=== PATIENT | male | born 1970 | race Caucasian/White ===

== ENCOUNTER 2023-04-27 13:57 | Observation (INO) ==
--- NOTE | 2023-04-27 14:00 | Emergency Department Note ---
Impression & Plan Depression, JAMI (acute kidney injury), Seizure disorder ED Provider Note NAME: KEN LOJA AGE: 52 SEX: M : 1970 ARRIVES VIA: Ambulance INFORMANT: Patient, ED PROVIDER(S): Aaron Rodriguez MD CHIEF COMPLAINT: Mental wellness concern MEDICAL DECISION MAKING: Patient was referred due to concern for mental wellness concern. Blood work was obtained. The patient was noted to have potentially CKD versus JAMI and given this concern with associated electrolyte abnormalities the decision was made to admit the patient inpatient with psychiatric consultation. An IV was ordered and cardiac monitoring was applied. Patient did receive some Diflucan for an intertriginous candidal rash. Blood work shows a normal white count H&H and platelet count. The patient's kidney function does show a creatinine of 2.6. Priors were less than 1. Patient's LFTs are grossly unremarkable with exception of mild elevation in alk phosphatase. TSH elevated but free T4 was normal. Salicylate Tylenol and alcohol negative. The patient was also noted to have hyponatremia. This was in relation to the patient describing that he had been a heavy drinker but stopped drinking approxi-3 weeks ago. Urine and serum osmolality was ordered in addition to urine electrolytes. I did speak with the on-call hospitalist service PAUL Mckinney and the patient was admitted by Dr. Frederick. Discussion w/ other healthcare providers: PAUL Mckinney and Dr. Frederick with the hospitalist service Prior /Outside records reviewed: I reviewed a prior discharge instruction patient transfer form from September 2018 and the patient did have associated mood disorder and suicidality the patient was transferred for inpatient treatment at that time Differential diagnosis: Mood disorder, infection, hypoglycemia, electrolyte abnormalities, dehydration, medication side effect among others were considered. Diagnostics, as interpreted by me: ECG: Normal sinus rhythm, rate of 90, normal intervals, normal axis no ST elevations, T wave inversion in V3. Cardiac monitoring: An order was placed for continuous cardiac monitoring. The monitor shows a rate of 88 with sinus rhythm. Patient was placed on pulse oximetry Medical decision rules: Suicide risk severity score Imaging studies: None HPI: Patient presents due to concern for making suicidal statements to his daughter. Patient states that he did have a plan to cut his wrists or to overdose on his medications. Patient does admit to thinking about harming himself. The patient denies any visual or auditory hallucinations. No reported falls or trauma. Patient does have a reported prior history of ulcerative colitis status post colectomy at he states was curative for this illness. PAST MEDICAL HISTORY: See Below PAST SURGICAL HISTORY: See Below SOCIAL HISTORY: See Below HOME MEDICATIONS: See Below ALLERGIES: See Below VITALS: See Below PHYSICAL EXAMINATION: GENERAL: NAD, non-toxic. EYE EXAM: Normal conjunctiva. PERRL, no anisocoria and EOM's grossly intact w/o pain. OROPHARYNX: Moist mucus membranes, grossly normal dentition. NECK: Supple, no nuchal rigidity, no adenopathy, non-tender. No signs of meningismus. FROM of the neck with good chin to chest and neck extension. No stridor. LUNGS: Clear to auscultation. Normal chest wall mechanics. HEART: NSR, no MRG. ABDOMEN: Abdomen soft, non-tender, no masses, no rebound or guarding. BACK: No CVA TTP. SKIN: No rashes and no bruising. UPPER EXTREMITIES: Upper extremities are grossly normal. LOWER EXTREMITIES: Grossly normal, no edema. NEURO EXAM: A&O x3, cranial nerves II-XII grossly intact, normal speech, moves all 4 extremities. Past Med/Surg History Medical History JAMI (acute kidney injury) Depression Seizure disorder Ulcerative colitis Surgical History No pertinent past surgical history Family History Other COPD (chronic obstructive pulmonary disease) Heart disease Social History Smoking Status: Current every day smoker Tobacco Type: Cigarettes Hx Alcohol Use: No Hx Substance Use: No Preferred Language: British Communication Ability: Effective .Net Architect Required: No Beliefs That Will Affect Care: None Current Living Situation: Alone Other Information That Helps Us Care for You: No Feels Safe at Home: Hesitant to Answer Safety Concerns: Feels Safe At This Time Assistive Devices: None Allergies Allergies Allergy/AdvReac Type Severity Reaction Status Date / Time tramadol AdvReac Intermediate seizure Verified 10/18/18 06:38 Home Meds Home Medications Medication Instructions Recorded Confirmed buspirone 5 mg tablet 5 mg PO TID 10/18/18 04/27/23 fluoxetine 40 mg capsule 40 mg PO QAM 10/18/18 04/27/23 lamotrigine 100 mg tablet 200 mg PO AMPM 10/18/18 04/27/23 lorazepam 1 mg tablet 1 mg PO TID 10/18/18 04/27/23 pantoprazole 40 mg tablet,delayed 40 mg PO QAM 10/18/18 04/27/23 release bupropion HCl 150 mg 24 hr tablet, 150 mg PO QAM 04/27/23 04/27/23 extended release fluoxetine 20 mg capsule 20 mg PO QAM 04/27/23 04/27/23 levetiracetam 1,000 mg tablet 1,000 mg PO AMPM 04/27/23 04/27/23 levetiracetam 250 mg tablet 250 mg PO AMPM 04/27/23 04/27/23 lisinopril 10 mg tablet 10 mg PO QAM 04/27/23 04/27/23 naltrexone 50 mg tablet 50 mg PO QAM 04/27/23 04/27/23 thiamine HCl (vitamin B1) 100 mg 100 mg PO QAM 04/27/23 04/27/23 tablet (Vitamin B-1) trazodone 50 mg tablet 50 mg PO HS 04/27/23 04/27/23 Results & Data (ED) Vital Signs Vital Signs - 24 hr 04/27/23 13:45 Temperature 36.9 C Temperature Source Oral Pulse Rate 118 H Respiratory Rate 20 Respiratory Effort / Characteristics Non-Labored Spontaneous Respiratory Depth Normal Blood Pressure 90/74 L Blood Pressure Mean 79 Pulse Oximetry 94 Oxygen Delivery Method Room Air Sepsis Recent Fever Within 48 Hours No Sepsis New/Unexplained Change in Mental Status No Sepsis Action Taken by Nursing No Action Required Home Medications Current Medication List: was personally reviewed by me Laboratory Data Attestation: I reviewed the patient's lab results. 04/28/23 04:22 04/28/23 04:22 Lab Results 04/27/23 04/27/23 04/27/23 Range/Units 15:28 15:28 15:28 WBC 7.18 (4.8-10.8) K/ul RBC 5.01 (4.70-6.10) M/uL Hgb 14.5 (14.0-18.0) g/dl Hct 42.3 (42.0-52.0) % MCV 84.4 (80.0-100.0) fL MCH 28.9 (25.0-34.0) pg MCHC 34.3 (32.0-36.0) g/dL RDW Std Deviation 46.6 H (36.4-46.3) fL RDW Coeff of Nadir 15.2 H (11.5-14.5) % Plt Count 178 (130-400) K/uL MPV 11.5 (9.4-12.4) fL Immature Gran % (Auto) 0.7 % Neut % (Auto) 70.2 % Lymph % (Auto) 17.3 % Harlan % (Auto) 9.6 % Eos % (Auto) 1.4 % Baso % (Auto) 0.8 % Neut # (Auto) 5.04 (1.40-6.50) K/uL Lymph # (Auto) 1.24 (1.20-3.40) K/uL Harlan # (Auto) 0.69 H (0.11-0.59) K/uL Eos # (Auto) 0.10 (0.00-0.50) K/uL Baso # (Auto) 0.06 (0.00-0.20) K/uL Immature Gran # (Auto) 0.05 (0.01-0.20) K/uL Sodium 132 L (136-145) mmol/L Potassium 4.3 (3.5-5.1) mmol/L Chloride 93 L (98-107) mmol/L Carbon Dioxide 23 (21-32) mmol/L Anion Gap 16 H (3-11) BUN 113 H (6-23) mg/dl Creatinine 2.64 H (0.6-1.4) mg/dl Est Cr Clr Drug Dosing 41.4 ml/min Est GFR ( Amer) 30.9 ml/min Est GFR (Non-Af Amer) 26.6 ml/min BUN/Creatinine Ratio 42.8 H (10-20) Glucose 121 H (70-99(Fasting)) mg/dl Osmolality (280-300) mOsm/kg Calcium 10.4 H (8.6-10.3) mg/dl Total Bilirubin 0.4 (0.2-1.0) mg/dl AST 17 (13-39) U/L ALT 8 (7-52) U/L Alkaline Phosphatase 162 H (34-104) U/L Total Protein 8.0 (6.0-8.3) gm/dl Albumin 4.2 (3.4-5.0) gm/dl Globulin 3.8 (2.5-4.0) gm/dl Albumin/Globulin Ratio 1.1 (0.9-2) TSH 5.240 H (0.300-4.500) uIu/ml Free T4 0.92 (0.61-1.60) ng/dl Urine Color Urine Appearance (Clear) Urine pH (4.5-7.5) Ur Specific [place] (1.000-1.030) Urine Protein (Negative) Urine Glucose (UA) (Negative) Urine Ketones (Negative) Urine Blood (Negative) Urine Nitrite (Negative) Urine Bilirubin (Negative) Urine Urobilinogen (Negative) Ur Leukocyte Esterase (Negative) Urine WBC (Auto) (0-5) /hpf Urine RBC (Auto) (0-4) /hpf U Hyaline Cast (Auto) (0-5) /lpf U Epithel Cells (Auto) (0-5) /lpf Urine Bacteria (Auto) (Negative) Urine Yeast Urine Osmolality (500-800) mOsm/kg Urine Sodium mmol/L Urine Potassium mmol/L Urine Chloride mmol/L Salicylates < 3.0 L (3.0-30) mg/dl Urine Opiates Screen (Neg) Ur Methadone, Qual (Neg) Acetaminophen < 3 L (10-30) ug/ml Urine Barbiturates (Neg) Ur Phencyclidine (PCP) (Neg) U Amphetamin/Meth Scrn (Neg) MDMA (Ecstasy) Screen (Neg) U Benzodiazepines Scrn (Neg) Ur Cocaine Metabolite (Neg) U Marijuana (THC) Screen (Neg) Ethyl Alcohol mg/dL (<10.0) mg/dl SARS-CoV-2, RNA, NAAT (NEGATIVE) 04/27/23 04/27/23 04/27/23 Range/Units 15:28 15:28 15:28 WBC (4.8-10.8) K/ul RBC (4.70-6.10) M/uL Hgb (14.0-18.0) g/dl Hct (42.0-52.0) % MCV (80.0-100.0) fL MCH (25.0-34.0) pg MCHC (32.0-36.0) g/dL RDW Std Deviation (36.4-46.3) fL RDW Coeff of Nadir (11.5-14.5) % Plt Count (130-400) K/uL MPV (9.4-12.4) fL Immature Gran % (Auto) % Neut % (Auto) % Lymph % (Auto) % Harlan % (Auto) % Eos % (Auto) % Baso % (Auto) % Neut # (Auto) (1.40-6.50) K/uL Lymph # (Auto) (1.20-3.40) K/uL Harlan # (Auto) (0.11-0.59) K/uL Eos # (Auto) (0.00-0.50) K/uL Baso # (Auto) (0.00-0.20) K/uL Immature Gran # (Auto) (0.01-0.20) K/uL Sodium (136-145) mmol/L Potassium (3.5-5.1) mmol/L Chloride (98-107) mmol/L Carbon Dioxide (21-32) mmol/L Anion Gap (3-11) BUN (6-23) mg/dl Creatinine (0.6-1.4) mg/dl Est Cr Clr Drug Dosing ml/min Est GFR ( Amer) ml/min Est GFR (Non-Af Amer) ml/min BUN/Creatinine Ratio (10-20) Glucose (70-99(Fasting)) mg/dl Osmolality 326 H (280-300) mOsm/kg Calcium (8.6-10.3) mg/dl Total Bilirubin (0.2-1.0) mg/dl AST (13-39) U/L ALT (7-52) U/L Alkaline Phosphatase (34-104) U/L Total Protein (6.0-8.3) gm/dl Albumin (3.4-5.0) gm/dl Globulin (2.5-4.0) gm/dl Albumin/Globulin Ratio (0.9-2) TSH (0.300-4.500) uIu/ml Free T4 (0.61-1.60) ng/dl Urine Color Urine Appearance (Clear) Urine pH (4.5-7.5) Ur Specific [place] (1.000-1.030) Urine Protein (Negative) Urine Glucose (UA) (Negative) Urine Ketones (Negative) Urine Blood (Negative) Urine Nitrite (Negative) Urine Bilirubin (Negative) Urine Urobilinogen (Negative) Ur Leukocyte Esterase (Negative) Urine WBC (Auto) (0-5) /hpf Urine RBC (Auto) (0-4) /hpf U Hyaline Cast (Auto) (0-5) /lpf U Epithel Cells (Auto) (0-5) /lpf Urine Bacteria (Auto) (Negative) Urine Yeast Urine Osmolality (500-800) mOsm/kg Urine Sodium mmol/L Urine Potassium mmol/L Urine Chloride mmol/L Salicylates (3.0-30) mg/dl Urine Opiates Screen (Neg) Ur Methadone, Qual (Neg) Acetaminophen (10-30) ug/ml Urine Barbiturates (Neg) Ur Phencyclidine (PCP) (Neg) U Amphetamin/Meth Scrn (Neg) MDMA (Ecstasy) Screen (Neg) U Benzodiazepines Scrn (Neg) Ur Cocaine Metabolite (Neg) U Marijuana (THC) Screen (Neg) Ethyl Alcohol mg/dL < 10.0 (<10.0) mg/dl SARS-CoV-2, RNA, NAAT NEGATIVE (NEGATIVE) 04/27/23 04/27/23 04/27/23 Range/Units 16:28 16:28 16:28 WBC (4.8-10.8) K/ul RBC (4.70-6.10) M/uL Hgb (14.0-18.0) g/dl Hct (42.0-52.0) % MCV (80.0-100.0) fL MCH (25.0-34.0) pg MCHC (32.0-36.0) g/dL RDW Std Deviation (36.4-46.3) fL RDW Coeff of Nadir (11.5-14.5) % Plt Count (130-400) K/uL MPV (9.4-12.4) fL Immature Gran % (Auto) % Neut % (Auto) % Lymph % (Auto) % [place] % (Auto) % Eos % (Auto) % Baso % (Auto) % Neut # (Auto) (1.40-6.50) K/uL Lymph # (Auto) (1.20-3.40) K/uL [place] # (Auto) (0.11-0.59) K/uL Eos # (Auto) (0.00-0.50) K/uL Baso # (Auto) (0.00-0.20) K/uL Immature Gran # (Auto) (0.01-0.20) K/uL Sodium (136-145) mmol/L Potassium (3.5-5.1) mmol/L Chloride (98-107) mmol/L Carbon Dioxide (21-32) mmol/L Anion Gap (3-11) BUN (6-23) mg/dl Creatinine (0.6-1.4) mg/dl Est Cr Clr Drug Dosing ml/min Est GFR ( Amer) ml/min Est GFR (Non-Af Amer) ml/min BUN/Creatinine Ratio (10-20) Glucose (70-99(Fasting)) mg/dl Osmolality (280-300) mOsm/kg Calcium (8.6-10.3) mg/dl Total Bilirubin (0.2-1.0) mg/dl AST (13-39) U/L ALT (7-52) U/L Alkaline Phosphatase (34-104) U/L Total Protein (6.0-8.3) gm/dl Albumin (3.4-5.0) gm/dl Globulin (2.5-4.0) gm/dl Albumin/Globulin Ratio (0.9-2) TSH (0.300-4.500) uIu/ml Free T4 (0.61-1.60) ng/dl Urine Color Yellow Urine Appearance Clear (Clear) Urine pH 5.5 (4.5-7.5) Ur Specific [place] 1.017 (1.000-1.030) Urine Protein Trace H (Negative) Urine Glucose (UA) Negative (Negative) Urine Ketones 1+ H (Negative) Urine Blood 1+ H (Negative) Urine Nitrite Negative (Negative) Urine Bilirubin Negative (Negative) Urine Urobilinogen Negative (Negative) Ur Leukocyte Esterase 2+ H (Negative) Urine WBC (Auto) 1-5 (0-5) /hpf Urine RBC (Auto) 0-4 (0-4) /hpf U Hyaline Cast (Auto) 0 (0-5) /lpf U Epithel Cells (Auto) 10-20 H (0-5) /lpf Urine Bacteria (Auto) 1+ H (Negative) Urine Yeast Not Reportable Urine Osmolality 487 L (500-800) mOsm/kg Urine Sodium mmol/L Urine Potassium mmol/L Urine Chloride mmol/L Salicylates (3.0-30) mg/dl Urine Opiates Screen Neg (Neg) Ur Methadone, Qual Neg (Neg) Acetaminophen (10-30) ug/ml Urine Barbiturates Neg (Neg) Ur Phencyclidine (PCP) Neg (Neg) U Amphetamin/Meth Scrn Neg (Neg) MDMA (Ecstasy) Screen Pos H (Neg) U Benzodiazepines Scrn Neg (Neg) Ur Cocaine Metabolite Neg (Neg) U Marijuana (THC) Screen Neg (Neg) Ethyl Alcohol mg/dL (<10.0) mg/dl SARS-CoV-2, RNA, NAAT (NEGATIVE) 04/27/23 Range/Units 16:28 WBC (4.8-10.8) K/ul RBC (4.70-6.10) M/uL Hgb (14.0-18.0) g/dl Hct (42.0-52.0) % MCV (80.0-100.0) fL MCH (25.0-34.0) pg MCHC (32.0-36.0) g/dL RDW Std Deviation (36.4-46.3) fL RDW Coeff of Nadir (11.5-14.5) % Plt Count (130-400) K/uL MPV (9.4-12.4) fL Immature Gran % (Auto) % Neut % (Auto) % Lymph % (Auto) % [place] % (Auto) % Eos % (Auto) % Baso % (Auto) % Neut # (Auto) (1.40-6.50) K/uL Lymph # (Auto) (1.20-3.40) K/uL [place] # (Auto) (0.11-0.59) K/uL Eos # (Auto) (0.00-0.50) K/uL Baso # (Auto) (0.00-0.20) K/uL Immature Gran # (Auto) (0.01-0.20) K/uL Sodium (136-145) mmol/L Potassium (3.5-5.1) mmol/L Chloride (98-107) mmol/L Carbon Dioxide (21-32) mmol/L Anion Gap (3-11) BUN (6-23) mg/dl Creatinine (0.6-1.4) mg/dl Est Cr Clr Drug Dosing ml/min Est GFR ( Amer) ml/min Est GFR (Non-Af Amer) ml/min BUN/Creatinine Ratio (10-20) Glucose (70-99(Fasting)) mg/dl Osmolality (280-300) mOsm/kg Calcium (8.6-10.3) mg/dl Total Bilirubin (0.2-1.0) mg/dl AST (13-39) U/L ALT (7-52) U/L Alkaline Phosphatase (34-104) U/L Total Protein (6.0-8.3) gm/dl Albumin (3.4-5.0) gm/dl Globulin (2.5-4.0) gm/dl Albumin/Globulin Ratio (0.9-2) TSH (0.300-4.500) uIu/ml Free T4 (0.61-1.60) ng/dl Urine Color Urine Appearance (Clear) Urine pH (4.5-7.5) Ur Specific [place] (1.000-1.030) Urine Protein (Negative) Urine Glucose (UA) (Negative) Urine Ketones (Negative) Urine Blood (Negative) Urine Nitrite (Negative) Urine Bilirubin (Negative) Urine Urobilinogen (Negative) Ur Leukocyte Esterase (Negative) Urine WBC (Auto) (0-5) /hpf Urine RBC (Auto) (0-4) /hpf U Hyaline Cast (Auto) (0-5) /lpf U Epithel Cells (Auto) (0-5) /lpf Urine Bacteria (Auto) (Negative) Urine Yeast Urine Osmolality (500-800) mOsm/kg Urine Sodium 10 mmol/L Urine Potassium 9.9 mmol/L Urine Chloride < 15 mmol/L Salicylates (3.0-30) mg/dl Urine Opiates Screen (Neg) Ur Methadone, Qual (Neg) Acetaminophen (10-30) ug/ml Urine Barbiturates (Neg) Ur Phencyclidine (PCP) (Neg) U Amphetamin/Meth Scrn (Neg) MDMA (Ecstasy) Screen (Neg) U Benzodiazepines Scrn (Neg) Ur Cocaine Metabolite (Neg) U Marijuana (THC) Screen (Neg) Ethyl Alcohol mg/dL (<10.0) mg/dl SARS-CoV-2, RNA, NAAT (NEGATIVE) Administered Medications Enoxaparin Sodium (Enoxaparin Inj 40 Mg/0.4 Ml Syr) 40 mg SQ QAM ADI Stop: 05/28/23 08:59 Last Admin: 04/28/23 08:47 Dose: 40 mg Documented By: OL Fluoxetine HCl (Fluoxetine Hcl 20 Mg Cap) 40 mg PO QAM ADI Stop: 05/28/23 08:59 Last Admin: 04/28/23 08:47 Dose: 40 mg Documented By: OL Fluoxetine HCl (Fluoxetine Hcl 20 Mg Cap) 20 mg PO QAM ADI Stop: 05/28/23 08:59 Last Admin: 04/28/23 08:47 Dose: 20 mg Documented By: OL Sodium Chloride (Nss) 1,000 mls @ 100 mls/hr IV .Q10H ADI Stop: 04/29/23 00:59 Last Admin: 04/28/23 15:09 Dose: 100 mls/hr Documented By: Infusion: 04/28/23 14:39 Dose: 100 mls/hr Documented By: Admin: 04/28/23 04:39 Dose: 100 mls/hr Documented By: Infusion: 04/28/23 04:37 Dose: 100 mls/hr Documented By: dye weigher: 04/27/23 18:37 Dose: 100 mls/hr Documented By: ANG Thiamine HCl 100 mg/ Syringe 10 mls @ 2 mls/min IV QAM ADI Stop: 05/28/23 08:59 Last Admin: 04/28/23 09:41 Dose: 2 mls/min Documented By: OL Folic Acid 1 mg/ Syringe 10 mls @ 5 mls/min IV QAM ADI Stop: 05/28/23 08:59 Last Admin: 04/28/23 09:41 Dose: 5 mls/min Documented By: OL Lactobacillus Acidophilus (Advanced Probiotic 1250 Mg Capsule) 2 cap PO DAILY ADI Stop: 05/28/23 15:14 Last Admin: 04/28/23 16:44 Dose: 2 cap Documented By: MT Levetiracetam (Levetiracetam 250 Mg Tab) 250 mg PO BID ADI Stop: 05/27/23 20:59 Last Admin: 04/28/23 09:40 Dose: 250 mg Documented By: Admin: 04/27/23 21:35 Dose: 250 mg Documented By: GILDA Levetiracetam (Levetiracetam 500 Mg Tab) 1,000 mg PO BID ADI Stop: 05/27/23 20:59 Last Admin: 04/28/23 08:46 Dose: 1,000 mg Documented By: Admin: 04/27/23 21:35 Dose: 1,000 mg Documented By: GILDA Lorazepam (Lorazepam 1 Mg Tab) 2 mg PO UD PRN; Protocol PRN Reason: EtOH Withdrawal AWSS Score 8,9 Stop: 05/28/23 17:19 Last Admin: 04/28/23 17:40 Dose: 2 mg Documented By: RIAN Naltrexone HCl (Naltrexone Hcl 50 Mg Tab) 50 mg PO QAM [facility] Stop: 05/28/23 15:14 Last Admin: 04/28/23 16:44 Dose: 50 mg Documented By: RIAN Pantoprazole Sodium (Pantoprazole 40 Mg Tab) 40 mg PO QAM [facility] Stop: 05/28/23 08:59 Last Admin: 04/28/23 09:03 Dose: 40 mg Documented By: KAYE Discontinued Medications Fluconazole (Fluconazole 50 Mg Tab) 150 mg PO NOW ONE Stop: 04/27/23 14:44 Last Admin: 04/27/23 16:11 Dose: 150 mg Documented By: RACHEL Sodium Chloride (Nss) 1,000 mls @ 999 mls/hr IV .Q1H1M ONE Stop: 04/27/23 17:50 Last Infusion: 04/27/23 18:38 Dose: 0 mls/hr Documented By: Admin: 04/27/23 17:23 Dose: 999 mls/hr Documented By: EDITH Thiamine HCl 100 mg/ Syringe 10 mls @ 2 mls/min IV 1745 ONE Stop: 04/27/23 17:49 Last Admin: 04/27/23 17:46 Dose: 2 mls/min Documented By: RACHEL Folic Acid 1 mg/ Syringe 10 mls @ 5 mls/min IV 1745 ONE Stop: 04/27/23 17:46 Last Admin: 04/27/23 17:46 Dose: 5 mls/min Documented By: RACHEL Magnesium Sulfate/Dextrose (Magnesium Sulfate / D5w) 1 gm in 100 mls @ 50 mls /hr IV Q2H ADI Stop: 04/28/23 12:14 Last Infusion: 04/28/23 14:02 Dose: 0 mls/hr Documented By: Admin: 04/28/23 11:57 Dose: 50 mls/hr Documented By: Infusion: 04/28/23 11:41 Dose: 50 mls/hr Documented By: Admin: 04/28/23 09:41 Dose: 50 mls/hr Documented By: KAYE Ceftriaxone Sodium 2,000 mg/ (Dextrose) 70 mls @ 100 mls/hr IV DAILY ADI; Protocol Stop: 05/03/23 08:59 Last Infusion: 04/28/23 09:47 Dose: 0 mls/hr Documented By: Admin: 04/28/23 08:46 Dose: 100 mls/hr Documented By: KAYE Discharge Plan Visit Data Chief Complaint: Mental Health Evaluation ED Provider: Aaron Rodriguez Discharge Problem: Depression, JAMI (acute kidney injury), Seizure disorder Discharge Instructions Interventions: ED Discharge Assessment Last Done: 04/27/23 19:34
[2023-04-27] MEDS ORDERED: FLUCONAZOLE 50 MG TAB PO ONE (14:43)
[2023-04-27 15:50] LABS: Basophils # (auto) 0.06 K/uL (0.00-0.20); Basophils % (auto) 0.8 %; Eosinophils % (auto) 1.4 %; Hematocrit (blood only) 42.3 % (42.0-52.0); Hemoglobin 14.5 g/dl (14.0-18.0); Immature Granulocytes # (auto) 0.05 K/uL (0.01-0.20); Immature Granulocytes % (auto) 0.7 %; Lymphocytes # (auto) 1.24 K/uL (1.20-3.40); Lymphocytes % (auto) 17.3 %; Mean Corpuscular Hemoglobin 28.9 pg (25.0-34.0); Mean Corpuscular Hgb Conc 34.3 g/dL (32.0-36.0); Mean Corpuscular Volume 84.4 fL (80.0-100.0); Mean Platelet Volume 11.5 fL (9.4-12.4); Monocytes # (auto) 0.69 K/uL (0.11-0.59); Monocytes % (auto) 9.6 %; Neutrophils # (auto) 5.04 K/uL (1.40-6.50); Neutrophils % (auto) 70.2 %; Platelet Count 178 K/uL (130-400); RDW Coefficient of Variation 15.2 % (11.5-14.5); RDW Standard Deviation 46.6 fL (36.4-46.3); Red Blood Count 5.01 M/uL (4.70-6.10); White Blood Count 7.18 K/ul (4.8-10.8)
[2023-04-27 16:05] LABS: Acetaminophen < 3 ug/ml (10-30); Albumin Globulin Ratio 1.1 (0.9-2); Albumin Level 4.2 gm/dl (3.4-5.0); BUN Creatinine Ratio 42.8 (10-20); Bilirubin,Total 0.4 mg/dl (0.2-1.0); Calcium 10.4 mg/dl (8.6-10.3); Creatinine Clr Calc Pharmacy 41.4 ml/min; Est GFR (African American) 30.9 ml/min; Est GFR (Non-African American) 26.6 ml/min; Globulin 3.8 gm/dl (2.5-4.0); Potassium 4.3 mmol/L (3.5-5.1); Salicylate < 3.0 mg/dl (3.0-30)
[2023-04-27 16:19] LABS: Thyroid Stimulating Hormone 5.24 uIu/ml (0.300-4.500)
[2023-04-27 16:41] LABS: Appearance Urine Clear (Clear); Bilirubin Urine Negative (Negative); Blood Urine 1+ (Negative); Cast Urine Automated 0 /lpf (0-5); Color Urine Yellow; Glucose Urine UA Negative (Negative); Ketones Urine 1+ (Negative); Leukocyte Esterase Urine 2+ (Negative); Nitrite Urine Negative (Negative); Protein Urine Trace (Negative); RBC Urine Automated 0-4 /hpf (0-4); Specific Gravity Urine 1.017 (1.000-1.030); Urobilinogen Urine Negative (Negative); pH Urine 5.5 (4.5-7.5)
[2023-04-27] MEDS ORDERED: SODIUM CHLORIDE 0.9% 1,000 ML IV ONE (16:50)
[2023-04-27] MEDS ORDERED: MAGNESIUM HYDROXIDE SUSP 30 ML UDC PO PRN (16:51)
[2023-04-27] MEDS ORDERED: POLYETHYLENE (MIRALAX) 17 GM PACK PO PRN (16:51)
[2023-04-27] MEDS ORDERED: ALUMINUM/MAGNESIUM SUSP 30 ML UDC PO PRN (16:51)
[2023-04-27 16:54] LABS: Bacteria Urine Automated 1+ (Negative)
--- NOTE | 2023-04-27 16:59 | History & Physical Report ---
Date of Service April 27, 2023 Assessment & Plan (1) Seizure disorder: (2) Alcohol abuse: (3) Mood disorder: (4) Suicidal ideation: (5) Depression: (6) JAMI (acute kidney injury): Plan Mr. Hernandez is an unfortunate 52 year old male that arrived to the ED via EMS after he was making suicidal statements to his daughter. He is unkempt and disheveled and admitted to having a suicidal plan by cutting his wrists. He states that he has felt this way for about a week. Has a PMH that includes HTN and seizure disorder. Does not follow with any Neurologist. Has an additional PMH includes Ulcerative colitis s/p total colectomy in the early . Does not follow with any specific PCP at this time. No leukocytosis, BUN 113 and creatinine 2.64; likely secondary to dehydration and poor PO intake, TSH elevated 5.240. UDS and UA pending. Hemodynamically stable and on RA. Denies bipolar or schizophrenia mental history; only depression and anxiety. Would benefit from OOA involvement as he does live alone. Ultimately, a mentally unwell individual with poor coping mechanisms and history and current SI. Admits to feelings of harming himself over the past week. No significant event occurred over the past week that he can specifically recall. Reports drinking 1 L of alcohol daily up until a few weeks ago. Reports his last drink was a few weeks ago. Denies visual and auditory hallucinations. Patient also with JAMI; Will provide fluid resuscitation and trend BMP. If no improvement consider Nephro consultation. Will place on 1:1 observation.Will restart Prozac and Keppra and await Psychiatric recommendations. Suicidal Ideation: Has been on compliant with psych meds x1 week He has a history of suicidal ideation [place] Suicide Risk Severity Score: -Have you actually had thoughts of killing yourself: yes -Have you been thinking about how you might do this: Yes -Have you had these thoughts and had some intention of acting on them: Yes -Have you started to work out details of how to kill yourself? Do you intend to carry out this plan? No -Have you done anything, started to do anything, or prepared to do anything to end your life: No He reports that he does not have guns in his home. Psychiatric consultation for suicidal ideation and anxiety JAMI: likely secondary to dehydration creatinine 2.64, BUN 113. Unknown baseline documented 1 LNSB administered in ED; will continue 0.9% NS @ 100mL/hour. trend BMP in AM; if no improvement consider Nephrology consultation H/O Alcohol abuse: Last drink a few weeks ago AWSS scale with Thiamine and Folic Acid ordered daily Intake approximately 1 L vodka per day. Takes naltrexone; hold for now Mood Disorder: Has been on compliant with psych meds x1 week Takes Buspar, lorazepam, and Trazaone; hold for now as patient non-complaint Takes Fluoxetine; continue Await Psych reccs for further medication treatment H/O Seizure disorder: Chronic stable Takes Lamictal; hold until Lamictal levels return results Takes Keppra; continue for now Unclear if he takes these for seizure or mood disorder HTN: chronic stable Takes Lisinopril; hold secondary to JAMI H/O Ulcerative Colitis: chronic stable S/P total colectomy in early GERD: chronic stable Takes Pantoprazole; continue Disposition: PCP: None Code Status: Full Code VTE Prophylaxis: Lovenox SQ I spent a total of 87 minutes coordinating, documenting, and providing care for this patient excluding time spent in the performance of separately billed services. All of the aforementioned completed while collaborating with the assigned attending physician for a full treatment plan. Please see their addendum for further details. History of Present Illness Chief Complaint: suicidal ideation Primary Care Provider: NO PCP Mr. Hernandez is an unfortunate 52 year old male that arrived to the ED via EMS after he was making suicidal statements to his daughter. He is unkempt and disheveled and admitted to having a suicidal plan by cutting his wrists. He states that he has felt this way for about a week. Has a PMH that includes HTN and seizure disorder. Does not follow with any Neurologist. Has an additional PMH includes Ulcerative colitis s/p total colectomy in the early . Does not follow with any specific PCP at this time. No leukocytosis, BUN 113 and creatinine 2.64; likely secondary to dehydration and poor PO intake, TSH elevated 5.240. UDS and UA pending. Hemodynamically stable and on RA. Would benefit from OOA involvement as he does live alone. [place] Suicide Severity Rating Scale (C-SSRS); -Have you actually had thoughts of killing yourself: yes -Have you been thinking about how you might do this: Yes -Have you had these thoughts and had some intention of acting on them: Yes -Have you started to work out details of how to kill yourself? Do you intend to carry out this plan? No -Have you done anything, started to do anything, or prepared to do anything to end your life: No He reports that he does not have guns in his home. He has a history of suicidal ideation and has Psychiatric consultation for suicidal ideation and anxiety Ultimately, a mentally unwell individual with poor coping mechanisms and history and current SI. Admits to feelings of harming himself over the past week. No significant event ocurred over the past week that he can specifically recall. Reports drinking 1 L of alcohol daily up until a few weeks ago. Reports his last drink was a few weeks ago. Denies visual and auditory hallucinations. Will provide fluid resuscitation and restart Prozac and Keppra. Will place on 1:1 observation and await Psychiatric recommendations. Patient will be admitted for further evaluation and management. Please see A/P for further details. Allergies Allergy/AdvReac Type Severity Reaction Status Date / Time tramadol AdvReac Intermediate seizure Verified 10/18/18 06:38 Home Medications Medication Instructions Recorded Confirmed Type buspirone 5 mg tablet 5 mg PO TID 10/18/18 04/27/23 History fluoxetine 40 mg capsule 40 mg PO QAM 10/18/18 04/27/23 History lamotrigine 100 mg tablet 200 mg PO AMPM 10/18/18 04/27/23 History lorazepam 1 mg tablet 1 mg PO TID 10/18/18 04/27/23 History pantoprazole 40 mg tablet,delayed 40 mg PO QAM 10/18/18 04/27/23 History release bupropion HCl 150 mg 24 hr tablet, 150 mg PO QAM 04/27/23 04/27/23 History extended release fluoxetine 20 mg capsule 20 mg PO QAM 04/27/23 04/27/23 History levetiracetam 1,000 mg tablet 1,000 mg PO AMPM 04/27/23 04/27/23 History levetiracetam 250 mg tablet 250 mg PO AMPM 04/27/23 04/27/23 History lisinopril 10 mg tablet 10 mg PO QAM 04/27/23 04/27/23 History naltrexone 50 mg tablet 50 mg PO QAM 04/27/23 04/27/23 History thiamine HCl (vitamin B1) 100 mg 100 mg PO QAM 04/27/23 04/27/23 History tablet (Vitamin B-1) trazodone 50 mg tablet 50 mg PO HS 04/27/23 04/27/23 History Past Med/Surg History Medical History (Updated 04/27/23 @ 19:08 by PAUL Jordan) JAMI (acute kidney injury) Depression Seizure disorder Ulcerative colitis Surgical History (Updated 04/27/23 @ 18:31 by PAUL Jordan) No pertinent past surgical history Family History (Updated 04/27/23 @ 18:32 by PAUL Jordan) Other COPD (chronic obstructive pulmonary disease) Heart disease Social History Smoking Status: Unknown if ever smoked Feels Safe at Home: Yes Review of Systems Review of Systems: Neuro: (-) Falls, trauma, slurred speech HEENT: (-) BEN[place], dizziness, dysphagia, visual or auditory changes CV: (-) CP, palpitations, swelling Resp: (-) SOB GI: (-) appetite changes, N/V/D, bowel changes : (-) urinary changes Skin: (-) rashes Psych: (+) anxiety, depression Physical Exam Physical Exam: See Dr. Esquivel's addendum for physical examination Results & Data Results & Data Vital Signs (Past 12 Hours) Vital Signs Temp Pulse Pulse Resp BP BP Pulse Ox 04/27/23 16:00 87 14 113/64 96 04/27/23 13:45 36.9 C 118 H 20 90/74 L 94 O2 Del Method 04/27/23 16:00 Room Air 04/27/23 13:45 Room Air Laboratory Results Short CBC 04/27/23 Range/Units 15:28 WBC 7.18 (4.8-10.8) K/ul Hgb 14.5 (14.0-18.0) g/dl Hct 42.3 (42.0-52.0) % Plt Count 178 (130-400) K/uL BMP 04/27/23 15:28 Sodium 132 L Potassium 4.3 Chloride 93 L Carbon Dioxide 23 BUN 113 H Creatinine 2.64 H Glucose 121 H Calcium 10.4 H Liver Function 04/27/23 Range/Units 15:28 Total Bilirubin 0.4 (0.2-1.0) mg/dl AST 17 (13-39) U/L ALT 8 (7-52) U/L Alkaline Phosphatase 162 H (34-104) U/L Albumin 4.2 (3.4-5.0) gm/dl Urine 04/27/23 Range/Units 16:28 Urine Color Yellow Urine Appearance Clear (Clear) Urine pH 5.5 (4.5-7.5) Ur Specific [place] 1.017 (1.000-1.030) Urine Protein Trace H (Negative) Urine Glucose (UA) Negative (Negative) Code Status & VTE Plan Code Status Full Code in the event of cardiac or respiratory arrest VTE Prophylaxis Plan VTE Prophylaxis will be ordered: Yes Supervising Physician Co-Signing Physician Notes Pt is a 52 y/o M with hx of UC s/p total colectomy, Post traumatic seizure, depr ession, prior hx of SI, Alcohol abuse admitted for SI and found to have JAMI. PE: Flat affect Lungs: CTA, no wheezing or crackles Cardiac: Normal S1/S2, no murmur Abd: ND, NT, soft MSk: no LE edema and no noticeable tremors Psych: AAOx3 A/P: JAMI with hypoNa+: -likely 2/2 decrease PO intake + excess ETOH use - per pt he last drank ETOH 2 weeks ago ---- however will put pt on withdrawal protocol -pt is sched to receive IVF 1L ----- will monitor BMP -urine lytes, OSM and serum OSm Sent - nephro consult if the JAMI and hypoNa+ persist Depression with SI: -pt has not been taking any of his meds -will restart Prozac for now -psych consult -one to one Hx of Seizure: -no recent seizure episode -will restart keppra 1000mg BID other chronic conditions: plan as above Agree with A/P by PAUL Houston
[2023-04-27 17:04] LABS: T4 Free Thyroxine 0.92 ng/dl (0.61-1.60)
[2023-04-27 17:09] LABS: Amphetamines+Metham, Urine Neg (Neg); Barbiturates, Urine Neg (Neg); Benzodiazepine, Urine Neg (Neg); Cocaine, Urine Neg (Neg); MDMA (Ecstacy), Urine Pos (Neg); Marijuana, Urine Neg (Neg); Methadone, Urine Neg (Neg); Opiate, Urine Neg (Neg); Phencyclidine, Urine Neg (Neg)
[2023-04-27 17:15] LABS: Urine Chloride < 15 mmol/L; Urine Potassium 9.9 mmol/L; Urine Sodium 10 mmol/L
[2023-04-27] MEDS ORDERED: FOLIC ACID 1 MG in SYRINGE 9.8 ML IV ONE (17:45)
[2023-04-27] MEDS ORDERED: THIAMINE HCL 100 MG in SYRINGE 9 ML IV ONE (17:45)
[2023-04-27] MEDS: SODIUM CHLORIDE 0.9% 1,000 ML IV SCH (18:37)
[2023-04-27] MEDS: levETIRAcetam 500 MG TAB PO SCH (21:35)
[2023-04-27] MEDS: levETIRAcetam 250 MG TAB PO SCH (21:35)
[2023-04-28] MEDS: SODIUM CHLORIDE 0.9% 1,000 ML IV SCH ×2 (04:39→15:09)
[2023-04-28 05:04] LABS: Albumin Globulin Ratio 1.1 (0.9-2); Albumin Level 3.8 gm/dl (3.4-5.0); BUN Creatinine Ratio 51.6 (10-20); Bilirubin,Total 0.3 mg/dl (0.2-1.0); Calcium 9.2 mg/dl (8.6-10.3); Est GFR (African American) 48.4 ml/min; Est GFR (Non-African American) 41.8 ml/min; Globulin 3.5 gm/dl (2.5-4.0); Magnesium 1.4 mg/dl (1.7-2.4); Phosphorus 2.7 mg/dl (2.5-4.9); Potassium 4.1 mmol/L (3.5-5.1); Total Protein 7.3 gm/dl (6.0-8.3)
[2023-04-28 05:06] LABS: Hematocrit (blood only) 39.5 % (42.0-52.0); Hemoglobin 13.5 g/dl (14.0-18.0); Mean Corpuscular Hemoglobin 29.2 pg (25.0-34.0); Mean Corpuscular Hgb Conc 34.2 g/dL (32.0-36.0); Mean Corpuscular Volume 85.3 fL (80.0-100.0); Mean Platelet Volume 11.4 fL (9.4-12.4); Platelet Count 160 K/uL (130-400); RDW Standard Deviation 46.5 fL (36.4-46.3); Red Blood Count 4.63 M/uL (4.70-6.10); White Blood Count 7.58 K/ul (4.8-10.8)
[2023-04-28] MEDS: levETIRAcetam 500 MG TAB PO SCH ×2 (08:46→20:47)
[2023-04-28] MEDS: FLUoxetine HCL 20 MG CAP PO SCH ×2 (08:47)
[2023-04-28] MEDS: ENOXAPARIN INJ 40 MG/0.4 ML SYR SQ SCH (08:47)
[2023-04-28] MEDS ORDERED: cefTRIAXone SODIUM 2,000 MG in DEXTROSE 5% 50 ML IV SCH (09:00)
[2023-04-28] MEDS: PANTOprazole 40 MG TAB PO SCH (09:03)
[2023-04-28] MEDS: levETIRAcetam 250 MG TAB PO SCH ×2 (09:40→20:48)
[2023-04-28] MEDS: MAGNESIUM SULFATE / D5W 1 GM/100 ML BAG IV SCH ×2 (09:41→11:57)
[2023-04-28] MEDS: THIAMINE HCL 100 MG in SYRINGE 9 ML IV SCH (09:41)
[2023-04-28] MEDS: FOLIC ACID 1 MG in SYRINGE 9.8 ML IV SCH (09:41)
--- NOTE | 2023-04-28 15:45 | Hospitalist Progress Note ---
Date of Service April 28, 2023 Assessment & Plan (1) Seizure disorder: (2) Alcohol abuse: (3) Mood disorder: (4) Suicidal ideation: (5) Depression: (6) JAMI (acute kidney injury): Plan Mr. Hernandez is a 52 yr old male that arrived to the ED via EMS after he was making suicidal statements to his daughter. He is unkempt and disheveled and admitted to having a suicidal plan by cutting his wrists. He states that he has felt this way for about a week. Has a PMH that includes HTN and seizure disorder. Does not follow with any Neurologist. Has an additional PMH includes Ulcerative colitis s/p total colectomy in the early . Does not follow with any specific PCP at this time. No leukocytosis, BUN 113 and creatinine 2.64; likely secondary to dehydration and poor PO intake, TSH elevated 5.240. UDS and UA pending. Hemodynamically stable and on RA. Denies bipolar or schizophrenia mental history; only depression and anxiety. Would benefit from OOA involvement as he does live alone. Ultimately, a mentally unwell individual with poor coping mechanisms and history and current SI. Admits to feelings of harming himself over the past week. No significant event occurred over the past week that he can specifically recall. Reports drinking 1 L of alcohol daily up until a few weeks ago. Reports his last drink was a few weeks ago. Denies visual and auditory hallucinations. 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 Continue naltrexone Monitor for withdrawal H/O Seizure disorder: Chronic stable Lamictal levels pending Continue Lamictal, Keppra HTN: Hold lisinopril secondary to JAMI Monitor BP H/O Ulcerative Colitis: chronic stable S/P total colectomy in early H/O incontinence as per patient Monitor electrolytes GERD: Continue PPI Code Status: Full Code DVT Px: Lovenox SQ CODE STATUS Full code Admission and Anticipated Discharge Date Admission Date: April 27, 2023 Subjective Patient is seen and examined at bedside States feeling depressed Reports chronic bowel, bladder incontinence Denies any nausea, vomiting, chest pain, dyspnea No other complaints Review of Systems Review of Systems: All systems reviewed & are unremarkable except as noted in Subjective Physical Exam Physical Exam: Physical Exam: Vitals signs as noted above General Appearance:Moderately built and nourished, no apparent distress Head: normocephalic, Atraumatic Eyes: normal inspection, EOMI Neck: supple, Trachea midline Respiratory/Chest: Normal breath sounds, CTA, No accessory muscle use Cardiovascular: S1, S2, No murmur Abdomen/GI:Soft, Non tender, Bowel sounds present, Protuberant Extremities/Musculoskeletal:normal inspection, no edema Neurologic/Psych:AAOX3, grossly no focal neurological deficits, +Flat Affect, depressed Skin: normal color, warm Results & Data Results & Data Vital Signs (Past 12 Hours) Vital Signs Pulse Pulse Resp BP BP Pulse Ox O2 Del Method 04/28/23 13:13 85 16 112/87 94 Room Air 04/28/23 13:00 82 16 112/87 95 Room Air 04/28/23 12:00 82 20 92/71 L 94 04/28/23 10:01 85 18 103/77 94 Room Air 04/28/23 09:50 88 18 97/71 L 97 Room Air 04/28/23 07:09 83 04/28/23 07:06 82 18 112/65 95 Room Air 04/28/23 06:14 85 20 112/65 94 Room Air Laboratory Results Short CBC 04/27/23 04/28/23 Range/Units 15:28 04:22 WBC 7.18 7.58 (4.8-10.8) K/ul Hgb 14.5 13.5 L (14.0-18.0) g/dl Hct 42.3 39.5 L (42.0-52.0) % Plt Count 178 160 (130-400) K/uL BMP 04/27/23 04/28/23 15:28 04:22 Sodium 132 L 131 L Potassium 4.3 4.1 Chloride 93 L 98 Carbon Dioxide 23 19 L BUN 113 H 94 H Creatinine 2.64 H 1.82 H D Glucose 121 H 111 H Calcium 10.4 H 9.2 Liver Function 04/27/23 04/28/23 Range/Units 15:28 04:22 Total Bilirubin 0.4 0.3 (0.2-1.0) mg/dl AST 17 17 (13-39) U/L ALT 8 8 (7-52) U/L Alkaline Phosphatase 162 H 158 H (34-104) U/L Albumin 4.2 3.8 (3.4-5.0) gm/dl Urine 04/27/23 Range/Units 16:28 Urine Color Yellow Urine Appearance Clear (Clear) Urine pH 5.5 (4.5-7.5) Ur Specific [place] 1.017 (1.000-1.030) Urine Protein Trace H (Negative) Urine Glucose (UA) Negative (Negative)
[2023-04-28] MEDS: ADVANCED PROBIOTIC 1250 MG CAPSULE PO SCH (16:44)
[2023-04-28] MEDS: NALTREXONE HCL 50 MG TAB PO SCH (16:44)
[2023-04-28] MEDS ORDERED: LORazepam 1 MG TAB PO PRN ×2 (17:20)
[2023-04-28] MEDS ORDERED: GABAPENTIN 1200MG ALCOHOL WITHDRAWAL LOAD PO STA (17:20)
[2023-04-28] MEDS ORDERED: Ativan PO Alcohol Withdrawal--Active Protocol PO PRN (17:20)
--- NOTE | 2023-04-28 17:23 | Communication Note ---
Date of Service: April 28, 2023 Informed by RN AWSS score was noted to be 10. Will hold naltrexone and start on gabapentin protocol.
[2023-04-28] MEDS ORDERED: GABAPENTIN 600 MG TAB PO ONE (17:30)
--- NOTE | 2023-04-28 18:03 | Psychiatric Consultation ---
Date of Consultation April 28, 2023 Impression / Recommendations Impression 52 y/o man with psychiatric history of depression and anxiety and severe alcohol use disorder who has a seizure disorder and is admitted for JAMI. He reportedly stopped drinking 1 liter/day of distilled spirits "a couple of weeks ago". He now presents with suicidal thoughts. His home medication list includes * once-daily immediate-release bupropion, which is nearly certain to be ineffective - this form should be given TID and the 12-hour slow-release "SR" formulation is usually ineffective if given only once a day. It is, though reasonably likely to precipitate or exacerbate anxiety. I'm uncertain what the rationale may be for use of this medication in a patient with a seizure disorder (though he's on anticonvulsants which should mitigate seizure risk) and anxiety. * He also takes buspirone at a low dose of 5 mg TID (and, realistically, few patients are able to take this consistently three times a day, so he may actually be taking even less). Typical effective adult doses are in the range of 30 - 90 mg/day with lower doses within that range being less likely to be effective unless taken TID. * He's prescribed a fairly high dose of lorazepam, 1 mg TID, about which I'm very concerned in someone who drinks as much as he does - this not only has significant interactions with alcohol but also significantly increases alcohol relapse risk and makes achieving abstinence more difficult. * His 60 mg/day fluoxetine dose falls within the 40 - 80 mg/day range that I think of as typically effective in adults, but I'm uncertain why he doesn't take 3 20 mg capsules - that would cost $10/month at [facility], while his regimen of 1 40 mg and 1 20 mg capsule would be $8/month and less convenient and more prone to medication errors. Although he reports having stopped alcohol recently, his intake prior to that was quite high with a consequent high risk of withdrawal. I note you've put him on a gabapentin taper, which seems very prudent. The positive MDMA screen is pretty likely to be a false-positive due to bupropion. Overall, it does appear likely that he will require psychiatric admission once he's medically stable. Overall I spent a total of 58 minutes for this consultation assessment including review of chart records, review of test results, direct evaluation of the patient [id number], risk assessment, discussion with the psychiatric liaison nurse, and documentation in the electronic health record. (1) Major depressive disorder, recurrent, severe without psychotic features: (2) Alcohol use disorder, severe, dependence: Plan Pt is currently voluntary for psychiatric admission. If, however, he insists on leaving before he's medically stable, please notify us so we can assess whether he at that time meets criteria for emergency involuntary admission. * I agree with your having stopped scheduled lorazepam, which I do not believe is a drug pt should use outside of clinical settings * I agree with your having stopped bupropion, which is unlikely to have been of any benefit and could contribute to symptoms * buspirone as prescribed at home was likely of no benefit, so there's no pressing need to resume it now * I strongly support the attention being paid to withdrawal risk despite pt's report of having stopped alcohol use weeks ago * there's no particular reason to hold naltrexone unless you plan to put pt on opioids - it doesn't interact with alcohol or precipitate withdrawal - nor, actually, is there any particular harm in his not taking it in the hospital Psych History Identifying Data KEN HERNANDEZ is a 52-year-old man with a history of depression, anxiety, severe alcohol use disorder, and seizure disorder, admitted on 04/27/2023 for JAMI. Consult is by the hospitalist service for "suicidal ideation". Chief Complaint Pt can barely be awakened. History of Present Illness As part of a thorough review of the available medical records, I have read and confirmed the following note by the ED physician: "The patient was noted to have potentially CKD versus JAMI and given this concern with associated electrolyte abnormalities the decision was made to admit the patient inpatient with psychiatric consultation. An IV was ordered and cardiac monitoring was applied. Patient did receive some Diflucan for an intertriginous candidal rash. Blood work shows a normal white count H&H and platelet count. The patient's kidney function does show a creatinine of 2.6. Priors were less than 1. Patient's LFTs are grossly unremarkable with exception of mild elevation in alk phosphatase. TSH elevated but free T4 was normal. Salicylate Tylenol and alcohol negative. The patient was also noted to have hyponatremia. This was in relation to the patient describing that he had been a heavy drinker but stopped drinking approxi-3 weeks ago. Urine and serum osmolality was ordered in addition to urine electrolytes. Patient presents due to concern for making suicidal statements to his daughter. Patient states that he did have a plan to cut his wrists or to overdose on his medications. Patient does admit to thinking about harming himself. The patient denies any visual or auditory hallucinations. No reported falls or trauma. Patient does have a reported prior history of ulcerative colitis status post colectomy at he states was curative for this illness." the following note by the hospitalist: "Mr. Hernandez is an unfortunate 52 year old male that arrived to the ED via EMS after he was making suicidal statements to his daughter. He is unkempt and disheveled and admitted to having a suicidal plan by cutting his wrists. He states that he has felt this way for about a week. Has a PMH that includes HTN and seizure disorder. Does not follow with any Neurologist. Has an additional PMH includes Ulcerative colitis s/p total colectomy in the early . Does not follow with any specific PCP at this time. No leukocytosis, BUN 113 and creatinine 2.64; likely secondary to dehydration and poor PO intake, TSH elevated 5.240. UDS and UA pending. Hemodynamically stable and on RA. Denies bipolar or schizophrenia mental history; only depression and anxiety. Would benefit from OOA involvement as he does live alone. Ultimately, a mentally unwell individual with poor coping mechanisms and history and current SI. Admits to feelings of harming himself over the past week. No significant event occurred over the past week that he can specifically recall. Reports drinking 1 L of alcohol daily up until a few weeks ago. Reports his last drink was a few weeks ago. Denies visual and auditory hallucinations. Patient also with JAMI; Will provide fluid resuscitation and trend BMP. If no improvement consider Nephro consultation. Will place on 1:1 observation.Will restart Prozac and Keppra and await Psychiatric recommendations." the following note by the ED psychiatric patient case coordinator: "Met with the patient to complete Brief and Suicide Risk Assessments. The patient reports he is having suicidal ideations with a plan to cut his wrist. He denies any recent stressors and denies current drug or alcohol use or access to weapons. He reports he last drank about 2 weeks ago and had been drinking fairly heavily prior to that. The patient reports he is seeking inpatient treatment and medical clearance was explained. Phone call received from Augustina with [facility] prior to the patients arrival. She reports the patient called [facility] with suicidal ideation with a plan to overdose. She reports the patient hasnt taken his m edications for the past 2 weeks and couldnt contract for safety until a roll on worker arrived at his residence, so he would be coming via EMS. Augustina reports the patients daughter Halie Hernandez ([phone]) would be willing to petition for a 302 if needed, but she is currently out of state." and the following note by the psychiatric liaison nurse: "Patient was cooperative but affect was flat and depressed. He was tremulous during the interaction and verbalized that he does not feel well. Patient has been experiencing suicidal ideations to cut his wrists for the past two weeks. The thoughts occur a few times a day and last for approximately an hour. He has had these thoughts today but does not have any means or intent. Patient verbalized that his suicidal thoughts started after he quit his psychiatric medications as well as drinking alcohol approximately 2 weeks ago. He quit drinking and taking his medications because he did not have anyone to take him to the store or pharmacy. Patient verbalized that he wants to stop drinking for good but he does not want to go to rehab. Patient reports that he has been a heavy drinker for years but the past few months it has been worse. He typically drinks a large bottle of vodka per day. Patient denies any current stressors but does report worsening depression after a TBI and divorce from his 10 years ago. The patient fell at work and experienced the head injury. Patient became suicidal after his divorce and cut his wrists. He was hospitalized in [place] for the attempt and felt that it was helpful for him. Patient feels that he will need inpatient psychiatric treatment once he his medically cleared. Patient's main support is his daughter Halie. ANDREI Michelle currently prescribes his psychiatric medications but he is unable to recall for sure what he takes. Patient denies access to any guns or weapons." Review of the medical record reveals a previous ED presentation in 2019 for s uicidal thoughts from which he was transferred to a psychiatric facility. Review of pertinent labs reveals they are hyponatremia, elevated anion gap, significantly elevated BUN and creatinine with high BUN/creatinine, hypomagnesemia, elevated alkaline phosphatase, elevated TSH and for [urine toxicology screen that was presumptively positive for metabolites of MDMA. BAL was <10 mg/dL. History obtained by colleagues supports that pt has been increasingly depressed and anxious recently. He'd reported having stopped 1 L/day liquor 2 weeks ago, but AWSS scores have been increasing and he's been started on a gabapentin taper for this. At the time of my assessment, he is sleeping comfortably and can't be awakened for more than moments. Allergies Allergy/AdvReac Type Severity Reaction Status Date / Time tramadol AdvReac Intermediate seizure Verified 10/18/18 06:38 Home Medications Medication Instructions Recorded Confirmed Type buspirone 5 mg tablet 5 mg PO TID 10/18/18 04/27/23 History fluoxetine 40 mg capsule 40 mg PO QAM 10/18/18 04/27/23 History lamotrigine 100 mg tablet 200 mg PO AMPM 10/18/18 04/27/23 History lorazepam 1 mg tablet 1 mg PO TID 10/18/18 04/27/23 History pantoprazole 40 mg tablet,delayed 40 mg PO QAM 10/18/18 04/27/23 History release bupropion HCl 150 mg 24 hr tablet, 150 mg PO QAM 04/27/23 04/27/23 History extended release fluoxetine 20 mg capsule 20 mg PO QAM 04/27/23 04/27/23 History levetiracetam 1,000 mg tablet 1,000 mg PO AMPM 04/27/23 04/27/23 History levetiracetam 250 mg tablet 250 mg PO AMPM 04/27/23 04/27/23 History lisinopril 10 mg tablet 10 mg PO QAM 04/27/23 04/27/23 History naltrexone 50 mg tablet 50 mg PO QAM 04/27/23 04/27/23 History thiamine HCl (vitamin B1) 100 mg 100 mg PO QAM 04/27/23 04/27/23 History tablet (Vitamin B-1) trazodone 50 mg tablet 50 mg PO HS 04/27/23 04/27/23 History Patient History Medical History (Updated 04/28/23 @ 20:01 by Torey Edouard MD) JAMI (acute kidney injury) Alcohol use disorder, severe, dependence Major depressive disorder, recurrent, severe without psychotic features Seizure disorder Ulcerative colitis Surgical History No pertinent past surgical history Family History Other COPD (chronic obstructive pulmonary disease) Heart disease Social History Smoking Status: Current every day smoker Tobacco Type: Cigarettes Hx Alcohol Use: No Hx Substance Use: No Preferred Language: Spanish Communication Ability: Effective Business Solutions Director Required: No Beliefs That Will Affect Care: None Current Living Situation: Alone Other Information That Helps Us Care for You: No Feels Safe at Home: Hesitant to Answer Safety Concerns: Feels Safe At This Time Assistive Devices: None Physical Exam Psychiatric: On exam pt is dressed in hospital-supplied scrubs, well-groomed, lying on a stretcher deeply asleep. He can't be aroused for more than a few moments. Vital Signs (Past 24 Hours): Last Vital Signs Temp 36.9 C 04/27/23 13:45 Pulse 85 04/28/23 13:13 Resp 24 04/28/23 16:01 BP 91/67 L 04/28/23 16:01 Pulse Ox 94 04/28/23 16:01 O2 Del Method Room Air 04/28/23 13:13 Exam Statement: I've reviewed the physical exams done by the ED physician and hospitalist Review of Systems Psychiatric: as per Subjective / HPI Results & Data (PSY) Medications Administered Enoxaparin Sodium (Enoxaparin Inj 40 Mg/0.4 Ml Syr) 40 mg SQ QAM ADI Stop: 05/28/23 08:59 Last Admin: 04/28/23 08:47 Dose: 40 mg Documented By: OL Fluoxetine HCl (Fluoxetine Hcl 20 Mg Cap) 40 mg PO QAM ADI Stop: 05/28/23 08:59 Last Admin: 04/28/23 08:47 Dose: 40 mg Documented By: OL Fluoxetine HCl (Fluoxetine Hcl 20 Mg Cap) 20 mg PO QAM ADI Stop: 05/28/23 08:59 Last Admin: 04/28/23 08:47 Dose: 20 mg Documented By: OL Sodium Chloride (Nss) 1,000 mls @ 100 mls/hr IV .Q10H ADI Stop: 04/29/23 00:59 Last Admin: 04/28/23 15:09 Dose: 100 mls/hr Documented By: Infusion: 04/28/23 14:39 Dose: 100 mls/hr Documented By: Admin: 04/28/23 04:39 Dose: 100 mls/hr Documented By: Infusion: 04/28/23 04:37 Dose: 100 mls/hr Documented By: salesperson pets and pet supplies: 04/27/23 18:37 Dose: 100 mls/hr Documented By: RACHEL Thiamine HCl 100 mg/ Syringe 10 mls @ 2 mls/min IV QAM ADI Stop: 05/28/23 08:59 Last Admin: 04/28/23 09:41 Dose: 2 mls/min Documented By: KAYE Folic Acid 1 mg/ Syringe 10 mls @ 5 mls/min IV QAM ADI Stop: 05/28/23 08:59 Last Admin: 04/28/23 09:41 Dose: 5 mls/min Documented By: KAYE Lactobacillus Acidophilus (Advanced Probiotic 1250 Mg Capsule) 2 cap PO DAILY ADI Stop: 05/28/23 15:14 Last Admin: 04/28/23 16:44 Dose: 2 cap Documented By: RIAN Levetiracetam (Levetiracetam 250 Mg Tab) 250 mg PO BID ADI Stop: 05/27/23 20:59 Last Admin: 04/28/23 09:40 Dose: 250 mg Documented By: Admin: 04/27/23 21:35 Dose: 250 mg Documented By: GILDA Levetiracetam (Levetiracetam 500 Mg Tab) 1,000 mg PO BID ADI Stop: 05/27/23 20:59 Last Admin: 04/28/23 08:46 Dose: 1,000 mg Documented By: Admin: 04/27/23 21:35 Dose: 1,000 mg Documented By: GILDA Lorazepam (Lorazepam 1 Mg Tab) 2 mg PO UD PRN; Protocol PRN Reason: EtOH Withdrawal AWSS Score 8,9 Stop: 05/28/23 17:19 Last Admin: 04/28/23 17:40 Dose: 2 mg Documented By: RIAN Naltrexone HCl (Naltrexone Hcl 50 Mg Tab) 50 mg PO QAM ADI Stop: 05/28/23 15:14 Last Admin: 04/28/23 16:44 Dose: 50 mg Documented By: MT Pantoprazole Sodium (Pantoprazole 40 Mg Tab) 40 mg PO QAM [facility] Stop: 05/28/23 08:59 Last Admin: 04/28/23 09:03 Dose: 40 mg Documented By: OL Coding Level of Care Code 80511 IN/OBS CONSULT LVL 3,45M Diagnoses Major depressive disorder, recurrent, severe without psychotic features F33.2 Alcohol use disorder, severe, dependence F10.20 Time Spent (min) 58
[2023-04-28] MEDS: lamoTRIgine 100 MG TAB PO SCH ×2 (18:58→20:47)
[2023-04-29] MEDS: GABAPENTIN 600 MG TAB PO SCH ×4 (00:28→20:22)
[2023-04-29 07:42] LABS: Hematocrit (blood only) 37.5 % (42.0-52.0); Hemoglobin 12.6 g/dl (14.0-18.0); Mean Corpuscular Hemoglobin 28.8 pg (25.0-34.0); Mean Corpuscular Hgb Conc 33.6 g/dL (32.0-36.0); Mean Corpuscular Volume 85.8 fL (80.0-100.0); Mean Platelet Volume 11.3 fL (9.4-12.4); Platelet Count 150 K/uL (130-400); RDW Coefficient of Variation 15.4 % (11.5-14.5); RDW Standard Deviation 48.8 fL (36.4-46.3); Red Blood Count 4.37 M/uL (4.70-6.10); White Blood Count 7.32 K/ul (4.8-10.8)
[2023-04-29 08:04] LABS: Creatinine Clr Calc Pharmacy 69.1 ml/min; Est GFR (African American) 57.4 ml/min; Est GFR (Non-African American) 49.6 ml/min; Magnesium 1.6 mg/dl (1.7-2.4); Potassium 4.1 mmol/L (3.5-5.1)
[2023-04-29] MEDS ORDERED: MAGNESIUM SULFATE / D5W 1 GM/100 ML BAG IV ONE (08:25)
[2023-04-29] MEDS: ADVANCED PROBIOTIC 1250 MG CAPSULE PO SCH (08:58)
[2023-04-29] MEDS: PANTOprazole 40 MG TAB PO SCH (08:58)
[2023-04-29] MEDS: ENOXAPARIN INJ 40 MG/0.4 ML SYR SQ SCH (08:59)
[2023-04-29] MEDS: THIAMINE HCL 100 MG in SYRINGE 9 ML IV SCH (08:59)
[2023-04-29] MEDS: FOLIC ACID 1 MG in SYRINGE 9.8 ML IV SCH (08:59)
[2023-04-29] MEDS: FLUoxetine HCL 20 MG CAP PO SCH ×2 (09:00)
[2023-04-29] MEDS: levETIRAcetam 500 MG TAB PO SCH ×2 (09:01→20:19)
[2023-04-29] MEDS: LACTATED RINGER'S 1,000 ML IV SCH ×2 (09:08→20:18)
[2023-04-29] MEDS: levETIRAcetam 250 MG TAB PO SCH ×2 (09:58→20:19)
[2023-04-29] MEDS: MAGNESIUM CHLORIDE W/CALCIUM 64MG DELAYED REL TAB PO SCH ×2 (09:58→20:21)
[2023-04-29] MEDS: lamoTRIgine 100 MG TAB PO SCH ×2 (09:59→20:20)
[2023-04-29] MEDS ORDERED: MICONAZOLE NITRATE POWDER 85 GM EXT PRN (13:13)
--- NOTE | 2023-04-29 14:18 | Hospitalist Progress Note ---
Date of Service April 29, 2023 Assessment & Plan (1) Seizure disorder: (2) Alcohol abuse: (3) Mood disorder: (4) Suicidal ideation: (5) Depression: (6) JAMI (acute kidney injury): Plan Mr. Hernandez is a 52 yr old male that arrived to the ED via EMS after he was making suicidal statements to his daughter. He is unkempt and disheveled and admitted to having a suicidal plan by cutting his wrists. He states that he has felt this way for about a week. Has a PMH that includes HTN and seizure disorder. Does not follow with any Neurologist. Has an additional PMH includes Ulcerative colitis s/p total colectomy in the early . Does not follow with any specific PCP at this time. No leukocytosis, BUN 113 and creatinine 2.64; likely secondary to dehydration and poor PO intake, TSH elevated 5.240. UDS and UA pending. Hemodynamically stable and on RA. Denies bipolar or schizophrenia mental history; only depression and anxiety. Would benefit from OOA involvement as he does live alone. Ultimately, a mentally unwell individual with poor coping mechanisms and history and current SI. Admits to feelings of harming himself over the past week. No significant event occurred over the past week that he can specifically recall. Reports drinking 1 L of alcohol daily up until a few weeks ago. Reports his last drink was a few weeks ago. Denies visual and auditory hallucinations. 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 Continue naltrexone Monitor for withdrawal H/O Seizure disorder: Chronic stable Lamictal levels pending Continue Lamictal, Keppra HTN: Hold lisinopril secondary to JAMI Monitor BP BP relatively low H/O Ulcerative Colitis: chronic stable S/P total colectomy in early H/O incontinence as per patient Monitor electrolytes GERD: Continue PPI Code Status: Full Code DVT Px: Lovenox SQ CODE STATUS Full code Admission and Anticipated Discharge Date Admission Date: April 27, 2023 Subjective Patient is seen and examined at bedside No new complaints Denies any diarrhea today Admits to feeling depressed/suicidal thoughts Denies any nausea, vomiting, chest pain, dyspnea, dizziness, abdominal pain Review of Systems Review of Systems: All systems reviewed & are unremarkable except as noted in Subjective Physical Exam Physical Exam: Physical Exam: Vitals signs as noted above General Appearance:Moderately built and nourished, no apparent distress Head: normocephalic, Atraumatic Eyes: normal inspection, EOMI Neck: supple, Trachea midline Respiratory/Chest: Normal breath sounds, CTA, No accessory muscle use Cardiovascular: S1, S2, No murmur Abdomen/GI:Soft, Non tender, Bowel sounds present, Protuberant Extremities/Musculoskeletal:normal inspection, no edema Neurologic/Psych:AAOX3, grossly no focal neurological deficits, +Flat Affect, depressed Skin: normal color, warm Results & Data Results & Data Vital Signs (Past 12 Hours) Vital Signs Temp Pulse Pulse Resp BP Pulse Ox O2 Del Method 04/29/23 05:58 79 04/29/23 11:45 36.7 C 80 18 100/76 93 Room Air 04/29/23 07:45 36.9 C 81 18 111/82 94 Room Air 04/29/23 06:05 36.7 C 90 18 111/80 93 Room Air Laboratory Results Short CBC 04/29/23 Range/Units 06:54 WBC 7.32 (4.8-10.8) K/ul Hgb 12.6 L (14.0-18.0) g/dl Hct 37.5 L (42.0-52.0) % Plt Count 150 (130-400) K/uL BMP 04/29/23 06:54 Sodium 136 Potassium 4.1 Chloride 103 Carbon Dioxide 23 BUN 68 H D Creatinine 1.58 H Glucose 98 Calcium 9.0
[2023-04-30] MEDS: GABAPENTIN 600 MG TAB PO SCH ×2 (05:49→17:19)
--- NOTE | 2023-04-30 05:54 | Electrocardiogram Report ---
Test Reason : Blood Pressure : / mmHG Vent. Rate : 090 BPM Atrial Rate : 090 BPM P-R Int : 160 ms QRS Dur : 096 ms QT Int : 368 ms P-R-T Axes : 056 038 042 degrees QTc Int : 450 ms Normal sinus rhythm Nonspecific T wave abnormality Abnormal ECG When compared with ECG of 22-DEC-2015 12:37, No significant change was found Confirmed by Fabio Alvarez ([id number]) on 04/30/2023 5:54:19 AM Referred By: REFERRED SELF Confirmed By:Fabio Alvarez
[2023-04-30 07:18] LABS: Hematocrit (blood only) 33.7 % (42.0-52.0); Hemoglobin 11.2 g/dl (14.0-18.0); Mean Corpuscular Hgb Conc 33.2 g/dL (32.0-36.0); Mean Corpuscular Volume 87.3 fL (80.0-100.0); Mean Platelet Volume 11.3 fL (9.4-12.4); Platelet Count 149 K/uL (130-400); RDW Coefficient of Variation 15.4 % (11.5-14.5); RDW Standard Deviation 49.6 fL (36.4-46.3); Red Blood Count 3.86 M/uL (4.70-6.10); White Blood Count 7.47 K/ul (4.8-10.8)
[2023-04-30 07:41] LABS: Calcium 8.7 mg/dl (8.6-10.3)
[2023-04-30] MEDS: ADVANCED PROBIOTIC 1250 MG CAPSULE PO SCH (07:43)
[2023-04-30] MEDS: PANTOprazole 40 MG TAB PO SCH (07:43)
[2023-04-30] MEDS: FLUoxetine HCL 20 MG CAP PO SCH ×2 (07:43→07:45)
[2023-04-30] MEDS: lamoTRIgine 100 MG TAB PO SCH ×2 (07:44→20:04)
[2023-04-30] MEDS: levETIRAcetam 500 MG TAB PO SCH ×2 (07:44→20:04)
[2023-04-30] MEDS: MAGNESIUM CHLORIDE W/CALCIUM 64MG DELAYED REL TAB PO SCH ×2 (07:44→20:03)
[2023-04-30] MEDS: levETIRAcetam 250 MG TAB PO SCH ×2 (07:45→20:03)
[2023-04-30] MEDS: ENOXAPARIN INJ 40 MG/0.4 ML SYR SQ SCH (07:45)
[2023-04-30] MEDS: FOLIC ACID 1 MG in SYRINGE 9.8 ML IV SCH (07:46)
[2023-04-30] MEDS: THIAMINE HCL 100 MG in SYRINGE 9 ML IV SCH (07:46)
[2023-04-30 07:49] LABS: BUN Creatinine Ratio 33.8 (10-20); Creatinine Clr Calc Pharmacy 84.7 ml/min; Est GFR (African American) 68.8 ml/min; Est GFR (Non-African American) 59.4 ml/min
[2023-04-30] MEDS: NALTREXONE HCL 50 MG TAB PO SCH (09:43)
--- NOTE | 2023-04-30 16:18 | Hospitalist Progress Note ---
Date of Service April 30, 2023 Assessment & Plan (1) Seizure disorder: (2) Alcohol abuse: (3) Mood disorder: (4) Suicidal ideation: (5) Depression: (6) JAMI (acute kidney injury): Plan Mr. Hernandez is a 52 yr old male that arrived to the ED via EMS after he was making suicidal statements to his daughter. He is unkempt and disheveled and admitted to having a suicidal plan by cutting his wrists. He states that he has felt this way for about a week. Has a PMH that includes HTN and seizure disorder. Does not follow with any Neurologist. Has an additional PMH includes Ulcerative colitis s/p total colectomy in the early . Does not follow with any specific PCP at this time. No leukocytosis, BUN 113 and creatinine 2.64; likely secondary to dehydration and poor PO intake, TSH elevated 5.240. UDS and UA pending. Hemodynamically stable and on RA. Denies bipolar or schizophrenia mental history; only depression and anxiety. Would benefit from OOA involvement as he does live alone. Ultimately, a mentally unwell individual with poor coping mechanisms and history and current SI. Admits to feelings of harming himself over the past week. No significant event occurred over the past week that he can specifically recall. Reports drinking 1 L of alcohol daily up until a few weeks ago. Reports his last drink was a few weeks ago. Denies visual and auditory hallucinations. 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 Status post IV fluids. Avoid nephrotoxic agents as able Monitor renal function H/O Alcohol abuse: Completing gabapentin protocol Continue thiamine, folic acid Intake approximately 1 L vodka per day. Continue naltrexone Patient is currently not in withdrawal H/O Seizure disorder: Chronic stable Lamictal levels pending Continue Lamictal, Keppra HTN: BP low normal, continue to hold lisinopril secondary to JAMI H/O Ulcerative Colitis S/P total colectomy in early : chronic, stable H/O incontinence as per patient GERD: Continue PPI DVT Px: Lovenox SQ Disposition- anticipate will be medically stable in 1 to 2 days. Will need inpatient psych admission at discharge for suicidal ideation. Psych following Admission and Anticipated Discharge Date Admission Date: April 27, 2023 Subjective Patient was seen and examined at bedside. He remains on one-to-one for suicidal ideation. He feels okay. Denies any ongoing issues. Denies fever, chills, chest pain or shortness of breath nausea or vomiting. States his suicidal ideation has decreased. Review of Systems Review of Systems: All systems reviewed & are unremarkable except as noted in Subjective Physical Exam Physical Exam: General: Lying comfortably in bed, not in distress, on room air HEENT: EOMI, ITA, MMM Chest: Clear breath sounds bilaterally, no wheezes or crackles CVS: Regular rate and rhythm, normal heart sounds, no murmur Abdomen: Soft, non tender, not distended, normal bowel sounds Neuro: Awake, alert, oriented, conversing okay/appropriately, non focal Extremities: No cyanosis, clubbing or edema Psychiatry: Depressed, low mood, flat affect Results & Data Results & Data Vital Signs (Past 12 Hours) Vital Signs Temp Pulse Pulse Resp BP Pulse Ox O2 Del Method 04/30/23 13:59 74 04/30/23 14:53 37.2 C 73 17 100/69 93 Room Air 04/30/23 11:03 36.7 C 77 17 118/87 93 Room Air 04/30/23 07:30 Room Air 04/30/23 07:17 36.7 C 71 15 112/74 94 Room Air 04/30/23 07:00 70 04/30/23 05:54 36.7 C 71 14 106/74 94 Room Air
[2023-05-01] MEDS: ONDANSETRON INJ 2 MG/ML 2 ML VIAL IV PRN ×2 (05:08→11:27)
[2023-05-01] MEDS: GABAPENTIN 600 MG TAB PO SCH (05:48)
[2023-05-01 07:18] LABS: BUN Creatinine Ratio 20.6 (10-20); Calcium 9.2 mg/dl (8.6-10.3); Creatinine Clr Calc Pharmacy 87.7 ml/min; Est GFR (Non-African American) 62.2 ml/min; Magnesium 1.3 mg/dl (1.7-2.4); Phosphorus 2.4 mg/dl (2.5-4.9); Potassium 4.3 mmol/L (3.5-5.1)
[2023-05-01 07:56] LABS: Hematocrit (blood only) 37.3 % (42.0-52.0); Hemoglobin 12.2 g/dl (14.0-18.0); Mean Corpuscular Hemoglobin 29.2 pg (25.0-34.0); Mean Corpuscular Hgb Conc 32.7 g/dL (32.0-36.0); Mean Corpuscular Volume 89.2 fL (80.0-100.0); Mean Platelet Volume 12.4 fL (9.4-12.4); Platelet Count 116 K/uL (130-400); RDW Coefficient of Variation 15.3 % (11.5-14.5); RDW Standard Deviation 50.4 fL (36.4-46.3); Red Blood Count 4.18 M/uL (4.70-6.10); White Blood Count 7.64 K/ul (4.8-10.8)
[2023-05-01] MEDS ORDERED: MAGNESIUM CHLORIDE W/CALCIUM 64MG DELAYED REL TAB PO SCH (09:00)
[2023-05-01] MEDS: levETIRAcetam 500 MG TAB PO SCH ×2 (09:05→20:27)
[2023-05-01] MEDS: ADVANCED PROBIOTIC 1250 MG CAPSULE PO SCH (09:05)
[2023-05-01] MEDS: lamoTRIgine 100 MG TAB PO SCH ×2 (09:05→20:27)
[2023-05-01] MEDS: ENOXAPARIN INJ 40 MG/0.4 ML SYR SQ SCH (09:05)
[2023-05-01] MEDS: FOLIC ACID 1 MG TAB PO SCH (09:05)
[2023-05-01] MEDS: levETIRAcetam 250 MG TAB PO SCH ×2 (09:06→20:27)
[2023-05-01] MEDS: NALTREXONE HCL 50 MG TAB PO SCH (09:06)
[2023-05-01] MEDS: MAGNESIUM CHLORIDE W/CALCIUM 64MG DELAYED REL TAB PO SCH (09:06)
[2023-05-01] MEDS: FLUoxetine HCL 20 MG CAP PO SCH ×2 (09:06)
[2023-05-01] MEDS: PANTOprazole 40 MG TAB PO SCH (09:06)
[2023-05-01] MEDS: POT PHOSPHATE MONOBASIC W/ SOD TAB PO SCH ×2 (10:43→20:27)
[2023-05-01] MEDS: MAGNESIUM SULFATE / D5W 1 GM/100 ML BAG IV SCH ×2 (10:43→13:34)
[2023-05-01] MEDS: THIAMINE HCL 100 MG TAB PO SCH (10:44)
--- NOTE | 2023-05-01 14:12 | Psychiatric Progress Note ---
Date of Service May 01, 2023 Impression / Recommendations Impression 52 y/o man with psychiatric history of depression and anxiety and severe alcohol use disorder as well as history of TBI and subsequent seizure disorder admitted for JAMI. Diagnostically consistent with unspecified depressive disorder likely combination of MDD and alcohol-induced/withdrawal mood symptoms. 05/01/2023: Ongoing significant depression with SI. Working on clarifying need for any assistive devices for walking and any wound care and then will proceed with referrals for dual diagnosis treatment. Overall, I spent a total of 45 minutes with this case including review of chart records, review of labwork, direct evaluation of the patient at bedside, counseling the patient, discussion of the patient with the hospitalist provider, discussion with the psychiatric liason during clinical rounds, and documentation in the electronic health record. (1) Major depressive disorder, recurrent, severe without psychotic features: (2) Alcohol use disorder, severe, dependence: Plan 05/01/2023: -Pt is currently voluntary for psychiatric dual diagnosis treatment once medically stable -Continue 1-on-1, may not leave AMA as would meet 302 criteria -Continue with AWSS, thiamine, folic acid Interval History Identifying Information KEN LOJA is a 52-year-old man with a history of depression, anxiety, severe alcohol use disorder, and seizure disorder, admitted on 04/27/2023 for JAMI. Consult is by the hospitalist service for "suicidal ideation". Chief Complaint "Depression is not good". Subjective Subjective Patient was seen & assessed and interval progress reviewed. Denies alcohol cravings but still with some withdrawal symptoms, got dose of lorazepam for AWSS of 6 this morning. Continues to feel depressed with SI with plan of slitting his wrists. Now states he stopped drinking 1 bottle of vodka daily one week prior to admission, stopped due to not having any way to get more of it. Physical Exam Psychiatric Orientation: alert, oriented to person and oriented to place Apperance: appropriately dressed and + disheveled Eye Contact: + fair eye contact Motor Behavior: no abnormal motor movements Speech: normal rate/rhythm/volume of speech Affect: + depressed affect and + constricted affect Mood: + depressed mood Thought Process: goal directed thought process and + concrete thought process Thought Content: reality based without delusions Suicidal Thoughts: denies suicidal intent; + reports suicidal thoughts and + reports suicidal plan (none for hospital, outside to slit his wrists) Homicidal Thoughts: denies homicidal thoughts Hallucinations: no auditory hallucinations and no visual hallucinations Cognition: attention grossly intact and language grossly intact Estimated Intelligence: consistent with education level Insight: + limited insight Judgment: + limited judgement Vital Signs (Past 24 Hours) Last Vital Signs Temp 36.9 C 05/01/23 06:40 Pulse 77 05/01/23 07:20 Resp 18 05/01/23 06:40 BP 106/74 05/01/23 06:40 Pulse Ox 98 05/01/23 06:40 O2 Del Method Room Air 05/01/23 06:40 Results & Data ([facility]) Laboratory Results Laboratory Results - last 24 hr 04/27/23 05/01/23 05/01/23 15:28 06:35 06:35 WBC Cancelled RBC Cancelled Hgb Cancelled Hct Cancelled MCV Cancelled MCH Cancelled MCHC Cancelled RDW Std Deviation Cancelled RDW Coeff of Nadir Cancelled Plt Count Cancelled MPV Cancelled Absolute Nucleated RBC Cancelled Nucleated RBC % (auto) Cancelled Platelet Estimate Cancelled Sodium 136 Potassium 4.3 Chloride 101 Carbon Dioxide 26 Anion Gap 9 BUN 27 H Creatinine 1.31 Est Cr Clr Drug Dosing 87.7 Est GFR ( Amer) 72.0 Est GFR (Non-Af Amer) 62.2 BUN/Creatinine Ratio 20.6 H Glucose 121 H Calcium 9.2 Phosphorus 2.4 L Magnesium 1.3 L Lamotrigine 4.2 05/01/23 07:32 WBC 7.64 RBC 4.18 L Hgb 12.2 L Hct 37.3 L MCV 89.2 MCH 29.2 MCHC 32.7 RDW Std Deviation 50.4 H RDW Coeff of Nadir 15.3 H Plt Count 116 L MPV 12.4 Absolute Nucleated RBC Nucleated RBC % (auto) Platelet Estimate Sodium Potassium Chloride Carbon Dioxide Anion Gap BUN Creatinine Est Cr Clr Drug Dosing Est GFR ( Amer) Est GFR (Non-Af Amer) BUN/Creatinine Ratio Glucose Calcium Phosphorus Magnesium Lamotrigine Current Inpatient Medications Current Inpatient Medications: Current Inpatient Medications Acetaminophen (Acetaminophen 325 Mg Tab) 650 mg PO Q4H PRN PRN Reason: Pain or Fever Stop: 05/27/23 16:50 Al Hydrox/Mg Hydrox/Simethicone (Aluminum/Magnesium Susp 30 Ml Udc) 15 ml PO Q4H PRN PRN Reason: Dyspepsia Stop: 05/27/23 16:50 Enoxaparin Sodium (Enoxaparin Inj 40 Mg/0.4 Ml Syr) 40 mg SQ QAM [facility] Stop: 05/28/23 08:59 Last Admin: 05/01/23 09:05 Dose: 40 mg Fluoxetine HCl (Fluoxetine Hcl 20 Mg Cap) 40 mg PO QAM [facility] Stop: 05/28/23 08:59 Last Admin: 05/01/23 09:06 Dose: 40 mg Fluoxetine HCl (Fluoxetine Hcl 20 Mg Cap) 20 mg PO QAM [facility] Stop: 05/28/23 08:59 Last Admin: 05/01/23 09:06 Dose: 20 mg Folic Acid (Folic Acid 1 Mg Tab) 1 mg PO QAM [facility] Stop: 05/31/23 08:59 Last Admin: 05/01/23 09:05 Dose: 1 mg Gabapentin (Gabapentin 600 Mg Tab) 600 mg PO Q24H [facility] Stop: 05/02/23 06:01 Lactobacillus Acidophilus (Advanced Probiotic 1250 Mg Capsule) 2 cap PO DAILY [facility] Stop: 05/28/23 15:14 Last Admin: 05/01/23 09:05 Dose: 2 cap Lamotrigine (Lamotrigine 100 Mg Tab) 200 mg PO BID [facility] Stop: 05/28/23 16:14 Last Admin: 05/01/23 09:05 Dose: 200 mg Levetiracetam (Levetiracetam 250 Mg Tab) 250 mg PO BID [facility] Stop: 05/27/23 20:59 Last Admin: 05/01/23 09:06 Dose: 250 mg Levetiracetam (Levetiracetam 500 Mg Tab) 1,000 mg PO BID [facility] Stop: 05/27/23 20:59 Last Admin: 05/01/23 09:05 Dose: 1,000 mg Lorazepam (Lorazepam 1 Mg Tab) 2 mg PO UD PRN; Protocol PRN Reason: EtOH Withdrawal AWSS Score 8,9 Stop: 05/28/23 17:19 Last Admin: 04/28/23 17:40 Dose: 2 mg Lorazepam (Lorazepam 1 Mg Tab) 3 mg PO ONCE PRN; Protocol PRN Reason: EtOH Withdrawal AWSS Score 10 & above Lorazepam (Lorazepam 1 Mg Tab) 1 mg PO UD PRN; Protocol PRN Reason: EtOH Withdrawal AWSS Score 6,7 Stop: 05/28/23 17:19 Last Admin: 05/01/23 05:46 Dose: 1 mg Magnesium Chloride (Magnesium Chloride W/Calcium 64mg Delayed Rel Tab) 64 mg PO BID [facility] Stop: 05/29/23 08:59 Last Admin: 05/01/23 09:06 Dose: 64 mg Magnesium Hydroxide (Magnesium Hydroxide Susp 30 Ml Udc) 30 ml PO Q12H PRN PRN Reason: Constipation Stop: 05/27/23 16:50 Miconazole Nitrate (Miconazole Nitrate Powder 85 Gm) 1 appln EXT PRN PRN PRN Reason: Affected Skin Folds Stop: 05/29/23 13:12 Last Admin: 04/30/23 09:44 Dose: 1 appln Naltrexone HCl (N[facility]rexone Hcl 50 Mg Tab) [facility] [place]: 05/28/23 15:14 Last Admin: 05/01/23 09:06 Dose: 50 mg Ondansetron HCl (Ondansetron Inj 2 Mg/Ml 2 Ml Vial) 4 mg IV Q6H PRN PRN Reason: Nausea Stop: 05/27/23 16:50 Last Admin: 05/01/23 11:27 Dose: 4 mg Pantoprazole Sodium (Pantoprazole 40 Mg Tab) [facility] [place]: 05/28/23 08:59 Last Admin: 05/01/23 09:06 Dose: 40 mg Polyethylene Glycol (Polyethylene (Miralax) 17 Gm Pack) 17 gm PO DAILY PRN PRN Reason: Constipation Stop: 05/27/23 16:50 Potassium Phosphate (Pot Phosphate Monobasic W/ Sod Tab) 1 tab PO BID [facility] Stop: 05/02/23 08:59 Last Admin: 05/01/23 10:43 Dose: 1 tab Thiamine HCl (Thiamine Hcl 100 Mg Tab) 100 mg PO QAM [facility] Stop: 05/28/23 08:59 Last Admin: 05/01/23 10:44 Dose: 100 mg
--- NOTE | 2023-05-01 15:31 | Hospitalist Progress Note ---
Date of Service May 01, 2023 Assessment & Plan (1) Suicidal ideation: (2) Major depressive disorder, recurrent, severe without psychotic features: (3) Alcohol use disorder, severe, dependence: (4) Seizure disorder: (5) JAMI (acute kidney injury): Plan Mr. Hernandez is a 52 yr old male that arrived to the ED via EMS after he was making suicidal statements to his daughter. He is unkempt and disheveled and admitted to having a suicidal plan by cutting his wrists. He states that he has felt this way for about a week. Has a PMH that includes HTN and seizure disorder. Does not follow with any Neurologist. Has an additional PMH includes Ulcerative colitis s/p total colectomy in the early . Does not follow with any specific PCP at this time. No leukocytosis, BUN 113 and creatinine 2.64; likely secondary to dehydration and poor PO intake, TSH elevated 5.240. UDS and UA pending. Hemodynamically stable and on RA. Denies bipolar or schizophrenia mental history; only depression and anxiety. Would benefit from OOA involvement as he does live alone. Ultimately, a mentally unwell individual with poor coping mechanisms and history and current SI. Admits to feelings of harming himself over the past week. No significant event occurred over the past week that he can specifically recall. Reports drinking 1 L of alcohol daily up until a few weeks ago. Reports his last drink was a few weeks ago. Denies visual and auditory hallucinations. Suicidal ideation with severe depression without psychotic features -Seen by psychiatry, recommendations noted. Continue Prozac. Discontinue Wellbutrin. No benefit from buspirone. Avoid bed states pain is -Continue suicidal precautions and One-to-one observation -Patient is currently voluntary for psychiatric admission. If however, he insists on leaving before he is medically stable, will need to notify psychiatry to assess whether he would meet criteria for emergency involuntary admission. 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 Status post IV fluids. Will start on gentle hydration Avoid nephrotoxic agents as able Monitor renal function Alcohol abuse- Completing gabapentin protocol Continue thiamine, folic acid Intake approximately 1 L vodka per day. Continue naltrexone Patient is currently not in withdrawal H/O Seizure disorder: Chronic stable Lamictal levels pending Continue Lamictal, Keppra. Discontinue Wellbutrin HTN: BP low normal, continue to hold lisinopril secondary to JAMI H/O Ulcerative Colitis S/P total colectomy in early s: chronic, stable H/O incontinence as per patient GERD: Continue PPI DVT Px: Lovenox SQ Disposition-patient will need inpatient psych admission once medically stable. Patient is currently voluntary for psychiatric admission. If however, he insists on leaving before he is medically stable, will need to notify psychiatry to assess whether he would meet criteria for emergency involuntary admission. Admission and Anticipated Discharge Date Admission Date: April 27, 2023 Subjective Patient was seen and examined at bedside. States he had abdominal pain along with an episode of vomiting and loose bowel movement overnight. No fever, chills, chest pain, shortness of breath. Review of Systems Review of Systems: All systems reviewed & are unremarkable except as noted in Subjective Physical Exam Physical Exam: General: Lying comfortably in bed, not in distress, on room air HEENT: EOMI, ITA, MMM Chest: Clear breath sounds bilaterally, no wheezes or crackles CVS: Regular rate and rhythm, normal heart sounds, no murmur Abdomen: Soft, minimal tenderness, not distended, normal bowel sounds Neuro: Awake, alert, oriented, conversing okay/appropriately, non focal Extremities: No cyanosis, clubbing or edema Psychiatry: Depressed, low mood, flat affect Results & Data Results & Data Vital Signs (Past 12 Hours) Vital Signs Temp Pulse Pulse Resp BP Pulse Ox O2 Del Method 05/01/23 07:20 77 05/01/23 06:40 36.9 C 82 18 106/74 98 Room Air Laboratory Results Short CBC 05/01/23 05/01/23 Range/Units 06:35 07:32 WBC Cancelled 7.64 Hgb Cancelled 12.2 L Hct Cancelled 37.3 L Plt Count Cancelled 116 L BMP 05/01/23 06:35 Sodium 136 Potassium 4.3 Chloride 101 Carbon Dioxide 26 BUN 27 H Creatinine 1.31 Glucose 121 H Calcium 9.2
[2023-05-01] MEDS: LACTATED RINGER'S 1,000 ML IV SCH (17:07)
[2023-05-01 18:52] LABS: MDA negative; MDEA negative; MDMA (Ecstasy) Urine, Confirm negative
[2023-05-01] MEDS: SUCRALFATE 1 GM/10 ML UDC PO SCH (20:25)
[2023-05-02] MEDS: LACTATED RINGER'S 1,000 ML IV SCH (04:15)
[2023-05-02] MEDS ORDERED: GABAPENTIN 600 MG TAB PO SCH (06:00)
[2023-05-02] MEDS: ENOXAPARIN INJ 40 MG/0.4 ML SYR SQ SCH (07:26)
[2023-05-02] MEDS: levETIRAcetam 250 MG TAB PO SCH ×2 (07:27→22:10)
[2023-05-02] MEDS: levETIRAcetam 500 MG TAB PO SCH ×2 (07:28→22:10)
[2023-05-02] MEDS: lamoTRIgine 100 MG TAB PO SCH ×2 (07:28→22:10)
[2023-05-02] MEDS: FOLIC ACID 1 MG TAB PO SCH (07:29)
[2023-05-02] MEDS: THIAMINE HCL 100 MG TAB PO SCH (07:29)
[2023-05-02] MEDS: FLUoxetine HCL 20 MG CAP PO SCH ×2 (07:30→07:34)
[2023-05-02] MEDS: PANTOprazole 40 MG TAB PO SCH (07:30)
[2023-05-02] MEDS: ADVANCED PROBIOTIC 1250 MG CAPSULE PO SCH (07:31)
[2023-05-02] MEDS: NALTREXONE HCL 50 MG TAB PO SCH (07:32)
[2023-05-02] MEDS: SUCRALFATE 1 GM/10 ML UDC PO SCH ×2 (07:33→22:12)
[2023-05-02 07:57] LABS: BUN Creatinine Ratio 14.9 (10-20); Calcium 8.6 mg/dl (8.6-10.3); Est GFR (African American) 79.3 ml/min; Est GFR (Non-African American) 68.4 ml/min; Magnesium 1.5 mg/dl (1.7-2.4); Phosphorus 2.4 mg/dl (2.5-4.9)
--- NOTE | 2023-05-02 11:15 | Hospitalist Progress Note ---
Date of Service May 02, 2023 Assessment & Plan (1) Suicidal ideation: (2) Major depressive disorder, recurrent, severe without psychotic features: (3) Alcohol use disorder, severe, dependence: (4) Seizure disorder: (5) JAMI (acute kidney injury): Plan Mr. Hernandez is a 52 yr old male that arrived to the ED via EMS after he was making suicidal statements to his daughter. He is unkempt and disheveled and admitted to having a suicidal plan by cutting his wrists. He states that he has felt this way for about a week. Has a PMH that includes HTN and seizure disorder. Does not follow with any Neurologist. Has an additional PMH includes Ulcerative colitis s/p total colectomy in the early . Does not follow with any specific PCP at this time. No leukocytosis, BUN 113 and creatinine 2.64; likely secondary to dehydration and poor PO intake, TSH elevated 5.240. UDS and UA pending. Hemodynamically stable and on RA. Denies bipolar or schizophrenia mental history; only depression and anxiety. Would benefit from OOA involvement as he does live alone. Ultimately, a mentally unwell individual with poor coping mechanisms and history and current SI. Admits to feelings of harming himself over the past week. No significant event occurred over the past week that he can specifically recall. Reports drinking 1 L of alcohol daily up until a few weeks ago. Reports his last drink was a few weeks ago. Denies visual and auditory hallucinations. Suicidal ideation with severe depression without psychotic features -Seen by psychiatry, recommendations noted. Continue Prozac. Discontinue Wellbutrin. No benefit from buspirone. Avoid bed states pain is -Continue suicidal precautions and One-to-one observation -Patient is currently voluntary for psychiatric admission. If however, he insists on leaving before he is medically stable, will need to notify psychiatry to assess whether he would meet criteria for emergency involuntary admission. Hypomagnesia-improved, replete IV, recheck in am. Discontinued oral magnesium supplements due to stool incontinence/diarrhea. Hypophosphatemia- continue oral supplementation. 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 On gentle hydration Avoid nephrotoxic agents as able Monitor renal function Alcohol abuse- Completing gabapentin protocol Continue thiamine, folic acid Intake approximately 1 L vodka per day. Continue naltrexone Patient is currently not in withdrawal H/O Seizure disorder: Chronic stable Lamictal levels pending Continue Lamictal, Keppra. Discontinue Wellbutrin HTN: BP low normal, continue to hold lisinopril secondary to JAMI GERD: Continue PPI. Carafate added with improvement in GI symptoms. H/O Ulcerative Colitis S/P total colectomy in early : chronic, stable H/O incontinence as per patient- Oral magnesium discontinued. Consider checking stool clx if continues to be an issue. DVT Px: Lovenox SQ Disposition-patient will need inpatient psych admission once medically stable. Patient is currently voluntary for psychiatric admission. If however, he insists on leaving before he is medically stable, will need to notify psychiatry to assess whether he would meet criteria for emergency involuntary admission. Admission and Anticipated Discharge Date Admission Date: April 27, 2023 Subjective Patient was seen and examined at bedside. No more abdominal pain, nausea or vomiting however states he had an episode of stool incontinence this morning. Appetite still poor. No fever, chills, chest pain, shortness of breath. He remains depressed with flat affect and unmotivated. Review of Systems Review of Systems: All systems reviewed & are unremarkable except as noted in Subjective Physical Exam Physical Exam: General: Lying comfortably in bed, not in distress, on room air HEENT: EOMI, ITA, MMM Chest: Clear breath sounds bilaterally, no wheezes or crackles CVS: Regular rate and rhythm, normal heart sounds, no murmur Abdomen: Soft, nontender, not distended, normal bowel sounds Neuro: Awake, alert, oriented, conversing appropriately, non focal Extremities: No cyanosis, clubbing or edema Psychiatry: Depressed, low mood, flat affect Results & Data Results & Data Vital Signs (Past 12 Hours) Vital Signs Temp Pulse Resp BP BP Pulse Ox O2 Del Method 05/02/23 07:52 Room Air 05/02/23 07:22 36.7 C 70 19 108/74 93 Room Air 05/01/23 23:42 36.6 C 70 20 113/79 93 Room Air Laboratory Results [facility] 05/02/23 07:07 Sodium 135 L Potassium 4.0 Chloride 99 Carbon Dioxide 29 BUN 18 Creatinine 1.21 Glucose 120 H Calcium 8.6 Medications Administered Current Inpatient Medications Acetaminophen (Acetaminophen 325 Mg Tab) 650 mg PO Q4H PRN PRN Reason: Pain or Fever Stop: 05/27/23 16:50 Al Hydrox/Mg Hydrox/Simethicone (Aluminum/Magnesium Susp 30 Ml Udc) 15 ml PO Q4H PRN PRN Reason: Dyspepsia Stop: 05/27/23 16:50 Enoxaparin Sodium (Enoxaparin Inj 40 Mg/0.4 Ml Syr) 40 mg SQ QAM [facility] Stop: 05/28/23 08:59 Last Admin: 05/02/23 07:26 Dose: 40 mg Fluoxetine HCl (Fluoxetine Hcl 20 Mg Cap) 40 mg PO QAM [facility] Stop: 05/28/23 08:59 Last Admin: 05/02/23 07:30 Dose: 40 mg Fluoxetine HCl (Fluoxetine Hcl 20 Mg Cap) 20 mg PO QAM [facility] Stop: 05/28/23 08:59 Last Admin: 05/02/23 07:34 Dose: 20 mg Folic Acid (Folic Acid 1 Mg Tab) 1 mg PO QAM [facility] Stop: 05/31/23 08:59 Last Admin: 05/02/23 07:29 Dose: 1 mg Lactated Ringer's (Lr) 1,000 mls @ 80 mls/hr IV .[id number] [facility] Stop: 05/02/23 15:44 Last Admin: 05/02/23 04:15 Dose: 80 mls/hr Magnesium Sulfate/Dextrose (Magnesium Sulfate / D5w) 1 gm in 100 mls @ 50 mls/hr IV Q2H [facility] Stop: 05/02/23 15:14 Lactobacillus Acidophilus (Advanced Probiotic 1250 Mg Capsule) 2 cap PO DAILY [facility] Stop: 05/28/23 15:14 Last Admin: 05/02/23 07:31 Dose: 2 cap Lamotrigine (Lamotrigine 100 Mg Tab) 200 mg PO BID [facility] Stop: 05/28/23 16:14 Last Admin: 05/02/23 07:28 Dose: 200 mg Levetiracetam (Levetiracetam 250 Mg Tab) 250 mg PO BID [facility] Stop: 05/27/23 20:59 Last Admin: 05/02/23 07:27 Dose: 250 mg Levetiracetam (Levetiracetam 500 Mg Tab) 1,000 mg PO BID [facility] Stop: 05/27/23 20:59 Last Admin: 05/02/23 07:28 Dose: 1,000 mg Lorazepam (Lorazepam 1 Mg Tab) 2 mg PO UD PRN; Protocol PRN Reason: EtOH Withdrawal AWSS Score 8,9 Stop: 05/28/23 17:19 Last Admin: 04/28/23 17:40 Dose: 2 mg Lorazepam (Lorazepam 1 Mg Tab) 3 mg PO ONCE PRN; Protocol PRN Reason: EtOH Withdrawal AWSS Score 10 & above Lorazepam (Lorazepam 1 Mg Tab) 1 mg PO UD PRN; Protocol PRN Reason: EtOH Withdrawal AWSS Score 6,7 Stop: 05/28/23 17:19 Last Admin: 05/01/23 05:46 Dose: 1 mg Magnesium Hydroxide (Magnesium Hydroxide Susp 30 Ml Udc) 30 ml PO Q12H PRN PRN Reason: Constipation Stop: 05/27/23 16:50 Miconazole Nitrate (Miconazole Nitrate Powder 85 Gm) 1 appln EXT PRN PRN PRN Reason: Affected Skin Folds Stop: 05/29/23 13:12 Last Admin: 04/30/23 09:44 Dose: 1 appln Naltrexone HCl (Naltrexone Hcl 50 Mg Tab) 50 mg PO QAM [facility] Stop: 05/28/23 15:14 Last Admin: 05/02/23 07:32 Dose: 50 mg Ondansetron HCl (Ondansetron Inj 2 Mg/Ml 2 Ml Vial) 4 mg IV Q6H PRN PRN Reason: Nausea Stop: 05/27/23 16:50 Last Admin: 05/01/23 11:27 Dose: 4 mg Pantoprazole Sodium (Pantoprazole 40 Mg Tab) 40 mg PO QAM [facility] Stop: 05/28/23 08:59 Last Admin: 05/02/23 07:30 Dose: 40 mg Polyethylene Glycol (Polyethylene (Miralax) 17 Gm Pack) 17 gm PO DAILY PRN PRN Reason: Constipation Stop: 05/27/23 16:50 Potassium Phosphate (Pot Phosphate Monobasic W/ Sod Tab) 1 tab PO TID [facility] Stop: 06/01/23 13:59 Sucralfate (Sucralfate 1 Gm/10 Ml Udc) 1 gm PO BID [facility] Stop: 05/31/23 20:59 Last Admin: 05/02/23 07:33 Dose: 1 gm Thiamine HCl (Thiamine Hcl 100 Mg Tab) [facility] [place]: 05/28/23 08:59 Last Admin: 05/02/23 07:29 Dose: 100 mg
[2023-05-02] MEDS: MAGNESIUM SULFATE / D5W 1 GM/100 ML BAG IV SCH ×2 (11:42→13:27)
[2023-05-02] MEDS: POT PHOSPHATE MONOBASIC W/ SOD TAB PO SCH ×2 (13:28→22:11)
--- NOTE | 2023-05-02 15:05 | Psychiatric Progress Note ---
Date of Service May 02, 2023 Impression / Recommendations Impression 52 y/o man with psychiatric history of depression and anxiety and severe alcohol use disorder as well as history of TBI and subsequent seizure disorder admitted for JAMI. Diagnostically consistent with unspecified depressive disorder likely combination of MDD and alcohol-induced/withdrawal mood symptoms. 05/02/2023: Ongoing significant depression with SI. Now medically stable, will begin dual diagnosis inpatient psychiatry bed search. Will need clarification regarding how he will get access to a walker after he completes inpatient psychiatric treatment. Overall, I spent a total of 40 minutes with this case including review of chart records, review of labwork, direct evaluation of the patient at bedside, counseling the patient, discussion of the patient with the hospitalist provider, discussion with the psychiatric liason during clinical rounds, and documentation in the electronic health record. (1) Major depressive disorder, recurrent, severe without psychotic features: (2) Alcohol use disorder, severe, dependence: Plan -Pt is currently voluntary for psychiatric dual diagnosis treatment, will start bed search -Continue 1-on-, may not leave AMA as would meet 302 criteria -Continue with AWSS, thiamine, folic acid Interval History Identifying Information KEN LOJA is a 52-year-old man with a history of depression, anxiety, severe alcohol use disorder, and seizure disorder, admitted on 04/27/2023 for JAMI. Consult is by the hospitalist service for "suicidal ideation". Chief Complaint "Not good I'm having bad thoughts". Subjective Subjective Patient was seen & assessed and interval progress reviewed. Continues to feel very depressed with SI. Doesn't think alcohol is an issue but wants treatment for depression. Reviewed my concerns for his alcohol use as important to treat as well. Denies any current withdrawal symptoms or cravings. Working with PT and stable when using walker. Physical Exam Psychiatric Orientation: alert, oriented to person and oriented to place Apperance: appropriately dressed and + disheveled Eye Contact: + fair eye contact Motor Behavior: no abnormal motor movements Speech: normal rate/rhythm/volume of speech Affect: + depressed affect and + constricted affect Mood: + depressed mood Thought Process: goal directed thought process and + concrete thought process Thought Content: reality based without delusions Suicidal Thoughts: denies suicidal intent; + reports suicidal thoughts and + reports suicidal plan (none for hospital, outside to slit his wrists) Homicidal Thoughts: denies homicidal thoughts Hallucinations: no auditory hallucinations and no visual hallucinations Cognition: attention grossly intact and language grossly intact Estimated Intelligence: consistent with education level Insight: + limited insight Judgment: + limited judgement Vital Signs (Past 24 Hours) Last Vital Signs Temp 36.7 C 05/02/23 07:22 Pulse 70 05/02/23 07:22 Resp 19 05/02/23 07:22 BP 108/74 05/02/23 07:22 Pulse Ox 93 05/02/23 07:22 O2 Del Method Room Air 05/02/23 07:52 Results & Data ([facility]) Laboratory Results Laboratory Results - last 24 hr 04/27/23 05/02/23 16:28 07:07 Sodium 135 L Potassium 4.0 Chloride 99 Carbon Dioxide 29 Anion Gap 7 BUN 18 Creatinine 1.21 Est Cr Clr Drug Dosing 95.0 Est GFR ( Amer) 79.3 Est GFR (Non-Af Amer) 68.4 BUN/Creatinine Ratio 14.9 Glucose 120 H Calcium 8.6 Phosphorus 2.4 L Magnesium 1.5 L Urine MDEA negative MDMA negative Urine MDMA negative Current Inpatient Medications Current Inpatient Medications: Current Inpatient Medications Acetaminophen (Acetaminophen 325 Mg Tab) 650 mg PO Q4H PRN PRN Reason: Pain or Fever Stop: 05/27/23 16:50 Al Hydrox/Mg Hydrox/Simethicone (Aluminum/Magnesium Susp 30 Ml Udc) 15 ml PO Q4H PRN PRN Reason: Dyspepsia Stop: 05/27/23 16:50 Enoxaparin Sodium (Enoxaparin Inj 40 Mg/0.4 Ml Syr) 40 mg SQ QAM [facility] Stop: 05/28/23 08:59 Last Admin: 05/02/23 07:26 Dose: 40 mg Fluoxetine HCl (Fluoxetine Hcl 20 Mg Cap) 40 mg PO QAM ADI Stop: 05/28/23 08:59 Last Admin: 05/02/23 07:30 Dose: 40 mg Fluoxetine HCl (Fluoxetine Hcl 20 Mg Cap) 20 mg PO QAM [facility] Stop: 05/28/23 08:59 Last Admin: 05/02/23 07:34 Dose: 20 mg Folic Acid (Folic Acid 1 Mg Tab) 1 mg PO QAM [facility] Stop: 05/31/23 08:59 Last Admin: 05/02/23 07:29 Dose: 1 mg Lactated Ringer's (Lr) 1,000 mls @ 80 mls/hr IV .[id number] [facility] Stop: 05/02/23 15:44 Last Admin: 05/02/23 04:15 Dose: 80 mls/hr Magnesium Sulfate/Dextrose (Magnesium Sulfate / D5w) 1 gm in 100 mls @ 50 mls/hr IV Q2H [facility] Stop: 05/02/23 15:29 Last Infusion: 05/02/23 15:03 Dose: Infused Lactobacillus Acidophilus (Advanced Probiotic 1250 Mg Capsule) 2 cap PO DAILY [facility] Stop: 05/28/23 15:14 Last Admin: 05/02/23 07:31 Dose: 2 cap Lamotrigine (Lamotrigine 100 Mg Tab) 200 mg PO BID [facility] Stop: 05/28/23 16:14 Last Admin: 05/02/23 07:28 Dose: 200 mg Levetiracetam (Levetiracetam 250 Mg Tab) 250 mg PO BID [facility] Stop: 05/27/23 20:59 Last Admin: 05/02/23 07:27 Dose: 250 mg Levetiracetam (Levetiracetam 500 Mg Tab) 1,000 mg PO BID [facility] Stop: 05/27/23 20:59 Last Admin: 05/02/23 07:28 Dose: 1,000 mg Lorazepam (Lorazepam 1 Mg Tab) 2 mg PO UD PRN; Protocol PRN Reason: EtOH Withdrawal AWSS Score 8,9 Stop: 05/28/23 17:19 Last Admin: 04/28/23 17:40 Dose: 2 mg Lorazepam (Lorazepam 1 Mg Tab) 3 mg PO ONCE PRN; Protocol PRN Reason: EtOH Withdrawal AWSS Score 10 & above Lorazepam (Lorazepam 1 Mg Tab) 1 mg PO UD PRN; Protocol PRN Reason: EtOH Withdrawal AWSS Score 6,7 Stop: 05/28/23 17:19 Last Admin: 05/01/23 05:46 Dose: 1 mg Magnesium Hydroxide (Magnesium Hydroxide Susp 30 Ml Udc) 30 ml PO Q12H PRN PRN Reason: Constipation Stop: 05/27/23 16:50 Miconazole Nitrate (Miconazole Nitrate Powder 85 Gm) 1 appln EXT PRN PRN PRN Reason: Affected Skin Folds Stop: 05/29/23 13:12 Last Admin: 04/30/23 09:44 Dose: 1 appln Naltrexone HCl (Naltrexone Hcl 50 Mg Tab) [facility] Stop: 05/28/23 15:14 Last Admin: 05/02/23 07:32 Dose: 50 mg Ondansetron HCl (Ondansetron Inj 2 Mg/Ml 2 Ml Vial) 4 mg IV Q6H PRN PRN Reason: Nausea Stop: 05/27/23 16:50 Last Admin: 05/01/23 11:27 Dose: 4 mg Pantoprazole Sodium (Pantoprazole 40 Mg Tab) [facility] Stop: 05/28/23 08:59 Last Admin: 05/02/23 07:30 Dose: 40 mg Polyethylene Glycol (Polyethylene (Miralax) 17 Gm Pack) 17 gm PO DAILY PRN PRN Reason: Constipation Stop: 05/27/23 16:50 Potassium Phosphate (Pot Phosphate Monobasic W/ Sod Tab) 1 tab PO TID [facility] Stop: 06/01/23 13:59 Last Admin: 05/02/23 13:28 Dose: 1 tab Sucralfate (Sucralfate 1 Gm/10 Ml Udc) 1 gm PO BID [facility] Stop: 05/31/23 20:59 Last Admin: 05/02/23 07:33 Dose: 1 gm Thiamine HCl (Thiamine Hcl 100 Mg Tab) 100 [facility] Stop: 05/28/23 08:59 Last Admin: 05/02/23 07:29 Dose: 100 mg
[2023-05-02] MEDS: ONDANSETRON INJ 2 MG/ML 2 ML VIAL IV PRN (20:34)
[2023-05-02] MEDS ORDERED: LORazepam 2 MG/1 ML VIAL IV PRN (21:01)
[2023-05-03] MEDS: LORazepam 1 MG TAB PO PRN ×2 (01:21→04:27)
[2023-05-03 08:11] LABS: Magnesium 1.7 mg/dl (1.7-2.4); Phosphorus 2.5 mg/dl (2.5-4.9)
--- NOTE | 2023-05-03 08:13 | Hospitalist Progress Note ---
Date of Service May 03, 2023 Assessment & Plan (1) Suicidal ideation: (2) Major depressive disorder, recurrent, severe without psychotic features: (3) Alcohol use disorder, severe, dependence: (4) Seizure disorder: (5) JAMI (acute kidney injury): Plan Pt is a 52yoM with PMHx of chronic alcohol use admitted after making suicidal statements to his daughter. Pt is medically stable for discharge to an inpatient psychiatric facility. Suicidal ideation with severe depression without psychotic features Seen by psychiatry, recommendations noted: -Continue Prozac. -Discontinue Wellbutrin. -No noted benefit from buspirone. 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 Hypophosphatemia Currently resolved continue oral supplementation Alcohol abuse Intake of approximately 1 L vodka per day. On AWSS protocol with gabapentin Continue naltrexone Continue thiamine, folic acid Patient is currently not in withdrawal H/O Seizure disorder Chronic stable Continue Lamictal, Keppra. Discontinue Wellbutrin HTN BP borderline continue to hold lisinopril GERD Continue PPI Carafate added with improvement in GI symptoms. H/O Ulcerative Colitis S/P total colectomy in early s: chronic, stable CODE STATUS: Full code Diet: Advanced to regular, safe tray DVT Px: Lovenox SQ Disposition-medically stable, psych bed search Admission and Anticipated Discharge Date Admission Date: April 27, 2023 Subjective Pt seen this AM. Was laying in bed watching TV with sitter at bedside. Denies acute concerns. Review of Systems Review of Systems: All systems reviewed & are unremarkable except as noted in Subjective Physical Exam Physical Exam: General: Alert, oriented. No acute distress Skin: No noted rashes or bruises Psych: Subdued mood and affect Neuro: No gross deficits HEENT: NC/AT CV: RRR Resp: Breath sounds clear bilaterally, no increased effort of breathing. Abdomen: Soft, nontender, nondistended. Extremities: No edema in lower extremities bilaterally. Results & Data Results & Data Vital Signs (Past 12 Hours) Vital Signs Temp Pulse Resp BP Pulse Ox O2 Del Method 05/03/23 07:32 36.9 C 68 17 141/84 H 91 Room Air 05/02/23 20:43 36.7 C 80 20 120/72 94 Room Air
[2023-05-03] MEDS: SUCRALFATE 1 GM/10 ML UDC PO SCH ×2 (09:17→20:09)
[2023-05-03] MEDS: THIAMINE HCL 100 MG TAB PO SCH (09:17)
[2023-05-03] MEDS: PANTOprazole 40 MG TAB PO SCH (09:17)
[2023-05-03] MEDS: FLUoxetine HCL 20 MG CAP PO SCH ×2 (09:18→09:19)
[2023-05-03] MEDS: ADVANCED PROBIOTIC 1250 MG CAPSULE PO SCH (09:18)
[2023-05-03] MEDS: POT PHOSPHATE MONOBASIC W/ SOD TAB PO SCH ×3 (09:18→20:11)
[2023-05-03] MEDS: levETIRAcetam 250 MG TAB PO SCH ×2 (09:18→20:11)
[2023-05-03] MEDS: NALTREXONE HCL 50 MG TAB PO SCH (09:18)
[2023-05-03] MEDS: FOLIC ACID 1 MG TAB PO SCH (09:18)
[2023-05-03] MEDS: ENOXAPARIN INJ 40 MG/0.4 ML SYR SQ SCH (09:19)
[2023-05-03] MEDS: levETIRAcetam 500 MG TAB PO SCH ×2 (09:19→20:10)
[2023-05-03] MEDS: lamoTRIgine 100 MG TAB PO SCH ×2 (09:19→20:09)
[2023-05-04 07:02] LABS: Basophils # (auto) 0.08 K/uL (0.00-0.20); Basophils % (auto) 1.2 %; Eosinophils # (auto) 0.15 K/uL (0.00-0.50); Eosinophils % (auto) 2.2 %; Hemoglobin 11.7 g/dl (14.0-18.0); Immature Granulocytes # (auto) 0.05 K/uL (0.01-0.20); Immature Granulocytes % (auto) 0.7 %; Lymphocytes # (auto) 2.22 K/uL (1.20-3.40); Lymphocytes % (auto) 33.3 %; Mean Corpuscular Hemoglobin 28.8 pg (25.0-34.0); Mean Corpuscular Hgb Conc 33.4 g/dL (32.0-36.0); Mean Corpuscular Volume 86.2 fL (80.0-100.0); Mean Platelet Volume 10.9 fL (9.4-12.4); Monocytes # (auto) 0.63 K/uL (0.11-0.59); Monocytes % (auto) 9.4 %; Neutrophils # (auto) 3.54 K/uL (1.40-6.50); Neutrophils % (auto) 53.2 %; Platelet Count 223 K/uL (130-400); RDW Coefficient of Variation 15.3 % (11.5-14.5); RDW Standard Deviation 48.1 fL (36.4-46.3); Red Blood Count 4.06 M/uL (4.70-6.10); White Blood Count 6.67 K/ul (4.8-10.8)
[2023-05-04 07:18] LABS: Albumin Globulin Ratio 1.2 (0.9-2); Albumin Level 3.6 gm/dl (3.4-5.0); BUN Creatinine Ratio 9.5 (10-20); Bilirubin,Total 0.3 mg/dl (0.2-1.0); Calcium 8.9 mg/dl (8.6-10.3); Creatinine Clr Calc Pharmacy 77.7 ml/min; Est GFR (African American) 62.7 ml/min; Est GFR (Non-African American) 54.1 ml/min; Magnesium 1.4 mg/dl (1.7-2.4); Phosphorus 2.6 mg/dl (2.5-4.9); Potassium 3.9 mmol/L (3.5-5.1); Total Protein 6.6 gm/dl (6.0-8.3)
--- NOTE | 2023-05-04 08:53 | Hospitalist Progress Note ---
Date of Service May 04, 2023 Assessment & Plan (1) Suicidal ideation: (2) Major depressive disorder, recurrent, severe without psychotic features: (3) Alcohol use disorder, severe, dependence: (4) Seizure disorder: (5) JAMI (acute kidney injury): Plan Pt is a 52yoM with PMHx of chronic alcohol use admitted after making suicidal statements to his daughter. Pt is medically stable for discharge to an inpatient psychiatric facility. Suicidal ideation with severe depression without psychotic features Seen by psychiatry, recommendations noted: -Continue Prozac. -Discontinue Wellbutrin. -No noted benefit from buspirone. 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 On NSS Avoid nephrotoxic agents as able Monitor renal function Hypomagnesia Previously resolved, decreased once more. Repleted with IV Mag, scheduled Mag Ox dosing. Continue to monitor and replete as needed Monitor for diarrhea or stool side-effects Hypophosphatemia Currently resolved continue oral supplementation Alcohol abuse Intake of approximately 1 L vodka per day. On AWSS protocol with gabapentin Continue naltrexone Continue thiamine, folic acid Patient is currently not in withdrawal H/O Seizure disorder Chronic stable Continue Lamictal, Keppra. Discontinue Wellbutrin HTN BP borderline continue to hold lisinopril GERD Continue PPI Carafate added with improvement in GI symptoms. H/O Ulcerative Colitis S/P total colectomy in early s: chronic, stable CODE STATUS: Full code Diet: Advanced to regular, safe tray DVT Px: Lovenox SQ Disposition-medically stable, psych bed search ongoing. Per psych, pt's use of walker remains a barrier to psych inpatient placement. Admission and Anticipated Discharge Date Admission Date: April 27, 2023 Subjective Pt seen. States he started having abdominal pain after breakfast. Had his diet advanced last night and states he tolerated his grilled cheese sandwich last night. Some mild nausea. Otherwise no acute concerns. Review of Systems Review of Systems: All systems reviewed & are unremarkable except as noted in Subjective Physical Exam Physical Exam: General: Alert, oriented. No acute distress Skin: No noted rashes or bruises Psych: Subdued mood and affect Neuro: No gross deficits HEENT: NC/AT CV: RRR Resp: Breath sounds clear bilaterally, no increased effort of breathing. Abdomen: Soft, nontender, nondistended. Extremities: No edema in lower extremities bilaterally. Results & Data Results & Data Vital Signs (Past 12 Hours) Vital Signs Temp Pulse Resp BP Pulse Ox O2 Del Method 05/04/23 06:52 36.8 C 76 18 101/70 93 Room Air 05/04/23 04:16 36.7 C 75 18 102/68 94 Room Air
[2023-05-04] MEDS: NALTREXONE HCL 50 MG TAB PO SCH (09:13)
[2023-05-04] MEDS: levETIRAcetam 500 MG TAB PO SCH ×2 (09:13→19:52)
[2023-05-04] MEDS: FLUoxetine HCL 20 MG CAP PO SCH ×2 (09:13→09:14)
[2023-05-04] MEDS: FOLIC ACID 1 MG TAB PO SCH (09:13)
[2023-05-04] MEDS: POT PHOSPHATE MONOBASIC W/ SOD TAB PO SCH ×3 (09:13→19:52)
[2023-05-04] MEDS: lamoTRIgine 100 MG TAB PO SCH ×2 (09:13→19:52)
[2023-05-04] MEDS: levETIRAcetam 250 MG TAB PO SCH ×2 (09:14→19:51)
[2023-05-04] MEDS: ADVANCED PROBIOTIC 1250 MG CAPSULE PO SCH (09:14)
[2023-05-04] MEDS: PANTOprazole 40 MG TAB PO SCH (09:14)
[2023-05-04] MEDS: THIAMINE HCL 100 MG TAB PO SCH (09:14)
[2023-05-04] MEDS: SUCRALFATE 1 GM/10 ML UDC PO SCH ×2 (09:15→19:51)
[2023-05-04] MEDS ORDERED: MAGNESIUM SULFATE / D5W 1 GM/100 ML BAG IV SCH (09:15)
[2023-05-04] MEDS: SODIUM CHLORIDE 0.9% 1,000 ML IV SCH ×2 (09:23→19:52)
[2023-05-04] MEDS: ENOXAPARIN INJ 40 MG/0.4 ML SYR SQ SCH (09:24)
[2023-05-04] MEDS: MAGNESIUM SULFATE / D5W 1 GM/100 ML BAG IV SCH ×2 (09:24→11:26)
[2023-05-04] MEDS: ONDANSETRON INJ 2 MG/ML 2 ML VIAL IV PRN (09:30)
[2023-05-04] MEDS: MAGNESIUM OXIDE 400 MG TAB PO SCH (19:52)
[2023-05-05] MEDS: ONDANSETRON INJ 2 MG/ML 2 ML VIAL IV PRN ×2 (04:38→16:58)
[2023-05-05] MEDS: SODIUM CHLORIDE 0.9% 1,000 ML IV SCH ×3 (06:08→21:48)
[2023-05-05] MEDS ORDERED: PROMETHAZINE HCL 12.5 MG in SODIUM CHLORIDE 0.9% 50 ML IV STA (06:51)
[2023-05-05 07:46] LABS: Basophils # (auto) 0.09 K/uL (0.00-0.20); Basophils % (auto) 1.6 %; Eosinophils # (auto) 0.15 K/uL (0.00-0.50); Eosinophils % (auto) 2.6 %; Hematocrit (blood only) 33.6 % (42.0-52.0); Immature Granulocytes # (auto) 0.02 K/uL (0.01-0.20); Immature Granulocytes % (auto) 0.3 %; Lymphocytes # (auto) 1.68 K/uL (1.20-3.40); Lymphocytes % (auto) 29.2 %; Mean Corpuscular Hgb Conc 32.7 g/dL (32.0-36.0); Mean Corpuscular Volume 88.7 fL (80.0-100.0); Mean Platelet Volume 11.1 fL (9.4-12.4); Monocytes # (auto) 0.48 K/uL (0.11-0.59); Monocytes % (auto) 8.3 %; Neutrophils # (auto) 3.33 K/uL (1.40-6.50); Platelet Count 226 K/uL (130-400); RDW Coefficient of Variation 15.3 % (11.5-14.5); RDW Standard Deviation 49.7 fL (36.4-46.3); Red Blood Count 3.79 M/uL (4.70-6.10); White Blood Count 5.75 K/ul (4.8-10.8)
[2023-05-05 08:11] LABS: Albumin Globulin Ratio 1.3 (0.9-2); Albumin Level 3.3 gm/dl (3.4-5.0); BUN Creatinine Ratio 8.3 (10-20); Bilirubin,Total 0.3 mg/dl (0.2-1.0); Calcium 8.2 mg/dl (8.6-10.3); Creatinine Clr Calc Pharmacy 86.5 ml/min; Est GFR (African American) 71.4 ml/min; Est GFR (Non-African American) 61.6 ml/min; Globulin 2.6 gm/dl (2.5-4.0); Magnesium 1.5 mg/dl (1.7-2.4); Phosphorus 2.4 mg/dl (2.5-4.9); Potassium 3.7 mmol/L (3.5-5.1); Total Protein 5.9 gm/dl (6.0-8.3)
[2023-05-05] MEDS ORDERED: STAT IV/IM STA (09:26)
[2023-05-05] MEDS ORDERED: POTASSIUM PHOS 3 MMOL/1 ML INFUSION IV STA (09:26)
[2023-05-05] MEDS ORDERED: CALCIUM GLUCONATE 10% 1,000 MG in SODIUM CHLOR 0.9% MINI-B 50 ML IV ONE (09:26)
[2023-05-05] MEDS ORDERED: POTASSIUM PHOSPHATE 15 MMOL in SODIUM CHLORIDE 0.9% 250 ML IV ONE (09:45)
[2023-05-05] MEDS: ENOXAPARIN INJ 40 MG/0.4 ML SYR SQ SCH (09:49)
[2023-05-05] MEDS: FLUoxetine HCL 20 MG CAP PO SCH ×2 (09:50→09:52)
[2023-05-05] MEDS: NALTREXONE HCL 50 MG TAB PO SCH (09:50)
[2023-05-05] MEDS: THIAMINE HCL 100 MG TAB PO SCH (09:50)
[2023-05-05] MEDS: lamoTRIgine 100 MG TAB PO SCH ×2 (09:51→22:02)
[2023-05-05] MEDS: MAGNESIUM OXIDE 400 MG TAB PO SCH (09:51)
[2023-05-05] MEDS: levETIRAcetam 250 MG TAB PO SCH ×2 (09:51→22:02)
[2023-05-05] MEDS: FOLIC ACID 1 MG TAB PO SCH (09:51)
[2023-05-05] MEDS: levETIRAcetam 500 MG TAB PO SCH ×2 (09:51→22:02)
[2023-05-05] MEDS: ADVANCED PROBIOTIC 1250 MG CAPSULE PO SCH (09:51)
[2023-05-05] MEDS: SUCRALFATE 1 GM/10 ML UDC PO SCH ×2 (09:52→22:02)
[2023-05-05] MEDS: POT PHOSPHATE MONOBASIC W/ SOD TAB PO SCH ×3 (09:52→22:02)
[2023-05-05] MEDS: PANTOprazole 40 MG TAB PO SCH (09:52)
--- NOTE | 2023-05-05 10:58 | Hospitalist Progress Note ---
Date of Service May 05, 2023 Assessment & Plan (1) Suicidal ideation: (2) Major depressive disorder, recurrent, severe without psychotic features: (3) Alcohol use disorder, severe, dependence: (4) Seizure disorder: (5) JAMI (acute kidney injury): Plan Pt is a 52yoM with PMHx of chronic alcohol use admitted after making suicidal statements to his daughter. Pt is medically stable for discharge to an inpatient psychiatric facility. Suicidal ideation with severe depression without psychotic features Seen by psychiatry, recommendations noted: -Continue Prozac. -Discontinue Wellbutrin. -No noted benefit from buspirone. -Pt is currently voluntary for psych admission -Continue 1-on-1, may not leave AMA as would meet 302 criteria -Continue with AWSS, thiamine, folic acid Abdominal pain Pt notes abdominal pain daily. 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 On NSS Avoid nephrotoxic agents as able Monitor renal function Hypomagnesemia Previously resolved, decreased once more. Repleted with IV Mag Continue to monitor and replete as needed Monitor for diarrhea or stool side-effects Hypophosphatemia Currently resolved Continue oral supplementation Hypocalcemia Replete as needed Alcohol abuse Intake of approximately 1 L vodka per day. On AWSS protocol with gabapentin Continue naltrexone Continue thiamine, folic acid Patient is not currently in withdrawal H/O Seizure disorder Chronic stable Continue Lamictal, Keppra. Discontinue Wellbutrin HTN BP borderline Continue to hold lisinopril GERD Continue PPI Carafate added with improvement in GI symptoms. H/O Ulcerative Colitis S/P total colectomy in early 1999's: chronic, stable CODE STATUS: Full code Diet: Advanced to regular, safe tray DVT Px: Lovenox SQ Disposition-medically stable, psych bed search ongoing. Per psych, pt's use of walker remains a barrier to psych inpatient placement. Admission and Anticipated Discharge Date Admission Date: April 27, 2023 Subjective Pt seen. States he is still having abdominal pain after breakfast. Had his diet advanced. Some mild nausea. Otherwise no acute concerns. Review of Systems Review of Systems: All systems reviewed & are unremarkable except as noted in Subjective Physical Exam Physical Exam: General: Alert, oriented. No acute distress Skin: No noted rashes or bruises Psych: Subdued mood and affect Neuro: No gross deficits HEENT: NC/AT CV: RRR Resp: Breath sounds clear bilaterally, no increased effort of breathing. Abdomen: Soft, nontender, nondistended. Extremities: No edema in lower extremities bilaterally. Results & Data Results & Data Vital Signs (Past 12 Hours) Vital Signs Temp Pulse Resp BP BP Pulse Ox O2 Del Method 05/05/23 07:00 36.7 C 70 18 103/70 92 Room Air 05/04/23 23:00 36.7 C 74 18 115/76 94 Room Air
[2023-05-05] MEDS: MAGNESIUM SULFATE / D5W 1 GM/100 ML BAG IV SCH ×2 (12:07→13:58)
--- NOTE | 2023-05-05 16:26 | XRay Report ---
KUB HISTORY: Acute onset abdominal pain with nausea and vomiting persistent abdominal pain COMPARISON: CT 12/08/2017 FINDINGS: Surgical suture material noted within the mid pelvis. Numerous dilated air-filled loops of small bowel measure up to 12.5 cm from the central abdomen. No renal calculi. No ureteral calculi. N o pneumoperitoneum or pneumatosis. Chronic appearing healed right-sided rib fractures. IMPRESSION: Numerous prominently dilated air-filled loops of small bowel noted in this patient with history of pr ior colectomy suggestive of obstruction. Correlation with CT of the abdomen and pelvis with IV and en teric contrast recommended. ACT 112: Negative or not required by law. The above report was generated using voice recognition software. It may contain grammatical, syntax o r spelling errors. Electronically signed by: Scot Arevalo M.D. 05/05/2023 4:24 PM
[2023-05-05] MEDS ORDERED: OPTIRAY 320 100ml IV ONE (17:25)
--- NOTE | 2023-05-05 19:19 | CT Scan Report ---
CT abd pelvis IV con only CLINICAL HISTORY: follow up KUB, obstruction TECHNIQUE: Helical axial images of the abdomen and pelvis were obtained and displayed. Automated dose lowering techniques and/or adjustment according to patient size were utilized for this exam. This e xam was performed with intravenous contrast. CT DOSE: 1479.25 mGy.cm COMPARISON: Comparison is made to CT abdomen pelvis 12/08/2017 and abdomen radiograph 12/08/2017 FINDINGS: Lower chest: No acute abnormality. Liver: Unremarkable. No focal lesions are seen. Gallbladder and biliary tree: No calcified gallstones. Normal caliber wall. No intra- or extrahepatic biliary ductal dilation. Pancreas: Unremarkable, no focal lesions. Spleen: Unremarkable. Adrenals: Unremarkable. Kidneys and ureters: There is a 12 mm cyst in the left kidney. Nonobstructive stone is seen in the ri ght. Bladder: Limited evaluation due to underdistention. Reproductive organs: Unremarkable. Bowel: Postsurgical changes are seen of near total colectomy with ileocolic anastomosis and enteroent patience anastomosis. Multiple gas-distended loops of small bowel are seen measuring up to [address], however there is a smooth transition into the ileocolic anastomosis. Lymph nodes Retroperitoneal: Unremarkable. Pelvic: Unremarkable. Mesenteric: Unremarkable. Peritoneum: Normal. Vessels: Unremarkable. Abdominal wall: Right fat-containing inguinal hernia. Bones: Compression deformity of L1 appears chronic. Old healed right rib fractures are partially seen . IMPRESSION: 1. Multiple gas-distended loops of small bowel are seen without a sharp transition point, extending to the ileocolic anastomosis. Findings may be physiologic or represent ileus. Of note, the previously noted 13 cm loop of bowel in the midabdomen is no longer seen. 2. Nonobstructive nephrolithiasis. 3. Postsurgical changes of subtotal colectomy and enteroenteric anastomosis. ACT 112: Negative or not required by law. Electronically signed by: Randy Adan M.D. 05/05/2023 7:17 PM
[2023-05-06] MEDS: ONDANSETRON INJ 2 MG/ML 2 ML VIAL IV PRN ×4 (03:14→22:21)
[2023-05-06 06:55] LABS: Basophils % (auto) 1.9 %; Eosinophils # (auto) 0.11 K/uL (0.00-0.50); Eosinophils % (auto) 2.1 %; Hematocrit (blood only) 32.7 % (42.0-52.0); Hemoglobin 10.9 g/dl (14.0-18.0); Immature Granulocytes # (auto) 0.03 K/uL (0.01-0.20); Immature Granulocytes % (auto) 0.6 %; Lymphocytes # (auto) 1.65 K/uL (1.20-3.40); Lymphocytes % (auto) 30.8 %; Mean Corpuscular Hemoglobin 28.9 pg (25.0-34.0); Mean Corpuscular Hgb Conc 33.3 g/dL (32.0-36.0); Mean Corpuscular Volume 86.7 fL (80.0-100.0); Mean Platelet Volume 10.6 fL (9.4-12.4); Monocytes # (auto) 0.51 K/uL (0.11-0.59); Monocytes % (auto) 9.5 %; Neutrophils # (auto) 2.95 K/uL (1.40-6.50); Neutrophils % (auto) 55.1 %; Platelet Count 259 K/uL (130-400); RDW Coefficient of Variation 15.8 % (11.5-14.5); RDW Standard Deviation 50.3 fL (36.4-46.3); Red Blood Count 3.77 M/uL (4.70-6.10); White Blood Count 5.35 K/ul (4.8-10.8)
[2023-05-06 07:36] LABS: Albumin Globulin Ratio 1.3 (0.9-2); Albumin Level 3.3 gm/dl (3.4-5.0); BUN Creatinine Ratio 5.8 (10-20); Bilirubin,Total 0.3 mg/dl (0.2-1.0); Calcium 8.2 mg/dl (8.6-10.3); Creatinine Clr Calc Pharmacy 95.9 ml/min; Est GFR (African American) 80.1 ml/min; Est GFR (Non-African American) 69.1 ml/min; Globulin 2.5 gm/dl (2.5-4.0); Magnesium 1.6 mg/dl (1.7-2.4); Phosphorus 2.8 mg/dl (2.5-4.9); Potassium 3.8 mmol/L (3.5-5.1); Total Protein 5.8 gm/dl (6.0-8.3)
[2023-05-06] MEDS: SODIUM CHLORIDE 0.9% 1,000 ML IV SCH ×2 (08:09→16:42)
[2023-05-06] MEDS: PANTOprazole 40 MG TAB PO SCH (08:10)
[2023-05-06] MEDS: lamoTRIgine 100 MG TAB PO SCH ×2 (08:10→19:53)
[2023-05-06] MEDS: levETIRAcetam 500 MG TAB PO SCH ×2 (08:10→19:54)
[2023-05-06] MEDS: SUCRALFATE 1 GM/10 ML UDC PO SCH ×2 (08:11→19:54)
[2023-05-06] MEDS: FOLIC ACID 1 MG TAB PO SCH (08:11)
[2023-05-06] MEDS: levETIRAcetam 250 MG TAB PO SCH ×2 (08:11→19:54)
[2023-05-06] MEDS: FLUoxetine HCL 20 MG CAP PO SCH ×2 (08:11→08:12)
[2023-05-06] MEDS: ADVANCED PROBIOTIC 1250 MG CAPSULE PO SCH (08:11)
[2023-05-06] MEDS: POT PHOSPHATE MONOBASIC W/ SOD TAB PO SCH ×3 (08:11→19:53)
[2023-05-06] MEDS: NALTREXONE HCL 50 MG TAB PO SCH (08:11)
[2023-05-06] MEDS: THIAMINE HCL 100 MG TAB PO SCH (08:11)
[2023-05-06] MEDS: ENOXAPARIN INJ 40 MG/0.4 ML SYR SQ SCH (08:13)
[2023-05-06] MEDS: NICOTINE 21 MG/24 HR TDSY TD SCH (10:32)
--- NOTE | 2023-05-06 11:21 | Surgery Consultation ---
Date of Consultation May 06, 2023 Assessment & Plan (1) SBO (small bowel obstruction): Assessment: Patient is a 53 years old gentleman was admitted to the hospital with suicidal ideation. However patient developed abdominal pain yesterday, patient had a KUB and a CT scan diagnosis of possible small bowel obstruction. Now patient denies any abdominal pain he said he passed some flatus and passed some stool. No nausea, no vomiting, no diarrhea, no fever. Plan: Continue conservative treatment. No surgical indication now. Possible start clear diet tomorrow. We will follow. History of Present Illness Reason for Consultation: SBO Requesting Physician: Sabra Roa MD Attending Physician: Sabra Roa MD History of Present Illness CC: consult SBO HPI: pt is a 52 year-old male with PMH suicidal ideation, major depressive disorder, alcohol use disorder, seizure disorder, JAMI, who was admitted to hospital for suicidal ideation on 04/27/2023. whoever pt developed mild abdominal pain after breakfast yesterday. pt had mild nausea, no vomiting, pt had KUB and CT scan diagnosis- possible SBO. now pt denies abdominal pain. no nausea, no vomiting, pt said he passed some BM. no fever. no diarrhea. Allergies Allergy/AdvReac Type Severity Reaction Status Date / Time tramadol AdvReac Intermediate seizure Verified 10/18/18 06:38 Home Medications Medication Instructions Recorded Confirmed Type buspirone 5 mg tablet 5 mg PO TID 10/18/18 04/27/23 History fluoxetine 40 mg capsule 40 mg PO QAM 10/18/18 04/27/23 History lamotrigine 100 mg tablet 200 mg PO AMPM 10/18/18 04/27/23 History lorazepam 1 mg tablet 1 mg PO TID 10/18/18 04/27/23 History pantoprazole 40 mg tablet,delayed 40 mg PO QAM 10/18/18 04/27/23 History release bupropion HCl 150 mg 24 hr tablet, 150 mg PO QAM 04/27/23 04/27/23 History extended release fluoxetine 20 mg capsule 20 mg PO QAM 04/27/23 04/27/23 History levetiracetam 1,000 mg tablet 1,000 mg PO AMPM 04/27/23 04/27/23 History levetiracetam 250 mg tablet 250 mg PO AMPM 04/27/23 04/27/23 History lisinopril 10 mg tablet 10 mg PO QAM 04/27/23 04/27/23 History naltrexone 50 mg tablet 50 mg PO QAM 04/27/23 04/27/23 History thiamine HCl (vitamin B1) 100 mg 100 mg PO QAM 04/27/23 04/27/23 History tablet (Vitamin B-1) trazodone 50 mg tablet 50 mg PO HS 04/27/23 04/27/23 History Patient History Medical History (Updated 05/06/23 @ 11:22 by Cris Salcedo MD) JAMI (acute kidney injury) Alcohol use disorder, severe, dependence Major depressive disorder, recurrent, severe without psychotic features Seizure disorder Ulcerative colitis Surgical History No pertinent past surgical history Family History Other COPD (chronic obstructive pulmonary disease) Heart disease Social History Smoking Status: Current every day smoker Tobacco Type: Cigarettes Hx Alcohol Use: No Hx Substance Use: No Preferred Language: Icelandic Communication Ability: Effective Infection Control Specialist Required: No Beliefs That Will Affect Care: None Current Living Situation: Alone Feels Safe at Home: Hesitant to Answer Assistive Devices: None Review of Systems Constitutional: as per Subjective / HPI Eyes: as per Subjective / HPI Respiratory: as per Subjective / HPI Cardiovascular: as per Subjective / HPI Gastrointestinal: as per Subjective / HPI Genitourinary: + as per Subjective / HPI (JAMI) Neurologic: as per Subjective / HPI Psychiatric: suicidal ideation. major depressive disorder, Endocrine: as per Subjective / HPI Hematologic / Lymphatic: as per Subjective / HPI Physical Exam Constitutional: WD/WN, vitals as above Eyes: PERRL, conjunctivae normal, anicteric sclerae Neck: trachea midline, no thyromegaly Respiratory: normal respiratory effort, lungs clear to auscultation Cardiovascular: RRR, no murmur, no edema Gastrointestinal (Abdomen): soft, NT, ND, BS + Neurologic: patellar DTR's 2+ bilat, sensation intact Psychiatric: A+Ox3, euthymic affect Results & Data Vital Signs (Past 12 Hours) Vital Signs Temp Pulse Resp BP Pulse Ox O2 Del Method 05/06/23 07:05 37.0 C 75 18 120/79 97 Room Air Laboratory Results Abnormal lab results 05/06/23 05/06/23 Range/Units 06:23 06:23 RBC 3.77 L (4.70-6.10) M/uL Hgb 10.9 L (14.0-18.0) g/dl Hct 32.7 L (42.0-52.0) % RDW Std Deviation 50.3 H (36.4-46.3) fL RDW Coeff of Nadir 15.8 H (11.5-14.5) % BUN/Creatinine Ratio 5.8 L (10-20) Glucose 100 H (70-99(Fasting)) mg/dl Calcium 8.2 L (8.6-10.3) mg/dl Magnesium 1.6 L (1.7-2.4) mg/dl Alkaline Phosphatase 141 H (34-104) U/L Total Protein 5.8 L (6.0-8.3) gm/dl Albumin 3.3 L (3.4-5.0) gm/dl Diagnostic Findings CT abd pelvis IV con only CLINICAL HISTORY: follow up KUB, obstruction TECHNIQUE: Helical axial images of the abdomen and pelvis were obtained and displayed. Automated dose lowering techniques and/or adjustment according to patient size were utilized for this exam. This exam was performed with intravenous contrast. CT DOSE: 1479.25 mGy.cm COMPARISON: Comparison is made to CT abdomen pelvis 12/08/2017 and abdomen radiograph 12/08/2017 FINDINGS: Lower chest: No acute abnormality. Liver: Unremarkable. No focal lesions are seen. Gallbladder and biliary tree: No calcified gallstones. Normal caliber wall. No intra- or extrahepatic biliary ductal dilation. Pancreas: Unremarkable, no focal lesions. Spleen: Unremarkable. Adrenals: Unremarkable. Kidneys and ureters: There is a 12 mm cyst in the left kidney. Nonobstructive stone is seen in the right. Bladder: Limited evaluation due to underdistention. Reproductive organs: Unremarkable. Bowel: Postsurgical changes are seen of near total colectomy with ileocolic anastomosis and enteroenteric anastomosis. Multiple gas-distended loops of small bowel are seen measuring up to 15 mm in diameter, however there is a smooth transition into the ileocolic anastomosis. Lymph nodes Retroperitoneal: Unremarkable. Pelvic: Unremarkable. Mesenteric: Unremarkable. Peritoneum: Normal. Vessels: Unremarkable. Abdominal wall: Right fat-containing inguinal hernia. Bones: Compression deformity of L1 appears chronic. Old healed right rib fractures are partially seen. IMPRESSION: 1. Multiple gas-distended loops of small bowel are seen without a sharp transition point, extending to the ileocolic anastomosis. Findings may be physiologic or represent ileus. Of note, the previously noted 13 cm loop of bowel in the midabdomen is no longer seen. 2. Nonobstructive nephrolithiasis. 3. Postsurgical changes of subtotal colectomy and enteroenteric anastomosis. ACT 112: Negative or not required by law. KUB HISTORY: Acute onset abdominal pain with nausea and vomiting persistent abdominal pain COMPARISON: CT 12/08/2017 FINDINGS: Surgical suture material noted within the mid pelvis. Numerous dilated air-filled loops of small bowel measure up to 12.5 cm from the central abdomen. No renal calculi. No ureteral calculi. No pneumoperitoneum or pneumatosis. Chronic appearing healed right-sided rib fractures. IMPRESSION: Numerous prominently dilated air-filled loops of small bowel noted in this patient with history of prior colectomy suggestive of obstruction. Correlation with CT of the abdomen and pelvis with IV and enteric contrast recommended.
--- NOTE | 2023-05-06 16:30 | Hospitalist Progress Note ---
Date of Service May 06, 2023 Assessment & Plan (1) Suicidal ideation: (2) Major depressive disorder, recurrent, severe without psychotic features: (3) Alcohol use disorder, severe, dependence: (4) Seizure disorder: (5) JAMI (acute kidney injury): Plan Pt is a 52yoM with PMHx of chronic alcohol use admitted after making suicidal statements to his daughter. Suicidal ideation with severe depression without psychotic features Seen by psychiatry, recommendations noted: -Continue Prozac. -Discontinue Wellbutrin. -No noted benefit from buspirone. -Pt is currently voluntary for psych admission -Continue 1-on-1, may not leave AMA as would meet 302 criteria -Continue with AWSS, thiamine, folic acid Possible SBO vs ileus Nauseated with CT abd/pelvis showing multiple gas-distended loops of small bowel are seen without a sharp transition point, extending to the ileocolic anastomosis. Findings may be physiologic or represent ileus Passing some flatus and small amount of stool Seen by Gen surg - continue conservative treatment. No surgical indication now. 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 Repleted with IV Mag Continue to monitor and replete as needed Monitor for diarrhea or stool side-effects Hypophosphatemia Currently resolved Continue oral supplementation Hypocalcemia Corrected Ca 8.8. albumin 3.3 Alcohol abuse Intake of approximately 1 L vodka per day On AWSS protocol with gabapentin Continue naltrexone Continue thiamine, folic acid Patient is not currently in withdrawal H/O Seizure disorder Chronic stable Continue Lamictal, Keppra Discontinue Wellbutrin HTN BP borderline Continue to hold lisinopril GERD Continue PPI Carafate added with improvement in GI symptoms. H/O Ulcerative Colitis S/P total colectomy in early s: Chronic, stable CODE STATUS: Full code Diet: Advanced to regular, safe tray DVT Px: Lovenox SQ Disposition-medically stable, psych bed search ongoing. Per psych, pt's use of walker remains a barrier to psych inpatient placement. Admission and Anticipated Discharge Date Admission Date: April 27, 2023 Supervising Physician Co-Signing Physician Notes Pt seen and examined by myself, Sabra Roa MD on the day of service. Care was coordinated with Augustina Ferguson PA-C. States that he is a little better today. Still nauseated. Otherwise denies acute concerns. Abdomen not tender today. Otherwise as above. Subjective Patient seen and examined in 321-1. Continues to feel nauseated but has not vomited. Passing gas. Denies any fever, chills, lightheadedness, chest pain, shortness of breath dysuria. Review of Systems Review of Systems: At least ten systems reviewed and negative except as noted in the HPI. Physical Exam Physical Exam: Gen: WD/WN, NAD,resting in bed, A&Ox3, flat affect HEENT: Normocephalic, atraumatic, conjunctivae moist, sclerae anicteric, mucous membranes moist Lung: Clear to Auscultation bilaterally, no wheezes/rales/rhonchi Heart: Regular rate, regular rhythm, no murmurs, rubs, or gallops Abdomen: Soft, NT, ND +hypoactive bowel sounds Extremities: no edema Skin: Warm, no rash Results & Data Results & Data Vital Signs (Past 12 Hours) Vital Signs Temp Pulse Resp BP Pulse Ox O2 Del Method 05/06/23 14:32 36.9 C 71 16 128/87 94 Room Air 05/06/23 07:05 37.0 C 75 18 120/79 97 Room Air Laboratory Results Short CBC 05/06/23 Range/Units 06:23 WBC 5.35 (4.8-10.8) K/ul Hgb 10.9 L (14.0-18.0) g/dl Hct 32.7 L (42.0-52.0) % Plt Count 259 (130-400) K/uL BMP 05/06/23 06:23 Sodium 138 Potassium 3.8 Chloride 105 Carbon Dioxide 27 BUN 7 Creatinine 1.20 Glucose 100 H Calcium 8.2 L Liver Function 05/06/23 Range/Units 06:23 Total Bilirubin 0.3 (0.2-1.0) mg/dl AST 20 (13-39) U/L ALT 11 (7-52) U/L Alkaline Phosphatase 141 H (34-104) U/L Albumin 3.3 L (3.4-5.0) gm/dl Diagnostic Findings KUB X-Ray 05/05/23 15:03 KUB HISTORY: Acute onset abdominal pain with nausea and vomiting persistent abdominal pain COMPARISON: CT 12/08/2017 FINDINGS: Surgical suture material noted within the mid pelvis. Numerous dilated air-filled loops of small bowel measure up to 12.5 cm from the central abdomen. No renal calculi. No ureteral calculi. No pneumoperitoneum or pneumatosis. Chronic appearing healed right-sided rib fractures. IMPRESSION: Numerous prominently dilated air-filled loops of small bowel noted in this patient with history of prior colectomy suggestive of obstruction. Correlation with CT of the abdomen and pelvis with IV and enteric contrast recommended. ACT 112: Negative or not required by law. The above report was generated using voice recognition software. It may contain grammatical, syntax or spelling errors. Electronically signed by: Scot Arevalo M.D. 05/05/2023 4:24 PM Abdomen/Pelvis CT 05/05/23 16:33 CT abd pelvis IV con only CLINICAL HISTORY: follow up KUB, obstruction TECHNIQUE: Helical axial images of the abdomen and pelvis were obtained and displayed. Automated dose lowering techniques and/or adjustment according to patient size were utilized for this exam. This exam was performed with intravenous contrast. CT DOSE: 1479.25 mGy.cm COMPARISON: Comparison is made to CT abdomen pelvis 12/08/2017 and abdomen rad iograph 12/08/2017 FINDINGS: Lower chest: No acute abnormality. Liver: Unremarkable. No focal lesions are seen. Gallbladder and biliary tree: No calcified gallstones. Normal caliber wall. No i ntra- or extrahepatic biliary ductal dilation. Pancreas: Unremarkable, no focal lesions. Spleen: Unremarkable. Adrenals: Unremarkable. Kidneys and ureters: There is a 12 mm cyst in the left kidney. Nonobstructive stone is seen in the right. Bladder: Limited evaluation due to underdistention. Reproductive organs: Unremarkable. Bowel: Postsurgical changes are seen of near total colectomy with ileocolic anastomosis and enteroenteric anastomosis. Multiple gas-distended loops of small bowel are seen measuring up to 15 mm in diameter, however there is a smooth transition into the ileocolic anastomosis. Lymph nodes Retroperitoneal: Unremarkable. Pelvic: Unremarkable. Mesenteric: Unremarkable. Peritoneum: Normal. Vessels: Unremarkable. Abdominal wall: Right fat-containing inguinal hernia. Bones: Compression deformity of L1 appears chronic. Old healed right rib fractures are partially seen. IMPRESSION: 1. Multiple gas-distended loops of small bowel are seen without a sharp transition point, extending to the ileocolic anastomosis. Findings may be physiologic or represent ileus. Of note, the previously noted 13 cm loop of bowel in the midabdomen is no longer seen. 2. Nonobstructive nephrolithiasis. 3. Postsurgical changes of subtotal colectomy and enteroenteric anastomosis. ACT 112: Negative or not required by law. Electronically signed by: Randy Adan M.D. 05/05/2023 7:17 PM
[2023-05-07] MEDS: SODIUM CHLORIDE 0.9% 1,000 ML IV SCH ×3 (02:51→23:54)
[2023-05-07] MEDS: PROMETHAZINE HCL 12.5 MG in SODIUM CHLORIDE 0.9% 50 ML IV PRN ×3 (03:55→18:19)
[2023-05-07] MEDS: ONDANSETRON INJ 2 MG/ML 2 ML VIAL IV PRN ×3 (06:29→16:49)
[2023-05-07 07:50] LABS: Basophils # (auto) 0.11 K/uL (0.00-0.20); Basophils % (auto) 1.8 %; Eosinophils # (auto) 0.12 K/uL (0.00-0.50); Hemoglobin 10.7 g/dl (14.0-18.0); Immature Granulocytes # (auto) 0.03 K/uL (0.01-0.20); Immature Granulocytes % (auto) 0.5 %; Lymphocytes # (auto) 2.02 K/uL (1.20-3.40); Lymphocytes % (auto) 33.8 %; Mean Corpuscular Hemoglobin 29.1 pg (25.0-34.0); Mean Corpuscular Hgb Conc 33.4 g/dL (32.0-36.0); Mean Platelet Volume 10.3 fL (9.4-12.4); Monocytes # (auto) 0.44 K/uL (0.11-0.59); Monocytes % (auto) 7.4 %; Neutrophils # (auto) 3.26 K/uL (1.40-6.50); Neutrophils % (auto) 54.5 %; Platelet Count 283 K/uL (130-400); RDW Coefficient of Variation 15.6 % (11.5-14.5); Red Blood Count 3.68 M/uL (4.70-6.10); White Blood Count 5.98 K/ul (4.8-10.8)
[2023-05-07] MEDS: SUCRALFATE 1 GM/10 ML UDC PO SCH ×2 (08:03→19:34)
[2023-05-07 08:14] LABS: Albumin Globulin Ratio 1.4 (0.9-2); Albumin Level 3.3 gm/dl (3.4-5.0); BUN Creatinine Ratio 5.7 (10-20); Bilirubin,Total 0.4 mg/dl (0.2-1.0); Calcium 7.8 mg/dl (8.6-10.3); Creatinine Clr Calc Pharmacy 108.6 ml/min; Est GFR (African American) 93.1 ml/min; Est GFR (Non-African American) 80.3 ml/min; Globulin 2.3 gm/dl (2.5-4.0); Magnesium 1.3 mg/dl (1.7-2.4); Phosphorus 2.7 mg/dl (2.5-4.9); Potassium 3.7 mmol/L (3.5-5.1); Total Protein 5.6 gm/dl (6.0-8.3)
[2023-05-07] MEDS: levETIRAcetam 500 MG TAB PO SCH ×2 (09:10→19:34)
[2023-05-07] MEDS: FOLIC ACID 1 MG TAB PO SCH (09:10)
[2023-05-07] MEDS: lamoTRIgine 100 MG TAB PO SCH ×2 (09:10→19:34)
[2023-05-07] MEDS: FLUoxetine HCL 20 MG CAP PO SCH ×2 (09:10)
[2023-05-07] MEDS: ADVANCED PROBIOTIC 1250 MG CAPSULE PO SCH (09:10)
[2023-05-07] MEDS: PANTOprazole 40 MG TAB PO SCH (09:11)
[2023-05-07] MEDS: POT PHOSPHATE MONOBASIC W/ SOD TAB PO SCH ×3 (09:11→19:34)
[2023-05-07] MEDS: NICOTINE 21 MG/24 HR TDSY TD SCH (09:11)
[2023-05-07] MEDS: THIAMINE HCL 100 MG TAB PO SCH (09:11)
[2023-05-07] MEDS: NALTREXONE HCL 50 MG TAB PO SCH (09:11)
[2023-05-07] MEDS: levETIRAcetam 250 MG TAB PO SCH ×2 (09:11→19:35)
[2023-05-07] MEDS: ENOXAPARIN INJ 40 MG/0.4 ML SYR SQ SCH (09:11)
[2023-05-07] MEDS: MAGNESIUM SULFATE / D5W 1 GM/100 ML BAG IV SCH ×2 (09:50→11:47)
--- NOTE | 2023-05-07 13:10 | Surgery Progress Note ---
Date of Service May 07, 2023 Assessment & Plan (1) SBO (small bowel obstruction): Plan: vs ileus ct scan with multiple loops of SB dilation up to ileocolonic anastomosis, no discrete transition no abodminal pain abodmen soft nontender + bowel function Plan: Okay for clear liquids needs to ambulate continue medical management [facility] surgery covering this weekend. Dr. Salcedo has seen and examined pt,agrees with above. Admission and Anticipated Discharge Date Admission Date: April 27, 2023 Subjective no abdominal pain no vomiting some nausea per nurse had Zofran and Phenergan + flatus and bowel movements Physical Exam Constitutional: WD/WN, vitals as above no acute distress and not ill appearing Gastrointestinal (Abdomen): Inspection/Auscultation: abdomen normal to inspection; abdomen not distended Percussion/Palpation: abdomen soft; abdomen nontender, no guarding, abdomen not rigid and abdomen not firm Skin: no rashes, warm and dry Psychiatric: Orientation: alert Results & Data Vital Signs (Past 12 Hours) Vital Signs Temp Pulse Resp BP Pulse Ox O2 Del Method 05/07/23 06:09 37.0 C 68 16 137/89 96 Room Air Laboratory Results 05/07/23 05/07/23 05/07/23 Range/Units 07:33 07:33 07:33 WBC 5.98 (4.8-10.8) K/ul RBC 3.68 L (4.70-6.10) M/uL Hgb 10.7 L (14.0-18.0) g/dl Hct 32.0 L (42.0-52.0) % MCV 87.0 (80.0-100.0) fL MCH 29.1 (25.0-34.0) pg MCHC 33.4 (32.0-36.0) g/dL RDW Std Deviation 50.0 H (36.4-46.3) fL RDW Coeff of Nadir 15.6 H (11.5-14.5) % Plt Count 283 (130-400) K/uL MPV 10.3 (9.4-12.4) fL Immature Gran % (Auto) 0.5 % Neut % (Auto) 54.5 % Lymph % (Auto) 33.8 % Gates % (Auto) 7.4 % Eos % (Auto) 2.0 % Baso % (Auto) 1.8 % Neut # (Auto) 3.26 (1.40-6.50) K/uL Lymph # (Auto) 2.02 (1.20-3.40) K/uL Gates # (Auto) 0.44 (0.11-0.59) K/uL Eos # (Auto) 0.12 (0.00-0.50) K/uL Baso # (Auto) 0.11 (0.00-0.20) K/uL Immature Gran # (Auto) 0.03 (0.01-0.20) K/uL Sodium 136 (136-145) mmol/L Potassium 3.7 (3.5-5.1) mmol/L Chloride 105 (98-107) mmol/L Carbon Dioxide 24 (21-32) mmol/L Anion Gap 7 (3-11) BUN 6 (6-23) mg/dl Creatinine 1.06 (0.6-1.4) mg/dl Est Cr Clr Drug Dosing 108.6 ml/min Est GFR ( Amer) 93.1 ml/min Est GFR (Non-Af Amer) 80.3 ml/min BUN/Creatinine Ratio 5.7 L (10-20) Glucose 92 (70-99(Fasting)) mg/dl Calcium 7.8 L (8.6-10.3) mg/dl Ionized Calcium 1.06 L (1.12-1.32) mmol/L Phosphorus 2.7 (2.5-4.9) mg/dl Magnesium 1.3 L (1.7-2.4) mg/dl Total Bilirubin 0.4 (0.2-1.0) mg/dl AST 17 (13-39) U/L ALT 10 (7-52) U/L Alkaline Phosphatase 135 H (34-104) U/L Total Protein 5.6 L (6.0-8.3) gm/dl Albumin 3.3 L (3.4-5.0) gm/dl Globulin 2.3 L (2.5-4.0) gm/dl Albumin/Globulin Ratio 1.4 (0.9-2)
--- NOTE | 2023-05-07 16:24 | Hospitalist Progress Note ---
Date of Service May 07, 2023 Assessment & Plan (1) Suicidal ideation: (2) Major depressive disorder, recurrent, severe without psychotic features: (3) Alcohol use disorder, severe, dependence: (4) Seizure disorder: (5) JAMI (acute kidney injury): Plan Pt is a 52yoM with PMHx of chronic alcohol use admitted after making suicidal statements to his daughter. Suicidal ideation with severe depression without psychotic features Seen by psychiatry, recommendations noted: -Continue Prozac. -Discontinue Wellbutrin. -No noted benefit from buspirone. -Pt is currently voluntary for psych admission -Continue 1-on-1, may not leave AMA as would meet 302 criteria -Continue with AWSS, thiamine, folic acid Possible SBO vs ileus Nauseated with CT abd/pelvis showing multiple gas-distended loops of small bowel are seen without a sharp transition point, extending to the ileocolic anastomosis. 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 Repleted with IV Mag Continue to monitor and replete as needed Monitor for diarrhea or stool side-effects Hypophosphatemia Currently resolved Continue oral supplementation Hypocalcemia Corrected Ca 8.8. albumin 3.3 Alcohol abuse Intake of approximately 1 L vodka per day On AWSS protocol with gabapentin Continue naltrexone Continue thiamine, folic acid Patient is not currently in withdrawal H/O Seizure disorder Chronic stable Continue Lamictal, Keppra Discontinue Wellbutrin HTN BP borderline Continue to hold lisinopril GERD Continue PPI Carafate added with improvement in GI symptoms. H/O Ulcerative Colitis S/P total colectomy in early : Chronic, stable CODE STATUS: Full code Diet: Advanced to regular, safe tray DVT Px: Lovenox SQ Disposition-medically stable, psych bed search ongoing. Per psych, pt's use of walker remains a barrier to psych inpatient placement. Admission and Anticipated Discharge Date Admission Date: April 27, 2023 Supervising Physician Co-Signing Physician Notes Pt seen and examined by myself, Sabra Roa MD on the day of service. Care was coordinated with Augustina Ferguson PA-C. Still nauseous and states has been trying to eat. Has been having BMs. No abdominal pain on exam. Advanced to clear liquid diet, appreciate Surgery recs. Otherwise as above. Subjective Seen and examined in 321. No abdominal pain or vomiting but + nausea. + flatus and small bowel movements. No F/C, CP, SOB, dysuria Review of Systems Review of Systems: At least ten systems reviewed and negative except as noted in the HPI. Physical Exam Physical Exam: Gen: WD/WN, NAD,resting in bed, A&Ox3, flat affect HEENT: Normocephalic, atraumatic, conjunctivae moist, sclerae anicteric, mucous membranes moist Lung: Clear to Auscultation bilaterally, no wheezes/rales/rhonchi Heart: Regular rate, regular rhythm, no murmurs, rubs, or gallops Abdomen: Soft, NT, ND Extremities: no edema Skin: Warm, no rash Results & Data Results & Data Vital Signs (Past 12 Hours) Vital Signs Temp Pulse Resp BP BP Pulse Ox O2 Del Method 05/07/23 14:58 37.1 C 70 18 125/78 95 Room Air 05/07/23 06:09 37.0 C 68 16 137/89 96 Room Air Laboratory Results Short CBC 05/07/23 Range/Units 07:33 WBC 5.98 (4.8-10.8) K/ul Hgb 10.7 L (14.0-18.0) g/dl Hct 32.0 L (42.0-52.0) % Plt Count 283 (130-400) K/uL BMP 05/07/23 07:33 Sodium 136 Potassium 3.7 Chloride 105 Carbon Dioxide 24 BUN 6 Creatinine 1.06 Glucose 92 Calcium 7.8 L Liver Function 05/07/23 Range/Units 07:33 Total Bilirubin 0.4 (0.2-1.0) mg/dl AST 17 (13-39) U/L ALT 10 (7-52) U/L Alkaline Phosphatase 135 H (34-104) U/L Albumin 3.3 L (3.4-5.0) gm/dl Diagnostic Findings KUB X-Ray 05/05/23 15:03 KUB HISTORY: Acute onset abdominal pain with nausea and vomiting persistent abdominal pain COMPARISON: CT 12/08/2017 FINDINGS: Surgical suture material noted within the mid pelvis. Numerous dilated air-filled loops of small bowel measure up to 12.5 cm from the central abdomen. No renal calculi. No ureteral calculi. No pneumoperitoneum or pneumatosis. Chronic appearing healed right-sided rib fractures. IMPRESSION: Numerous prominently dilated air-filled loops of small bowel noted in this patient with history of prior colectomy suggestive of obstruction. Correlation with CT of the abdomen and pelvis with IV and enteric contrast recommended. ACT 112: Negative or not required by law. The above report was generated using voice recognition software. It may contain grammatical, syntax or spelling errors. Electronically signed by: Scot Arevalo M.D. 05/05/2023 4:24 PM Abdomen/Pelvis CT 05/05/23 16:33 CT abd pelvis IV con only CLINICAL HISTORY: follow up KUB, obstruction TECHNIQUE: Helical axial images of the abdomen and pelvis were obtained and displayed. Automated dose lowering techniques and/or adjustment according to patient size were utilized for this exam. This exam was performed with intravenous contrast. CT DOSE: 1479.25 mGy.cm COMPARISON: Comparison is made to CT abdomen pelvis 12/08/2017 and abdomen radiograph 12/08/2017 FINDINGS: Lower chest: No acute abnormality. Liver: Unremarkable. No focal lesions are seen. Gallbladder and biliary tree: No calcified gallstones. Normal caliber wall. No intra- or extrahepatic biliary ductal dilation. Pancreas: Unremarkable, no focal lesions. Spleen: Unremarkable. Adrenals: Unremarkable. Kidneys and ureters: There is a 12 mm cyst in the left kidney. Nonobstructive stone is seen in the right. Bladder: Limited evaluation due to underdistention. Reproductive organs: Unremarkable. Bowel: Postsurgical changes are seen of near total colectomy with ileocolic anastomosis and enteroenteric anastomosis. Multiple gas-distended loops of small bowel are seen measuring up to 15 mm in diameter, however there is a smooth transition into the ileocolic anastomosis. Lymph nodes Retroperitoneal: Unremarkable. Pelvic: Unremarkable. Mesenteric: Unremarkable. Peritoneum: Normal. Vessels: Unremarkable. Abdominal wall: Right fat-containing inguinal hernia. Bones: Compression deformity of L1 appears chronic. Old healed right rib fractures are partially seen. IMPRESSION: 1. Multiple gas-distended loops of small bowel are seen without a sharp transition point, extending to the ileocolic anastomosis. Findings may be physiologic or represent ileus. Of note, the previously noted 13 cm loop of bowel in the midabdomen is no longer seen. 2. Nonobstructive nephrolithiasis. 3. Postsurgical changes of subtotal colectomy and enteroenteric anastomosis. ACT 112: Negative or not required by law. Electronically signed by: Randy Adan M.D. 05/05/2023 7:17 PM
[2023-05-08] MEDS: ONDANSETRON INJ 2 MG/ML 2 ML VIAL IV PRN ×4 (01:44→21:30)
[2023-05-08] MEDS: PROMETHAZINE HCL 12.5 MG in SODIUM CHLORIDE 0.9% 50 ML IV PRN ×2 (03:47→12:07)
--- NOTE | 2023-05-08 06:09 | Surgery Progress Note ---
Date of Service May 08, 2023 Assessment & Plan (1) SBO (small bowel obstruction): Plan: Patient has been admitted on the hospitalist service. We recommend continuing care as follows: Continue clear liquids for the present time. Would consider slow advancement of diet as patient has poor appetite and some mild abdominal pain this morning Continue analgesics as needed Continue antiemetics as needed Encourage ambulation Check a.m. labs when available Admission and Anticipated Discharge Date Admission Date: April 27, 2023 Supervising Physician Co-Signing Physician Notes Patient has no abdominal pain, is passing flatus and having significant bowel movements. Today the patient sounds as though he is resolving SBO vs ileus although he continues to c/o nausea and is not taking in his clear liquid tray. Will obtain a KUB for f/u today. Subjective Patient is currently resting comfortably in bed. He notes that approximately 5 minutes prior to my visit this morning he had a small bowel movement. He denies any nausea or vomiting but does note some generalized abdominal pain. He also reports a poor appetite--- he notes he had his diet advanced to clear liquids but due to his poor appetite he did not consume very much. Physical Exam Gastrointestinal (Abdomen): Abdomen is soft and nondistended. There is no rebound tenderness or guarding. There is no pain with palpation. Results & Data Vital Signs (Past 12 Hours) Vital Signs Temp Pulse Resp BP Pulse Ox O2 Del Method 05/07/23 22:26 36.9 C 70 16 114/78 96 Room Air PG Care Time/CCT Total # of Minutes Spent Total Time Spent with Patient: Total time spent is greater than 50% in coordination of care (as documented) at patient's floor/unit and/or counseling patient: Coding Level of Care Code 88663 SUB INP/OBS CARE 08/26MIN Diagnoses SBO (small bowel obstruction) K56.609
[2023-05-08 06:36] LABS: Basophils # (auto) 0.12 K/uL (0.00-0.20); Basophils % (auto) 2.2 %; Eosinophils # (auto) 0.13 K/uL (0.00-0.50); Eosinophils % (auto) 2.4 %; Hematocrit (blood only) 33.8 % (42.0-52.0); Immature Granulocytes # (auto) 0.01 K/uL (0.01-0.20); Immature Granulocytes % (auto) 0.2 %; Lymphocytes % (auto) 31.3 %; Mean Corpuscular Hemoglobin 28.7 pg (25.0-34.0); Mean Corpuscular Hgb Conc 32.5 g/dL (32.0-36.0); Mean Corpuscular Volume 88.3 fL (80.0-100.0); Mean Platelet Volume 10.4 fL (9.4-12.4); Monocytes # (auto) 0.41 K/uL (0.11-0.59); Monocytes % (auto) 7.5 %; Neutrophils # (auto) 3.07 K/uL (1.40-6.50); Neutrophils % (auto) 56.4 %; Platelet Count 272 K/uL (130-400); RDW Coefficient of Variation 15.6 % (11.5-14.5); RDW Standard Deviation 50.5 fL (36.4-46.3); Red Blood Count 3.83 M/uL (4.70-6.10); White Blood Count 5.44 K/ul (4.8-10.8)
[2023-05-08 07:03] LABS: Albumin Globulin Ratio 1.3 (0.9-2); Albumin Level 3.3 gm/dl (3.4-5.0); BUN Creatinine Ratio 4.7 (10-20); Bilirubin,Total 0.4 mg/dl (0.2-1.0); Calcium 7.9 mg/dl (8.6-10.3); Creatinine Clr Calc Pharmacy 107.6 ml/min; Est GFR (Non-African American) 79.4 ml/min; Globulin 2.6 gm/dl (2.5-4.0); Magnesium 1.4 mg/dl (1.7-2.4); Phosphorus 2.6 mg/dl (2.5-4.9); Potassium 3.3 mmol/L (3.5-5.1); Total Protein 5.9 gm/dl (6.0-8.3)
[2023-05-08] MEDS: ACETAMINOPHEN 325 MG TAB PO PRN ×2 (07:55→15:43)
[2023-05-08] MEDS: SUCRALFATE 1 GM/10 ML UDC PO SCH ×2 (07:56→21:23)
[2023-05-08] MEDS: levETIRAcetam 500 MG TAB PO SCH ×2 (08:15→21:23)
[2023-05-08] MEDS: FLUoxetine HCL 20 MG CAP PO SCH ×2 (08:15→08:18)
[2023-05-08] MEDS: PANTOprazole 40 MG TAB PO SCH (08:16)
[2023-05-08] MEDS: ADVANCED PROBIOTIC 1250 MG CAPSULE PO SCH (08:16)
[2023-05-08] MEDS: NALTREXONE HCL 50 MG TAB PO SCH (08:16)
[2023-05-08] MEDS: lamoTRIgine 100 MG TAB PO SCH ×2 (08:16→21:24)
[2023-05-08] MEDS: FOLIC ACID 1 MG TAB PO SCH (08:16)
[2023-05-08] MEDS: levETIRAcetam 250 MG TAB PO SCH ×2 (08:16→21:24)
[2023-05-08] MEDS: POT PHOSPHATE MONOBASIC W/ SOD TAB PO SCH ×3 (08:17→21:23)
[2023-05-08] MEDS: NICOTINE 21 MG/24 HR TDSY TD SCH (08:17)
[2023-05-08] MEDS: THIAMINE HCL 100 MG TAB PO SCH (08:17)
[2023-05-08] MEDS: ENOXAPARIN INJ 40 MG/0.4 ML SYR SQ SCH (08:19)
[2023-05-08] MEDS: SODIUM CHLORIDE 0.9% 1,000 ML IV SCH ×2 (08:33→19:46)
--- NOTE | 2023-05-08 10:11 | Hospitalist Progress Note ---
Date of Service May 08, 2023 Assessment & Plan (1) Suicidal ideation: (2) Major depressive disorder, recurrent, severe without psychotic features: (3) Alcohol use disorder, severe, dependence: (4) Seizure disorder: (5) JAMI (acute kidney injury): Plan Pt is a 52yoM with PMHx of chronic alcohol use admitted after making suicidal statements to his daughter. Suicidal ideation with severe depression without psychotic features Seen by psychiatry, recommendations noted: -Continue Prozac. -Discontinue Wellbutrin. -No noted benefit from buspirone. -Pt is currently voluntary for psych admission -Continue 1-on-1, may not leave AMA as would meet 302 criteria -Continue with AWSS, thiamine, folic acid Possible SBO vs ileus Nauseated with CT abd/pelvis showing multiple gas-distended loops of small bowel without a sharp transition point, extending to the ileocolic anastomosis. Findings may be physiologic or represent ileus Passing flatus and stool Per Gen surg - advanced to clear liquids, KUB repeat. Appreciate further recs. 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 Repleted with IV Mag Continue to monitor and replete as needed Monitor for diarrhea or stool side-effects Hypophosphatemia Currently resolved Continue oral supplementation Hypocalcemia Corrected Ca 8.8. albumin 3.3 Replete as needed Alcohol abuse Intake of approximately 1 L vodka per day On AWSS protocol with gabapentin Continue naltrexone Continue thiamine, folic acid Patient is not currently in withdrawal H/O Seizure disorder Chronic stable Continue Lamictal, Keppra Discontinue Wellbutrin HTN BP borderline Continue to hold lisinopril GERD Continue PPI Carafate added with improvement in GI symptoms. H/O Ulcerative Colitis S/P total colectomy in early s: Chronic, stable CODE STATUS: Full code Diet: Advanced to regular, no need for safe tray as long as pt is monitored closely DVT Px: Lovenox SQ Disposition-medically stable, psych bed search ongoing. Per psych, pt's use of walker remains a barrier to psych inpatient placement. Admission and Anticipated Discharge Date Admission Date: April 27, 2023 Subjective Pt seen with sitter at bedside. Still nauseous, states he has not eaten much today. [place] like he tolerated the clears from before. Feels better than the day before. Had a BM before the exam. Message from Nutrition about the safe tray limiting the pt's dietary options. Review of Systems Review of Systems: All systems reviewed & are unremarkable except as noted in Subjective Physical Exam Physical Exam: General: Alert, oriented. No acute distress Skin: No noted rashes or bruises Psych: Subdued mood and affect Neuro: No gross deficits HEENT: NC/AT CV: RRR Resp: Breath sounds clear bilaterally, no increased effort of breathing. Abdomen: Soft, nontender, nondistended. Extremities: No edema in lower extremities bilaterally. Results & Data Results & Data Vital Signs (Past 12 Hours) Vital Signs Temp Pulse Resp BP BP Pulse Ox O2 Del Method 05/08/23 07:49 37.1 C 69 18 123/79 95 Room Air 05/07/23 22:26 36.9 C 70 16 114/78 96 Room Air
--- NOTE | 2023-05-08 13:04 | XRay Report ---
KUB CLINICAL HISTORY: Generalized abdominal pain. Bloating. FINDINGS: 4 AP, portable, supine abdominal radiographs are compared to abdominal radiographs and CT d ated 05/05/2023. Suture material projects over the pelvis and the patient is status post colectomy. Th ere is marked gaseous distention of the small bowel loops, which is similar to 05/05/2023 examinations . Distal obstruction is favored over ileus. No evidence of intraperitoneal free air is seen on these supine images. Phleboliths are noted in the pelvis. The bony structures appear intact. IMPRESSION: 1. Postsurgical change is consistent with previous colectomy when correlated with prior CT imaging. 2. Again seen is marked gaseous distention of the small bowel loops. This could represent distal obst ruction versus ileus, and the degree of distention is similar to the 05/05/2023 examinations. Clinical correlation will be required. Electronically signed by: Naveen Weaver M.D. 05/08/2023 1:01 PM
--- NOTE | 2023-05-08 13:36 | Psychiatric Progress Note ---
Date of Service May 08, 2023 Impression / Recommendations Impression 52 y/o man with psychiatric history of depression and anxiety and severe alcohol use disorder as well as history of TBI and subsequent seizure disorder admitted for JAMI. Diagnostically consistent with unspecified depressive disorder likely combination of MDD and alcohol-induced/withdrawal mood symptoms. 05/08/2023: Ongoing significant depression with SI. Overall, I spent a total of 42 minutes with this case including review of chart records, review of labwork, direct evaluation of the patient at bedside, discussion of the patient with the hospitalist provider, discussion with the psychiatric liason during clinical rounds, and documentation in the electronic health record. (1) Major depressive disorder, recurrent, severe without psychotic features: (2) Alcohol use disorder, severe, dependence: Plan patients are 1-on-1 as not low ligature risk on the med floor and plan is for inpatient mental health when medically cleared. Interval History Identifying Information KEN LOJA is a 52-year-old man with a history of depression, anxiety, severe alcohol use disorder, and seizure disorder, admitted on 04/27/2023 for JAMI. Initial consult by Dr. Edouard on 04/28 with f/u with Dr. Chau given ongoing stay for possible SBO. Chief Complaint "I'm just done with everything." Review of Systems Notes N, chronic D, denies ambulatory dysfunction, sleep ok Subjective Subjective Patient was seen & assessed and interval progress reviewed with nursing and Dr. Roa. Patient is tolerating clears but still reports some N, remains on supplementary IVF. Patient appears depressed, low energy, ongoing passive wish, overwhelmed and difficulty verbalizing how to cope. Has been unable to safety plan from the floor. No evidence of protracted alcohol withdrawal. Physical Exam Psychiatric Orientation: alert, oriented to person and oriented to place Apperance: appropriately groomed Eye Contact: + fair eye contact Motor Behavior: no abnormal motor movements Speech: normal rate/rhythm/volume of speech Affect: + depressed affect Mood: + depressed mood Thought Process: goal directed thought process and + concrete thought process Thought Content: reality based without delusions Suicidal Thoughts: denies suicidal intent; + reports suicidal thoughts and + reports suicidal plan (none for hospital but hx cut wrists, voiced wanting to OD) Homicidal Thoughts: denies homicidal thoughts Hallucinations: no auditory hallucinations and no visual hallucinations Cognition: attention grossly intact and language grossly intact Estimated Intelligence: consistent with education level Insight: + limited insight Judgment: + limited judgement Vital Signs (Past 24 Hours) Last Vital Signs Temp 37.1 C 05/08/23 07:49 Pulse 69 05/08/23 07:49 Resp 18 05/08/23 07:49 BP 123/79 05/08/23 07:49 Pulse Ox 95 05/08/23 07:49 O2 Del Method Room Air 05/08/23 07:49 Results & Data ([facility]) Laboratory Results Laboratory Results - last 24 hr 05/08/23 05/08/23 05/08/23 06:08 06:08 06:08 WBC 5.44 RBC 3.83 L Hgb 11.0 L Hct 33.8 L MCV 88.3 MCH 28.7 MCHC 32.5 RDW Std Deviation 50.5 H RDW Coeff of Nadir 15.6 H Plt Count 272 MPV 10.4 Immature Gran % (Auto) 0.2 Neut % (Auto) 56.4 Lymph % (Auto) 31.3 Reeves % (Auto) 7.5 Eos % (Auto) 2.4 Baso % (Auto) 2.2 Neut # (Auto) 3.07 Lymph # (Auto) 1.70 Reeves # (Auto) 0.41 Eos # (Auto) 0.13 Baso # (Auto) 0.12 Immature Gran # (Auto) 0.01 Sodium 135 L Potassium 3.3 L Chloride 103 Carbon Dioxide 23 Anion Gap 9 BUN 5 L Creatinine 1.07 Est Cr Clr Drug Dosing 107.6 Est GFR ( Amer) 92.0 Est GFR (Non-Af Amer) 79.4 BUN/Creatinine Ratio 4.7 L Glucose 100 H Calcium 7.9 L Ionized Calcium 1.11 L Phosphorus 2.6 Magnesium 1.4 L Total Bilirubin 0.4 AST 17 ALT 9 Alkaline Phosphatase 131 H Total Protein 5.9 L Albumin 3.3 L Globulin 2.6 Albumin/Globulin Ratio 1.3 Current Inpatient Medications Current Inpatient Medications: Current Inpatient Medications Acetaminophen (Acetaminophen 325 Mg Tab) 650 mg PO Q4H PRN PRN Reason: Pain or Fever Stop: 05/27/23 16:50 Last Admin: 05/08/23 07:55 Dose: 650 mg Al Hydrox/Mg Hydrox/Simethicone (Aluminum/Magnesium Susp 30 Ml Udc) 15 ml PO Q 4H PRN PRN Reason: Dyspepsia Stop: 05/27/23 16:50 Enoxaparin Sodium (Enoxaparin Inj 40 Mg/0.4 Ml Syr) 40 mg SQ QAM [facility] Stop: 05/28/23 08:59 Last Admin: 05/08/23 08:19 Dose: 40 mg Fluoxetine HCl (Fluoxetine Hcl 20 Mg Cap) 40 mg PO QAM [facility] Stop: 05/28/23 08:59 Last Admin: 05/08/23 08:15 Dose: 40 mg Fluoxetine HCl (Fluoxetine Hcl 20 Mg Cap) 20 mg PO QAM [facility] Stop: 05/28/23 08:59 Last Admin: 05/08/23 08:18 Dose: 20 mg Folic Acid (Folic Acid 1 Mg Tab) 1 mg PO QAM [facility] Stop: 05/31/23 08:59 Last Admin: 05/08/23 08:16 Dose: 1 mg Sodium Chloride (Nss) 1,000 mls @ 100 mls/hr IV .Q10H [facility] Stop: 06/03/23 08:59 Last Admin: 05/08/23 08:33 Dose: 100 mls/hr Promethazine HCl 12.5 mg/ (Sodium Chloride) 50.5 mls @ 202 mls/hr IV Q6H PRN PRN Reason: Nausea And Vomiting Stop: 06/06/23 03:41 Last Infusion: 05/08/23 12:47 Dose: Infused Lactobacillus Acidophilus (Advanced Probiotic 1250 Mg Capsule) 2 cap PO DAILY [facility] Stop: 05/28/23 15:14 Last Admin: 05/08/23 08:16 Dose: 2 cap Lamotrigine (Lamotrigine 100 Mg Tab) 200 mg PO BID [facility] Stop: 05/28/23 16:14 Last Admin: 05/08/23 08:16 Dose: 200 mg Levetiracetam (Levetiracetam 250 Mg Tab) 250 mg PO BID [facility] Stop: 05/27/23 20:59 Last Admin: 05/08/23 08:16 Dose: 250 mg Levetiracetam (Levetiracetam 500 Mg Tab) 1,000 mg PO BID [facility] Stop: 05/27/23 20:59 Last Admin: 05/08/23 08:15 Dose: 1,000 mg Lorazepam (Lorazepam 1 Mg Tab) 2 mg PO UD PRN; Protocol PRN Reason: EtOH Withdrawal AWSS Score 8,9 Stop: 05/28/23 17:19 Last Admin: 04/28/23 17:40 Dose: 2 mg Lorazepam (Lorazepam 1 Mg Tab) 1 mg PO UD PRN; Protocol PRN Reason: EtOH Withdrawal AWSS Score 6,7 Stop: 05/28/23 17:19 Last Admin: 05/01/23 05:46 Dose: 1 mg Lorazepam (Lorazepam 2 Mg/1 Ml Vial) 1 mg IV Q2H PRN PRN Reason: Anxiety/Agitation Stop: 06/01/23 21:00 Last Admin: 05/02/23 21:34 Dose: 1 mg Magnesium Hydroxide (Magnesium Hydroxide Susp 30 Ml Udc) 30 ml PO Q12H PRN PRN Reason: Constipation Stop: 05/27/23 16:50 Miconazole Nitrate (Miconazole Nitrate Powder 85 Gm) 1 appln EXT PRN PRN PRN Reason: Affected Skin Folds Stop: 05/29/23 13:12 Last Admin: 04/30/23 09:44 Dose: 1 appln Miscellaneous (Remove Nicoderm Patch) 1 each N/A DAILY@0859 [facility] Stop: 06/06/23 08:58 Last Admin: 05/08/23 08:19 Dose: Not Given Naltrexone HCl (Naltrexone Hcl 50 Mg Tab) 50 mg PO QAM [facility] Stop: 05/28/23 15:14 Last Admin: 05/08/23 08:16 Dose: 50 mg Nicotine (Nicotine 21 Mg/24 Hr Tdsy) 21 mg TD QAM [facility] Stop: 06/05/23 09:14 Last Admin: 05/08/23 08:17 Dose: 21 mg Ondansetron HCl (Ondansetron Inj 2 Mg/Ml 2 Ml Vial) 4 mg IV Q6H PRN PRN Reason: Nausea Stop: 05/27/23 16:50 Last Admin: 05/08/23 07:51 Dose: 4 mg Pantoprazole Sodium (Pantoprazole 40 Mg Tab) 40 mg PO QAM [facility] Stop: 05/28/23 08:59 Last Admin: 05/08/23 08:16 Dose: 40 mg Polyethylene Glycol (Polyethylene (Miralax) 17 Gm Pack) 17 gm PO DAILY PRN PRN Reason: Constipation Stop: 05/27/23 16:50 Potassium Phosphate (Pot Phosphate Monobasic W/ Sod Tab) 1 tab PO TID [facility] Stop: 06/01/23 13:59 Last Admin: 05/08/23 13:29 Dose: 1 tab Sucralfate (Sucralfate 1 Gm/10 Ml Udc) 1 gm PO BID [facility] Stop: 05/31/23 20:59 Last Admin: 05/08/23 07:56 Dose: 1 gm Thiamine HCl (Thiamine Hcl 100 Mg Tab) 100 mg PO QAM [facility] Stop: 05/28/23 08:59 Last Admin: 05/08/23 08:17 Dose: 100 mg
[2023-05-08] MEDS ORDERED: STAT IV/IM STA (19:57)
[2023-05-08] MEDS ORDERED: POTASSIUM CHLORIDE 20 MEQ/15 ML UDC PO STA (19:59)
[2023-05-08] MEDS ORDERED: CALCIUM GLUCONATE 10% 1,000 MG in SODIUM CHLOR 0.9% MINI-B 50 ML IV ONE (20:30)
[2023-05-08] MEDS: MAGNESIUM SULFATE / D5W 1 GM/100 ML BAG IV SCH (21:53)
[2023-05-09] MEDS: MAGNESIUM SULFATE / D5W 1 GM/100 ML BAG IV SCH (01:04)
[2023-05-09] MEDS: PROMETHAZINE HCL 12.5 MG in SODIUM CHLORIDE 0.9% 50 ML IV PRN ×3 (04:32→17:39)
--- NOTE | 2023-05-09 05:29 | Surgery Progress Note ---
Date of Service May 09, 2023 Assessment & Plan (1) SBO (small bowel obstruction): Plan: The patient has been admitted on the hospitalist service. From a surgical perspective continue care as follows: Continue analgesics as needed Continue antiemetics as needed KUB on 05/08/2023 did show gaseous distention of the colon concerning for either a distal obstruction or an ileus. Would continue the patient on clear liquids for the present time due to the noted nausea he has been experiencing Check a.m. labs when available If patient continues to have intermittent nausea consideration may be given to obtaining a GI evaluation Admission and Anticipated Discharge Date Admission Date: April 27, 2023 Supervising Physician Co-Signing Physician Notes I have seen and examined this patient. Does not clinically seem to have an SBO or ileus at this time, non-distended with very good bowel function. Persistent nausea. Would consider upper endoscopic evaluation if nausea persists. Subjective Patient is resting comfortably in bed. Over the past 12 hours she has reported some nausea without vomiting. He notes that he did not have any exacerbation of abdominal pain with clear liquids. He notes his bowels continue to move. Physical Exam Gastrointestinal (Abdomen): Abdomen is soft, nonrigid, nondistended. There is no rebound tenderness or guarding or tympany to percussion. There is no pain noted with palpation at the time of my exam. Results & Data Vital Signs (Past 12 Hours) Vital Signs Temp Pulse Resp BP Pulse Ox O2 Del Method 05/09/23 04:24 36.9 C 105 H 20 126/84 95 Room Air PG Care Time/CCT Total # of Minutes Spent Total Time Spent with Patient: Total time spent is greater than 50% in coordination of care (as documented) at patient's floor/unit and/or counseling patient: Coding Level of Care Code 06381 SUB INP/OBS CARE 08/26MIN Diagnoses SBO (small bowel obstruction) K56.609
[2023-05-09 06:00] LABS: Basophils # (auto) 0.09 K/uL (0.00-0.20); Basophils % (auto) 1.7 %; Eosinophils # (auto) 0.21 K/uL (0.00-0.50); Eosinophils % (auto) 3.9 %; Hematocrit (blood only) 32.8 % (42.0-52.0); Hemoglobin 10.8 g/dl (14.0-18.0); Immature Granulocytes # (auto) 0.02 K/uL (0.01-0.20); Immature Granulocytes % (auto) 0.4 %; Lymphocytes # (auto) 1.63 K/uL (1.20-3.40); Lymphocytes % (auto) 30.2 %; Mean Corpuscular Hemoglobin 28.9 pg (25.0-34.0); Mean Corpuscular Hgb Conc 32.9 g/dL (32.0-36.0); Mean Corpuscular Volume 87.7 fL (80.0-100.0); Mean Platelet Volume 10.4 fL (9.4-12.4); Monocytes # (auto) 0.47 K/uL (0.11-0.59); Monocytes % (auto) 8.7 %; Neutrophils # (auto) 2.98 K/uL (1.40-6.50); Neutrophils % (auto) 55.1 %; Platelet Count 308 K/uL (130-400); RDW Coefficient of Variation 15.7 % (11.5-14.5); RDW Standard Deviation 50.3 fL (36.4-46.3); Red Blood Count 3.74 M/uL (4.70-6.10)
[2023-05-09 06:23] LABS: Albumin Globulin Ratio 1.4 (0.9-2); Albumin Level 3.2 gm/dl (3.4-5.0); BUN Creatinine Ratio 5.9 (10-20); Bilirubin,Total 0.3 mg/dl (0.2-1.0); Calcium 7.9 mg/dl (8.6-10.3); Creatinine Clr Calc Pharmacy 97.6 ml/min; Est GFR (African American) 81.7 ml/min; Est GFR (Non-African American) 70.5 ml/min; Globulin 2.3 gm/dl (2.5-4.0); Magnesium 1.7 mg/dl (1.7-2.4); Phosphorus 2.8 mg/dl (2.5-4.9); Potassium 3.6 mmol/L (3.5-5.1); Total Protein 5.5 gm/dl (6.0-8.3)
[2023-05-09] MEDS: ONDANSETRON INJ 2 MG/ML 2 ML VIAL IV PRN ×3 (07:35→21:30)
[2023-05-09] MEDS: NALTREXONE HCL 50 MG TAB PO SCH (09:47)
[2023-05-09] MEDS: ADVANCED PROBIOTIC 1250 MG CAPSULE PO SCH (09:47)
[2023-05-09] MEDS: lamoTRIgine 100 MG TAB PO SCH ×2 (09:47→21:31)
[2023-05-09] MEDS: FLUoxetine HCL 20 MG CAP PO SCH ×2 (09:47)
[2023-05-09] MEDS: POT PHOSPHATE MONOBASIC W/ SOD TAB PO SCH ×3 (09:48→21:32)
[2023-05-09] MEDS: PANTOprazole 40 MG TAB PO SCH (09:48)
[2023-05-09] MEDS: SUCRALFATE 1 GM/10 ML UDC PO SCH ×2 (09:48→21:30)
[2023-05-09] MEDS: levETIRAcetam 250 MG TAB PO SCH ×2 (09:48→21:31)
[2023-05-09] MEDS: THIAMINE HCL 100 MG TAB PO SCH (09:48)
[2023-05-09] MEDS: levETIRAcetam 500 MG TAB PO SCH ×2 (09:48→21:32)
[2023-05-09] MEDS: FOLIC ACID 1 MG TAB PO SCH (09:48)
[2023-05-09] MEDS: ENOXAPARIN INJ 40 MG/0.4 ML SYR SQ SCH (09:49)
[2023-05-09] MEDS: NICOTINE 21 MG/24 HR TDSY TD SCH (09:49)
[2023-05-09] MEDS: SODIUM CHLORIDE 0.9% 1,000 ML IV SCH ×2 (11:02→21:28)
[2023-05-09] MEDS: ACETAMINOPHEN 325 MG TAB PO PRN (14:23)
--- NOTE | 2023-05-09 14:58 | Communication Note ---
Date of Service: May 09, 2023 interim progress reviewed, remains on clears per surgery note, IVF. He did speak again with the liaison and has shown good impulse control during extended 1 on 1 observation on med floor. He will be switched to q15 min checks.
--- NOTE | 2023-05-09 18:58 | Hospitalist Progress Note ---
Date of Service May 09, 2023 Assessment & Plan (1) Suicidal ideation: (2) Major depressive disorder, recurrent, severe without psychotic features: (3) Alcohol use disorder, severe, dependence: (4) Seizure disorder: (5) JAMI (acute kidney injury): Plan Pt is a 52yoM with PMHx of chronic alcohol use admitted after making suicidal statements to his daughter. Suicidal ideation with severe depression without psychotic features Seen by psychiatry, recommendations noted: -Continue Prozac. -Discontinue Wellbutrin. -No noted benefit from buspirone. -Pt is currently voluntary for psych admission -Continue 1-on-1, may not leave AMA as would meet 302 criteria -Continue with AWSS, thiamine, folic acid Possible SBO vs ileus Nauseated with CT abd/pelvis showing multiple gas-distended loops of small bowel without a sharp transition point, extending to the ileocolic anastomosis. Findings may be physiologic or represent ileus Passing flatus and stool Per Gen surg - continue on clear liquids, does not clinically seem to have SBO/ileus. Consider GI eval for nausea. 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 H/O Ulcerative Colitis S/P total colectomy in early s: Chronic, stable CODE STATUS: Full code Diet: Advanced to regular, no need for safe tray as long as pt is monitored closely DVT Px: Lovenox SQ Disposition-medically stable, psych bed search ongoing. Per psych, pt's use of walker remains a barrier to psych inpatient placement. Admission and Anticipated Discharge Date Admission Date: April 27, 2023 Subjective Pt seen in AM. Stated that he was a little better than the day before. Still nauseous but that has been chronic. States taking in very little of clears, did have a BM. No abdominal pain. Review of Systems Review of Systems: All systems reviewed & are unremarkable except as noted in Subjective Physical Exam Physical Exam: General: Alert, oriented. No acute distress Skin: No noted rashes or bruises Psych: Subdued mood and affect Neuro: No gross deficits HEENT: NC/AT CV: RRR Resp: Breath sounds clear bilaterally, no increased effort of breathing. Abdomen: Soft, nontender, nondistended. Extremities: No edema in lower extremities bilaterally. Results & Data Results & Data Vital Signs (Past 12 Hours) Vital Signs Temp Pulse Resp BP Pulse Ox O2 Del Method 05/09/23 14:44 37.2 C 66 15 121/80 66 L Room Air 05/09/23 07:26 37 C 70 15 109/73 95 Room Air
[2023-05-09] MEDS ORDERED: rOPINIRole HCL 0.25 MG TABLET PO ONE (21:27)
[2023-05-09] MEDS ORDERED: rOPINIRole HCL 0.25 MG TABLET PO STA (21:48)
[2023-05-10 06:36] LABS: Basophils % (auto) 2.1 %; Eosinophils # (auto) 0.19 K/uL (0.00-0.50); Hematocrit (blood only) 32.2 % (42.0-52.0); Hemoglobin 10.5 g/dl (14.0-18.0); Immature Granulocytes # (auto) 0.01 K/uL (0.01-0.20); Immature Granulocytes % (auto) 0.2 %; Lymphocytes # (auto) 1.87 K/uL (1.20-3.40); Lymphocytes % (auto) 39.2 %; Mean Corpuscular Hemoglobin 28.9 pg (25.0-34.0); Mean Corpuscular Hgb Conc 32.6 g/dL (32.0-36.0); Mean Corpuscular Volume 88.7 fL (80.0-100.0); Mean Platelet Volume 10.6 fL (9.4-12.4); Monocytes # (auto) 0.51 K/uL (0.11-0.59); Monocytes % (auto) 10.7 %; Neutrophils # (auto) 2.09 K/uL (1.40-6.50); Neutrophils % (auto) 43.8 %; Platelet Count 306 K/uL (130-400); RDW Coefficient of Variation 15.7 % (11.5-14.5); Red Blood Count 3.63 M/uL (4.70-6.10); White Blood Count 4.77 K/ul (4.8-10.8)
[2023-05-10 07:01] LABS: Albumin Globulin Ratio 1.5 (0.9-2); Albumin Level 3.2 gm/dl (3.4-5.0); Bilirubin,Total 0.3 mg/dl (0.2-1.0); Calcium 7.9 mg/dl (8.6-10.3); Est GFR (African American) 85.2 ml/min; Est GFR (Non-African American) 73.5 ml/min; Globulin 2.2 gm/dl (2.5-4.0); Magnesium 1.4 mg/dl (1.7-2.4); Phosphorus 2.7 mg/dl (2.5-4.9); Potassium 4.1 mmol/L (3.5-5.1); Total Protein 5.4 gm/dl (6.0-8.3)
[2023-05-10] MEDS: SODIUM CHLORIDE 0.9% 1,000 ML IV SCH (07:39)
[2023-05-10] MEDS: ONDANSETRON INJ 2 MG/ML 2 ML VIAL IV PRN ×2 (07:43→13:35)
[2023-05-10] MEDS: MAGNESIUM SULFATE / D5W 1 GM/100 ML BAG IV SCH ×2 (08:48→10:37)
[2023-05-10] MEDS: levETIRAcetam 500 MG TAB PO SCH ×2 (08:49→21:22)
[2023-05-10] MEDS: ENOXAPARIN INJ 40 MG/0.4 ML SYR SQ SCH (08:49)
[2023-05-10] MEDS: THIAMINE HCL 100 MG TAB PO SCH (08:50)
[2023-05-10] MEDS: POT PHOSPHATE MONOBASIC W/ SOD TAB PO SCH ×3 (08:50→21:23)
[2023-05-10] MEDS: SUCRALFATE 1 GM/10 ML UDC PO SCH ×2 (08:50→21:24)
[2023-05-10] MEDS: FLUoxetine HCL 20 MG CAP PO SCH ×2 (08:50→08:52)
[2023-05-10] MEDS: lamoTRIgine 100 MG TAB PO SCH ×2 (08:52→21:23)
[2023-05-10] MEDS: FOLIC ACID 1 MG TAB PO SCH (08:52)
[2023-05-10] MEDS: levETIRAcetam 250 MG TAB PO SCH ×2 (08:52→21:22)
[2023-05-10] MEDS: ADVANCED PROBIOTIC 1250 MG CAPSULE PO SCH (08:52)
[2023-05-10] MEDS: PANTOprazole 40 MG TAB PO SCH (08:52)
[2023-05-10] MEDS: NALTREXONE HCL 50 MG TAB PO SCH (08:52)
[2023-05-10] MEDS: MAGNESIUM OXIDE 400 MG TAB PO SCH ×2 (08:53→21:24)
[2023-05-10] MEDS: NICOTINE 21 MG/24 HR TDSY TD SCH (08:53)
--- NOTE | 2023-05-10 09:39 | Gastrointestinal Consultation ---
Date of Consultation May 10, 2023 Assessment & Plan (1) Nausea: (2) Abnormal CT of the abdomen: small bowel distention is chronic - mentioned on imaging a few years ago. Plan Consider Zyprexa - often helpful for nausea. Advance diet as tolerated. OP EGD/Colonoscopy. Our office will call to anahi. Supervising Physician Co-Signing Physician Notes Attg add: Pt with alcoholism, depression, UC and pocuh now consulted for ileus. Pt with intestinal distention on CT. He has mild nausea, but jennifer PO, no vomiting, no abd pain, stooling well. His abd is soft on exam. AXR from 2018 reports "Distended small bowel loops." Radiographic evidence of ileus with clinically normal bowel function Nausea, which may be med related - Empiric PPI. Further recommendations as above. Regarding nausea - continue anti-emetics and follow. Will plan endoscopy as outpt. No further recommendations regarding small bowel dilation, which may be chronic and is not clearly symptomatic; plan lower endoscopy as outpt. Would ask primary service to correct mag. Please call with questions. History of Present Illness Reason for Consultation: Nausea, per surgery Requesting Physician: Dr. Roa Attending Physician: Sabra Roa MD History of Present Illness Mr. Bill Hernandez is a 52 yr old male w a hx of UC S/P total colectomy w J-pouch for UC [facility] approx 20 yrs ago). He does not follow regularly in primary care or in GI. He does follow w psych and neurology (traumatic brain injury/seizures). He was drinking about 1L of vodka/day and was having problems w nausea. He stopped all his meds and the vodka about a week prior to admission because he doesn't drive and "didn't have a way to get them." He was admitted for suicidal ideations last week. While here, he has continued w nausea, now present for about 2 wks, zofran is not effective; phenergan is somewhat effective. CT suggested ileus and GI is consulted for these issues. He doesn't recall having any abdominal distention. He says that he is rarely vomiting and that he hasn't had any blood in the emesis or any blood in his BMs or black BMs. Allergies Allergy/AdvReac Type Severity Reaction Status Date / Time tramadol AdvReac Intermediate seizure Verified 10/18/18 06:38 Home Medications Medication Instructions Recorded Confirmed Type buspirone 5 mg tablet 5 mg PO TID 10/18/18 04/27/23 History fluoxetine 40 mg capsule 40 mg PO QAM 10/18/18 04/27/23 History lamotrigine 100 mg tablet 200 mg PO AMPM 10/18/18 04/27/23 History lorazepam 1 mg tablet 1 mg PO TID 10/18/18 04/27/23 History pantoprazole 40 mg tablet,delayed 40 mg PO QAM 10/18/18 04/27/23 History release bupropion HCl 150 mg 24 hr tablet, 150 mg PO QAM 04/27/23 04/27/23 History extended release fluoxetine 20 mg capsule 20 mg PO QAM 04/27/23 04/27/23 History levetiracetam 1,000 mg tablet 1,000 mg PO AMPM 04/27/23 04/27/23 History levetiracetam 250 mg tablet 250 mg PO AMPM 04/27/23 04/27/23 History lisinopril 10 mg tablet 10 mg PO QAM 04/27/23 04/27/23 History naltrexone 50 mg tablet 50 mg PO QAM 04/27/23 04/27/23 History thiamine HCl (vitamin B1) 100 mg 100 mg PO QAM 04/27/23 04/27/23 History tablet (Vitamin B-1) trazodone 50 mg tablet 50 mg PO HS 04/27/23 04/27/23 History Patient History Medical History (Updated 05/10/23 @ 09:45 by PAUL Bridges) JAMI (acute kidney injury) Alcohol use disorder, severe, dependence Major depressive disorder, recurrent, severe without psychotic features Seizure disorder Ulcerative colitis Surgical History No pertinent past surgical history Family History Other COPD (chronic obstructive pulmonary disease) Heart disease Social History Smoking Status: Current every day smoker Tobacco Type: Cigarettes Hx Alcohol Use: No Hx Substance Use: No Preferred Language: Upper Sorbian Communication Ability: Effective Service Delivery Management Consultant Required: No Beliefs That Will Affect Care: None Current Living Situation: Alone Feels Safe at Home: Hesitant to Answer Assistive Devices: None Review of Systems Constitutional: + chills (occasional, "shaking"), + fatigue and + weakness; no fever Eyes: no eye pain and no itchy eyes Denies any issues. Ear, Nose, Mouth, Throat: no change in voice, no dysphagia and no pain with swallowing Respiratory: no cough, no chest congestion and no dyspnea Cardiovascular: no chest pain, no dyspnea and no syncope Additional Comments: mentions that the nurses told him that his HR was up - he didn't feel a rapid HR or irregular beat Gastrointestinal: Increased frequency of BMs, "more liquidy" Genitourinary: no dysuria, no difficulty urinating or no testicle pain Musculoskeletal: no problem reported Integumentary: no problem reported Neurologic: + generalized weakness; no tremor(s), no confusion and no memory loss Psychiatric: admits to suicidal ideations - when asked if would hurt himself now, he says, "I don't really know." Physical Exam Constitutional: good eye contact, AAO, NAD Eyes: PERRL, conjunctivae normal, anicteric sclerae ENMT: external ear and nose normal, oropharynx normal Neck: trachea midline, no thyromegaly Respiratory: normal respiratory effort, lungs clear to auscultation Cardiovascular: RRR, no murmur, no edema Gastrointestinal (Abdomen): Soft, non tender, BS normal Skin: pale, no rashes Neurologic: PERRL, EOMI, accommodation nl, no face palsy, no dysarthria Psychiatric: AAO, NAD, good eye contact, conversational, sl flat affect. Lymphatic: no cervical or axillary lymphadenopathy Results & Data Vital Signs (Past 12 Hours) Vital Signs Temp Pulse Resp BP Pulse Ox O2 Del Method 05/10/23 07:48 37.1 C 68 18 118/81 95 Room Air 05/09/23 22:21 37 C 63 18 116/77 94 Room Air Laboratory Results WBC 4.7, Hb 10.5, Hct 32, Plts 306, Na 139, K 4.1, Cl 107, CO2 26, BUN 8 Cr 1.14. Diagnostic Findings KUB 05/09/23: 1. Postsurgical change is consistent with previous colectomy when correlated with prior CT imaging. 2. Again seen is marked gaseous distention of the small bowel loops. This could represent distal obstruction versus ileus, and the degree of distention is similar to the 05/05/2023 examinations. Clinical correlation will be required. CTAP w IV 05/05/23: 1. Multiple gas-distended loops of small bowel are seen without a sharp transition point, extending to the ileocolic anastomosis. Findings may be physiologic or represent ileus. Of note, the previously noted 13 cm loop of bowel in the midabdomen is no longer seen. 2. Nonobstructive nephrolithiasis. 3. Postsurgical changes of subtotal colectomy and enteroenteric anastomosis.
--- NOTE | 2023-05-10 09:58 | Surgery Progress Note ---
Date of Service May 10, 2023 Assessment & Plan (1) SBO (small bowel obstruction): Plan: vs ileus ct scan with multiple loops of SB dilation up to ileocolonic anastomosis, no discrete transition no abodminal pain abodmen soft nontender + bowel function Plan: Okay for clear liquids needs to ambulate continue medical management [facility] surgery covering this weekend. Dr. Salcedo has seen and examined pt,agrees with above. 05/10/2023 9: [address] Salcedo F/U SBO, doing better, passed BM, resolved SBO full liquid diet. OOB, sign off today, please call with questions. Thanks. Admission and Anticipated Discharge Date Admission Date: April 27, 2023 Subjective Pt seen in AM. Stated that he was a little better than the day before. Still nauseous but that has been chronic. States taking in very little of clears, did have a BM. No abdominal pain. 05/10/2023 9:57 AM, Dr. Salcedo. pt feels better, mild epigastric pain, passed BM. no vomiting.no fever. Review of Systems Constitutional: as per Subjective / HPI Eyes: as per Subjective / HPI Respiratory: as per Subjective / HPI Cardiovascular: as per Subjective / HPI Gastrointestinal: as per Subjective / HPI Genitourinary: + as per Subjective / HPI (JAMI) Neurologic: as per Subjective / HPI Psychiatric: suicidal ideation. major depressive disorder, Endocrine: as per Subjective / HPI Hematologic / Lymphatic: as per Subjective / HPI Physical Exam Constitutional: WD/WN, vitals as above Eyes: PERRL, conjunctivae normal, anicteric sclerae Neck: trachea midline, no thyromegaly Respiratory: normal respiratory effort, lungs clear to auscultation Cardiovascular: RRR, no murmur, no edema Gastrointestinal (Abdomen): soft, NT, ND BS +. Neurologic: patellar DTR's 2+ bilat, sensation intact Psychiatric: A+Ox3, euthymic affect Results & Data Vital Signs (Past 12 Hours) Vital Signs Temp Pulse Resp BP Pulse Ox O2 Del Method 05/10/23 07:48 37.1 C 68 18 118/81 95 Room Air 05/09/23 22:21 37 C 63 18 116/77 94 Room Air Laboratory Results Abnormal lab results 05/10/23 05/10/23 Range/Units 06:07 06:07 WBC 4.77 L (4.8-10.8) K/ul RBC 3.63 L (4.70-6.10) M/uL Hgb 10.5 L (14.0-18.0) g/dl Hct 32.2 L (42.0-52.0) % RDW Std Deviation 51.0 H (36.4-46.3) fL RDW Coeff of Nadir 15.7 H (11.5-14.5) % BUN/Creatinine Ratio 7.0 L (10-20) Calcium 7.9 L (8.6-10.3) mg/dl Magnesium 1.4 L (1.7-2.4) mg/dl AST 11 L (13-39) U/L Alkaline Phosphatase 113 H (34-104) U/L Total Protein 5.4 L (6.0-8.3) gm/dl Albumin 3.2 L (3.4-5.0) gm/dl Globulin 2.2 L (2.5-4.0) gm/dl Diagnostic Findings KUB CLINICAL HISTORY: Generalized abdominal pain. Bloating. FINDINGS: 4 AP, portable, supine abdominal radiographs are compared to abdominal radiographs and CT dated 05/05/2023. Suture material projects over the pelvis and the patient is status post colectomy. There is marked gaseous distention of the small bowel loops, which is similar to 05/05/2023 examinations. Distal obstruction is favored over ileus. No evidence of intraperitoneal free air is seen on these supine images. Phleboliths are noted in the pelvis. The bony structures appear intact. IMPRESSION: 1. Postsurgical change is consistent with previous colectomy when correlated with prior CT imaging. 2. Again seen is marked gaseous distention of the small bowel loops. This could represent distal obstruction versus ileus, and the degree of distention is similar to the 05/05/2023 examinations. Clinical correlation will be required.
[2023-05-10] MEDS: PROMETHAZINE HCL 12.5 MG in SODIUM CHLORIDE 0.9% 50 ML IV PRN ×2 (10:46→19:32)
--- NOTE | 2023-05-10 13:06 | Hospitalist Progress Note ---
Date of Service May 10, 2023 Assessment & Plan (1) Suicidal ideation: (2) Major depressive disorder, recurrent, severe without psychotic features: (3) Alcohol use disorder, severe, dependence: (4) Seizure disorder: (5) JAMI (acute kidney injury): Plan Pt is a 52yoM with PMHx of chronic alcohol use admitted after making suicidal statements to his daughter. Suicidal ideation with severe depression without psychotic features Seen by psychiatry, recommendations noted: -Continue Prozac. -Discontinue Wellbutrin. -No noted benefit from buspirone. -Pt is currently voluntary for psych admission -1-1 now observation checks, may not leave AMA as would meet 302 criteria -Continue with AWSS, thiamine, folic acid Possible SBO vs ileus Nauseated with CT abd/pelvis showing multiple gas-distended loops of small bowel without a sharp transition point, extending to the ileocolic anastomosis. Findings may be physiologic or represent ileus Passing flatus and stool Per Gen surg - continue on clear liquids, does not clinically seem to have SBO/ileus. 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 On NSS Avoid nephrotoxic agents as able Monitor renal function Hypomagnesemia Continue to monitor and replete as needed will replaced with 1g mag s ulfate x [address] on mag oxide bid Hypophosphatemia Currently resolved Replete as needed Hypocalcemia Replete as needed Alcohol abuse Intake of approximately 1 L vodka per day On AWSS protocol with gabapentin Continue naltrexone Continue thiamine, folic acid Patient is not currently in withdrawal H/O Seizure disorder Chronic stable Continue Lamictal, Keppra Discontinue Wellbutrin HTN BP borderline Continue to hold lisinopril GERD Continue PPI Carafate added with improvement in GI symptoms. H/O Ulcerative Colitis S/P total colectomy in early s: Chronic, stable CODE STATUS: Full code Diet: Advanced to low fiber for dinner will see how he does, no need for safe tray as long as pt is monitored closely DVT Px: Lovenox SQ Disposition-medically stable, psych bed search ongoing. Per psych, pt's use of walker remains a barrier to psych inpatient placement. Admission and Anticipated Discharge Date Admission Date: April 27, 2023 Supervising Physician Co-Signing Physician Notes Pt seen and examined by myself, Sabra Roa MD on the day of service. Care was coordinated with Palmira Rodriguez PA-C. Please refer to her note for additional information. Still nauseous and states has been trying to eat. Has been having BMs. No abdominal pain on exam. Appreciate GI and surgery recs. Otherwise as above Subjective Patient was seen and examined on 321. Follow-up suicidal ideation and nausea. He continues complain of chronic nausea. This has been persistent prior to admission. He is tolerating a full liquid diet. He denies any vomiting. He is passing flatus and moving bowels. He denies homicidal ideation but does state that he wishes he would, "go to sleep and not wake up some days." He currently denies any plan of harming self. He denies fever, chills, sweats, lightheadedness, dizzy, chest pain, shortness breath, or cough. He does feel like the Requip helped his restless legs and he got a better night sleep last evening. Review of Systems Review of Systems: All systems reviewed & are unremarkable except as noted in HPI & below Physical Exam Physical Exam: Gen: WD/WN, NAD, A&O x3, depressed and flat affect HEENT: Normocephalic, atraumatic, conjunctivae moist, sclerae anicteric, mucous membranes moist. Lung: Clear to Auscultation bilaterally, no wheezes/rales/rhonchi Heart: Regular rate, regular rhythm, no murmurs, rubs, or gallops Abdomen: Soft, NT, ND +BS x 4 Extremities: No edema Skin: Warm, no rash, negative turgor. Results & Data Results & Data Vital Signs (Past 12 Hours) Vital Signs Temp Pulse Resp BP Pulse Ox O2 Del Method 05/10/23 07:48 37.1 C 68 18 118/81 95 Room Air Laboratory Results Short CBC 05/10/23 Range/Units 06:07 WBC 4.77 L (4.8-10.8) K/ul Hgb 10.5 L (14.0-18.0) g/dl Hct 32.2 L (42.0-52.0) % Plt Count 306 (130-400) K/uL BMP 05/10/23 06:07 Sodium 139 Potassium 4.1 Chloride 107 Carbon Dioxide 26 BUN 8 Creatinine 1.14 Glucose 85 Calcium 7.9 L Liver Function 05/10/23 Range/Units 06:07 Total Bilirubin 0.3 (0.2-1.0) mg/dl AST 11 L (13-39) U/L ALT 7 (7-52) U/L Alkaline Phosphatase 113 H (34-104) U/L Albumin 3.2 L (3.4-5.0) gm/dl Medications Administered Current Inpatient Medications Acetaminophen (Acetaminophen 325 Mg Tab) 650 mg PO Q4H PRN PRN Reason: Pain or Fever Stop: 05/27/23 16:50 Last Admin: 05/09/23 14:23 Dose: 650 mg Al Hydrox/Mg Hydrox/Simethicone (Aluminum/Magnesium Susp 30 Ml Udc) 15 ml PO Q4H PRN PRN Reason: Dyspepsia Stop: 05/27/23 16:50 Enoxaparin Sodium (Enoxaparin Inj 40 Mg/0.4 Ml Syr) 40 mg SQ [facility] Stop: 05/28/23 08:59 Last Admin: 05/10/23 08:49 Dose: 40 mg Fluoxetine HCl (Fluoxetine Hcl 20 Mg Cap) [facility] Stop: 05/28/23 08:59 Last Admin: 05/10/23 08:50 Dose: 40 mg Fluoxetine HCl (Fluoxetine Hcl 20 Mg Cap) 20 mg PO [facility] Stop: 05/28/23 08:59 Last Admin: 05/10/23 08:52 Dose: 20 mg Folic Acid (Folic Acid 1 Mg Tab) [facility] Stop: 05/31/23 08:59 Last Admin: 05/10/23 08:52 Dose: 1 mg Sodium Chloride (Nss) 1,000 mls @ 100 mls/hr IV .Q10H [facility] Stop: 06/03/23 08:59 Last Admin: 05/10/23 07:39 Dose: 100 mls/hr Promethazine HCl 12.5 mg/ (Sodium Chloride) 50.5 mls @ 202 mls/hr IV Q6H PRN PRN Reason: Nausea And Vomiting Stop: 06/06/23 03:41 Last Infusion: 05/10/23 11:15 Dose: Infused Lactobacillus Acidophilus (Advanced Probiotic 1250 Mg Capsule) 2 cap PO DAILY [facility] Stop: 05/28/23 15:14 Last Admin: 05/10/23 08:52 Dose: 2 cap Lamotrigine (Lamotrigine 100 Mg Tab) 200 mg PO BID [facility] Stop: 05/28/23 16:14 Last Admin: 05/10/23 08:52 Dose: 200 mg Levetiracetam (Levetiracetam 250 Mg Tab) 250 mg PO BID [facility] Stop: 05/27/23 20:59 Last Admin: 05/10/23 08:52 Dose: 250 mg Levetiracetam (Levetiracetam 500 Mg Tab) 1,000 mg PO BID [facility] Stop: 05/27/23 20:59 Last Admin: 05/10/23 08:49 Dose: 1,000 mg Lorazepam (Lorazepam 1 Mg Tab) 2 mg PO UD PRN; Protocol PRN Reason: EtOH Withdrawal AWSS Score 8,9 Stop: 05/28/23 17:19 Last Admin: 04/28/23 17:40 Dose: 2 mg Lorazepam (Lorazepam 1 Mg Tab) 1 mg PO UD PRN; Protocol PRN Reason: EtOH Withdrawal AWSS Score 6,7 Stop: 05/28/23 17:19 Last Admin: 05/01/23 05:46 Dose: 1 mg Lorazepam (Lorazepam 2 Mg/1 Ml Vial) 1 mg IV Q2H PRN PRN Reason: Anxiety/Agitation Stop: 06/01/23 21:00 Last Admin: 05/02/23 21:34 Dose: 1 mg Magnesium Hydroxide (Magnesium Hydroxide Susp 30 Ml Udc) 30 ml PO Q12H PRN PRN Reason: Constipation Stop: 05/27/23 16:50 Magnesium Oxide (Magnesium Oxide 400 Mg Tab) 400 mg PO BID [facility] Stop: 06/09/23 08:59 Last Admin: 05/10/23 08:53 Dose: 400 mg Miconazole Nitrate (Miconazole Nitrate Powder 85 Gm) 1 appln EXT PRN PRN PRN Reason: Affected Skin Folds Stop: 05/29/23 13:12 Last Admin: 04/30/23 09:44 Dose: 1 appln Miscellaneous (Remove Nicoderm Patch) 1 each N/A DAILY@0859 [facility] Stop: 06/06/23 08:58 Last Admin: 05/10/23 09:00 Dose: 1 each Naltrexone HCl (Naltrexone Hcl 50 Mg Tab) 50 mg PO QAM [facility] Stop: 05/28/23 15:14 Last Admin: 05/10/23 08:52 Dose: 50 mg Nicotine (Nicotine 21 Mg/24 Hr Tdsy) 21 mg TD QAM [facility] Stop: 06/05/23 09:14 Last Admin: 05/10/23 08:53 Dose: 21 mg Ondansetron HCl (Ondansetron Inj 2 Mg/Ml 2 Ml Vial) 4 mg IV Q6H PRN PRN Reason: Nausea Stop: 05/27/23 16:50 Last Admin: 05/10/23 07:43 Dose: 4 mg Pantoprazole Sodium (Pantoprazole 40 Mg Tab) 40 [facility] Stop: 05/28/23 08:59 Last Admin: 05/10/23 08:52 Dose: 40 mg Polyethylene Glycol (Polyethylene (Miralax) 17 Gm Pack) 17 gm PO DAILY PRN PRN Reason: Constipation Stop: 05/27/23 16:50 Potassium Phosphate (Pot Phosphate Monobasic W/ Sod Tab) 1 tab PO TID [facility] Stop: 06/01/23 13:59 Last Admin: 05/10/23 08:50 Dose: 1 tab Ropinirole HCl (Ropinirole Hcl 0.25 Mg Tablet) 0.25 mg PO HS [facility] Stop: 06/09/23 20:59 Sucralfate (Sucralfate 1 Gm/10 Ml Udc) 1 gm PO BID [facility] Stop: 05/31/23 20:59 Last Admin: 05/10/23 08:50 Dose: 1 gm Thiamine HCl (Thiamine Hcl 100 Mg Tab) 100 mg PO QAM [facility] Stop: 05/28/23 08:59 Last Admin: 05/10/23 08:50 Dose: 100 mg
[2023-05-10] MEDS: rOPINIRole HCL 0.25 MG TABLET PO SCH (17:11)
[2023-05-10] MEDS: ACETAMINOPHEN 325 MG TAB PO PRN (19:32)
[2023-05-11 06:42] LABS: Basophils # (auto) 0.11 K/uL (0.00-0.20); Basophils % (auto) 2.2 %; Eosinophils # (auto) 0.29 K/uL (0.00-0.50); Eosinophils % (auto) 5.9 %; Hematocrit (blood only) 33.5 % (42.0-52.0); Hemoglobin 10.9 g/dl (14.0-18.0); Immature Granulocytes # (auto) 0.01 K/uL (0.01-0.20); Immature Granulocytes % (auto) 0.2 %; Lymphocytes # (auto) 1.99 K/uL (1.20-3.40); Lymphocytes % (auto) 40.2 %; Mean Corpuscular Hemoglobin 28.8 pg (25.0-34.0); Mean Corpuscular Hgb Conc 32.5 g/dL (32.0-36.0); Mean Corpuscular Volume 88.4 fL (80.0-100.0); Mean Platelet Volume 10.4 fL (9.4-12.4); Monocytes # (auto) 0.49 K/uL (0.11-0.59); Monocytes % (auto) 9.9 %; Neutrophils # (auto) 2.06 K/uL (1.40-6.50); Neutrophils % (auto) 41.6 %; Platelet Count 339 K/uL (130-400); RDW Coefficient of Variation 15.8 % (11.5-14.5); RDW Standard Deviation 51.1 fL (36.4-46.3); Red Blood Count 3.79 M/uL (4.70-6.10); White Blood Count 4.95 K/ul (4.8-10.8)
[2023-05-11 07:20] LABS: Albumin Globulin Ratio 1.4 (0.9-2); Albumin Level 3.3 gm/dl (3.4-5.0); BUN Creatinine Ratio 7.1 (10-20); Bilirubin,Total 0.4 mg/dl (0.2-1.0); Calcium 8.1 mg/dl (8.6-10.3); Creatinine Clr Calc Pharmacy 116.3 ml/min; Est GFR (African American) 101.1 ml/min; Est GFR (Non-African American) 87.2 ml/min; Globulin 2.3 gm/dl (2.5-4.0); Magnesium 1.6 mg/dl (1.7-2.4); Phosphorus 2.5 mg/dl (2.5-4.9); Potassium 3.5 mmol/L (3.5-5.1); Total Protein 5.6 gm/dl (6.0-8.3)
[2023-05-11] MEDS: PROMETHAZINE HCL 12.5 MG in SODIUM CHLORIDE 0.9% 50 ML IV PRN ×2 (07:28→17:32)
[2023-05-11] MEDS ORDERED: MAGNESIUM SULFATE / D5W 1 GM/100 ML BAG IV ONE (07:54)
[2023-05-11] MEDS: MAGNESIUM OXIDE 400 MG TAB PO SCH ×2 (08:59→20:00)
[2023-05-11] MEDS: POT PHOSPHATE MONOBASIC W/ SOD TAB PO SCH ×3 (08:59→19:59)
[2023-05-11] MEDS: lamoTRIgine 100 MG TAB PO SCH ×2 (08:59→19:59)
[2023-05-11] MEDS: SUCRALFATE 1 GM/10 ML UDC PO SCH ×2 (08:59→20:00)
[2023-05-11] MEDS: levETIRAcetam 250 MG TAB PO SCH ×2 (09:00→20:00)
[2023-05-11] MEDS: NALTREXONE HCL 50 MG TAB PO SCH (09:00)
[2023-05-11] MEDS: FOLIC ACID 1 MG TAB PO SCH (09:00)
[2023-05-11] MEDS: levETIRAcetam 500 MG TAB PO SCH ×2 (09:00→20:00)
[2023-05-11] MEDS: FLUoxetine HCL 20 MG CAP PO SCH ×2 (09:00)
[2023-05-11] MEDS: PANTOprazole 40 MG TAB PO SCH (09:00)
[2023-05-11] MEDS: ADVANCED PROBIOTIC 1250 MG CAPSULE PO SCH (09:00)
[2023-05-11] MEDS: NICOTINE 21 MG/24 HR TDSY TD SCH (09:01)
[2023-05-11] MEDS: THIAMINE HCL 100 MG TAB PO SCH (09:01)
[2023-05-11] MEDS: ENOXAPARIN INJ 40 MG/0.4 ML SYR SQ SCH (09:01)
--- NOTE | 2023-05-11 11:51 | Hospitalist Progress Note ---
Date of Service May 11, 2023 Assessment & Plan (1) Suicidal ideation: (2) Major depressive disorder, recurrent, severe without psychotic features: (3) Alcohol use disorder, severe, dependence: (4) Seizure disorder: (5) JAMI (acute kidney injury): Plan Pt is a 52yoM with PMHx of chronic alcohol use admitted after making suicidal statements to his daughter. Suicidal ideation with severe depression without psychotic features Seen by psychiatry, recommendations noted: -Continue Prozac. -Discontinue Wellbutrin. -No noted benefit from buspirone. -Pt is currently voluntary for psych admission -1-1 now observation checks, may not leave AMA as would meet 302 criteria -Continue with AWSS, thiamine, folic acid - discussed with Dr. Jimenez of psych that pt is medically stable and they will start working on placement Possible SBO vs ileus Nauseated with CT abd/pelvis showing multiple gas-distended loops of small bowel without a sharp transition point, extending to the ileocolic anastomosis. Findings may be physiologic or represent ileus Passing flatus and stool Per Gen surg - continue on clear liquids, does not clinically seem to have SBO/ileus. 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 On NSS Avoid nephrotoxic agents as able Monitor renal function Hypomagnesemia Continue to monitor and replete as needed 1.6 today, give additional 1g continue oral supplementation Hypophosphatemia Currently resolved Replete as needed Hypocalcemia Replete as needed Alcohol abuse Intake of approximately 1 L vodka per day On AWSS protocol with gabapentin Continue naltrexone Continue thiamine, folic acid Patient is not currently in withdrawal H/O Seizure disorder Chronic stable Continue Lamictal, Keppra Discontinue Wellbutrin HTN BP borderline Continue to hold lisinopril GERD Continue PPI Carafate added with improvement in GI symptoms. H/O Ulcerative Colitis S/P total colectomy in early s: Chronic, stable CODE STATUS: Full code Diet: tolerating diet, DVT Px: Lovenox SQ Disposition- off IVF, medically stable to d/c, await psych placement Pt was seen and examined in collaboration with Dr. Roa, please see addendum Admission and Anticipated Discharge Date Admission Date: April 27, 2023 Supervising Physician Co-Signing Physician Notes Pt seen and examined by myself, Sabra Roa MD on the day of service. Care was coordinated with Palmira Rodriguez PA-C. Still nauseous but eating and tolerating solid food. Has been having BMs. No abdominal pain on exam. Appreciate GI and surgery recs- currently signed off. Pt medically stable for discharge. Does not need acute rehab per PT. Appreciate psychiatry assistance with placement. Otherwise as above Subjective Patient was seen and examined on 321. Follow-up suicidal ideation and nausea. His nausea is about the same today, but he is tolerating a regular soft diet. He feels his mood is about the same and currently denies and suicidal or homicidal ideations. He denies f/c/s, chest pain, sob,n/v/d, abd pain. Review of Systems Review of Systems: All systems reviewed & are unremarkable except as noted in HPI & below Physical Exam Physical Exam: Gen: WD/WN, NAD, A&O x3, depressed and flat affect HEENT: Normocephalic, atraumatic, conjunctivae moist, sclerae anicteric, mucous membranes moist. Lung: Clear to Auscultation bilaterally, no wheezes/rales/rhonchi Heart: Regular rate, regular rhythm, no murmurs, rubs, or gallops Abdomen: Soft, NT, ND +BS x 4 Extremities: No edema Skin: Warm, no rash, negative turgor. Results & Data Results & Data Vital Signs (Past 12 Hours) Vital Signs Temp Pulse Resp BP Pulse Ox O2 Del Method 05/11/23 07:33 37.1 C 66 16 117/78 94 Room Air Laboratory Results Short CBC 05/11/23 Range/Units 06:18 WBC 4.95 (4.8-10.8) K/ul Hgb 10.9 L (14.0-18.0) g/dl Hct 33.5 L (42.0-52.0) % Plt Count 339 (130-400) K/uL BMP 05/11/23 06:18 Sodium 138 Potassium 3.5 Chloride 104 Carbon Dioxide 26 BUN 7 Creatinine 0.99 Glucose 86 Calcium 8.1 L Liver Function 05/11/23 Range/Units 06:18 Total Bilirubin 0.4 (0.2-1.0) mg/dl AST 11 L (13-39) U/L ALT 5 L (7-52) U/L Alkaline Phosphatase 113 H (34-104) U/L Albumin 3.3 L (3.4-5.0) gm/dl Medications Administered Current Inpatient Medications Acetaminophen (Acetaminophen 325 Mg Tab) 650 mg PO Q4H PRN PRN Reason: Pain or Fever Stop: 05/27/23 16:50 Last Admin: 05/10/23 19:32 Dose: 650 mg Al Hydrox/Mg Hydrox/Simethicone (Aluminum/Magnesium Susp 30 Ml Udc) 15 ml PO Q4H PRN PRN Reason: Dyspepsia Stop: 05/27/23 16:50 Enoxaparin Sodium (Enoxaparin Inj 40 Mg/0.4 Ml Syr) [facility] [place]: 05/28/23 08:59 Last Admin: 05/11/23 09:01 Dose: 40 mg Fluoxetine HCl (Fluoxetine Hcl 20 Mg Cap) 40 mg PO QAM [facility] Stop: 05/28/23 08:59 Last Admin: 05/11/23 09:00 Dose: 40 mg Fluoxetine HCl (Fluoxetine Hcl 20 Mg Cap) 20 mg PO QAM [facility] Stop: 05/28/23 08:59 Last Admin: 05/11/23 09:00 Dose: 20 mg Folic Acid (Folic Acid 1 Mg Tab) 1 mg PO QAM [facility] Stop: 05/31/23 08:59 Last Admin: 05/11/23 09:00 Dose: 1 mg Promethazine HCl 12.5 mg/ (Sodium Chloride) 50.5 mls @ 202 mls/hr IV Q6H PRN PRN Reason: Nausea And Vomiting Stop: 06/06/23 03:41 Last Infusion: 05/11/23 08:58 Dose: Infused Lactobacillus Acidophilus (Advanced Probiotic 1250 Mg Capsule) 2 cap PO DAILY [facility] Stop: 05/28/23 15:14 Last Admin: 05/11/23 09:00 Dose: 2 cap Lamotrigine (Lamotrigine 100 Mg Tab) 200 mg PO BID [facility] Stop: 05/28/23 16:14 Last Admin: 05/11/23 08:59 Dose: 200 mg Levetiracetam (Levetiracetam 250 Mg Tab) 250 mg PO BID [facility] Stop: 05/27/23 20:59 Last Admin: 05/11/23 09:00 Dose: 250 mg Levetiracetam (Levetiracetam 500 Mg Tab) 1,000 mg PO BID [facility] Stop: 05/27/23 20:59 Last Admin: 05/11/23 09:00 Dose: 1,000 mg Lorazepam (Lorazepam 1 Mg Tab) 2 mg PO UD PRN; Protocol PRN Reason: EtOH Withdrawal AWSS Score 8,9 Stop: 05/28/23 17:19 Last Admin: 04/28/23 17:40 Dose: 2 mg Lorazepam (Lorazepam 1 Mg Tab) 1 mg PO UD PRN; Protocol PRN Reason: EtOH Withdrawal AWSS Score 6,7 Stop: 05/28/23 17:19 Last Admin: 05/01/23 05:46 Dose: 1 mg Lorazepam (Lorazepam 2 Mg/1 Ml Vial) 1 mg IV Q2H PRN PRN Reason: Anxiety/Agitation Stop: 06/01/23 21:00 Last Admin: 05/02/23 21:34 Dose: 1 mg Magnesium Hydroxide (Magnesium Hydroxide Susp 30 Ml Udc) 30 ml PO Q12H PRN PRN Reason: Constipation Stop: 05/27/23 16:50 Magnesium Oxide (Magnesium Oxide 400 Mg Tab) 400 mg PO BID [facility] Stop: 06/09/23 08:59 Last Admin: 05/11/23 08:59 Dose: 400 mg Miconazole Nitrate (Miconazole Nitrate Powder 85 Gm) 1 appln EXT PRN PRN PRN Reason: Affected Skin Folds Stop: 05/29/23 13:12 Last Admin: 04/30/23 09:44 Dose: 1 appln Miscellaneous (Remove Nicoderm Patch) 1 each N/A DAILY@0859 [facility] Stop: 06/06/23 08:58 Last Admin: 05/11/23 09:02 Dose: 1 each Naltrexone HCl (Naltrexone Hcl 50 Mg Tab) 50 mg PO QAM [facility] Stop: 05/28/23 15:14 Last Admin: 05/11/23 09:00 Dose: 50 mg Nicotine (Nicotine 21 Mg/24 Hr Tdsy) 21 mg TD QAM [facility] Stop: 06/05/23 09:14 Last Admin: 05/11/23 09:01 Dose: 21 mg Ondansetron HCl (Ondansetron Inj 2 Mg/Ml 2 Ml Vial) 4 mg IV Q6H PRN PRN Reason: Nausea Stop: 05/27/23 16:50 Last Admin: 05/10/23 13:35 Dose: 4 mg Pantoprazole Sodium (Pantoprazole 40 Mg Tab) 40 mg PO QAM [facility] Stop: 05/28/23 08:59 Last Admin: 05/11/23 09:00 Dose: 40 mg Polyethylene Glycol (Polyethylene (Miralax) 17 Gm Pack) 17 gm PO DAILY PRN PRN Reason: Constipation Stop: 05/27/23 16:50 Potassium Phosphate (Pot Phosphate Monobasic W/ Sod Tab) 1 tab PO TID [facility] Stop: 06/01/23 13:59 Last Admin: 05/11/23 08:59 Dose: 1 tab Ropinirole HCl (Ropinirole Hcl 0.25 Mg Tablet) 0.25 mg PO HS [facility] Stop: 06/09/23 20:59 Last Admin: 05/10/23 17:11 Dose: 0.25 mg Sucralfate (Sucralfate 1 Gm/10 Ml Udc) 1 gm PO BID [facility] Stop: 05/31/23 20:59 Last Admin: 05/11/23 08:59 Dose: 1 gm Thiamine HCl (Thiamine Hcl 100 Mg Tab) 100 mg PO QAM [facility] Stop: 05/28/23 08:59 Last Admin: 05/11/23 09:01 Dose: 100 mg
[2023-05-11] MEDS: ONDANSETRON INJ 2 MG/ML 2 ML VIAL IV PRN (14:11)
[2023-05-11] MEDS: rOPINIRole HCL 0.25 MG TABLET PO SCH (21:05)
[2023-05-12 07:39] LABS: Basophils # (auto) 0.14 K/uL (0.00-0.20); Basophils % (auto) 2.6 %; Eosinophils # (auto) 0.31 K/uL (0.00-0.50); Eosinophils % (auto) 5.6 %; Hematocrit (blood only) 32.6 % (42.0-52.0); Hemoglobin 10.8 g/dl (14.0-18.0); Immature Granulocytes # (auto) 0.01 K/uL (0.01-0.20); Immature Granulocytes % (auto) 0.2 %; Lymphocytes # (auto) 2.38 K/uL (1.20-3.40); Lymphocytes % (auto) 43.4 %; Mean Corpuscular Hemoglobin 29.3 pg (25.0-34.0); Mean Corpuscular Hgb Conc 33.1 g/dL (32.0-36.0); Mean Corpuscular Volume 88.3 fL (80.0-100.0); Mean Platelet Volume 10.5 fL (9.4-12.4); Monocytes # (auto) 0.53 K/uL (0.11-0.59); Monocytes % (auto) 9.7 %; Neutrophils # (auto) 2.12 K/uL (1.40-6.50); Neutrophils % (auto) 38.5 %; Platelet Count 337 K/uL (130-400); RDW Coefficient of Variation 15.8 % (11.5-14.5); RDW Standard Deviation 51.2 fL (36.4-46.3); Red Blood Count 3.69 M/uL (4.70-6.10); White Blood Count 5.49 K/ul (4.8-10.8)
[2023-05-12 07:59] LABS: Albumin Globulin Ratio 1.4 (0.9-2); Albumin Level 3.1 gm/dl (3.4-5.0); BUN Creatinine Ratio 8.7 (10-20); Bilirubin,Total 0.4 mg/dl (0.2-1.0); Creatinine Clr Calc Pharmacy 111.8 ml/min; Est GFR (African American) 96.3 ml/min; Est GFR (Non-African American) 83.1 ml/min; Globulin 2.2 gm/dl (2.5-4.0); Magnesium 1.6 mg/dl (1.7-2.4); Phosphorus 2.7 mg/dl (2.5-4.9); Potassium 3.5 mmol/L (3.5-5.1); Total Protein 5.3 gm/dl (6.0-8.3)
[2023-05-12] MEDS: NICOTINE 21 MG/24 HR TDSY TD SCH (08:18)
[2023-05-12] MEDS: ADVANCED PROBIOTIC 1250 MG CAPSULE PO SCH (08:19)
[2023-05-12] MEDS: levETIRAcetam 250 MG TAB PO SCH ×2 (08:19→20:44)
[2023-05-12] MEDS: ONDANSETRON INJ 2 MG/ML 2 ML VIAL IV PRN (08:19)
[2023-05-12] MEDS: POT PHOSPHATE MONOBASIC W/ SOD TAB PO SCH ×3 (08:19→20:45)
[2023-05-12] MEDS: NALTREXONE HCL 50 MG TAB PO SCH (08:19)
[2023-05-12] MEDS: MAGNESIUM OXIDE 400 MG TAB PO SCH ×2 (08:19→20:45)
[2023-05-12] MEDS: THIAMINE HCL 100 MG TAB PO SCH (08:20)
[2023-05-12] MEDS: PANTOprazole 40 MG TAB PO SCH (08:20)
[2023-05-12] MEDS: FLUoxetine HCL 20 MG CAP PO SCH ×2 (08:20→08:21)
[2023-05-12] MEDS: levETIRAcetam 500 MG TAB PO SCH ×2 (08:21→20:45)
[2023-05-12] MEDS: lamoTRIgine 100 MG TAB PO SCH ×2 (08:21→20:44)
[2023-05-12] MEDS: FOLIC ACID 1 MG TAB PO SCH (08:21)
[2023-05-12] MEDS: SUCRALFATE 1 GM/10 ML UDC PO SCH ×2 (08:21→20:46)
[2023-05-12] MEDS: ENOXAPARIN INJ 40 MG/0.4 ML SYR SQ SCH (08:22)
[2023-05-12] MEDS ORDERED: DICYCLOMINE HCL 10 MG CAP PO PRN (08:58)
[2023-05-12] MEDS ORDERED: DICYCLOMINE HCL 10 MG CAP PO ONE (08:58)
--- NOTE | 2023-05-12 10:35 | Psychiatric Progress Note ---
Date of Service May 12, 2023 Impression / Recommendations Impression 52 y/o man with psychiatric history of depression and anxiety and severe alcohol use disorder as well as history of TBI and subsequent seizure disorder admitted for JAMI. Diagnostically consistent with unspecified depressive disorder likely combination of MDD and alcohol-induced/withdrawal mood symptoms. 05/08/2023: continues to meet criteria for inpatient psychiatric care, agreeable to 201 Overall, I spent a total of 35 minutes with this case including review of chart records, review of labwork, direct evaluation of the patient at bedside, discussion with the psychiatric liaison during clinical rounds, and documentation in the electronic health record. (1) Major depressive disorder, recurrent, severe without psychotic features: (2) Alcohol use disorder, severe, dependence: Plan I agree with the medical clearance of hospitalist service. Bed search per liaison Interval History Identifying Information KEN LOJA is a 52-year-old man with a history of depression, anxiety, severe alcohol use disorder, and seizure disorder, admitted on 04/27/2023 for JAMI. Initial consult by Dr. Edouard on 04/28 with f/u with Dr. Chau given ongoing stay for possible SBO. Chief Complaint "I just don't want to wake up." Review of Systems Notes denies BENNETT, N, V, D though has some baseline loose stool. Energy improving but still low. Subjective Subjective Patient was seen & assessed and interval progress reviewed with nursing. His mood is "unchanged" meaning ongoig hopelessness and SI. His plan would be to stop taking care of himself which could have dire consequences give hx seizure disorder. Otherwise his seizures have been stable for "years" but he doesn't drive. He remains cooperative with meds and meals in structured setting of the hospital and has benefited from PT/OT services. I did confirm that he is tolerating his diet and have witnessed improvement in his ambulation in that he is independent with toileting without assist devices. Physical Exam Psychiatric Orientation: alert, oriented to person and oriented to place Apperance: appropriately groomed Eye Contact: + fair eye contact Motor Behavior: no abnormal motor movements Speech: normal rate/rhythm/volume of speech Affect: + depressed affect Mood: + depressed mood Thought Process: + concrete thought process Thought Content: reality based without delusions Suicidal Thoughts: denies suicidal intent; + reports suicidal thoughts and + reports suicidal plan Homicidal Thoughts: denies homicidal thoughts Hallucinations: no auditory hallucinations and no visual hallucinations Cognition: attention grossly intact and language grossly intact Estimated Intelligence: consistent with education level Insight: + limited insight Judgment: + limited judgement Vital Signs (Past 24 Hours) Last Vital Signs Temp 36.6 C 05/12/23 07:40 Pulse 76 05/12/23 07:40 Resp 16 05/12/23 07:40 BP 120/75 05/12/23 07:40 Pulse Ox 94 05/12/23 07:40 O2 Del Method Room Air 05/12/23 07:40 Results & Data ([facility]) Laboratory Results Laboratory Results - last 24 hr 05/12/23 05/12/23 05/12/23 07:04 07:04 07:04 WBC 5.49 RBC 3.69 L Hgb 10.8 L Hct 32.6 L MCV 88.3 MCH 29.3 MCHC 33.1 RDW Std Deviation 51.2 H RDW Coeff of Nadir 15.8 H Plt Count 337 MPV 10.5 Immature Gran % (Auto) 0.2 Neut % (Auto) 38.5 Lymph % (Auto) 43.4 Gates % (Auto) 9.7 Eos % (Auto) 5.6 Baso % (Auto) 2.6 Neut # (Auto) 2.12 Lymph # (Auto) 2.38 Gates # (Auto) 0.53 Eos # (Auto) 0.31 Baso # (Auto) 0.14 Immature Gran # (Auto) 0.01 Sodium 138 Potassium 3.5 Chloride 104 Carbon Dioxide 28 Anion Gap 6 BUN 9 Creatinine 1.03 Est Cr Clr Drug Dosing 111.8 Est GFR ( Amer) 96.3 Est GFR (Non-Af Amer) 83.1 BUN/Creatinine Ratio 8.7 L Glucose 89 Calcium 8.0 L Ionized Calcium 1.14 Phosphorus 2.7 Magnesium 1.6 L Total Bilirubin 0.4 AST 9 L ALT 5 L Alkaline Phosphatase 103 Total Protein 5.3 L Albumin 3.1 L Globulin 2.2 L Albumin/Globulin Ratio 1.4 Current Inpatient Medications Current Inpatient Medications: Current Inpatient Medications Acetaminophen (Acetaminophen 325 Mg Tab) 650 mg PO Q4H PRN PRN Reason: Pain or Fever Stop: 05/27/23 16:50 Last Admin: 05/10/23 19:32 Dose: 650 mg Al Hydrox/Mg Hydrox/Simethicone (Aluminum/Magnesium Susp 30 Ml Udc) 15 ml PO Q4H PRN PRN Reason: Dyspepsia Stop: 05/27/23 16:50 Dicyclomine HCl (Dicyclomine Hcl 10 Mg Cap) 10 mg PO TID PRN PRN Reason: abdominal pain Stop: 06/11/23 08:59 Enoxaparin Sodium (Enoxaparin Inj 40 Mg/0.4 Ml Syr) 40 mg SQ QAM [facility] Stop: 05/28/23 08:59 Last Admin: 05/12/23 08:22 Dose: 40 mg Fluoxetine HCl (Fluoxetine Hcl 20 Mg Cap) 40 mg PO QAM [facility] Stop: 05/28/23 08:59 Last Admin: 05/12/23 08:20 Dose: 40 mg Fluoxetine HCl (Fluoxetine Hcl 20 Mg Cap) 20 mg PO QAM [facility] Stop: 05/28/23 08:59 Last Admin: 05/12/23 08:21 Dose: 20 mg Folic Acid (Folic Acid 1 Mg Tab) 1 mg PO QAM [facility] Stop: 05/31/23 08:59 Last Admin: 05/12/23 08:21 Dose: 1 mg Promethazine HCl 12.5 mg/ (Sodium Chloride) 50.5 mls @ 202 mls/hr IV Q6H PRN PRN Reason: Nausea And Vomiting Stop: 06/06/23 03:41 Last Infusion: 05/11/23 18:33 Dose: Infused Magnesium Sulfate/Dextrose (Magnesium Sulfate / D5w) 1 gm in 100 mls @ 50 mls/hr IV Q2H [facility] Stop: 05/12/23 12:59 Lactobacillus Acidophilus (Advanced Probiotic 1250 Mg Capsule) 2 cap PO DAILY [facility] Stop: 05/28/23 15:14 Last Admin: 05/12/23 08:19 Dose: 2 cap Lamotrigine (Lamotrigine 100 Mg Tab) 200 mg PO BID [facility] Stop: 05/28/23 16:14 Last Admin: 05/12/23 08:21 Dose: 200 mg Levetiracetam (Levetiracetam 250 Mg Tab) 250 mg PO BID [facility] Stop: 05/27/23 20:59 Last Admin: 05/12/23 08:19 Dose: 250 mg Levetiracetam (Levetiracetam 500 Mg Tab) 1,000 mg PO BID [facility] Stop: 05/27/23 20:59 Last Admin: 05/12/23 08:21 Dose: 1,000 mg Lorazepam (Lorazepam 1 Mg Tab) 2 mg PO UD PRN; Protocol PRN Reason: EtOH Withdrawal AWSS Score 8,9 Stop: 05/28/23 17:19 Last Admin: 04/28/23 17:40 Dose: 2 mg Lorazepam (Lorazepam 1 Mg Tab) 1 mg PO UD PRN; Protocol PRN Reason: EtOH Withdrawal AWSS Score 6,7 Stop: 05/28/23 17:19 Last Admin: 05/01/23 05:46 Dose: 1 mg Lorazepam (Lorazepam 2 Mg/1 Ml Vial) 1 mg IV Q2H PRN PRN Reason: Anxiety/Agitation Stop: 06/01/23 21:00 Last Admin: 05/02/23 21:34 Dose: 1 mg Magnesium Hydroxide (Magnesium Hydroxide Susp 30 Ml Udc) 30 ml PO Q12H PRN PRN Reason: Constipation Stop: 05/27/23 16:50 Magnesium Oxide (Magnesium Oxide 400 Mg Tab) 400 mg PO BID [facility] Stop: 06/09/23 08:59 Last Admin: 05/12/23 08:19 Dose: 400 mg Miconazole Nitrate (Miconazole Nitrate Powder 85 Gm) 1 appln EXT PRN PRN PRN Reason: Affected Skin Folds Stop: 05/29/23 13:12 Last Admin: 04/30/23 09:44 Dose: 1 appln Miscellaneous (Remove Nicoderm Patch) 1 each N/A DAILY@0859 [facility] Stop: 06/06/23 08:58 Last Admin: 05/12/23 08:22 Dose: 1 each Naltrexone HCl (Naltrexone Hcl 50 Mg Tab) 50 mg PO QAM [facility] Stop: 05/28/23 15:14 Last Admin: 05/12/23 08:19 Dose: 50 mg Nicotine (Nicotine 21 Mg/24 Hr Tdsy) 21 mg TD QAM [facility] Stop: 06/05/23 09:14 Last Admin: 05/12/23 08:18 Dose: 21 mg Ondansetron HCl (Ondansetron Inj 2 Mg/Ml 2 Ml Vial) 4 mg IV Q6H PRN PRN Reason: Nausea Stop: 05/27/23 16:50 Last Admin: 05/12/23 08:19 Dose: 4 mg Pantoprazole Sodium (Pantoprazole 40 Mg Tab) 40 mg PO QAM [facility] Stop: 05/28/23 08:59 Last Admin: 05/12/23 08:20 Dose: 40 mg Polyethylene Glycol (Polyethylene (Miralax) 17 Gm Pack) 17 gm PO DAILY PRN PRN Reason: Constipation Stop: 05/27/23 16:50 Potassium Phosphate (Pot Phosphate Monobasic W/ Sod Tab) 1 tab PO TID [facility] Stop: 06/01/23 13:59 Last Admin: 05/12/23 08:19 Dose: 1 tab Ropinirole HCl (Ropinirole Hcl 0.25 Mg Tablet) 0.25 mg PO HS [facility] Stop: 06/09/23 20:59 Last Admin: 05/11/23 21:05 Dose: 0.25 mg Sucralfate (Sucralfate 1 Gm/10 Ml Udc) 1 gm PO BID [facility] Stop: 05/31/23 20:59 Last Admin: 05/12/23 08:21 Dose: 1 gm Thiamine HCl (Thiamine Hcl 100 Mg Tab) 100 mg PO QAM [facility] Stop: 05/28/23 08:59 Last Admin: 05/12/23 08:20 Dose: 100 mg
[2023-05-12] MEDS: MAGNESIUM SULFATE / D5W 1 GM/100 ML BAG IV SCH ×4 (10:58→23:47)
[2023-05-12] MEDS: PROMETHAZINE HCL 12.5 MG in SODIUM CHLORIDE 0.9% 50 ML IV PRN ×2 (12:03→20:40)
--- NOTE | 2023-05-12 13:35 | Hospitalist Progress Note ---
Date of Service May 12, 2023 Assessment & Plan (1) Suicidal ideation: (2) Major depressive disorder, recurrent, severe without psychotic features: (3) Alcohol use disorder, severe, dependence: (4) Seizure disorder: (5) JAMI (acute kidney injury): Plan Pt is a 52yoM with PMHx of chronic alcohol use admitted after making suicidal statements to his daughter. Suicidal ideation with severe depression without psychotic features Seen by psychiatry, recommendations noted: -Continue Prozac. -Discontinue Wellbutrin. -No noted benefit from buspirone. -Pt is currently voluntary for psych admission -1-1 now observation checks, may not leave AMA as would meet 302 criteria -Continue with AWSS, thiamine, folic acid - discussed with Dr. Jimenez of psych that pt is medically stable and they are working on bed search Possible SBO vs ileus Nauseated with CT abd/pelvis showing multiple gas-distended loops of small bowel without a sharp transition point, extending to the ileocolic anastomosis. Findings may be physiologic or represent ileus Passing flatus and stool Per Gen surg - continue on clear liquids, does not clinically seem to have SBO/ileus. 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 Hypophosphatemia Currently resolved Replete as needed Hypocalcemia Replete as needed ionized ca normal Alcohol abuse Intake of approximately 1 L vodka per day On AWSS protocol with gabapentin Continue naltrexone Continue thiamine, folic acid Patient is not currently in withdrawal H/O Seizure disorder Chronic stable Continue Lamictal, Keppra Discontinue Wellbutrin HTN BP normal w/o lisinopril Continue to hold lisinopril GERD Continue PPI Carafate added with improvement in GI symptoms. H/O Ulcerative Colitis S/P total colectomy in early : Chronic, stable CODE STATUS: Full code Diet: tolerating diet, DVT Px: Lovenox SQ Disposition- off IVF, medically stable to d/c, await psych placement Pt was seen and examined in collaboration with Dr. Short, please see addendum Admission and Anticipated Discharge Date Admission Date: April 27, 2023 Supervising Physician Co-Signing Physician Notes I have seen and examined the patient and have discussed the case with the provider above. I agree with the assessment and plan as stated. 52 yo morbidly obese man with h/o colectomy 2/2 ulcerative colitis presents with SI. Also continues to report persistent nausea and abdominal discomfort today. He is reporting no issues with oral intake of solid food and having "normal" BMs (loose chronically given bowel surgery). He was admitted on 04/27 so this is less likely related to alcohol withdrawal. Recent imaging reflect evidence of ileus, and he is on PPI so this is not likely related to a gastritis. KUB in am for monitoring and may want to discuss additional options with surgery or GI regarding followup as outpatient. Chronic hypomagnesemia 2/2 alcoholism. DO Rossy Short Patient was seen and examined on 321. Follow-up suicidal ideation and nausea. He continues to feel depressed and, "not wanting to wake up." No active intent to harm self of others. Continues to c/o chronic abd pain and nausea but tolerating diet. +BM and flatus. Review of Systems Review of Systems: All systems reviewed & are unremarkable except as noted in HPI & below Physical Exam Physical Exam: Gen: WD/WN, NAD, A&O x3, depressed and flat affect HEENT: Normocephalic, atraumatic, conjunctivae moist, sclerae anicteric, mucous membranes moist. Lung: Clear to Auscultation bilaterally, no wheezes/rales/rhonchi Heart: Regular rate, regular rhythm, no murmurs, rubs, or gallops Abdomen: Soft, NT, ND +BS x 4 Extremities: No edema Skin: Warm, no rash, negative turgor. Results & Data Results & Data Vital Signs (Past 12 Hours) Vital Signs Temp Pulse Resp BP Pulse Ox O2 Del Method 05/12/23 08:20 Room Air 05/12/23 07:40 36.6 C 76 16 120/75 94 Room Air Laboratory Results Short CBC 05/12/23 Range/Units 07:04 WBC 5.49 (4.8-10.8) K/ul Hgb 10.8 L (14.0-18.0) g/dl Hct 32.6 L (42.0-52.0) % Plt Count 337 (130-400) K/uL BMP 05/12/23 07:04 Sodium 138 Potassium 3.5 Chloride 104 Carbon Dioxide 28 BUN 9 Creatinine 1.03 Glucose 89 Calcium 8.0 L Liver Function 05/12/23 Range/Units 07:04 Total Bilirubin 0.4 (0.2-1.0) mg/dl AST 9 L (13-39) U/L ALT 5 L (7-52) U/L Alkaline Phosphatase 103 (34-104) U/L Albumin 3.1 L (3.4-5.0) gm/dl Medications Administered Current Inpatient Medications Acetaminophen (Acetaminophen 325 Mg Tab) 650 mg PO Q4H PRN PRN Reason: Pain or Fever Stop: 05/27/23 16:50 Last Admin: 05/10/23 19:32 Dose: 650 mg Al Hydrox/Mg Hydrox/Simethicone (Aluminum/Magnesium Susp 30 Ml Udc) 15 ml PO Q4H PRN PRN Reason: Dyspepsia Stop: 05/27/23 16:50 Dicyclomine HCl (Dicyclomine Hcl 10 Mg Cap) 10 mg PO TID PRN PRN Reason: abdominal pain Stop: 06/11/23 08:59 Enoxaparin Sodium (Enoxaparin Inj 40 Mg/0.4 Ml Syr) [facility] [place] Stop: 05/28/23 08:59 Last Admin: 05/12/23 08:22 Dose: 40 mg Fluoxetine HCl (Fluoxetine Hcl 20 Mg Cap) 40 mg PO QAM [facility] Stop: 05/28/23 08:59 Last Admin: 05/12/23 08:20 Dose: 40 mg Fluoxetine HCl (Fluoxetine Hcl 20 Mg Cap) 20 mg PO QAM [facility] Stop: 05/28/23 08:59 Last Admin: 05/12/23 08:21 Dose: 20 mg Folic Acid (Folic Acid 1 Mg Tab) 1 [facility] [place] Stop: 05/31/23 08:59 Last Admin: 05/12/23 08:21 Dose: 1 mg Promethazine HCl 12.5 mg/ (Sodium Chloride) 50.5 mls @ 202 mls/hr IV Q6H PRN PRN Reason: Nausea And Vomiting Stop: 06/06/23 03:41 Last Infusion: 05/12/23 12:26 Dose: Infused Lactobacillus Acidophilus (Advanced Probiotic 1250 Mg Capsule) 2 cap PO DAILY ADI Stop: 05/28/23 15:14 Last Admin: 05/12/23 08:19 Dose: 2 cap Lamotrigine (Lamotrigine 100 Mg Tab) 200 mg PO BID [facility] Stop: 05/28/23 16:14 Last Admin: 05/12/23 08:21 Dose: 200 mg Levetiracetam (Levetiracetam 250 Mg Tab) 250 mg PO BID [facility] Stop: 05/27/23 20:59 Last Admin: 05/12/23 08:19 Dose: 250 mg Levetiracetam (Levetiracetam 500 Mg Tab) 1,000 mg PO BID [facility] Stop: 05/27/23 20:59 Last Admin: 05/12/23 08:21 Dose: 1,000 mg Lorazepam (Lorazepam 1 Mg Tab) 2 mg PO UD PRN; Protocol PRN Reason: EtOH Withdrawal AWSS Score 8,9 Stop: 05/28/23 17:19 Last Admin: 04/28/23 17:40 Dose: 2 mg Lorazepam (Lorazepam 1 Mg Tab) 1 mg PO UD PRN; Protocol PRN Reason: EtOH Withdrawal AWSS Score 6,7 Stop: 05/28/23 17:19 Last Admin: 05/01/23 05:46 Dose: 1 mg Lorazepam (Lorazepam 2 Mg/1 Ml Vial) 1 mg IV Q2H PRN PRN Reason: Anxiety/Agitation Stop: 06/01/23 21:00 Last Admin: 05/02/23 21:34 Dose: 1 mg Magnesium Hydroxide (Magnesium Hydroxide Susp 30 Ml Udc) 30 ml PO Q12H PRN PRN Reason: Constipation Stop: 05/27/23 16:50 Magnesium Oxide (Magnesium Oxide 400 Mg Tab) 400 mg PO BID [facility] Stop: 06/09/23 08:59 Last Admin: 05/12/23 08:19 Dose: 400 mg Miconazole Nitrate (Miconazole Nitrate Powder 85 Gm) 1 appln EXT PRN PRN PRN Reason: Affected Skin Folds Stop: 05/29/23 13:12 Last Admin: 04/30/23 09:44 Dose: 1 appln Miscellaneous (Remove Nicoderm Patch) 1 each N/A DAILY@0859 [facility] Stop: 06/06/23 08:58 Last Admin: 05/12/23 08:22 Dose: 1 each Naltrexone HCl (Naltrexone Hcl 50 Mg Tab) 50 mg PO QAM [facility] Stop: 05/28/23 15:14 Last Admin: 05/12/23 08:19 Dose: 50 mg Nicotine (Nicotine 21 Mg/24 Hr Tdsy) 21 mg TD QAM [facility] Stop: 06/05/23 09:14 Last Admin: 05/12/23 08:18 Dose: 21 mg Ondansetron HCl (Ondansetron Inj 2 Mg/Ml 2 Ml Vial) 4 mg IV Q6H PRN PRN Reason: Nausea Stop: 05/27/23 16:50 Last Admin: 05/12/23 08:19 Dose: 4 mg Pantoprazole Sodium (Pantoprazole 40 Mg Tab) 40 mg PO QAM [facility] Stop: 05/28/23 08:59 Last Admin: 05/12/23 08:20 Dose: 40 mg Polyethylene Glycol (Polyethylene (Miralax) 17 Gm Pack) 17 gm PO DAILY PRN PRN Reason: Constipation Stop: 05/27/23 16:50 Potassium Phosphate (Pot Phosphate Monobasic W/ Sod Tab) 1 tab PO TID [facility] Stop: 06/01/23 13:59 Last Admin: 05/12/23 08:19 Dose: 1 tab Ropinirole HCl (Ropinirole Hcl 0.25 Mg Tablet) 0.25 mg PO HS [facility] Stop: 06/09/23 20:59 Last Admin: 05/11/23 21:05 Dose: 0.25 mg Sucralfate (Sucralfate 1 Gm/10 Ml Udc) 1 gm PO BID [facility] Stop: 05/31/23 20:59 Last Admin: 05/12/23 08:21 Dose: 1 gm Thiamine HCl (Thiamine Hcl 100 Mg Tab) 100 mg PO QAM [facility] Stop: 05/28/23 08:59 Last Admin: 05/12/23 08:20 Dose: 100 mg
[2023-05-12] MEDS: rOPINIRole HCL 0.25 MG TABLET PO SCH (20:46)
[2023-05-13 08:21] LABS: Calcium 8.4 mg/dl (8.6-10.3); Magnesium 2.1 mg/dl (1.7-2.4); Potassium 3.4 mmol/L (3.5-5.1)
[2023-05-13 08:26] LABS: BUN Creatinine Ratio 7.1 (10-20); Creatinine Clr Calc Pharmacy 116.3 ml/min; Est GFR (African American) 101.1 ml/min; Est GFR (Non-African American) 87.2 ml/min
--- NOTE | 2023-05-13 08:36 | XRay Report ---
KUB HISTORY: Acute nodule with generalized abdominal pain persistent nausea, recent evidence SBO COMPARISON: 05/08/2023 FINDINGS: There is persistent prominent distention of the small bowel loops which is unchanged. Posto perative changes compatible with the patient's history of prior colectomy. There is no organomegaly. No renal calculi. No ureteral calculi. No pneumoperitoneum or pneumatosis. No fracture. IMPRESSION: Persistent prominent gaseous distention of the small bowel in this patient with history of prior iwona ctomy which is similar to the prior exam. Again, this may represent obstruction versus ileus. Follow- up recommended. ACT 112: Negative or not required by law. The above report was generated using voice recognition software. It may contain grammatical, syntax o r spelling errors. Electronically signed by: Scot Arevalo M.D. 05/13/2023 8:35 AM
[2023-05-13] MEDS: lamoTRIgine 100 MG TAB PO SCH ×2 (08:59→20:46)
[2023-05-13] MEDS: ADVANCED PROBIOTIC 1250 MG CAPSULE PO SCH (09:00)
[2023-05-13] MEDS: FOLIC ACID 1 MG TAB PO SCH (09:00)
[2023-05-13] MEDS: FLUoxetine HCL 20 MG CAP PO SCH ×2 (09:00)
[2023-05-13] MEDS: NALTREXONE HCL 50 MG TAB PO SCH (09:00)
[2023-05-13] MEDS: levETIRAcetam 500 MG TAB PO SCH ×2 (09:01→20:46)
[2023-05-13] MEDS: MAGNESIUM OXIDE 400 MG TAB PO SCH ×2 (09:01→20:46)
[2023-05-13] MEDS: THIAMINE HCL 100 MG TAB PO SCH (09:01)
[2023-05-13] MEDS: PANTOprazole 40 MG TAB PO SCH (09:01)
[2023-05-13] MEDS: POT PHOSPHATE MONOBASIC W/ SOD TAB PO SCH ×3 (09:01→20:47)
[2023-05-13] MEDS: SUCRALFATE 1 GM/10 ML UDC PO SCH (09:02)
[2023-05-13] MEDS: levETIRAcetam 250 MG TAB PO SCH ×2 (09:02→20:48)
[2023-05-13] MEDS: ENOXAPARIN INJ 40 MG/0.4 ML SYR SQ SCH (09:02)
[2023-05-13] MEDS: NICOTINE 21 MG/24 HR TDSY TD SCH (09:02)
[2023-05-13] MEDS ORDERED: POTASSIUM CHLORIDE CRTAB 20 MEQ TABCR PO STA (09:45)
[2023-05-13] MEDS: PROMETHAZINE HCL 12.5 MG in SODIUM CHLORIDE 0.9% 50 ML IV PRN ×2 (11:01→23:43)
[2023-05-13] MEDS: ONDANSETRON INJ 2 MG/ML 2 ML VIAL IV PRN (14:59)
--- NOTE | 2023-05-13 16:28 | Hospitalist Progress Note ---
Date of Service May 13, 2023 Assessment & Plan (1) Suicidal ideation: (2) Major depressive disorder, recurrent, severe without psychotic features: (3) Alcohol use disorder, severe, dependence: (4) Seizure disorder: (5) JAMI (acute kidney injury): Plan Pt is a 52yoM with PMHx of chronic alcohol use admitted after making suicidal statements to his daughter. Suicidal ideation with severe depression without psychotic features Seen by psychiatry, recommendations noted: -Continue Prozac. -Discontinue Wellbutrin. -No noted benefit from buspirone. -Pt is currently voluntary for psych admission -1-1 now observation checks, may not leave AMA as would meet 302 criteria -Continue with AWSS, thiamine, folic acid - Discussed with Dr. Jimenez of psych that pt is medically stable and they are working on bed search Possible SBO vs ileus Nauseated with 05/05 CT abd/pelvis showing multiple gas-distended loops of small bowel without a sharp transition point, extending to the ileocolic anastomosis. Findings may be physiologic or represent ileus H/o duodenal distention on remote CT a/p imaging from 2008 but no mention of obstruction or distention on more recent imaging, per Epic review Per Gen surg -does not clinically seem to have SBO/ileus, advance diet as tolerated. Can follow up with Dr. Salcedo in clinic Per GI- [place] distension chronic, recommend to continue phenergan as needed for nausea, could consider zyprexa but will leave that to psych, follow up for colonoscopy/EGD Patient continues to experience nausea and abdominal discomfort despite passing flatus, stooling. Remains on a low fiber diet Passing flatus and stool, encouraging ambulation Repeat KUB 05/13/23 with persistent prominent gaseous distention of the small bowel in this patient with history of prior colectomy which is similar to the prior exam. Again, this may represent obstruction versus ileus. 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 On NSS Avoid nephrotoxic agents as able Monitor renal function Hypomagnesemia Chronic 2/2 alcoholism Repleting PRN Continue PO Mag 400 BID Hypophosphatemia Currently resolved Replete as needed Hypocalcemia Replete as needed ionized ca normal Alcohol abuse Intake of approximately 1 L vodka per day On AWSS protocol with gabapentin Continue naltrexone Continue thiamine, folic acid Patient is not currently in withdrawal H/O Seizure disorder Chronic stable Continue Lamictal, Keppra Discontinue Wellbutrin HTN Continue to hold lisinopril, BP normotensive GERD Continue PPI H/O Ulcerative Colitis S/P total colectomy in early s: Chronic, stable CODE STATUS: Full code Diet: tolerating diet DVT Px: Lovenox SQ Disposition- off IVF, medically stable to d/c, await psych placement Pt was seen and examined in collaboration with Dr. Short, please see addendum Admission and Anticipated Discharge Date Admission Date: April 27, 2023 Subjective Patient was seen and examined on 321 in follow-up suicidal ideation and nausea. Still feeling nauseated and having abdominal TTP, specifically in RLQ. Is having normal stools now and tolerating diet. Discussed when GI symptoms started, and patient said it was during admission. Does not have nausea and abdominal discomfort at baseline. Denies any other new symptoms overnight. Feels depressed but no active intent to harm himself or others. No F/C, lightheadedness, CP, SOB, vomiting, dysuria, diarrhea or constipation. Review of Systems Review of Systems: At least ten systems reviewed and negative except as noted in the HPI. Physical Exam Physical Exam: Gen: WD/WN, NAD,resting in bed, A&Ox3, flat affect HEENT: Normocephalic, atraumatic, conjunctivae moist, sclerae anicteric, mucous membranes moist Lung: Clear to Auscultation bilaterally, no wheezes/rales/rhonchi Heart: Regular rate, regular rhythm, no murmurs, rubs, or gallops Abdomen: Soft but mildly distended, RLQ TTP, + bowel sounds Extremities: no edema Skin: Warm, no rash Results & Data Results & Data Vital Signs (Past 12 Hours) Vital Signs Temp Pulse Resp BP Pulse Ox O2 Del Method 05/13/23 14:03 36.8 C 62 16 115/79 94 Room Air 05/13/23 08:40 Room Air 05/13/23 07:14 37.0 C 60 16 112/78 94 Room Air Laboratory Results [facility] 05/13/23 07:00 Sodium 137 Potassium 3.4 L Chloride 104 Carbon Dioxide 28 BUN 7 Creatinine 0.99 Glucose 98 Calcium 8.4 L Diagnostic Findings KUB X-Ray 05/05/23 15:03 KUB HISTORY: Acute onset abdominal pain with nausea and vomiting persistent abdominal pain COMPARISON: CT 12/08/2017 FINDINGS: Surgical suture material noted within the mid pelvis. Numerous dilated air-filled loops of small bowel measure up to 12.5 cm from the central abdomen. No renal calculi. No ureteral calculi. No pneumoperitoneum or pneumatosis. Chronic appearing healed right-sided rib fractures. IMPRESSION: Numerous prominently dilated air-filled loops of small bowel noted in this patient with history of prior colectomy suggestive of obstruction. Correlation with CT of the abdomen and pelvis with IV and enteric contrast recommended. ACT 112: Negative or not required by law. The above report was generated using voice recognition software. It may contain grammatical, syntax or spelling errors. Electronically signed by: Scot Arevalo M.D. 05/05/2023 4:24 PM Abdomen/Pelvis CT 05/05/23 16:33 CT abd pelvis IV con only CLINICAL HISTORY: follow up KUB, obstruction TECHNIQUE: Helical axial images of the abdomen and pelvis were obtained and displayed. Automated dose lowering techniques and/or adjustment according to patient size were utilized for this exam. This exam was performed with intravenous contrast. CT DOSE: 1479.25 mGy.cm COMPARISON: Comparison is made to CT abdomen pelvis 12/08/2017 and abdomen radiograph 12/08/2017 FINDINGS: Lower chest: No acute abnormality. Liver: Unremarkable. No focal lesions are seen. Gallbladder and biliary tree: No calcified gallstones. Normal caliber wall. No intra- or extrahepatic biliary ductal dilation. Pancreas: Unremarkable, no focal lesions. Spleen: Unremarkable. Adrenals: Unremarkable. Kidneys and ureters: There is a 12 mm cyst in the left kidney. Nonobstructive stone is seen in the right. Bladder: Limited evaluation due to underdistention. Reproductive organs: Unremarkable. Bowel: Postsurgical changes are seen of near total colectomy with ileocolic anastomosis and enteroenteric anastomosis. Multiple gas-distended loops of small bowel are seen measuring up to 15 mm in diameter, however there is a smooth transition into the ileocolic anastomosis. Lymph nodes Retroperitoneal: Unremarkable. Pelvic: Unremarkable. Mesenteric: Unremarkable. Peritoneum: Normal. Vessels: Unremarkable. Abdominal wall: Right fat-containing inguinal hernia. Bones: Compression deformity of L1 appears chronic. Old healed right rib fractures are partially seen. IMPRESSION: 1. Multiple gas-distended loops of small bowel are seen without a sharp transition point, extending to the ileocolic anastomosis. Findings may be physiologic or represent ileus. Of note, the previously noted 13 cm loop of bowel in the midabdomen is no longer seen. 2. Nonobstructive nephrolithiasis. 3. Postsurgical changes of subtotal colectomy and enteroenteric anastomosis. ACT 112: Negative or not required by law. Electronically signed by: Randy Adan M.D. 05/05/2023 7:17 PM KUB X-Ray 05/08/23 12:17 KUB CLINICAL HISTORY: Generalized abdominal pain. Bloating. FINDINGS: 4 AP, portable, supine abdominal radiographs are compared to abdominal radiographs and CT dated 05/05/2023. Suture material projects over the pelvis and the patient is status post colectomy. There is marked gaseous distention of the small bowel loops, which is similar to 05/05/2023 examinations. Distal obstruction is favored over ileus. No evidence of intraperitoneal free air is seen on these supine images. Phleboliths are noted in the pelvis. The bony structures appear intact. IMPRESSION: 1. Postsurgical change is consistent with previous colectomy when correlated with prior CT imaging. 2. Again seen is marked gaseous distention of the small bowel loops. This could represent distal obstruction versus ileus, and the degree of distention is similar to the 05/05/2023 examinations. Clinical correlation will be required. Electronically signed by: Naveen Weaver M.D. 05/08/2023 1:01 PM KUB X-Ray 05/13/23 07:00 KUB HISTORY: Acute nodule with generalized abdominal pain persistent nausea, recent evidence SBO COMPARISON: 05/08/2023 FINDINGS: There is persistent prominent distention of the small bowel loops which is unchanged. Postoperative changes compatible with the patient's history of prior colectomy. There is no organomegaly. No renal calculi. No ureteral calculi. No pneumoperitoneum or pneumatosis. No fracture. IMPRESSION: Persistent prominent gaseous distention of the small bowel in this patient with history of prior colectomy which is similar to the prior exam. Again, this may represent obstruction versus ileus. Follow-up recommended. ACT 112: Negative or not required by law. The above report was generated using voice recognition software. It may contain grammatical, syntax or spelling errors. Electronically signed by: Scot Arevalo M.D. 05/13/2023 8:35 AM
--- NOTE | 2023-05-13 17:09 | Gastroenterology Progress Note ---
Date of Service May 13, 2023 Assessment & Plan (1) Nausea: Plan: Likely functional (2) Abnormal CT of the abdomen: Plan: small bowel distention is chronic - mentioned on imaging a few years ago. Plan Consider Zyprexa - often helpful for nausea. Please try Emend for nausea. OP EGD/Colonoscopy. Our office will call to arrange. Admission and Anticipated Discharge Date Admission Date: April 27, 2023 Supervising Physician Co-Signing Physician Notes Attg add: Pt cont to have nausea with fair appetite, no vomiting. Stool output is unchanged. Abd exam unchanged- non tender. Suspect nausea is functional, possibly med related -- plan Emend. Consider Zyprexa 2.5 qHS if OK with psych specifically for nausea. Subjective GI was asked to reconsult/re-eval nausea, upper abdomen pain. Pt tells us nausea began one week prior to admission, with this a decreased appetite. He had one episode of vomiting, not recent. Passing about 3-4 loose BMs/day - this is his baseline. Review of Systems Constitutional: + chills (occasional, "shaking"), + fatigue and + weakness; no fever Eyes: no eye pain and no itchy eyes Denies any issues. Ear, Nose, Mouth, Throat: no change in voice, no dysphagia and no pain with swallowing Respiratory: no cough, no chest congestion and no dyspnea Cardiovascular: no chest pain, no dyspnea and no syncope Gastrointestinal: Nausea, upper abd pressure type pain. Genitourinary: no dysuria, no difficulty urinating or no testicle pain Musculoskeletal: no problem reported Integumentary: no problem reported Neurologic: + generalized weakness; no tremor(s), no confusion and no memory loss Psychiatric: Somewhat flat affect. Interactive, Good eye contact. Thoughts are fairly logical and well ordered. Physical Exam Eyes: PERRL, conjunctivae normal, anicteric sclerae ENMT: external ear and nose normal, oropharynx normal Neck: trachea midline, no thyromegaly Respiratory: normal respiratory effort, lungs clear to auscultation Cardiovascular: RRR, no murmur, no edema Gastrointestinal (Abdomen): mild epigastric tenderness on deep palpation, otherwise (-). Neurologic: PERRL, EOMI, accommodation nl, no face palsy, no dysarthria Lymphatic: no cervical or axillary lymphadenopathy Results & Data Vital Signs (Past 12 Hours) Vital Signs Temp Pulse Resp BP Pulse Ox O2 Del Method 05/13/23 14:03 36.8 C 62 16 115/79 94 Room Air 05/13/23 08:40 Room Air 05/13/23 07:14 37.0 C 60 16 112/78 94 Room Air Laboratory Results Na 13, K 3.4, Cl 104, CO2 28, BUN 7, Cr0.9 Diagnostic Findings CTAP w IV 10.4.23: 1. Multiple gas-distended loops of small bowel are seen without a sharp transition point, extending to the ileocolic anastomosis. Findings may be physiologic or represent ileus. Of note, the previously noted 13 cm loop of bowel in the midabdomen is no longer seen. 2. Nonobstructive nephrolithiasis. 3. Postsurgical changes of subtotal colectomy and enteroenteric anastomosis.
[2023-05-13] MEDS: rOPINIRole HCL 0.25 MG TABLET PO SCH (20:47)
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
--- OUTSIDE RECORDS SUMMARY | 2023-05-14 01:22 | External Medical Summary | Summary of Care ---
Author Name Unknown Organization [place] [address] Care Team Providers Care Corn Picker Name Role Phone Unavailable Primary Care Provider Unavailabl e Reason for Visit * Reason Onset Date Comments Precert Denied 09/14/2022 Please see note Encounter Details Date Type Department Care Team Description 09/14/2022 Telephone Gastroenterology, [facility] [address] [place] [address] Xena Olsen MD [address] [place] [address] Precert Denied (Please see note) Allergies Active Allergy Reactions Severity Noted Date Comments Tramadol 06/24/2022 Other reaction(s): seizure Tramadol Hcl 08/07/2009 seizure documented as of this encounter (statuses as of 09/14/2022) Medications Medication Sig Dispensed Refills Start Date [...] as of this encounter (statuses as of 09/14/2022) Active Problems Problem Noted Date Mixed erectile [...] as of this encounter (statuses as of 09/14/2022) Resolved Problems Problem Noted Date Resolved Date SOB (shortness of breath) on exertion 12/20/2012 08/07/2016 Pain medication agreement 11/30/20112012 DIARRHEA 11/07/2002 12/20/2014 documented as of this encounter (statuses as of 09/14/2022) Immunizations Name Administration Dates Next Due TD [...] Miscellaneous Notes * Telephone Encounter - DREW Lazo - 09/14/2022 4:54 PM EST Yes the scopes were denied. * Telephone Encounter - DREW Lazo - 09/14/2022 2:52 PM EST This is to inform you that the following authorization request for Bill Hernandez has been denied. DOS- 09/18/22-resched to 01/28/23 Procedure- [id number] Insurance- [facility] In/Out of Network- OUT Reason for Denial- providers available in network Peer to Peer can be performed by calling [phone] today to schedule with tracking number [id number]. Thank You, DREW Lazo 09/14/2022, 2:53 PM documented in this encounter Plan of Treatment Upcoming Encounters Date Type Specialty Care Team Description 11/06/2022 Office Visit Gastroenterology Soraya Crandall CRNP 132 [facility] [place] [address] 01/28/2023 Hospital Encounter Endoscopy Xena Olsen MD [address] [place] [address] 01/28/2023 Surgery Endoscopy Xena Olsen MD 132 [place] [address] ESOPHAGOGASTRODUODENOSCOPY (EGD), FLEXIBLE, TRANSORAL, DIAGNOSTIC 04/07/2023 Office Visit Family Medicine Kathya Oseguera, CHERIE [address] [place] [address] [place] [address] Scheduled Procedures Name Priority Associated Diagnoses Date/Ti me ESOPHAGOGASTRODUODENOSCOPY ( EGD), FLEXIBLE, TRANSORAL, DIAGNOSTIC Chronic diarrhea History of ulcerative colitis 01/28/2023 1:30 PM EDT COLONOSCOPY FLEXIBLE PROXIMA L DIAGNOSTIC Chronic diarrhea History of ulcerative colitis 01/28/2023 1:30 PM EDT Health Maintenance Due Date Last Done Comments [...]
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
--- OUTSIDE RECORDS SUMMARY | 2023-05-14 01:23 | External Medical Summary ---
Author Name Unknown Address Unknown Organization K01:[facility] [place] [address] [address] [facility] [address] Laboratory Report Ordering Provider Test Date Status ELIDIA DAVENPORT 06/24/2022 11:53:01 Final Observation Date Value Abnormality Reference (Units ) Status Tissue transglutaminase IgA Ab [Presence] in Serum by Immunoassay 06/24/2022 11:53:01 Negative Negative Final Tissue transglutaminase IgA Ab [Units/volume] in Serum by Immunoassay 06/24/2022 11:53:01 0.4 <7 (U/mL) Final Performing Location [facility] [place] [address]
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
--- OUTSIDE RECORDS SUMMARY | 2023-05-14 01:24 | External Medical Summary | Summary of Care ---
Author Name Unknown Organization [place] [address] Care Team Providers Care In Home Sales Representative Name Role Phone Kathya Oseguera PA-C Primary Care Provider [phone] Reason for Visit * Reason Onset Date Comments Nurse Documentation 04/23/2022 Encounter Details Date Type Department Care Team Description 04/23/2022 Telephone Neurology [facility] [place] [address] [place] [address] Bijal Sharp MD [address] [place] [address] Nurse Documentation Allergies Active Allergy Reactions Severity Noted Date Comments Tramadol Hcl 08/07/2009 seizure documented as of this encounter (statuses as of 04/23/2022) Medications Medication Sig Dispensed Refills Start Date [...] 1 mg in the morning. 0 Active levETIRAcetam 1000 MG Oral Tablet Take by mouth 1,000 mg in the morning AND 1,000 mg before bedtime. Along with 250 mg . 0 Active Lisinopril 5 MG Oral Tablet [...] pain . 30 Tablet 5 04/03/2022 Active documented as of this encounter (statuses as of 04/23/2022) Active Problems Problem Noted Date Mixed erectile [...] as of this encounter (statuses as of 04/23/2022) Resolved Problems Problem Noted Date Resolved Date SOB (shortness of breath) on exertion 12/20/2012 08/07/2016 Pain medication agreement 11/30/20112012 DIARRHEA 11/07/2002 12/20/2014 documented as of this encounter (statuses as of 04/23/2022) Immunizations Name Administration Dates Next Due TD [...] encounter Miscellaneous Notes * Telephone Encounter - Lucila De Paz LPN - 04/23/2022 3:06 PM EDT Patient verified identity by spelling of last name and date. Patient wasn't doing really well. Patient stated he was depressed and was abusing alcohol. Ended upin the hospital and personal care after that. He just got home. Last seizures were weekend he had three. documented in this encounter Plan of Treatment Upcoming Encounters Date Type Specialty Care Team Description 04/23/2022 Telemedicine Neurology Bijal Sharp MD [address] [place] [address] 04/07/2023 Office Visit Family Medicine Kathya Oseguera PA-C [address] [place] [address] [place] [phone] Health Maintenance Due Date Last Done Comments COVID-19 Vaccine (#1) 1970 Pneumococcal Vaccine: Pediatrics [...] on patient's age to complete this topic Hepatitis B Aged Out No longer eligi ble based on patient's age to complete this topic MENINGOCOCCAL (MENACTRA/MENVEO) Aged Out No longer eligible b ased on patient's age to complete this topic documented as of this encounter Implants Not on filedocumented as of this encounter Advance Directives Documents on File Type Date Recorded Patient Fire Control Mechanic Expl 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 Advanced Directive Advanced Directive Advanced Directive Advanced Directive Care Teams In Home Sales Representative Relationship Specialty Start Date End Date Kathya Oseguera PA-C [address] [place] [address] [place] [phone] PCP - General Physician Style Advisor 04/02/22 documented as of this encounter
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
--- OUTSIDE RECORDS SUMMARY | 2023-05-14 01:24 | External Medical Summary | Summary of Care ---
Author Name Unknown Organization [place] [address] Care Team Providers Care Organizational Psychologist Name Role Phone Demond [place] MD Primary Care Provide r Reason for Visit * Reason Onset Date Comments Appointment 03/25/2022 Encounter Details Date Type Department Care Team Description 03/25/2022 Telephone Neurology [facility] [place] [address] [place] [address] Bijal Sharp MD [address] [place] [address] Appointment Allergies Active Allergy Reactions Severity Noted Date Comments Tramadol Hcl 08/07/2009 seizure documented as of this encounter (statuses as of 03/26/2022) Medications Medication Sig Dispensed Refills Start Date [...] 6 01/24/2019 Active FLUoxetine (PROZAC) 20 MG CapsuleIndications: along with 40 mg daily Take 20 mg by mouth daily. Indications: along with 40 mg daily 0 Active Acetaminophen ER (TYLENOL 8 HOUR ARTHRITIS PAIN) 650 MG TBCR Take 1,300 mg by mouth as needed. 0 Active diphenoxylate-atrop ine 2.5-0.025 mg per tab (LOMOTIL) 2.5-0.025 MG TabletIndications:U lcerative colitis (HCC) TAKE ONE TABLET BY MOUTH AFTER loose bowel movement, max of 10 PER DAY 90 Tab 3 04/12/2020 Active Vimpat 200 MG Oral Tablet (Lacosamide)Indicat ions:Seizure disorder (HCC) Take 1 Tablet by mouth 2 times a day. 60 Tablet 5 06/09/2021 Active lamoTRIgine 100 MG Oral Tablet (LaMICtal)Indicatio ns:Seizure disorder (HCC) TAKE TWO TABLETS BY MOUTH IN THE MORNING and take 2 tablets every evening 180 Tablet 5 10/14/2021 Active documented as of this encounter (statuses as of 03/26/2022) Active Problems Problem Noted Date Mixed erectile [...] as of this encounter (statuses as of 03/26/2022) Resolved Problems Problem Noted Date Resolved Date SOB (shortness of breath) on exertion 12/20/2012 08/07/2016 Pain medication agreement 11/30/20112012 DIARRHEA 11/07/2002 12/20/2014 documented as of this encounter (statuses as of 03/26/2022) Immunizations Name Administration Dates Next Due TD [...] encounter Miscellaneous Notes * Telephone Encounter - Bijal Sharp MD - 03/26/2022 2:40 PM EDT What doses is he taking and do we need to send in a prescription * Telephone Encounter - Lucila De Paz LPN - 03/26/2022 12:30 PM EDT I spoke to the pharmacist and told her the last dose we gave him in September. He has a follow up in April. * Telephone Encounter - DREW Neil - 03/26/2022 11:13 AM EDT Scheduled and aware * Telephone Encounter - Lucila De Paz LPN - 03/26/2022 9:47 AM EDT muna can you schedule him for a telemed follow * Telephone Encounter - Lucila De Paz LPN - 03/26/2022 9:41 AM EDT I spoke to the pharmacy. Dr. Pereira wrote a script for lamictal as well. Same dose at the end of January. I spoke to the patient. Dr. Pereira wrote the script for him because he had been hospitalizedfor a couple of months. I told him he needed a follow up appt with Dr. Sharp. He was agreeable for a telemed. * Telephone Encounter - DREW Moreno - 03/25/2022 3:28 PM EDT Is prescribed 2 diff strengths of lamictal and is high combination. Marta from [facility] pharm called and is requesting a call back from Mohit Sharp office, - is her telephone number please call her. documented in this encounter Plan of Treatment Upcoming Encounters Date Type Specialty Care Team Description 04/23/2022 Telemedicine Neurology Bijal Sharp MD [address] [place] [address] Health Maintenance Due Date Last Done Comments COVID-19 Vaccine (#1) 1970 Depression Screening, Annual for Pts 12 and [...] on patient's age to complete this topic Pneumococcal Vaccine: Pediatrics (0 to 5 Years) and At-Risk Patients (6 to 64 Years) Aged Out No longer eligible b ased on patient's age to complete this topic documented as of this encounter Implants Not on filedocumented as of this encounter Advance Directives Documents on File Type Date Recorded Patient Competitive Athlete Expl 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 Advanced Directive Advanced Directive Care Teams Organizational Psychologist Relationship Specialty Start Date End Date Demond [place] MD PCP - General Family Medicine 06/03/17 documented as of this encounter
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
--- OUTSIDE RECORDS SUMMARY | 2023-05-14 01:24 | External Medical Summary ---
Author Name Unknown Address Unknown Organization K01[place] [place] [address] [place] [address] Laboratory Report Ordering Provider Test Date Status FROYLAN SALCEDO 05/05/2022 12:33:12 Final Observation Date Value Abnormality Reference (Units ) Status Levetiracetam level 05/05/2022 12:33:12 28 3-63 (ug/mL) Final Performing Location [facility] [place] [address] [place] [address]
--- OUTSIDE RECORDS SUMMARY | 2023-05-14 01:24 | External Medical Summary ---
Author Name Unknown Address Unknown Organization K01:[facility] [place] [address] [place] [address] Laboratory Report Ordering Provider Test Date Status FROYLAN SALCEDO 05/05/2022 12:33:12 Final Observation Date Value Abnormality Reference (Units ) Status Lamotrigine level 05/05/2022 12:33:12 3.7 2. 5-15.0 (ug/mL) Final Performing Location [facility] [place] [address] [place] [address]
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
--- OUTSIDE RECORDS SUMMARY | 2023-05-14 01:24 | External Medical Summary | Summary of Care ---
Author Name Unknown Organization [place] [address] Care Team Providers Care Senior Sales Director Name Role Phone Demond Austin MD Primary Care Provide r Reason for Visit * Reason Comments eRx-Medication Refill Encounter Details Date Type Department Care Team Description 04/14/2021 Refill Neurology [facility] [address] [place] [address] Matias Sharp MD [address] [facility] [place] [id number] Seizure disorder (HCC) Allergies Active Allergy Reactions Severity Noted Date Comments Tramadol Hcl 08/07/2009 seizure documented as of this encounter (statuses as of 04/15/2021) Medications Medication Sig Dispensed Refills Start Date [...] TWICE DAILY 60 Tab 3 01/15/2021 Active lamoTRIgine 100 MG Oral Tablet (LaMICtal)Indicat ions:Seizure disorder (HCC) TAKE TWO TABLETS BY MOUTH IN THE MORNING and take 2 tablets every evening 120 Tab 5 04/15/2021 Active lamoTRIgine 100 MG Oral Tablet (LaMICtal)Indicat ions:Seizure disorder (HCC) take 2 tablets IN THE MORNING and take 2 tablets in the evening 120 Tab 5 10/22/2020 04/15/2021 Discontinued documented as of this encounter (statuses as of 04/15/2021) Active Problems Problem Noted Date Mixed erectile [...] as of this encounter (statuses as of 04/15/2021) Resolved Problems Problem Noted Date Resolved Date SOB (shortness of breath) on exertion 12/20/2012 08/07/2016 Pain medication agreement 11/30/20112012 DIARRHEA 11/07/2002 12/20/2014 documented as of this encounter (statuses as of 04/15/2021) Immunizations Name Administration Dates Next Due TD [...] Telephone Encounter - Matias Sharp MD - 04/15/2021 12:51 PM EDT Signed Prescriptions: Disp Refills lamoTRIgine 100 MG Oral Tablet (LaMICtal) 120 Tab5 Sig: TAKE TWO TABLETS BY MOUTH IN THE MORNING and take 2 tablets every evening Authorizing Provider: MATIAS SHARP * Telephone Encounter - Vielka Alan [facility] - 04/15/2021 12:35 PM EDT Pending Prescriptions: Disp Refills lamoTRIgine 100 MG Oral Tablet (LaMICtal)*120 Tab5 Sig: TAKE TWO TABLETS BY MOUTH IN THE MORNING and take 2 tablets every evening * Telephone Encounter - Vielka Alan RP - 04/15/2021 12:35 PM EDT Patient fails [facility] neurology refill protocol as has not had CMP completed in last 12 months. Forwarded to provider pool for authorization as clinically appropriate * Telephone Encounter - Samanta Coburn entry level drafter - 04/15/2021 11:11 AM EDT Pending Prescriptions: Disp Refills lamoTRIgine 100 MG Oral Tablet (LaMICtal)*120 Tab5 Sig: TAKE TWO TABLETS BY MOUTH IN THE MORNING and take 2 tablets every evening * Telephone Encounter - Samanta Coburn entry level drafter - 04/15/2021 11:00 AM EDT Pending Prescriptions: Disp Refills lamoTRIgine 100 MG Oral Tablet (LaMICtal)*120 Tab5 Sig: TAKE TWO TABLETS BY MOUTH IN THE MORNING and take 2 tablets every evening Last Office/Telemedicine Visit: 09/30/2020 Next Office Visit: 06/20/2021 Scheduled Provider(s): Matias Sharp MD If no future appointments scheduled, and last appointment is greater than a year ago, please schedule patient for a follow-up appointment Last date the medication was ordered: 10/22/20 Pharmacy: [facility], [address] [place] Is this request for [...] 06/20/2021 Office Visit Neurology Matias Sharp MD [address] [place] [address] [phone] Health Maintenance Due Date Last Done Comments [...] (#1) 2021 DTaP,Tdap,and Td Vaccines (2 - Td) [...] Documents on File Type Date Recorded Patient Envelope Addresser Expl 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 Advanced Directive
--- OUTSIDE RECORDS SUMMARY | 2023-05-14 01:25 | External Medical Summary ---
Author Name Unknown Address [facility] [place] [place] [address] Phone Organization K[address]:[place] [address] [address] [place] [id number] Laboratory Report Ordering Provider Test Date Status FROYLAN SALCEDO 12/23/2018 09:20:00 Final Observation Date Value Abnormality Reference Status Lamotrigine level 12/24/2018 07:53 5.5 2.5-1 5.0 Final Performing Location [place] [address] [address] [facility] [address]
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
--- OUTSIDE RECORDS SUMMARY | 2023-05-14 01:25 | External Medical Summary | Summary of Care ---
Author Name Unknown Organization [place] [address] Care Team Providers Care Cardiology Coordinator Name Role Phone Demond Austin MD Primary Care Provide r Reason for Visit * Reason Onset Date Comments Nurse Documentation 09/30/2020 Pre tele med Encounter Details Date Type Department Care Team Description 09/30/2020 Telephone Neurology [facility] [address] [place] [address] Bijal Sharp MD [address] [place] [address] [phone] Nurse Documentation (Pre tele med ) Allergies Active Allergy Reactions Severity Noted Date Comments Tramadol Hcl 08/07/2009 seizure documented as of this encounter (statuses as of 09/30/2020) Medications Medication Sig Dispensed Refills Start Date [...] as of this encounter (statuses as of 09/30/2020) Active Problems Problem Noted Date Mixed erectile [...] as of this encounter (statuses as of 09/30/2020) Resolved Problems Problem Noted Date Resolved Date SOB (shortness of breath) on exertion 12/20/2012 08/07/2016 Pain medication agreement 11/30/20112012 DIARRHEA 11/07/2002 12/20/2014 documented as of this encounter (statuses as of 09/30/2020) Immunizations Name Administration Dates Next Due TD [...] encounter Miscellaneous Notes * Telephone Encounter - Parvin Jacques, MED ASSIST - 09/30/2020 9:46 AM EST Called pt for pre video appt check in. Unable to leave v/m Dr Sharp aware that I was unable to reach patient documented in this encounter Plan of Treatment [...] Documents on File Type Date Recorded Patient Setter Induction Heating Equipment Expl 

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
--- OUTSIDE RECORDS SUMMARY | 2023-05-14 01:25 | External Medical Summary ---
Author Name Unknown Address [address] [place] [address] ) Organization [id number] [address] [place], [place] [id number] Laboratory Report Ordering Provider Test Date Status FROYLAN SALCEDO 12/23/2018 09:20:00 Final Observation Date Value Abnormality Reference Status LACOSAMIDE 12/29/2018 14:56 9.0 Fi nal Performing Location [facility] [address] [place] [id number]
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
--- OUTSIDE RECORDS SUMMARY | 2023-05-14 01:26 | External Medical Summary | Summary of Care ---
Author Name Unknown Organization [place] [address] Care Team Providers Care Quality Control Name Role Phone Demond Austin MD Primary Care Provide r Unavailable Encounter Details Date Type Department Care Team Description 11/07/2018 Orders Only Internal Medicine [address] [address] Demond Austin MD [address] [place] [address] [place] [address] Allergies Active Allergy Reactions Severity Noted [...] Office Visit Internal Medicine Demond Austin MD [address] [place] [address] [place] [address] Health Maintenance Due Date [...] Date/Time Associated Diagnosis Comments CHEMISTRY-OUTSIDE Routine 11/04/2018 documented in this encounter Results * CHEMISTRY-OUTSIDE (11/04/2018) CREATININE-OUTSIDE LAB OUTSI DE LAB (SEE SCANNED REPORT) GFR ESTIMATED-OUTSIDE LAB OU TSIDE LAB (SEE SCANNED REPORT) POTASSIUM-OUTSIDE LAB OUTSID E LAB (SEE SCANNED REPORT) GLUCOSE-OUTSIDE LAB OUTSIDE LAB (SEE SCANNED REPORT) HOURS FASTING OUTSIDE LAB (S EE SCANNED REPORT) TRIGLYCERIDES-OUTSIDE LAB OU TSIDE LAB (SEE SCANNED REPORT) CHOLESTEROL-OUTSIDE LAB OUTS CHARLENE LAB (SEE SCANNED REPORT) HDL-OUTSIDE LAB OUTSIDE LAB (SEE SCANNED REPORT) CHOL/HDL RATIO-OUTSIDE LAB O UTSIDE LAB (SEE SCANNED REPORT) LDL (CALCULATED)-OUTSIDE LAB OUTSIDE LAB (SEE SCANNED REPORT) LDL (DIRECT MEASURE)-OUTSIDE LAB OUTSIDE LAB (SEE SCA NNED REPORT) HEMOGLOBIN, [id number] LAB OUTSIDE LAB (SEE SCANNED REPORT) PHOSPHORUS-OUTSIDE LAB OUTSI DE LAB (SEE SCANNED REPORT) PTH-OUTSIDE LAB OUTSIDE LAB (SEE SCANNED REPORT) MICROALBUMIN RATIO-OUTSIDE LAB OUTSIDE LAB (SEE SCA NNED REPORT) PROTEIN, UA-OUTSIDE LAB NEG NEG OUTS CHARLENE LAB (SEE SCANNED REPORT) HEMOGLOBIN-OUTSIDE LAB OUTSI DE LAB (SEE SCANNED REPORT) CHEMISTRY COMMENT-OUTSIDE LAB Comment:ED LAB DRUG SCREEN URINE,UA- SEE SCAN OUTSIDE LAB (SEE SCANNED REPORT) Narrative Performed At Performing Organization Address City/State/Zipcod e Phone Number OUTSIDE LAB (SEE SCANNED REPORT) documented in this encounter Advance Directives Patient has advance care planning documents on file. For more information, please contact: [place] [phone]
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
--- OUTSIDE RECORDS SUMMARY | 2023-05-14 01:26 | External Medical Summary | Summary of Care ---
Author Name Unknown Organization [place] [address] Care Team Providers Care Event Decorator Name Role Phone Demond Austin MD Primary Care Provide r Reason for Visit * Reason Comments Medication Pre-auth Encounter Details Date Type Department Care Team Description 08/12/2018 Telephone Neurology [facility] [address] [place] [address] Bijal Sharp MD [address] [place] [address] [phone] Medication Pre-auth Allergies Active Allergy Reactions Severity Noted Date Comments Tramadol Hcl 08/07/2009 seizure as of this encounter Medications Medication Sig Dispensed Refills Start Date [...] the evening 120 Tab 5 04/25/2018 Active VIMPAT 200 MG Tablet TAKE ONE TABLET BY MOUTH IN THE MORNING and in the evening 60 Tab 5 05/18/2018 Active as of this encounter Active Problems [...] file Travel History Travel Start Travel End as of this encounter Miscellaneous Notes * Telephone Encounter - Denisse Guido LPN - 08/12/2018 2:31 PM EST Call [phone] spoke to Mulu she will call pt pharmacy and get the continuation on his auth for lamotrigine. in this encounter Plan of Treatment Health Maintenance Due Date Last Done Comments PNEUMOCOCCAL 19-64 MEDIUM RI SK (1 of 1 - PPSV23) 1989 *DEPRESSION SCREENINGWINSTON FOR PTS 18 AND OVER 08/25/2014 LIPID SCREEN EVERY 5 YRS-MEN AGE 35-75 11/26/2017 11/26/2012, 04/05/2012, 10/05/2006 Influenza Vaccine (FLU shot) (#1) 2018 DIABETES SCREEN EVERY 3 YRS- AGE 45 AND ABOVE 12/08/2020 12/08/2017, 08/11/2016, 05/02/2014, Additional history exists DTaP,Tdap,and Td Vaccines (2 - Td) 09/30/20212011, 08/02/2002 as of this encounter Implants Not on fileas of this encounter Advance Directives Patient has advance care planning documents on file. For more information, please contact: ANDREI Arciniega [phone]
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
--- OUTSIDE RECORDS SUMMARY | 2023-05-14 01:26 | External Medical Summary | Summary of Care ---
Author Name Unknown Organization [facility] Address [facility] [place] [address] Care Team Providers Care Solar Field Installation Crew Member Name Role Phone Demond Austin MD Primary [...] Office Visit Internal Medicine Demond Austin MD [address] [place] [address] [place] Parnell [address] Health Maintenance Due Date [...] For more information, please contact: [place] Arcin[place] [phone]
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
--- OUTSIDE RECORDS SUMMARY | 2023-05-14 01:27 | External Medical Summary ---
Author Name [facility] Organization K01:[facility], [address] [address] Support Name Relationship Address Phone [facility] Unknown Unavaila ble Laboratory Report Ordering Provider Test Date Status [facility] 11/26/2012 09:10:00-0400 Aretha l Obs # Observation Date Value ABNL Reference Status Pe rforming Location 1 BUN 11/26/2012 20:22-0400 19 6-20 mg/dL Final 2 Creatinine 11/26/2012 20:22-0400 1.2 0.6-1.3 mg/dL Final GFR should be used to assess renal function. Plasma/Serum creatinine may not be able to properly reflect renal function in some cases.
--- OUTSIDE RECORDS SUMMARY | 2023-05-14 01:27 | External Medical Summary ---
Author Name Unknown Address [address] [facility] [place] [address] Phone Organization K01:[facility] [address] [facility] [address] Laboratory Report Ordering Provider Test Date Status RAMYA WOODSON MD 08/11/2016 08:46:00 Final Obs # Observation Date Value Abnormality Reference Status Performing Location 0 Albumin 08/11/2016 14:40 4.6 3.8-5.0 Final [facility] [address] [facility] [address] 1 Sex Hormone Binding Globulin 08/11/2016 15:10 29 12-91 Final 2 Testosterone [Mass/volume] in Serum or Plasma 08/11/2016 15:10 250.8 249-836 Final 3 Free Testosterone, calculated 08/11/2016 15:10 50.5 35-130 Final 4 Bioavailable Testosterone, calculated 08/11/2016 15:10 126.1 79-335 Final 5 Testosterone Comment 08/11/2016 15:10 Final
--- OUTSIDE RECORDS SUMMARY | 2023-05-14 01:27 | External Medical Summary ---
Author Name Unknown [facility] [address] [place] [address] Support Name Relationship Address Phone JUSTINO YOUNG PROV Unknown Unavai lable Laboratory Report Ordering Provider Test Date Status JUSTINO YOUNG 10/13/2010 11:450400 Aretha l Obs # Observation Date Value ABNL Reference Status Pe rforming Location 1 WBC 10/13/2010 12: 10.22 4.00-10.80 K/uL Final 2 RBC 10/13/2010 12: 5.00 4.50-5.25 M/uL Final 3 HGB 10/13/2010 12: 13.7 L 14.0-16.5 g/dL Final 4 HCT 10/13/2010 12: 41.6 40.0-47.0 % Final 5 MCV 10/13/2010 12: 83.2 82.0-99.5 fL Final 6 MCH 10/13/2010 12: 27.4 27.0-34.0 pg Final 7 MCHC 10/13/2010 12: 32.9 32.0-36.0 g/dL Final 8 RDW 10/13/2010 12: 15.4 11.5-15.5 % Final 9 PLT 10/13/2010 12: 352 140-400 K/uL Final 10 MPV 10/13/2010 12: 10.5 6.6-11.1 fL Final 11 DIFF TYPE 10/13/2010 12: AUTO Final 12 Segs 10/13/2010 12: 66 40-75 % Final 13 Lymph 10/13/2010 12: 20 18-42 % Final 14 Briscoe 10/13/2010 12: 10 1-11 % Final 15 Eosinophils 10/13/2010 12: 4 0-6 % Final 16 Neutrophils, Segmented 10/13/2010 12: 6.75 1.8-7.7 K/uL Final 17 Abs. Lymphs 10/13/2010 12: 2.04 1.0-4.8 K/uL Final 18 Abs. Monos 10/13/2010 12: 1.02 0.0-1.1 K/uL Final 19 ABS. EOS 10/13/2010 12: 0.41 0.0-0.7 K/uL Final
--- OUTSIDE RECORDS SUMMARY | 2023-05-14 01:27 | External Medical Summary ---
Author Name HILDA CAMPOS Organization K01:[facility] [address] [address] Support Name Relationship Address Phone HILDA CAMPOS, RIGOBERTO MALDONADO Unknown Unavailable Laboratory Report Ordering Provider Test Date Status RIGOBERTO STEVENS MD 04/05/2012 13:20:00-0400 Final Obs # Observation Date Value ABNL Reference Status Pe rforming Location 1 Vitamin B12 04/05/2012 22:54-0400 259 211-946 pg/mL Final
--- OUTSIDE RECORDS SUMMARY | 2023-05-14 01:27 | External Medical Summary ---
Author Name Unknown Organization K01:[facility], [address] [address] Laboratory Report Ordering Provider Test Date Status SERGE ANDREA MD 03/14/2013 10:15:00-0400 Final Obs # Observation Date Value ABNL Reference Status Pe rforming Location 1 ALBUMIN 03/14/2013 22:33-0400 4.2 3.8-5.0 g/dL Final 2 Sex Hormone Binding Globulin 03/14/2013 22:50-0400 19 12-91 nmol/L Final 3 TESTOSTERONE, TOTAL 03/15/2013 08:59-0400 175.6 L 249-836 ng/dL Final 4 Free Testosterone, calculated 03/15/2013 08:59-0400 44.6 35.1-130.4 pg/mL Final 5 Bioavailable Testosterone, calculated 03/15/2013 08:59-0400 102.1 78.9-334.8 ng/dL Final 6 comment 03/15/2013 08:59-0400 Final Results for Total, Free, and Bioavailable Testosterone may be lower than expected if Specimen is not collected in the food service clerk due to circadian variations of testosterone.
--- OUTSIDE RECORDS SUMMARY | 2023-05-14 01:27 | External Medical Summary ---
Author Name Unknown Organization [employer] Support Name Relationship Address Phone JUSTINO YOUNG PROV Unknown Unavai lable Laboratory Report Ordering Provider Test Date Status JUSTINO YOUNG 08/22/2010 11:00-0500 F Obs # Observation Date Value ABNL Reference Status Pe rforming Location 1 BUN [facility]Pl-[facility] 08/22/2010 12:02-0500 17 6-20 mg/dL Final 2 Creat SerPl-[facility] 08/22/2010 12:02-0500 0.9 0.7-1.5 mg/dL Final 3 Sodium [facility] 08/22/2010 12:02-0500 140 135-146 mmol/L Final 4 Potassium SerPl-[facility] 08/22/2010 12:02-0500 4.7 3.5-5.1 mmol/L Final 5 Chloride [facility] 08/22/2010 12:02-0500 106 98-111 mmol/L Final 6 CO2 SerPl-[facility] 08/22/2010 12:02-0500 26 22-32 mmol/L Final 7 Glucose [facility] 08/22/2010 12:02-0500 96 70-120 mg/dL Final 8 Anion Gap [facility] 08/22/2010 12:02-0500 8 7-15 mEq/L Final 9 Calcium [facility] 08/22/2010 12:02-0500 9.2 8.3-10.5 mg/dL Final 10 Pred GFR SerPl MDRD-vRate 08/22/2010 12:02-0500 >60.0 >60 mL/min Final
--- OUTSIDE RECORDS SUMMARY | 2023-05-14 01:27 | External Medical Summary ---
Author Name HILDA CAMPOS Organization K08:[address] [place] [address] Support Name Relationship Address Phone HILDA CAMPOS, RIGOBERTO MALDONADO Unknown Unavailable Laboratory Report Ordering Provider Test Date Status RIGOBERTO STEVENS MD 04/05/2012 13:20:00-0400 Final Obs # Observation Date Value ABNL Reference Status Pe rforming Location 1 WBC 04/05/2012 13:55-0400 8.41 4.00-10.80 K/uL Final 2 RBC 04/05/2012 13:55-0400 4.61 4.50-5.25 M/uL Final 3 HGB 04/05/2012 13:55-0400 14.1 14.0-16.5 g/dL Final 4 HCT 04/05/2012 13:55-0400 41.6 40.0-47.0 % Final 5 MCV 04/05/2012 13:55-0400 90.2 82.0-99.5 fL Final 6 MCH 04/05/2012 13:55-0400 30.6 27.0-34.0 pg Final 7 MCHC 04/05/2012 13:55-0400 33.9 32.0-36.0 g/dL Final 8 RDW 04/05/2012 13:55-0400 14.2 11.5-15.5 % Final 9 PLT 04/05/2012 13:55-0400 254 140-400 K/uL Final 10 MPV 04/05/2012 13:55-0400 9.7 6.6-11.1 fL Final 11 diff type 04/05/2012 13:55-0400 AUTO Final 12 Segs 04/05/2012 14:15-0400 53 40-75 % Final 13 Lymphocytes 04/05/2012 14:15-0400 32 18-42 % Final 14 Monos 04/05/2012 14:15-0400 8 1-11 % Final 15 Eosinophils 04/05/2012 14:15-0400 5 0-6 % Final 16 Basos 04/05/2012 14:15-0400 2 0-2 % Final 17 Segmented Neutrophils, Abs 04/05/2012 14:15-0400 4.46 1.8-7.7 K/uL Final 18 Lymphs, Abs 04/05/2012 14:15-0400 2.69 1.0-4.8 K/uL Final 19 Monos, Abs 04/05/2012 14:15-0400 0.67 0.0-1.1 K/uL Final 20 Eos, Abs 04/05/2012 14:15-0400 0.42 0.0-0.7 K/uL Final 21 Basos, Abs 04/05/2012 14:15-0400 0.17 0.0-0.2 K/uL Final
--- OUTSIDE RECORDS SUMMARY | 2023-05-14 01:27 | External Medical Summary ---
Author Name Unknown Organization [employer] [facility] tem Support Name Relationship Address Phone Unavailable PROV Unknown Unavailable Laboratory Report Ordering Provider Test Date Status 03/11/2010 12:51-0400 F Obs # Observation Date Value ABNL Reference Status Pe rforming Location 1 Ferritin SerPl-mCnc 03/11/2010 22:04-0400 18.1 L 30-400 ng/mL Final
--- OUTSIDE RECORDS SUMMARY | 2023-05-14 01:27 | External Medical Summary ---
Author Name Unknown Organization [employer] [facility] tem Support Name Relationship Address Phone Unavailable PROV Unknown Unavailable Laboratory Report Ordering Provider Test Date Status 03/11/2010 12:51-0400 F Obs # Observation Date Value ABNL Reference Status Pe rforming Location 1 Folate SerPl-mCnc 03/11/2010 22:05-0400 16.5 4.2-19.9 ng/mL Final 2 Folate SerPl-mCnc 03/11/2010 22:05-0400 Final NORMAL
--- OUTSIDE RECORDS SUMMARY | 2023-05-14 01:27 | External Medical Summary ---
Author Name Unknown Address [place] [address] Phone Organization K01:[place] [address] [id number] Laboratory Report Ordering Provider Test Date Status FROYLAN SALCEDO 03/30/2017 09:10:00 Final Observation Date Value Abnormality Reference Status Lamotrigine level 04/02/2017 10:55 8.5 2.5-1 5.0 Final Performing Location [address] [address]
--- OUTSIDE RECORDS SUMMARY | 2023-05-14 01:27 | External Medical Summary ---
Author Name POOJA DUNAWAY Organization K08:[facility] [address] [place] [address] Support Name Relationship Address Phone DAMIAN KOCH Unknown Unavaila ble Laboratory Report Ordering Provider Test Date Status DAMIAN DUNAWAY 11/26/2012 09:10:00-0400 Aretha l Obs # Observation Date Value ABNL Reference Status Pe rforming Location 1 hours fasting 11/26/2012 09:18-0400 12 hours Final 2 Triglyceride 11/26/2012 20:22-0400 169 <200 mg/dL Final TRIGLYCERIDE REFERENCE RANGES (mg/dL) <150 NORMAL 150-199 BORDERLINE HIGH 200-499 HIGH >499 VERY HIGH TOTAL CHOLESTEROL REFERENCE RANGES(mg/dL) <200 DESIRABLE 200-239 BORDERLINE HIGH >239 HIGH HDL CHOLESTEROL REFERENCE RANGES(mg/dL) <40 LOW(UNDESIRABLE) >59 HIGH(DESIRABLE) LDL CHOLESTEROL REFERENCE RANGES(mg/dL) <100 OPTIMAL GOAL FOR HIGH RISK PATIENTS 100-129 NEAR OR ABOVE NORMAL 130-159 BORDERLINE HIGH 160-189 HIGH >189 VERY HIGH
--- OUTSIDE RECORDS SUMMARY | 2023-05-14 01:27 | External Medical Summary ---
Author Name Unknown Organization K01:[facility], [address] [address] Laboratory Report Ordering Provider Test Date Status SERGE ANDREA MD 03/14/2013 10:15:00-0400 Final Obs # Observation Date Value ABNL Reference Status Pe rforming Location 1 03/15/2013 08:59-0400 4.32 mIU/mL Final MEN: 1.7-8.6 WOMEN: FOLLICULAR PHASE: 2.4-12.6 OVULATION PHASE: 14.0-95.6 LUTEAL PHASE: 1.0-11.4 POSTMENOPAUSE: 7.7-58.5 CHILDREN: 0.2-1.4
--- OUTSIDE RECORDS SUMMARY | 2023-05-14 01:27 | External Medical Summary ---
Author Name Unknown Organization [employer] [facility] tem Support Name Relationship Address Phone Unavailable PROV Unknown Unavailable Laboratory Report Ordering Provider Test Date Status 03/11/2010 12:51-0400 F Obs # Observation Date Value ABNL Reference Status Pe rforming Location 1 Vit B12 Ser-mCnc 03/11/2010 22:05-0400 537 211-946 pg/mL Final
--- OUTSIDE RECORDS SUMMARY | 2023-05-14 01:27 | External Medical Summary ---
Author Name HILDA CAMPOS Organization K08:[address] [place] [address] Support Name Relationship Address Phone RIGOBERTO STEVENS MD PROV Unknown Unavailable Laboratory Report Ordering Provider Test Date Status RIGOBERTO STEVENS MD 04/05/2012 13:20:00-0400 Final Obs # Observation Date Value ABNL Reference Status Pe rforming Location 1 BUN 04/05/2012 14:11-0400 9 6-20 mg/dL Final 2 Creatinine 04/05/2012 14:11-0400 0.8 0.6-1.3 mg/dL Final GFR should be used to assess renal function. Plasma/Serum creatinine may not be able to properly reflect renal function in some cases.
--- OUTSIDE RECORDS SUMMARY | 2023-05-14 01:27 | External Medical Summary ---
Author Name Unknown Address [address] [place] [address] AND[place]I [place]ham [address] Phone Organization K08:[address] [place] [address] Laboratory Report Ordering Provider Test Date Status RAMYA WOODSON MD 08/11/2016 08:46:00 Final Obs # Observation Date Value Abnormality Reference Status Performing Location 0 WBC, Total 7 13:27 8.35 4.00-10.[address] [place] [address] 1 RBC 7 13:27 5.34 Above high normal 4.50-5.25 Final 2 Hemoglobin 7 13:27 15.7 14.0-16.8 Final 3 HCT 7 13:27 47.6 40.0-48.4 Final 4 MCV 7 13:27 89.1 82.0-99.5 Final 5 MCH 7 13:27 29.4 27.0-34.0 Final 6 MCHC 7 13:27 33.0 32.0-36.0 Final 7 RDW 7 13:27 14.9 11.5-15.5 Final 8 Platelets 7 13:27 261 140-400 Final 9 MPV 7 13:27 10.4 6.6-11.1 Final 10 NEUT 7 13:27 45.7 40-75 Final 11 Lymphs % 7 13:27 40.6 18-42 Final 12 Monos 7 13:27 7.1 1-11 Final 13 Eosinophils 7 13:27 5.0 0-6 Final 14 Basos 7 13:27 1.6 0-2 Final 15 ANEUT 7 13:27 3.82 1.8-7.7 Final 16 Lymphs, absolute 7 13:27 3.39 1.0-4.8 Final 17 Monos, Abs 7 13:27 0.59 0.0-1.1 Final 18 Eos, Abs 7 13:27 0.42 0.0-0.7 Final 19 Basos, Abs 7 13:27 0.13 0.0-0.2 Final
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
--- OUTSIDE RECORDS SUMMARY | 2023-05-14 01:27 | External Medical Summary ---
Author Name [facility] Organization K01:[facility] [address] [address] Support Name Relationship Address Phone [facility], DAMIAN PROV Unknown Unavaila ble Laboratory Report Ordering Provider Test Date Status DAMIAN [facility] 11/26/2012 09:10:00-0400 Aretha l Obs # Observation Date Value ABNL Reference Status Pe rforming Location 1 TSH 11/26/2012 20:21-0400 1.95 0.27-4.2 uIU/mL Final
--- OUTSIDE RECORDS SUMMARY | 2023-05-14 01:27 | External Medical Summary ---
Author Name Unknown Organization [employer] tem Support Name Relationship Address Phone Unavailable PROV Unknown Unavailable Laboratory Report Ordering Provider Test Date Status 03/11/2010 12:51-0400 F Obs # Observation Date Value ABNL Reference Status Pe rforming Location 1 WBC # Bld 03/11/2010 14: 13.10 H 4.00-10.80 K/uL Final 2 RBC # Bld 03/11/2010 14: 4.63 4.50-5.25 M/uL Final 3 Hgb Bld-mCnc 03/11/2010 14: 13.4 L 14.0-16.5 g/dL Final 4 Hct Fr Bld 03/11/2010 14: 41.0 40.0-47.0 % Final 5 MCV RBC Qn 03/11/2010 14: 88.6 82.0-99.5 fL Final 6 MCH RBC Qn 03/11/2010 14: 29.0 27.0-34.0 pg Final 7 MCHC RBC-mCnc 03/11/2010 14: 32.7 32.0-36.0 g/dL Final 8 RDW RBC Qn 03/11/2010 14: 16.2 H 11.5-15.5 % Final 9 Platelet # Bld 03/11/2010 14: 315 150-400 K/uL Final 10 PMV Bld Qn 03/11/2010 14: 8.4 6.6-11.1 fL Final 11 DIFF TYPE 03/11/2010 14:040 Final SCAN DIFF NORMAL
--- OUTSIDE RECORDS SUMMARY | 2023-05-14 01:27 | External Medical Summary ---
Author Name Unknown [facility] [address] [place] [address] Support Name Relationship Address Phone JUSTINO YOUNG PROV Unknown Unavai lable Laboratory Report Ordering Provider Test Date Status JUSTINO YOUNG 10/13/2010 11:45-0400 Aretha l Obs # Observation Date Value ABNL Reference Status Pe rforming Location 1 BUN 10/13/2010 15:30-0400 11 6-20 mg/dL Final 2 Creatinine 10/13/2010 15:30-0400 0.7 0.7-1.5 mg/dL Final 3 Sodium 10/13/2010 15:30-0400 144 135-146 mmol/L Final 4 Potassium 10/13/2010 15:30-0400 3.8 3.5-5.1 mmol/L Final 5 Cl 10/13/2010 15:30-0400 109 98-111 mmol/L Final 6 CO2 10/13/2010 15:30-0400 22 22-32 mmol/L Final 7 Glucose 10/13/2010 15:30-0400 95 70-120 mg/dL Final 8 Anion gap 10/13/2010 15:30-0400 13 7-15 mEq/L Final 9 Calcium 10/13/2010 15:30-0400 9.6 8.3-10.5 mg/dL Final 10 GFR / 1.73 sq M.predicted 10/13/2010 15:30-0400 >60.0 >60 mL/min Final
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
--- OUTSIDE RECORDS SUMMARY | 2023-05-14 01:27 | External Medical Summary ---
Author Name Unknown Organization [employer] [facility] tem Support Name Relationship Address Phone Unavailable PROV Unknown Unavailable Laboratory Report Ordering Provider Test Date Status 03/11/2010 12:51-0400 F Obs # Observation Date Value ABNL Reference Status Pe rforming Location 1 Retics/100 RBC Fr Auto 03/11/2010 21:39-0400 1.13 0.40-2.30 % Final 2 Retics # RBC 03/11/2010 21:39-0400 52.3 15.9-93.0 K/uL Final 3 Imm Retics Fr RBC 03/11/2010 21:390400 31.7 18.0-43.0 % Final
--- OUTSIDE RECORDS SUMMARY | 2023-05-14 01:27 | External Medical Summary ---
Author Name Unknown Organization K08:[facility] [address] [place] [address] Laboratory Report Ordering Provider Test Date Status ASIM PINON [facility] 01/16/2014 11:15:00-0400 Aretha l Obs # Observation Date Value ABNL Reference Status Pe rforming Location 1 WBC 01/16/2014 12: 9.57 4.00-10.80 K/uL Final 2 RBC 01/16/2014 12: 4.83 4.50-5.25 M/uL Final 3 HGB 01/16/2014 12: 14.7 14.0-16.5 g/dL Final 4 HCT 01/16/2014 12: 44.7 40.0-47.0 % Final 5 MCV 01/16/2014 12: 92.5 82.0-99.5 fL Final 6 MCH 01/16/2014 12: 30.4 27.0-34.0 pg Final 7 MCHC 01/16/2014 12: 32.9 32.0-36.0 g/dL Final 8 RDW 01/16/2014 12: 14.3 11.5-15.5 % Final 9 PLT 01/16/2014 12: 258 140-400 K/uL Final 10 MPV 01/16/2014 12: 10.2 6.6-11.1 fL Final
--- OUTSIDE RECORDS SUMMARY | 2023-05-14 01:27 | External Medical Summary ---
Author Name Unknown Address [facility] [address] [place] [id number] Phone Organization K01:[facility] [address] [facility] [address] Laboratory Report Ordering Provider Test Date Status FROYLAN SALCEDO MD 08/11/2016 08:54:00 Final Obs # Observation Date Value Abnormality Reference Status Performing Location 0 Lamotrigine level 7 09:06 2.1 Below low normal 2.5-15.0 Final [place] [address] [address] [facility] [address]
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
--- OUTSIDE RECORDS SUMMARY | 2023-05-14 01:27 | External Medical Summary ---
Author Name POOJA [facility] Organization [facility], [address] [place] [address] Support Name Relationship Address Phone DAMIAN KOCH Unknown Unavaila ble Laboratory Report Ordering Provider Test Date Status DAMIAN DUNAWAY 11/26/2012 09:10:000400 Aretha l Obs # Observation Date Value ABNL Reference Status Pe rforming Location 1 WBC 11/26/2012 20:06-0400 13.73 H 4.00-10.80 K/uL Final 2 RBC 11/26/2012 20:06-0400 4.84 4.50-5.25 M/uL Final 3 HGB 11/26/2012 20:06-0400 14.7 14.0-16.5 g/dL Final 4 HCT 11/26/2012 20:06-0400 44.4 40.0-47.0 % Final 5 MCV 11/26/2012 20:06-0400 91.7 82.0-99.5 fL Final 6 MCH 11/26/2012 20:06-0400 30.4 27.0-34.0 pg Final 7 MCHC 11/26/2012 20:06-0400 33.1 32.0-36.0 g/dL Final 8 RDW 11/26/2012 20:06-0400 14.0 11.5-15.5 % Final 9 PLT 11/26/2012 20:06-0400 312 140-400 K/uL Final 10 MPV 11/26/2012 20:06-0400 10.9 6.6-11.1 fL Final 11 Segs 11/26/2012 20:06-0400 58 40-75 % Final 12 Lymphocytes 11/26/2012 20:06-0400 29 18-42 % Final 13 Monos 11/26/2012 20:06-0400 7 1-11 % Final 14 Eosinophils 11/26/2012 20:06-0400 3 0-6 % Final 15 Basos 11/26/2012 20:06-0400 2 0-2 % Final 16 IMMATURE GRANULOCYTE 11/26/2012 20:06-0400 1 0-2 % Final 17 Segmented Neutrophils, Abs 11/26/2012 20:06-0400 8.08 H 1.8-7.7 K/uL Final 18 Lymphs, Abs 11/26/2012 20:06-0400 3.92 1.0-4.8 K/uL Final 19 Monos, Abs 11/26/2012 20:06-0400 1.00 0.0-1.1 K/uL Final 20 Eos, Abs 11/26/2012 20:06-0400 0.43 0.0-0.7 K/uL Final 21 Basos, Abs 11/26/2012 20:06-0400 0.23 H 0.0-0.2 K/uL Final 22 ABS. IMMATURE GRAN 11/26/2012 20:06-0400 0.07 0.0-0.2 K/uL Final
--- OUTSIDE RECORDS SUMMARY | 2023-05-14 01:27 | External Medical Summary ---
Author Name [facility] Organization K01:[facility], [address] [place] [address] Support Name Relationship Address Phone POOJA DUNAWAY, DAMIAN MALDONADO Unknown Unavaila ble Laboratory Report Ordering Provider Test Date Status DAMIAN DUNAWAY 11/26/2012 09:10:00-0400 Aretha l Obs # Observation Date Value ABNL Reference Status Pe rforming Location 1 HbA1C 11/26/2012 21:27-0400 6.0 3.4-6.4 % Final 2 Glucose, estimated average 11/26/2012 21:27-0400 126 H <126 MG/DL Final
--- OUTSIDE RECORDS SUMMARY | 2023-05-14 01:27 | External Medical Summary ---
Author Name Unknown Organization [facility] tem Support Name Relationship Address Phone JUSTINO YOUNG PROV Unknown Unavai lable Laboratory Report Ordering Provider Test Date Status JUSTINO YOUNG 08/22/2010 11:00-0500 F Obs # Observation Date Value ABNL Reference Status Pe rforming Location 1 WBC # Bld 08/22/2010 11:24-0500 11.67 H 4.00-10.80 K/uL Final 2 RBC # Bld 08/22/2010 11:24-0500 4.71 4.50-5.25 M/uL Final 3 Hgb Bld-mCnc 08/22/2010 11:24-0500 13.1 L 14.0-16.5 g/dL Final 4 Hct Fr Bld 08/22/2010 11:24-0500 39.6 L 40.0-47.0 % Final 5 MCV RBC Qn 08/22/2010 11:24-0500 84.1 82.0-99.5 fL Final 6 MCH RBC Qn 08/22/2010 11:24-0500 27.8 27.0-34.0 pg Final 7 MCHC RBC-mCnc 08/22/2010 11:24-0500 33.1 32.0-36.0 g/dL Final 8 RDW RBC Qn 08/22/2010 11:24-0500 14.7 11.5-15.5 % Final 9 Platelet # Bld 08/22/2010 11:24-0500 274 150-400 K/uL Final 10 PMV Bld Qn 08/22/2010 11:24-0500 10.2 6.6-11.1 fL Final 11 DIFF TYPE 08/22/2010 11:24-0500 Final AUTO
--- OUTSIDE RECORDS SUMMARY | 2023-05-14 01:27 | External Medical Summary ---
Author Name HILDA CAMPOS Organization K01[facility], [address] [place] [address] Support Name Relationship Address Phone HILDA CAMPOS, RIGOBERTO PROV Unknown Unavailable Laboratory Report Ordering Provider Test Date Status RIGOBERTO STEVENS MD 02/01/2013 08:35:00-0400 Final Obs # Observation Date Value ABNL Reference Status Pe rforming Location 1 ALBUMIN 02/01/2013 14:31-0400 4.3 3.8-5.0 g/dL Final 2 Sex Hormone Binding Globulin 02/01/2013 14:47-0400 18 12-91 nmol/L Final 3 TESTOSTERONE, TOTAL 02/01/2013 14:53-0400 33.72 L 249-836 ng/dL Final 4 Free Testosterone, calculated 02/01/2013 14:53-0400 8.2 L 35.1-130.4 pg/mL Final 5 Bioavailable Testosterone, calculated 02/01/2013 14:53-0400 19.3 L 78.9-334.8 ng/dL Final 6 comment 02/01/2013 14:53-0400 Final Results for Total, Free, and Bioavailable Testosterone may be lower than expected if Specimen is not collected in the intelligence officer basic due to circadian variations of testosterone.
--- OUTSIDE RECORDS SUMMARY | 2023-05-14 01:27 | External Medical Summary ---
Author Name Unknown Organization [facility] tem Support Name Relationship Address Phone Unavailable PROV Unknown Unavailable Laboratory Report Ordering Provider Test Date Status 03/11/2010 12:51-0400 F Obs # Observation Date Value ABNL Reference Status Pe rforming Location 1 Iron SerPl-mCnc 03/11/2010 21:57-0400 87 45-160 ug/dL Final
--- OUTSIDE RECORDS SUMMARY | 2023-05-14 01:27 | External Medical Summary ---
Author Name Unknown Organization [facility] tem Support Name Relationship Address Phone Unavailable PROV Unknown Unavailable Laboratory Report Ordering Provider Test Date Status 03/11/2010 12:51-0400 F Obs # Observation Date Value ABNL Reference Status Pe rforming Location 1 [facility] 03/11/2010 21:57-0400 421 228-428 ug/dL Final
--- OUTSIDE RECORDS SUMMARY | 2023-05-14 01:27 | External Medical Summary ---
Author Name Unknown Address [place] [address] Phone Organization K01:[place] [address] [address] [place] [id number] Laboratory Report Ordering Provider Test Date Status FROYLAN SALCEDO 11/23/2016 13:52:00 Final Observation Date Value Abnormality Reference Status Lamotrigine level 11/24/2016 11:08 8.0 2.5-1 5.0 Final Performing Location [place] [id number]
--- OUTSIDE RECORDS SUMMARY | 2023-05-14 01:27 | External Medical Summary ---
Author Name Unknown Address [address] [place] [id number] Phone Organization K01:[facility] [address] [facility] [address] Laboratory Report Ordering Provider Test Date Status RAMYA WOODSON MD 08/11/2016 08:46:00 Final Obs # Observation Date Value Abnormality Reference Status Performing Location 0 BUN 08/11/2016 14:40 11 6-20 Final [facility] [address] [facility] [address] 1 Creatinine 08/11/2016 14:40 1.1 0.6-1.2 Final
--- OUTSIDE RECORDS SUMMARY | 2023-05-14 01:27 | External Medical Summary ---
Author Name Unknown Organization K08:[facility] [address] [place] [address] Laboratory Report Ordering Provider Test Date Status ASIM PINON PAUL 01/16/2014 11:15:00-0400 Aretha l Obs # Observation Date Value ABNL Reference Status Pe rforming Location 1 BUN 01/16/2014 12:23-0400 13 6-20 mg/dL Final 2 Creatinine 01/16/2014 12:23-0400 0.8 0.6-1.3 mg/dL Final GFR should be used to assess renal function. Plasma/Serum creatinine may not be able to properly reflect renal function in some cases. If patient is , multiply estimated GFR by 1.159.
--- OUTSIDE RECORDS SUMMARY | 2023-05-14 01:27 | External Medical Summary ---
Author Name Unknown Organization K08:[facility] [address] [place] [address] Support Name Relationship Address Phone JUSTINO YOUNG PROV Unknown Unavai lable Laboratory Report Ordering Provider Test Date Status JUSTINO YOUNG 10/13/2010 11:45-0400 Aretha rajan Obs # Observation Date Value ABNL Reference Status Pe rforming Location 1 [facility] Test 10/13/2010 12:51-0400 NEGATIVE NEG Final 2 [place] Test 10/13/2010 12:51-0400 Tested for infectious mononucleosis heterophile antibodies. Final
--- OUTSIDE RECORDS SUMMARY | 2023-05-14 01:27 | External Medical Summary ---
Author Name Unknown Organization K01:[facility], [address] [place] [address] Laboratory Report Ordering Provider Test Date Status SERGE ANDREA MD 03/14/2013 10:15:00-0400 Final Obs # Observation Date Value ABNL Reference Status Pe rforming Location 1 Prolactin 03/14/2013 22:48-0400 7.5 4.0-15.2 ng/mL Final
--- OUTSIDE RECORDS SUMMARY | 2023-05-14 01:27 | External Medical Summary ---
Author Name HILDA CAMPOS Organization K01:[place] [address] [place] [address] Support Name Relationship Address Phone HILDA CAMPOS, RIGOBERTO PROV Unknown Unavailable Laboratory Report Ordering Provider Test Date Status RIGOBERTO STEVENS MD 04/05/2012 13:20:00-0400 Final Obs # Observation Date Value ABNL Reference Status Pe rforming Location 1 TSH 04/05/2012 22:54-0400 1.17 0.27-4.2 uIU/mL Final
--- OUTSIDE RECORDS SUMMARY | 2023-05-14 01:27 | External Medical Summary ---
Author Name Unknown Address [facility] [place] [address] Phone Organization K01:[place] [address] [place] [id number] Laboratory Report Ordering Provider Test Date Status FROYLAN SALCEDO MD 03/05/2016 14:52:00 Final Obs # Observation Date Value Abnormality Reference Status Performing Location 0 Levetiracetam level 03/06/2016 09:30 17 3-[address] [address]
--- OUTSIDE RECORDS SUMMARY | 2023-05-14 01:27 | External Medical Summary ---
Author Name HILDA CAMPOS [facility] [address] [place] [address] Support Name Relationship Address Phone HILDA CAMPOS, RIGOBERTO MALDONADO Unknown Unavailable Laboratory Report Ordering Provider Test Date Status RIGOBERTO STEVENS MD 04/05/2012 13:20:00-0400 Final Obs # Observation Date Value ABNL Reference Status Pe rforming Location 1 hours fasting 04/05/2012 13:26-0400 PATIENT NOT FASTING hours Final 2 Triglyceride 04/05/2012 22:44-0400 220 H <200 mg/dL Final TRIGLYCERIDE REFERENCE RANGES (mg/dL) [...]
--- OUTSIDE RECORDS SUMMARY | 2023-05-14 01:28 | External Medical Summary ---
Author Name Unknown Organization [employer] [facility] tem Support Name Relationship Address Phone Unavailable PROV Unknown Unavailable Laboratory Report Ordering Provider Test Date Status 03/04/2010 11:17-0400 F Obs # Observation Date Value ABNL Reference Status Pe rforming Location 1 [facility] 03/04/2010 22:38-0400 1.47 0.27-4.2 uIU/mL Final
--- OUTSIDE RECORDS SUMMARY | 2023-05-14 01:28 | External Medical Summary ---
Author Name Unknown Organization [employer] tem Support Name Relationship Address Phone Unavailable PROV Unknown Unavailable Laboratory Report Ordering Provider Test Date Status 03/04/2010 11:170400 F Obs # Observation Date Value ABNL Reference Status Pe rforming Location 1 BUN [facility] 03/04/2010 14:07-0400 23 H 6-20 mg/dL Final 2 Creat [facility]Pl[facility] 03/04/2010 14:07-0400 0.8 0.7-1.5 mg/dL Final 3 Sodium [facility] 03/04/2010 14:07-0400 132 L 135-146 mmol/L Final 4 Potassium [facility] 03/04/2010 14:07-0400 4.4 3.5-5.1 mmol/L Final 5 Chloride [facility] 03/04/2010 14:07-0400 100 98-111 mmol/L Final 6 CO2 [facility] 03/04/2010 14:07-0400 25 22-32 mmol/L Final 7 Glucose [facility] 03/04/2010 14:07-0400 96 70-120 mg/dL Final 8 Anion Gap [facility] 03/04/2010 14:07-0400 7 7-15 mEq/L Final 9 Calcium [facility] 03/04/2010 14:07-0400 9.8 8.3-10.5 mg/dL Final 10 Pred GFR SerPl MDRD-vRate 03/04/2010 14:07-0400 >60.0 >60 mL/min Final
--- OUTSIDE RECORDS SUMMARY | 2023-05-14 01:28 | External Medical Summary ---
Author Name Unknown Organization [facility] tem Support Name Relationship Address Phone Unavailable PROV Unknown Unavailable Laboratory Report Ordering Provider Test Date Status 03/04/2010 11:17-0400 F Obs # Observation Date Value ABNL Reference Status Pe rforming Location 1 WBC # Bld 03/04/2010 12:54-0400 10.50 4.00-10.80 K/uL Final 2 RBC # Bld 03/04/2010 12:54-0400 4.36 L 4.50-5.25 M/uL Final 3 Hgb Bld-mCnc 03/04/2010 12:54-0400 12.5 L 14.0-16.5 g/dL Final 4 Hct Fr Bld 03/04/2010 12:54-0400 38.8 L 40.0-47.0 % Final 5 MCV RBC Qn 03/04/2010 12:54-0400 89.1 82.0-99.5 fL Final 6 MCH RBC Qn 03/04/2010 12:54-0400 28.8 27.0-34.0 pg Final 7 MCHC RBC-mCnc 03/04/2010 12:54-0400 32.3 32.0-36.0 g/dL Final 8 RDW RBC Qn 03/04/2010 12:54-0400 16.3 H 11.5-15.5 % Final 9 Platelet # Bld 03/04/2010 12:54-0400 295 150-400 K/uL Final 10 PMV Bld Qn 03/04/2010 12:54-0400 9.1 6.6-11.1 fL Final 11 DIFF TYPE 03/04/2010 12:54-0400 Final AUTO NORMAL
--- OUTSIDE RECORDS SUMMARY | 2023-05-14 01:28 | External Medical Summary ---
Author Name Unknown Organization [facility] tem Support Name Relationship Address Phone Unavailable PROV Unknown Unavailable Laboratory Report Ordering Provider Test Date Status 03/04/2010 11:0400 F Obs # Observation Date Value ABNL Reference Status Pe rforming Location 1 Vit B12 Ser-mCnc 03/04/2010 23:170 [phone] pg/mL Final
[2023-05-14] MEDS: levETIRAcetam 250 MG TAB PO SCH (07:55)
[2023-05-14] MEDS: THIAMINE HCL 100 MG TAB PO SCH (07:55)
[2023-05-14] MEDS: ENOXAPARIN INJ 40 MG/0.4 ML SYR SQ SCH (07:55)
[2023-05-14] MEDS: NICOTINE 21 MG/24 HR TDSY TD SCH (07:55)
[2023-05-14] MEDS: ADVANCED PROBIOTIC 1250 MG CAPSULE PO SCH (07:56)
[2023-05-14] MEDS: FOLIC ACID 1 MG TAB PO SCH (07:56)
[2023-05-14] MEDS: FLUoxetine HCL 20 MG CAP PO SCH ×3 (07:56→07:59)
[2023-05-14] MEDS: POT PHOSPHATE MONOBASIC W/ SOD TAB PO SCH ×2 (07:57→14:02)
[2023-05-14] MEDS: PANTOprazole 40 MG TAB PO SCH (07:57)
[2023-05-14] MEDS: NALTREXONE HCL 50 MG TAB PO SCH (07:57)
[2023-05-14] MEDS: levETIRAcetam 500 MG TAB PO SCH (07:58)
[2023-05-14] MEDS: lamoTRIgine 100 MG TAB PO SCH (07:58)
[2023-05-14] MEDS: MAGNESIUM OXIDE 400 MG TAB PO SCH (07:58)
[2023-05-14] MEDS: ONDANSETRON INJ 2 MG/ML 2 ML VIAL IV PRN (08:08)
[2023-05-14 09:09] LABS: Hematocrit (blood only) 33.4 % (42.0-52.0); Mean Corpuscular Hgb Conc 32.9 g/dL (32.0-36.0); Mean Corpuscular Volume 88.1 fL (80.0-100.0); Mean Platelet Volume 10.6 fL (9.4-12.4); Platelet Count 346 K/uL (130-400); RDW Coefficient of Variation 16.2 % (11.5-14.5); RDW Standard Deviation 52.5 fL (36.4-46.3); Red Blood Count 3.79 M/uL (4.70-6.10); White Blood Count 5.92 K/ul (4.8-10.8)
[2023-05-14] MEDS ORDERED: FOSAPREPITANT DIMEGLUMINE 150 MG in SODIUM CHLORIDE 0.9% 145 ML IV ONE (09:21)
[2023-05-14 09:47] LABS: BUN Creatinine Ratio 6.3 (10-20); Calcium 8.6 mg/dl (8.6-10.3); Creatinine Clr Calc Pharmacy 91.4 ml/min; Est GFR (African American) 75.5 ml/min; Est GFR (Non-African American) 65.1 ml/min; Potassium 3.9 mmol/L (3.5-5.1)
[2023-05-14] MEDS ORDERED: ONDANSETRON 4 MG OD TAB PO PRN (14:11)
--- NOTE | 2023-05-14 15:29 | Discharge Summary ---
Discharge Summary Date of Service May 14, 2023 Notes For Next Care Provider Suicidal ideation, admitted to medical floor for alcohol withdrawal mgmt, lyte abn, functional abd pain now medically stable for dc to 3S. Medication Changes From Visit PRN Phenergan, PRN Bentyl for nausea and abdominal pain Continue Mag 400 BID 2/2 chronic alcoholism Lisinopril held while BP normotensive Wellbutrin discontinued per psych Admission HPI Per Admitting Provider Mr. Hernandez is an unfortunate 52 year old male that arrived to the ED via EMS after he was making suicidal statements to his daughter. He is unkempt and disheveled and admitted to having a suicidal plan by cutting his wrists. He states that he has felt this way for about a week. Has a PMH that includes HTN and seizure disorder. Does not follow with any Neurologist. Has an additional PMH includes Ulcerative colitis s/p total colectomy in the early . Does not follow with any specific PCP at this time. No leukocytosis, BUN 113 and creatinine 2.64; likely secondary to dehydration and poor PO intake, TSH elevated 5.240. UDS and UA pending. Hemodynamically stable and on RA. Would benefit from OOA involvement as he does live alone. [place] Suicide Severity Rating Scale (C-SSRS); -Have you actually had thoughts of killing yourself: yes -Have you been thinking about how you might do this: Yes -Have you had these thoughts and had some intention of acting on them: Yes -Have you started to work out details of how to kill yourself? Do you intend to carry out this plan? No -Have you done anything, started to do anything, or prepared to do anything to end your life: No He reports that he does not have guns in his home. He has a history of suicidal ideation and has Psychiatric consultation for suicidal ideation and anxiety Ultimately, a mentally unwell individual with poor coping mechanisms and history and current SI. Admits to feelings of harming himself over the past week. No significant event ocurred over the past week that he can specifically recall. Reports drinking 1 L of alcohol daily up until a few weeks ago. Reports his last drink was a few weeks ago. Denies visual and auditory hallucinations. Will provide fluid resuscitation and restart Prozac and Keppra. Will place on 1:1 observation and await Psychiatric recommendations. Patient will be admitted for further evaluation and management. Please see A/P for further details. Admission Exam Per Admitting Provider Flat affect Lungs: CTA, no wheezing or crackles Cardiac: Normal S1/S2, no murmur Abd: ND, NT, soft MSk: no LE edema and no noticeable tremors Psych: AAOx3 Principal Dx & Hospital Course #1 = Principal Diagnosis (1) Suicidal ideation: (2) Major depressive disorder, recurrent, severe without psychotic features: (3) Alcohol use disorder, severe, dependence: (4) Seizure disorder: (5) JAMI (acute kidney injury): Plan Pt is a 52yoM with PMHx of chronic alcohol use admitted after making suicidal statements to his daughter. Suicidal ideation with severe depression without psychotic features Continue prozac, buspirone. Wellbutrin discontinued. Patient medically stable and discharged to . Care coordinated with Dr. Jimenez Possible SBO vs ileus Developed persistent nausea during admission CT abd/pelvis showing multiple gas-distended loops of small bowel without a sharp transition point, extending to the ileocolic anastomosis. Findings may be physiologic or represent ileus H/o duodenal distention on remote CT a/p imaging from 2008 but no mention of obstruction or distention on more recent imaging, per Epic review Per Gen surg -does not clinically seem to have SBO/ileus, advance diet as tolera amy. Can follow up with Dr. Salcedo in clinic on 05/19 as dc instructions if discharged home at that time Nausea and abdominal pain felt to be functional, per GI re-evaluation yesterday. GI to coordinate follow up for colonoscopy/EGD in out-patient setting. Recommend to continue PRN Bentyl, Phenergan, encourage ambulation, bowel regimen as needed. Hypomagnesemia Chronic 2/2 alcoholism Continue PO Mag 400 BID Alcohol abuse Intake of approximately 1 L vodka per day Patient is not currently in withdrawal Continue naltrexone Continue thiamine while admitted H/O Seizure disorder Chronic stable Continue Lamictal, Keppra Wellbutrin discontinued as above HTN Continue to hold lisinopril, BP normotensive Discharge Exam Gen: WD/WN, NAD,resting in bed, A&Ox3, flat affect HEENT: Normocephalic, atraumatic, conjunctivae moist, sclerae anicteric, mucous membranes moist Lung: Clear to Auscultation bilaterally, no wheezes/rales/rhonchi Heart: Regular rate, regular rhythm, no murmurs, rubs, or gallops Abdomen: Soft but mildly distended, no TTP, + bowel sounds Extremities: no edema Skin: Warm, no rash Updated Medication List Medication Instructions Recorded Confirmed Type buspirone 5 mg tablet 5 mg PO TID 10/18/18 04/27/23 History fluoxetine 40 mg capsule 40 mg PO QAM 10/18/18 04/27/23 History lamotrigine 100 mg tablet 200 mg PO AMPM 10/18/18 04/27/23 History lorazepam 1 mg tablet 1 mg PO TID 10/18/18 04/27/23 History pantoprazole 40 mg tablet,delayed 40 mg PO QAM 10/18/18 04/27/23 History release fluoxetine 20 mg capsule 20 mg PO QAM 04/27/23 04/27/23 History levetiracetam 1,000 mg tablet 1,000 mg PO AMPM 04/27/23 04/27/23 History levetiracetam 250 mg tablet 250 mg PO AMPM 04/27/23 04/27/23 History lisinopril 10 mg tablet 10 mg PO QAM 04/27/23 04/27/23 History naltrexone 50 mg tablet 50 mg PO QAM 04/27/23 04/27/23 History thiamine HCl (vitamin B1) 100 mg 100 mg PO QAM 04/27/23 04/27/23 History tablet (Vitamin B-1) trazodone 50 mg tablet 50 mg PO HS 04/27/23 04/27/23 History dicyclomine 10 mg capsule 10 mg PO TID PRN abdominal pain 05/14/23 Rx #30 caps magnesium oxide 400 mg (241.3 mg 400 mg PO BID #60 tabs 05/14/23 Rx magnesium) tablet nicotine 21 mg/24 hr daily 21 mg transdermal QAM #14 ea 05/14/23 Rx transdermal patch (Nicoderm CQ) promethazine 25 mg tablet 25 mg PO Q6H PRN nausea and 05/14/23 Rx vomiting #30 tabs Hospital Stay Data Consultations 04/27/23 16:51 Consult Psychiatry Routine 04/27/23 17:14 ED Decision to Admit Stat 05/05/23 20:19 Consult General Surgery Routine 05/10/23 03:54 Consult Gastroenterology Routine Diagnostic Imagining Performed 05/05/23 16:33 CT Abd and Pelvis [CT abd pelvis IV con only] Urgent Pending Results Patient Have Any Pending Studies at Discharge: No Discharge Instructions Given to Patient (Per Discharging Provider) MEDICATION CHANGES: Continue PRN Phenergan, PRN Bentyl for nausea and abdominal pain Continue Mag 400 BID 2/2 chronic alcoholism Lisinopril is being held as blood pressure has been within normal range during admission Wellbutrin discontinued per psych SUMMARY OF TEST RESULTS: Admitted for suicidal ideation and now medically stable for discharge to Abdominal pain and nausea felt to be functional. Tolerating diet, stooling normally. Continue PRN Phenergan, PRN Bentyl, bowel regimen and encourage ambulation Follow up for colonoscopy/EGD, GI to arrange Follow up with Dr. Salcedo of general surgery at 10 AM 05/19/23 at [facility] if discharged before then PENDING TEST RESULTS: None RECOMMENDATIONS FOR FOLLOW-UP: Follow up with PCP as scheduled. Complete antibiotic in its entirety. Continue medication regimen as scheduled aside from changes noted above. Total Time Total Time Spent Total Time Spent (In Minutes): 60
== END 2023-05-14 17:33 | DRG 880 ==
LOC: ED 13:57 → SUATTDRO 16:51 → EDINP 16:51 → INTOOBSV 16:51 → 2N 04-28 19:34 → 3E 05-05 13:50

== ENCOUNTER 2023-05-14 15:15 | Inpatient (IN) ==
[2023-05-14] MEDS ORDERED: ALUMINUM/MAGNESIUM SUSP 30 ML UDC PO PRN (15:18)
[2023-05-14] MEDS ORDERED: ACETAMINOPHEN 325 MG TAB PO PRN (15:18)
[2023-05-14] MEDS ORDERED: MAGNESIUM HYDROXIDE SUSP 30 ML UDC PO PRN (15:18)
[2023-05-14] MEDS ORDERED: BISMUTH SUBSALICYLATE LIQD 236 ML PO PRN (15:18)
[2023-05-14] MEDS ORDERED: hydrOXYzine HCl 25 MG TAB PO PRN ×2 (15:18)
[2023-05-14] MEDS ORDERED: SODIUM CHLORIDE 0.65% NA SOLN 45 ML (OCEAN) PRN (15:18)
[2023-05-14] MEDS ORDERED: MICONAZOLE NITRATE 2% CR 30 GM TUBE EXT PRN (18:09)
[2023-05-14] MEDS: busPIRone 5 MG TAB PO SCH (21:04)
[2023-05-14] MEDS: MAGNESIUM OXIDE 400 MG TAB PO SCH (21:04)
[2023-05-14] MEDS: LORazepam 1 MG TAB PO SCH (21:04)
[2023-05-14] MEDS: lamoTRIgine 100 MG TAB PO SCH (21:04)
[2023-05-14] MEDS: levETIRAcetam 500 MG TAB PO SCH (21:04)
[2023-05-14] MEDS: traZODone HCL 50 MG TAB PO SCH (21:04)
[2023-05-14] MEDS: levETIRAcetam 250 MG TAB PO SCH (21:04)
--- NOTE | 2023-05-15 08:35 | History & Physical ---
Date of Service May 15, 2023 Impression / Recommendations Impression 52 y/o man with psychiatric history of depression, anxiety and severe alcohol use disorder as well as history of TBI and subsequent seizure disorder admitted for ongoing depression and SI with plan of cutting his wrists. Diagnostically consistent with unspecified depressive disorder likely combination of major depressive disorder and sustained alcohol-withdrawal mood symptoms. He presents with prominent psychomotor slowing, flat affect, social isolation/withdrawal and hopelessness which he attributes largely to his psychosocial stressors. Focus will initially be on behavioral activation and modifying possible psychosocial stressors given multiple prior medication trials and current tolerance of fluoxetine. The patient's audit score and use history suggests problematic substance use. Brief intervention was offered and accepted. Intervention was greater than 5 minutes in length and included assessing readiness to quit, advice on how to reduce or abstain and to set a specific goal for this hospitalization. street worker will also assist in anticipating barriers to reducing or abstaining from substance use and in problem-solving for solutions to those problems while arranging for referral to appropriate treatment. The patient is in contemplative stage with regards to transtheoretical model of change. The patient is advised to decrease consumption due to depressant effects and risk of interaction with prescription medications. The patient agreed to avoid use after discharge though has limited insight into role of alcohol use in contributing to recent medical and likely psychiatric symptoms. He will be provided with recovery materials to continue to educate self on how to cope with their condition without using substances. Discussed medication treatment options in detail. Discussed risks, benefits and alternatives. He would like to continue with and consented to fluoxetine for MDD as well as buspar for anxiety and trazodone for insomnia/depression .Reviewed side effects including but not limited to: GI, BENNETT, sexual side effects with fluoxetine and dizziness/GI side effects with buspar and sedation/increased appetite with trazodone. MNPR due to GI symptoms requiring frequent bathroom use, periods of urinary/bowel incontinence Overall I spent a total of 75 minutes for this admission including review of chart records, review of labwork, direct evaluation of the patient, counseling the patient, ordering medication, risk assessment, discussion with the psychiatric liason RN and documentation in the electronic health record. (1) Depression with suicidal ideation: (2) Major depressive disorder, recurrent, severe without psychotic features: (3) Alcohol use disorder, severe, dependence: (4) Nausea: (5) Seizure disorder: (6) TBI (traumatic brain injury): Plan 05/15/2023: The patient was admitted to the [facility] on q15 min checks (behavioral with suicide precautions) for safety. The patient will participate in group, recreational, and milieu therapies and will be offered additional individual and family sessions as clinically appropriate. * fluoxetine 60mg daily * trazodone 50mg HS * Buspar 5mg TID, will work to titrate this if anxiety remains problematic * Lamictal and Keppra for seziure disorder * naltrexone 50mg daily for alcohol use disorder, Magnesium and Thiamine supplementation for alcohol use * protonix 40mg daily, Bentyl prn and Phenergan prn for GI symptoms * lisinopril for HTN Inventory Assets Strengths: supportive relationships via daughter, willing to get treatment Needs: safety and stabilization, medication adjustment, additional coping skills, increased outpatient services Suicide Risk Level Suicide Risk Level: High-Moderate (q15 min suicide checks) (severe depression with SI with plan prior to admission but feels safe in the hospital, able to safety contract and agrees to let nursing/staff know should they develop plan, intent or feel unable to remain safe.) Suicide Risk Level Comments: Risk Factors Assessment Male: Yes : Yes Do You Have Access To A Gun?: No Health Problems: Yes Mental Health Diagnoses: Yes Substance Use Disorders: Yes Previous Attempt: Yes Previous Psychiatric Hospitalization: Yes Protective Factors Assessment Stable Relationships: Yes Supportive Family: Yes (daughter) Psychiatric History Identifying Data KEN HERNANDEZ is a 52-year-old man who currently lives in [place] alone, has a history of depression, anxiety, alcohol use disorder and seizure disorder, and was admitted on 05/14/23 17:35 on a 201 voluntary commitment for severe depression with SI with plan. Chief Complaint "I'm depressed about not wanting to go home because everything is a mess and I don't drive". History of Present Illness Eran was admitted from the medical floor after a prolonged admission for JAMI, alcohol withdrawal and nausea/stomach pain. Further recent history per initial psych consult by Dr. Sapp on 04/28/2023: "the following note by the ED psychiatric watch caser: "Met with the patient to complete Brief and Suicide Risk Assessments. The patient reports he is having suicidal ideations with a plan to cut his wrist. He denies any recent stressors and denies current drug or alcohol use or access to weapons. He reports he last drank about 2 weeks ago and had been drinking fairly heavily prior to that. The patient reports he is seeking inpatient treatment and medical clearance was explained. Phone call received from Augustina with [facility] prior to the patients arrival. She reports the patient called [facility] with suicidal ideation with a plan to overdose. She reports the patient hasnt taken his medications for the past 2 weeks and couldnt contract for safety until a farmworker egg producing farm arrived at his residence, so he would be coming via EMS. Augustina reports the patients daughter Halie Hernandez ([phone]) would be willing to petition for a 302 if needed, but she is currently out of state." and the following note by the psychiatric liaison nurse: "Patient was cooperative but affect was flat and depressed. He was tremulous during the interaction and verbalized that he does not feel well. Patient has been experiencing suicidal ideations to cut his wrists for the past two weeks. The thoughts occur a few times a day and last for approximately an hour. He has had these thoughts today but does not have any means or intent. Patient verbalized that his suicidal thoughts started after he quit his psychiatric medications as well as drinking alcohol approximately 2 weeks ago. He quit drinking and taking his medications because he did not have anyone to take him to the store or pharmacy. Patient verbalized that he wants to stop drinking for good but he does not want to go to rehab. Patient reports that he has been a heavy drinker for years but the past few months it has been worse. He typically drinks a large bottle of vodka per day. Patient denies any current stressors but does report worsening depression after a TBI and divorce from his 10 years ago. The patient fell at work and experienced the head injury. Patient became suicidal after his divorce and cut his wrists. He was hospitalized in [place] for the attempt and felt that it was helpful for him. Patient feels that he will need inpatient psychiatric treatment once he his medically cleared. Patient's main support is his daughter Halie. ANDREI Michelle currently prescribes his psychiatric medications but he is unable to recall for sure what he takes. Patient denies access to any guns or weapons." Review of the medical record reveals a previous ED presentation in 2019 for suicidal thoughts from which he was transferred to a psychiatric facility. Review of pertinent labs reveals they are hyponatremia, elevated anion gap, significantly elevated BUN and creatinine with high BUN/creatinine, hypomagnesemia, elevated alkaline phosphatase, elevated TSH and for [urine toxicology screen that was presumptively positive for metabolites of MDMA. BAL was <10 mg/dL. History obtained by colleagues supports that pt has been increasingly depressed and anxious recently. He'd reported having stopped 1 L/day liquor 2 weeks ago, but AWSS scores have been increasing and he's been started on a gabapentin taper for this." While on the medical floor he continued to endorse daily SI and struggled to engage with interactions. Today he endorses ongoing depression which he attributes to his stressors at home including his reliance on others to help him with rides/transportation. He continues to have SI with thoughts of slitting his wrists. He feels his sleep is good. Appetite is poor due to ongoing periods of nausea/stomach pain though he finds the medications recommended by GI "help a little bit". Denies any cravings for alcohol. Past Psychiatric History Current Psychiatric Diagnosis: MDD Outpatient Services: Krystyna Berkowitz, PAprescribes his psychiatric medications Previous Psych Admissions: [facility] 2019 Do You Have Access To A Gun?: No History of Previous Suicide Attempt: Yes (2019) Describe Attempts in the Past: cut his wrists Past Medication Trials: reports multiple in past but cannot recall specifics. Wellbutrin discontinued during medical admission d/t concerns for lowering seizure threshold, lorazepam discontinued during medical admission d/t concurrent alcohol use disorder Past Head Trauma/Neuro History History of Concussion/Seizure: Yes (TBI after fall at work ~2019, seizure disorder) Allergies Allergy/AdvReac Type Severity Reaction Status Date / Time tramadol AdvReac Intermediate seizure Verified 10/18/18 06:38 Home Medications Medication Instructions Recorded Confirmed Type buspirone 5 mg tablet 5 mg PO TID 10/18/18 04/27/23 History fluoxetine 40 mg capsule 40 mg PO QAM 10/18/18 04/27/23 History lamotrigine 100 mg tablet 200 mg PO AMPM 10/18/18 04/27/23 History lorazepam 1 mg tablet 1 mg PO TID 10/18/18 04/27/23 History pantoprazole 40 mg tablet,delayed 40 mg PO QAM 10/18/18 04/27/23 History release fluoxetine 20 mg capsule 20 mg PO QAM 04/27/23 04/27/23 History levetiracetam 1,000 mg tablet 1,000 mg PO AMPM 04/27/23 04/27/23 History levetiracetam 250 mg tablet 250 mg PO AMPM 04/27/23 04/27/23 History lisinopril 10 mg tablet 10 mg PO QAM 04/27/23 04/27/23 History naltrexone 50 mg tablet 50 mg PO QAM 04/27/23 04/27/23 History thiamine HCl (vitamin B1) 100 mg 100 mg PO QAM 04/27/23 04/27/23 History tablet (Vitamin B-1) trazodone 50 mg tablet 50 mg PO HS 04/27/23 04/27/23 History dicyclomine 10 mg capsule 10 mg PO TID PRN abdominal pain 05/14/23 Rx #30 caps magnesium oxide 400 mg (241.3 mg 400 mg PO BID #60 tabs 05/14/23 Rx magnesium) tablet nicotine 21 mg/24 hr daily 21 mg transdermal QAM #14 ea 05/14/23 Rx transdermal patch (Nicoderm CQ) promethazine 25 mg tablet 25 mg PO Q6H PRN nausea and 05/14/23 Rx vomiting #30 tabs Family History Family History of: Doesn't Know Alcohol History Hx of Alcohol Use Over the Past 12 Months: Yes (1 liter of vodka a day) AUDIT Total Score: 21 Stopped drinking 1 week prior to medical admission Smoking Use Have You Smoked or Used Tobacco Products in the Last 30 Days: Yes tobacco type: cigarettes Smoking Status: Current every day smoker Smoking packs per day: 20 Substance History Hx of Prescription Med Misuse Over the Past 12 Months: No Hx of Over the Counter Med Misuse Over the Past 12 Months: No Hx of Inhalent Misuse Over the Past 12 Months: No Hx of Organic Substance Use Over the Past 12 Months: No Hx of Illegal Substances/Street Drug Use Over Past 12 Months: No Problems as a Result of Past Substance Use: Relationships Ended Personal History Living Arrangements: Apartment Employment Status: Disabled Marital Status: Number Of Children: daughter Beliefs That Will Affect Care: None Current Legal Problems: No Patient History Medical History (Updated 05/15/23 @ 15:53 by Chacha Chau MD) JAMI (acute kidney injury) Alcohol use disorder, severe, dependence Major depressive disorder, recurrent, severe without psychotic features Seizure disorder TBI (traumatic brain injury) Ulcerative colitis Surgical History No pertinent past surgical history Family History Other COPD (chronic obstructive pulmonary disease) Heart disease Social History Smoking Status: Current every day smoker Tobacco Type: Cigarettes Hx Alcohol Use: No Hx Substance Use: No Preferred Language: Peruvian Communication Ability: Effective 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 Beliefs That Will Affect Care: None Current Living Situation: Alone Feels Safe at Home: Yes Gender Identity: Male Assistive Devices: Glasses Review of Systems Review of Systems: All systems reviewed & are unremarkable except as noted in HPI & below (ongoing intermittent stomach pain/nausea, chronic intermittent diarrhea) Physical Exam Psychiatric: Orientation: alert and oriented x 3 Apperance: appropriately dressed and + disheveled Eye Contact: + fair eye contact Motor Behavior: no abnormal motor movements and + psychomotor retardation Speech: normal rate/rhythm/volume of speech (soft, brief) Affect: + flat affect Mood: + depressed mood and + anxious mood Thought Process: + concrete thought process Thought Content: reality based without delusions Suicidal Thoughts: denies suicidal intent; + reports suicidal thoughts (intermittent ) and + reports suicidal plan (none for hospital, outside to cut wrists) Homicidal Thoughts: denies homicidal thoughts Hallucinations: no auditory hallucinations and no visual hallucinations Cognition: recent memory grossly intact, remote memory grossly intact, attention grossly intact and language grossly intact Estimated Intelligence: consistent with education level Insight: + limited insight Judgment: + limited judgement Vital Signs (Past 24 Hours): Last Vital Signs Temp 36.8 C 05/15/23 07:00 Pulse 65 05/15/23 07:00 Resp 16 05/15/23 07:00 BP 126/77 05/15/23 07:00 Pulse Ox 97 05/15/23 07:00 O2 Del Method Room Air 05/15/23 07:00 Exam Statement: A physical exam was performed on the medical floor by ANDREI Bunch for the purposes of medical clearance. I accept that physical as correct and adequate for the purposes of the inpatient physical exam. Results & Data ([facility]) Current Inpatient Medications Current Inpatient Medications: Current Inpatient Medications Acetaminophen (Acetaminophen 325 Mg Tab) 650 mg PO Q4H PRN PRN Reason: Headache or Minor Fever Stop: 06/13/23 15:17 Al Hydrox/Mg Hydrox/Simethicone (Aluminum/Magnesium Susp 30 Ml Udc) 30 ml PO Q4H PRN PRN Reason: GI Upset Stop: 06/13/23 15:17 Bismuth Subsalicylate (Bismuth Subsalicylate Liqd 236 Ml) 15 ml PO PRN PRN PRN Reason: Loose Stool Stop: 06/13/23 15:17 Buspirone HCl (Buspirone 5 Mg Tab) 5 mg PO TID ADI Stop: 06/13/23 20:59 Last Admin: 05/14/23 21:04 Dose: 5 mg Dicyclomine HCl (Dicyclomine Hcl 10 Mg Cap) 10 mg PO TID PRN PRN Reason: abdominal pain Stop: 06/13/23 18:04 Fluoxetine HCl (Fluoxetine Hcl 20 Mg Cap) 40 mg PO QAM ADI Stop: 06/14/23 08:59 Fluoxetine HCl (Fluoxetine Hcl 20 Mg Cap) 20 mg PO QAM ADI Stop: 06/14/23 08:59 Hydroxyzine HCl (Hydroxyzine Hcl 25 Mg Tab) 50 mg PO HSZ PRN PRN Reason: Insomnia Stop: 06/13/23 15:17 Hydroxyzine HCl (Hydroxyzine Hcl 25 Mg Tab) 25 mg PO Q4H PRN PRN Reason: Anxiety Stop: 06/13/23 15:17 Lamotrigine (Lamotrigine 100 Mg Tab) 200 mg PO BID [facility] Stop: 06/13/23 20:59 Last Admin: 05/14/23 21:04 Dose: 200 mg Levetiracetam (Levetiracetam 250 Mg Tab) 250 mg PO BID ADI Stop: 06/13/23 20:59 Last Admin: 05/14/23 21:04 Dose: 250 mg Levetiracetam (Levetiracetam 500 Mg Tab) 1,000 mg PO BID [facility] Stop: 06/13/23 20:59 Last Admin: 05/14/23 21:04 Dose: 1,000 mg Lisinopril (Lisinopril 10 Mg Tab) 10 mg PO QAM [facility] Stop: 06/14/23 08:59 Lorazepam (Lorazepam 1 Mg Tab) 1 mg PO TID [facility] Stop: 06/13/23 20:59 Last Admin: 05/14/23 21:04 Dose: 1 mg Magnesium Hydroxide (Magnesium Hydroxide Susp 30 Ml Udc) 30 ml PO DAILY PRN PRN Reason: Constipation Stop: 06/13/23 15:17 Magnesium Oxide (Magnesium Oxide 400 Mg Tab) 400 mg PO BID [facility] Stop: 06/13/23 20:59 Last Admin: 05/14/23 21:04 Dose: 400 mg Miconazole Nitrate (Miconazole Nitrate 2% Cr 30 Gm Tube) 1 appln EXT BID PRN PRN Reason: Affected Skin Folds Stop: 06/13/23 20:59 Miscellaneous (Remove Nicoderm Patch) 1 each N/A DAILY@0859 [facility] Stop: 06/14/23 08:58 Naltrexone HCl (Naltrexone Hcl 50 Mg Tab) 50 mg PO QAM [facility] Stop: 06/14/23 08:59 Nicotine (Nicotine 21 Mg/24 Hr Tdsy) 21 [facility] [place] [facility] [place] Stop: 06/14/23 08:59 Pantoprazole Sodium (Pantoprazole 40 Mg Tab) 40 mg PO QAM [facility] Stop: 06/14/23 08:59 Promethazine HCl (Promethazine Hcl 25 Mg Tab) 25 mg PO Q6H PRN PRN Reason: nausea and vomiting Stop: 06/13/23 18:04 Sodium Chloride (Sodium Chloride 0.65% Na Soln 45 Ml (Stone)) 1 - 2 sprays NA PRN PRN PRN Reason: Nasal Dryness/Congestion Stop: 06/13/23 15:17 Thiamine HCl (Thiamine Hcl 100 Mg Tab) 100 mg PO QAM [facility] Stop: 06/14/23 08:59 Trazodone HCl (Trazodone Hcl 50 Mg Tab) 50 mg PO HS [facility] Stop: 06/13/23 21:59 Last Admin: 05/14/23 21:04 Dose: 50 mg
[2023-05-15] MEDS: busPIRone 5 MG TAB PO SCH ×3 (09:08→21:27)
[2023-05-15] MEDS: FLUoxetine HCL 20 MG CAP PO SCH ×2 (09:09→09:10)
[2023-05-15] MEDS: levETIRAcetam 250 MG TAB PO SCH ×2 (09:10→21:27)
[2023-05-15] MEDS: lamoTRIgine 100 MG TAB PO SCH ×2 (09:10→21:27)
[2023-05-15] MEDS: levETIRAcetam 500 MG TAB PO SCH ×2 (09:10→21:26)
[2023-05-15] MEDS: THIAMINE HCL 100 MG TAB PO SCH (09:11)
[2023-05-15] MEDS: PANTOprazole 40 MG TAB PO SCH (09:11)
[2023-05-15] MEDS: MAGNESIUM OXIDE 400 MG TAB PO SCH ×2 (09:11→21:26)
[2023-05-15] MEDS: NALTREXONE HCL 50 MG TAB PO SCH (09:11)
[2023-05-15] MEDS: lisinopril 10 MG TAB PO SCH (09:11)
[2023-05-15] MEDS: LORazepam 1 MG TAB PO SCH ×2 (09:12→13:26)
[2023-05-15] MEDS: NICOTINE 21 MG/24 HR TDSY TD SCH (09:18)
[2023-05-15] MEDS: PROMETHAZINE HCL 25 MG TAB PO PRN ×2 (14:12→21:35)
[2023-05-15] MEDS: traZODone HCL 50 MG TAB PO SCH (21:26)
[2023-05-16] MEDS: NICOTINE 21 MG/24 HR TDSY TD SCH (09:28)
[2023-05-16] MEDS: busPIRone 5 MG TAB PO SCH ×2 (09:29→13:02)
[2023-05-16] MEDS: FLUoxetine HCL 20 MG CAP PO SCH ×2 (09:31)
[2023-05-16] MEDS: lamoTRIgine 100 MG TAB PO SCH ×2 (09:32→20:16)
[2023-05-16] MEDS: levETIRAcetam 500 MG TAB PO SCH ×2 (09:32→20:17)
[2023-05-16] MEDS: levETIRAcetam 250 MG TAB PO SCH ×2 (09:32→20:16)
[2023-05-16] MEDS: NALTREXONE HCL 50 MG TAB PO SCH (09:33)
[2023-05-16] MEDS: MAGNESIUM OXIDE 400 MG TAB PO SCH ×2 (09:33→20:17)
[2023-05-16] MEDS: lisinopril 10 MG TAB PO SCH (09:33)
[2023-05-16] MEDS: PANTOprazole 40 MG TAB PO SCH (09:34)
[2023-05-16] MEDS: THIAMINE HCL 100 MG TAB PO SCH (09:34)
--- NOTE | 2023-05-16 09:57 | Psychiatric Progress Note ---
Date of Service May 16, 2023 Impression / Recommendations Impression 52 y/o man with psychiatric history of depression, anxiety and severe alcohol use disorder as well as history of TBI and subsequent seizure disorder admitted for ongoing depression and SI with plan of cutting his wrists. Diagnostically consistent with unspecified depressive disorder likely combination of major depressive disorder and sustained alcohol-withdrawal mood symptoms. Collateral history notable for long periods of significant dependency throughout his life with very poor motivation. Seems to be likely underlying dependent personality traits at baseline versus development of dependency, adynamia and lack of motivation due to prior TBI. His daughter reported significantly more inpatient psychiatric hospitalizations in the past compared with his report of one prior hospitalization. MNPR due to GI symptoms requiring frequent bathroom use, periods of urinary/bowel incontinence 05/16/2023: Ongoing depression with prominent neurovegetative symptoms and lack of motivation. Seems to be likely underlying dependent personality traits at baseline versus development of dependency, adynamia and lack of motivation due to prior TBI. Given ongoing GI symptoms and limited benefit will discontinue Buspar to see if this helps at all, which he consents to. Ongoing focus on behavioral activation. Overall, I spent a total of 25 minutes with this case including review of chart records, direct evaluation of the patient at bedside, counseling the patient, discussion during interdisciplinary treatment rounds, risk assessment, and documentation in the electronic health record. (1) Depression with suicidal ideation: (2) Major depressive disorder, recurrent, severe without psychotic features: (3) Alcohol use disorder, severe, dependence: (4) Nausea: (5) Seizure disorder: (6) TBI (traumatic brain injury): Plan 05/16/2023: Discontinue buspar given concerns this may be contributing to GI symptoms and lack of evidence for anxiety. 05/15/2023: The patient was admitted to the [facility] ([facility] mental health unit) on q15 min checks (behavioral with suicide precautions) for safety. The patient will participate in group, recreational, and milieu therapies and will be offered additional individual and family sessions as clinically appropriate. * fluoxetine 60mg daily * trazodone 50mg HS * Buspar 5mg TID, will work to titrate this if anxiety remains problematic * Lamictal and Keppra for seziure disorder * naltrexone 50mg daily for alcohol use disorder, Magnesium and Thiamine supplementation for alcohol use * protonix 40mg daily, Bentyl prn and Phenergan prn for GI symptoms * lisinopril for HTN Inventory Assets Strengths: supportive relationships via daughter, willing to get treatment Needs: safety and stabilization, medication adjustment, additional coping skills, increased outpatient services Suicide Risk Level Suicide Risk Level: High-Moderate (q15 min suicide checks) (severe depression with SI with plan prior to admission but feels safe in the hospital, able to safety contract and agrees to let nursing/staff know should they develop plan, intent or feel unable to remain safe.) Suicide Risk Level Comments: Risk Factors Assessment Male: Yes : Yes Do You Have Access To A Gun?: No Health Problems: Yes Mental Health Diagnoses: Yes Substance Use Disorders: Yes Previous Attempt: Yes Previous Psychiatric Hospitalization: Yes Protective Factors Assessment Stable Relationships: Yes Supportive Family: Yes (daughter) Interval History Identifying Information KEN LOJA is a 52-year-old man who currently lives in [place] alone, has a history of depression, anxiety, alcohol use disorder and seizure disorder, and was admitted on 05/14/23 17:35 on a 201 voluntary commitment for severe depression with SI with plan. Chief Complaint "I'm ok". Review of Systems Sleep Information Total Hours of Sleep: 6 Meal Information Percent Meal Consumed - Breakfast: 100 Percent Meal Consumed - Lunch: 0 Percent Meal Consumed - Dinner: 0 Nutrition Comment: Subjective Subjective Patient was seen & assessed and interval progress reviewed with treatment team nursing and social work. He did not get out of bed to eat any meals yesterday nor to attend any groups. Slept overnight, declined breakfast this morning initially but then did get out of bed with significant encouragement and ate breakfast. Was then quickly back to his bed. Very little motivation to move around or participate in any groups or programming. States he doesn't like being in groups due to being around "lots of people". Reports sleep was intermittent last night "I was up and down". Still having some periods of nausea and stomach pain. Isn't sure about SI as "I've been asleep most of the day". Physical Exam Psychiatric Orientation: alert and oriented x 3 Apperance: appropriately dressed and + disheveled Eye Contact: + fair eye contact Motor Behavior: no abnormal motor movements and + psychomotor retardation Speech: normal rate/rhythm/volume of speech (soft, brief) Affect: + flat affect Mood: + depressed mood and + anxious mood Thought Process: + concrete thought process Thought Content: reality based without delusions Suicidal Thoughts: denies suicidal intent; + reports suicidal thoughts (intermittent ) and + reports suicidal plan (none for hospital, outside to cut wrists) Homicidal Thoughts: denies homicidal thoughts Hallucinations: no auditory hallucinations and no visual hallucinations Cognition: recent memory grossly intact, remote memory grossly intact, attention grossly intact and language grossly intact Estimated Intelligence: consistent with education level Insight: + limited insight Judgment: + limited judgement Vital Signs (Past 24 Hours) Last Vital Signs Temp 36.9 C 05/16/23 06:56 Pulse 65 05/15/23 07:00 Resp 16 05/16/23 06:56 BP 121/74 05/16/23 06:56 Pulse Ox 97 05/16/23 06:56 O2 Del Method Room Air 05/16/23 06:56 Results & Data ([facility]) Current Inpatient Medications Current Inpatient Medications: Current Inpatient Medications Acetaminophen (Acetaminophen 325 Mg Tab) 650 mg PO Q4H PRN PRN Reason: Headache or Minor Fever Stop: 06/13/23 15:17 Al Hydrox/Mg Hydrox/Simethicone (Aluminum/Magnesium Susp 30 Ml Udc) 30 ml PO Q4H PRN PRN Reason: GI Upset Stop: 06/13/23 15:17 Bismuth Subsalicylate (Bismuth Subsalicylate Liqd 236 Ml) 15 ml PO PRN PRN PRN Reason: Loose Stool Stop: 06/13/23 15:17 Buspirone HCl (Buspirone 5 Mg Tab) 5 mg PO TID ADI Stop: 06/13/23 20:59 Last Admin: 05/16/23 09:29 Dose: 5 mg Dicyclomine HCl (Dicyclomine Hcl 10 Mg Cap) 10 mg PO TID PRN PRN Reason: abdominal pain Stop: 06/13/23 18:04 Fluoxetine HCl (Fluoxetine Hcl 20 Mg Cap) 40 mg PO QAM ADI Stop: 06/14/23 08:59 Last Admin: 05/16/23 09:31 Dose: 40 mg Fluoxetine HCl (Fluoxetine Hcl 20 Mg Cap) 20 mg PO QAM ADI Stop: 06/14/23 08:59 Last Admin: 05/16/23 09:31 Dose: 20 mg Hydroxyzine HCl (Hydroxyzine Hcl 25 Mg Tab) 50 mg PO HSZ PRN PRN Reason: Insomnia Stop: 06/13/23 15:17 Hydroxyzine HCl (Hydroxyzine Hcl 25 Mg Tab) 25 mg PO Q4H PRN PRN Reason: Anxiety Stop: 06/13/23 15:17 Lamotrigine (Lamotrigine 100 Mg Tab) 200 mg PO BID [facility] Stop: 06/13/23 20:59 Last Admin: 05/16/23 09:32 Dose: 200 mg Levetiracetam (Levetiracetam 250 Mg Tab) 250 mg PO BID ADI Stop: 06/13/23 20:59 Last Admin: 05/16/23 09:32 Dose: 250 mg Levetiracetam (Levetiracetam 500 Mg Tab) 1,000 mg PO BID [facility] Stop: 06/13/23 20:59 Last Admin: 05/16/23 09:32 Dose: 1,000 mg Lisinopril (Lisinopril 10 Mg Tab) 10 mg PO QAM [facility] Stop: 06/14/23 08:59 Last Admin: 05/16/23 09:33 Dose: 10 mg Magnesium Hydroxide (Magnesium Hydroxide Susp 30 Ml Udc) 30 ml PO DAILY PRN PRN Reason: Constipation Stop: 06/13/23 15:17 Magnesium Oxide (Magnesium Oxide 400 Mg Tab) 400 mg PO BID [facility] Stop: 06/13/23 20:59 Last Admin: 05/16/23 09:33 Dose: 400 mg Miconazole Nitrate (Miconazole Nitrate 2% Cr 30 Gm Tube) 1 appln EXT BID PRN PRN Reason: Affected Skin Folds Stop: 06/13/23 20:59 Miscellaneous (Remove Nicoderm Patch) 1 each N/A DAILY@0859 [facility] Stop: 06/14/23 08:58 Last Admin: 05/16/23 09:29 Dose: 1 each Naltrexone HCl (Naltrexone Hcl 50 Mg Tab) 50 mg PO QAM [facility] Stop: 06/14/23 08:59 Last Admin: 05/16/23 09:33 Dose: 50 mg Nicotine (Nicotine 21 Mg/24 Hr Tdsy) 21 mg TD QAM [facility] Stop: 06/14/23 08:59 Last Admin: 05/16/23 09:28 Dose: 21 mg Pantoprazole Sodium (Pantoprazole 40 Mg Tab) 40 mg PO QAM [facility] Stop: 06/14/23 08:59 Last Admin: 05/16/23 09:34 Dose: 40 mg Promethazine HCl (Promethazine Hcl 25 Mg Tab) 25 mg PO Q6H PRN PRN Reason: nausea and vomiting Stop: 06/13/23 18:04 Last Admin: 05/15/23 21:35 Dose: 25 mg Sodium Chloride (Sodium Chloride 0.65% Na Soln 45 Ml ([place])) 1 - 2 sprays NA PRN PRN PRN Reason: Nasal Dryness/Congestion Stop: 06/13/23 15:17 Thiamine HCl (Thiamine Hcl 100 Mg Tab) 100 mg PO QAM ADI Stop: 06/14/23 08:59 Last Admin: 05/16/23 09:34 Dose: 100 mg Trazodone HCl (Trazodone Hcl 50 Mg Tab) 50 mg PO HS ADI Stop: 06/13/23 21:59 Last Admin: 05/15/23 21:26 Dose: 50 mg Mental Health & Subst Abuse Tx Psychiatrist Date Of Appointment With Psychiatric Provider: [facility] in [place]-Can't recall date
[2023-05-16] MEDS: PROMETHAZINE HCL 25 MG TAB PO PRN ×2 (12:58→20:08)
[2023-05-16] MEDS: DICYCLOMINE HCL 10 MG CAP PO PRN (17:32)
[2023-05-16] MEDS: traZODone HCL 50 MG TAB PO SCH (20:16)
[2023-05-17] MEDS: FLUoxetine HCL 20 MG CAP PO SCH ×2 (08:56)
[2023-05-17] MEDS: levETIRAcetam 250 MG TAB PO SCH ×2 (08:57→20:52)
[2023-05-17] MEDS: levETIRAcetam 500 MG TAB PO SCH ×2 (08:57→20:51)
[2023-05-17] MEDS: lamoTRIgine 100 MG TAB PO SCH ×2 (08:57→20:52)
[2023-05-17] MEDS: lisinopril 10 MG TAB PO SCH (08:57)
[2023-05-17] MEDS: MAGNESIUM OXIDE 400 MG TAB PO SCH ×2 (08:58→20:53)
[2023-05-17] MEDS: NICOTINE 21 MG/24 HR TDSY TD SCH (08:58)
[2023-05-17] MEDS: NALTREXONE HCL 50 MG TAB PO SCH (08:58)
[2023-05-17] MEDS: THIAMINE HCL 100 MG TAB PO SCH (08:59)
[2023-05-17] MEDS: PANTOprazole 40 MG TAB PO SCH (08:59)
--- NOTE | 2023-05-17 09:23 | Psychiatric Progress Note ---
Date of Service May 17, 2023 Impression / Recommendations Impression 52 y/o man with psychiatric history of depression, anxiety and severe alcohol use disorder as well as history of TBI and subsequent seizure disorder admitted for ongoing depression and SI with plan of cutting his wrists. Diagnostically consistent with unspecified depressive disorder likely combination of major depressive disorder and sustained alcohol-withdrawal mood symptoms. Collateral history notable for long periods of significant dependency throughout his life with very poor motivation. Seems to be likely underlying dependent personality traits at baseline versus development of dependency, adynamia and lack of motivation due to prior TBI. His daughter reported significantly more inpatient psychiatric hospitalizations in the past compared with his report of one prior hospitalization. MNPR due to GI symptoms requiring frequent bathroom use, periods of urinary/bowel incontinence 05/17/2023: Ongoing depression with prominent neurovegetative symptoms and lack of motivation. Ongoing focus on behavioral activation. Motivational interviewing regarding alcohol use. He consents to trial of gabapentin for off-label use for anxiety, possible benefit for stomach pain and for off-label use for alcohol use disorder. Reviewed side effects including but not limited to: dizziness, fatigue, potential for fatal respiratory depression if combined with alcohol/opioids/benzodiazpines. Overall, I spent a total of 25 minutes with this case including review of chart records, direct evaluation of the patient at bedside, counseling the patient, discussion during interdisciplinary treatment rounds, risk assessment, and documentation in the electronic health record. (1) Depression with suicidal ideation: (2) Major depressive disorder, recurrent, severe without psychotic features: (3) Alcohol use disorder, severe, dependence: (4) Nausea: (5) Seizure disorder: (6) TBI (traumatic brain injury): Plan 05/17/2023: Start gabapentin 100mg TID po. Ongoing motivational interviewing. If stomach issues persist could consider trial of mirtazapine in favor of trazodone but given good sleep will avoid this for now. 05/16/2023: Discontinue buspar given concerns this may be contributing to GI symptoms and lack of evidence for anxiety. 05/15/2023: The patient was admitted to the [facility] ([facility] mental health unit) on q15 min checks (behavioral with suicide precautions) for safety. The patient will participate in group, recreational, and milieu therapies and will be offered additional individual and family sessions as clinically appropriate. * fluoxetine 60mg daily * trazodone 50mg HS * Buspar 5mg TID, will work to titrate this if anxiety remains problematic * Lamictal and Keppra for seziure disorder * naltrexone 50mg daily for alcohol use disorder, Magnesium and Thiamine supplementation for alcohol use * protonix 40mg daily, Bentyl prn and Phenergan prn for GI symptoms * lisinopril for HTN Inventory Assets Strengths: supportive relationships via daughter, willing to get treatment Needs: safety and stabilization, medication adjustment, additional coping skills, increased outpatient services Suicide Risk Level Suicide Risk Level: High-Moderate (q15 min suicide checks) (severe depression with SI with plan prior to admission but feels safe in the hospital, able to safety contract and agrees to let nursing/staff know should they develop plan, intent or feel unable to remain safe.) Suicide Risk Level Comments: Risk Factors Assessment Male: Yes : Yes Do You Have Access To A Gun?: No Health Problems: Yes Mental Health Diagnoses: Yes Substance Use Disorders: Yes Previous Attempt: Yes Previous Psychiatric Hospitalization: Yes Protective Factors Assessment Stable Relationships: Yes Supportive Family: Yes (daughter) Interval History Identifying Information KEN LOJA is a 52-year-old man who currently lives in [place] alone, has a history of depression, anxiety, alcohol use disorder and seizure disorder, and was admitted on 05/14/23 17:35 on a 201 voluntary commitment for severe depression with SI with plan. Chief Complaint "About the same". Review of Systems Sleep Information Total Hours of Sleep: 7 Meal Information Percent Meal Consumed - Breakfast: 100 Percent Meal Consumed - Lunch: 100 Percent Meal Consumed - Dinner: 0 Nutrition Comment: Meal placed in the frig. for Pt for later. Subjective Subjective Patient was seen & assessed and interval progress reviewed with treatment team nursing and social work. Attended community meeting last evening and this morning with significant encouragement. Otherwise isolative to his room and lies in bed almost all day. Today reports his sleep was "good" last night, continues to have depression and SI is "about the same". Has anxiety associated with pain from his stomach. No change in stomach/GI symptoms since stopping buspar yesterday. Discussed option to try gabapentin which he would like to do. Ongoing motivational interviewing regarding his alcohol use, he is willing to consider residential substance use treatment "I might be willing". Physical Exam Psychiatric Orientation: alert and oriented x 3 Apperance: appropriately dressed and + disheveled Eye Contact: + fair eye contact Motor Behavior: no abnormal motor movements and + psychomotor retardation Speech: normal rate/rhythm/volume of speech (soft, brief) Affect: + flat affect Mood: + depressed mood and + anxious mood Thought Process: + concrete thought process Thought Content: reality based without delusions Suicidal Thoughts: denies suicidal intent; + reports suicidal thoughts (intermittent ) and + reports suicidal plan (none for hospital, outside to cut wrists) Homicidal Thoughts: denies homicidal thoughts Hallucinations: no auditory hallucinations and no visual hallucinations Cognition: recent memory grossly intact, remote memory grossly intact, attention grossly intact and language grossly intact Estimated Intelligence: consistent with education level Insight: + limited insight Judgment: + limited judgement Vital Signs (Past 24 Hours) Last Vital Signs Temp 36.9 C 05/17/23 06:54 Pulse 90 05/17/23 06:54 Resp 16 05/17/23 06:54 BP 106/76 05/17/23 06:54 Pulse Ox 97 05/16/23 06:56 O2 Del Method Room Air 05/16/23 06:56 Results & Data ([facility]) Current Inpatient Medications Current Inpatient Medications: Current Inpatient Medications Acetaminophen (Acetaminophen 325 Mg Tab) 650 mg PO Q4H PRN PRN Reason: Headache or Minor Fever Stop: 06/13/23 15:17 Al Hydrox/Mg Hydrox/Simethicone (Aluminum/Magnesium Susp 30 Ml Udc) 30 ml PO Q4H PRN PRN Reason: GI Upset Stop: 06/13/23 15:17 Bismuth Subsalicylate (Bismuth Subsalicylate Liqd 236 Ml) 15 ml PO PRN PRN PRN Reason: Loose Stool Stop: 06/13/23 15:17 Dicyclomine HCl (Dicyclomine Hcl 10 Mg Cap) 10 mg PO TID PRN PRN Reason: abdominal pain Stop: 06/13/23 18:04 Last Admin: 05/16/23 17:32 Dose: 10 mg Fluoxetine HCl (Fluoxetine Hcl 20 Mg Cap) 40 mg PO QAM ADI Stop: 06/14/23 08:59 Last Admin: 05/17/23 08:56 Dose: 40 mg Fluoxetine HCl (Fluoxetine Hcl 20 Mg Cap) 20 mg PO QAM ADI Stop: 06/14/23 08:59 Last Admin: 05/17/23 08:56 Dose: 20 mg Hydroxyzine HCl (Hydroxyzine Hcl 25 Mg Tab) 50 mg PO HSZ PRN PRN Reason: Insomnia Stop: 06/13/23 15:17 Hydroxyzine HCl (Hydroxyzine Hcl 25 Mg Tab) 25 mg PO Q4H PRN PRN Reason: Anxiety Stop: 06/13/23 15:17 Lamotrigine (Lamotrigine 100 Mg Tab) 200 mg PO BID [facility] Stop: 06/13/23 20:59 Last Admin: 05/17/23 08:57 Dose: 200 mg Levetiracetam (Levetiracetam 250 Mg Tab) 250 mg PO BID [facility] Stop: 06/13/23 20:59 Last Admin: 05/17/23 08:57 Dose: 250 mg Levetiracetam (Levetiracetam 500 Mg Tab) 1,000 mg PO BID [facility] Stop: 06/13/23 20:59 Last Admin: 05/17/23 08:57 Dose: 1,000 mg Lisinopril (Lisinopril 10 Mg Tab) 10 mg PO QAM [facility] Stop: 06/14/23 08:59 Last Admin: 05/17/23 08:57 Dose: 10 mg Magnesium Hydroxide (Magnesium Hydroxide Susp 30 Ml Udc) 30 ml PO DAILY PRN PRN Reason: Constipation Stop: 06/13/23 15:17 Magnesium Oxide (Magnesium Oxide 400 Mg Tab) 400 mg PO BID [facility] Stop: 06/13/23 20:59 Last Admin: 05/17/23 08:58 Dose: 400 mg Miconazole Nitrate (Miconazole Nitrate 2% Cr 30 Gm Tube) 1 appln EXT BID PRN PRN Reason: Affected Skin Folds Stop: 06/13/23 20:59 Miscellaneous (Remove Nicoderm Patch) 1 each N/A DAILY@0859 [facility] Stop: 06/14/23 08:58 Last Admin: 05/17/23 08:59 Dose: 1 each Naltrexone HCl (Naltrexone Hcl 50 Mg Tab) 50 mg PO QAM [facility] Stop: 06/14/23 08:59 Last Admin: 05/17/23 08:58 Dose: 50 mg Nicotine (Nicotine 21 Mg/24 Hr Tdsy) 21 mg TD QAM [facility] Stop: 06/14/23 08:59 Last Admin: 05/17/23 08:58 Dose: 21 mg Pantoprazole Sodium (Pantoprazole 40 Mg Tab) 40 mg PO QAM ADI Stop: 06/14/23 08:59 Last Admin: 05/17/23 08:59 Dose: 40 mg Promethazine HCl (Promethazine Hcl 25 Mg Tab) 25 mg PO Q6H PRN PRN Reason: nausea and vomiting Stop: 06/13/23 18:04 Last Admin: 05/16/23 20:08 Dose: 25 mg Sodium Chloride (Sodium Chloride 0.65% Na Soln 45 Ml ([place])) 1 - 2 sprays NA PRN PRN PRN Reason: Nasal Dryness/Congestion Stop: 06/13/23 15:17 Thiamine HCl (Thiamine Hcl 100 Mg Tab) 100 mg PO QAM ADI Stop: 06/14/23 08:59 Last Admin: 05/17/23 08:59 Dose: 100 mg Trazodone HCl (Trazodone Hcl 50 Mg Tab) 50 mg PO HS ADI Stop: 06/13/23 21:59 Last Admin: 05/16/23 20:16 Dose: 50 mg Mental Health & Subst Abuse Tx Psychiatrist Date Of Appointment With Psychiatric Provider: [facility] in [place]-Can't recall date
[2023-05-17] MEDS: PROMETHAZINE HCL 25 MG TAB PO PRN ×2 (09:41→16:21)
[2023-05-17] MEDS: DICYCLOMINE HCL 10 MG CAP PO PRN (13:54)
[2023-05-17] MEDS: GABAPENTIN 100 MG CAP PO SCH ×2 (14:00→20:53)
[2023-05-17] MEDS: traZODone HCL 50 MG TAB PO SCH (20:53)
--- NOTE | 2023-05-18 09:35 | Psychiatric Progress Note ---
Date of Service May 18, 2023 Impression / Recommendations Impression 52 y/o man with psychiatric history of depression, anxiety and severe alcohol use disorder as well as history of TBI and subsequent seizure disorder admitted for ongoing depression and SI with plan of cutting his wrists. Diagnostically consistent with unspecified depressive disorder likely combination of major depressive disorder and sustained alcohol-withdrawal mood symptoms. Collateral history notable for long periods of significant dependency throughout his life with very poor motivation. Seems to be likely underlying dependent personality traits at baseline versus development of dependency, adynamia and lack of motivation due to prior TBI. His daughter reported significantly more inpatient psychiatric hospitalizations in the past compared with his report of one prior hospitalization. MNPR due to GI symptoms requiring frequent bathroom use, periods of urinary/bowel incontinence 05/17/2023: Ongoing depression with prominent neurovegetative symptoms and lack of motivation. Did have more of a tremor today though he feels this is his baseline tremor, could be attributed to gabapentin trial. Worsened hypotension today but doing well with increasing po fluid intake and no signs of cognitive change/confusion, excessive dizziness, signs of infection, neurological changes, vision changes or weakness so will continue to follow closely and have discontinued lisinopril and gabapentin. Reassessed throughout the day with no focal or cognitive changes. If low BP persists through tomorrow or new concerning signs emerge will consult hospitalist provider. Overall, I spent a total of 35 minutes with this case including review of chart records, direct evaluation of the patient at bedside throughout the day, counseling the patient, discussion during interdisciplinary treatment rounds, risk assessment, and documentation in the electronic health record. (1) Depression with suicidal ideation: (2) Major depressive disorder, recurrent, severe without psychotic features: (3) Alcohol use disorder, severe, dependence: (4) Nausea: (5) Seizure disorder: (6) TBI (traumatic brain injury): Plan 05/18/2023: Discontinue lisinopril and gabapentin given low BP. 05/17/2023: Start gabapentin 100mg TID po. Ongoing motivational interviewing. If stomach issues persist could consider trial of mirtazapine in favor of trazodone but given good sleep will avoid this for now. 05/16/2023: Discontinue buspar given concerns this may be contributing to GI symptoms and lack of evidence for anxiety. 05/15/2023: The patient was admitted to the [facility] (locked inpatient mental health unit) on q15 min checks (behavioral with suicide precautions) for safety. The patient will participate in group, recreational, and milieu therapies and will be o ffered additional individual and family sessions as clinically appropriate. * fluoxetine 60mg daily * trazodone 50mg HS * Buspar 5mg TID, will work to titrate this if anxiety remains problematic * Lamictal and Keppra for seizure disorder * naltrexone 50mg daily for alcohol use disorder, Magnesium and Thiamine supplementation for alcohol use * protonix 40mg daily, Bentyl prn and Phenergan prn for GI symptoms * lisinopril for HTN Inventory Assets Strengths: supportive relationships via daughter, willing to get treatment Needs: safety and stabilization, medication adjustment, additional coping skills, increased outpatient services Suicide Risk Level Suicide Risk Level: High-Moderate (q15 min suicide checks) (severe depression with SI with plan prior to admission but feels safe in the hospital, able to safety contract and agrees to let nursing/staff know should they develop plan, intent or feel unable to remain safe.) Suicide Risk Level Comments: Risk Factors Assessment Male: Yes : Yes Do You Have Access To A Gun?: No Health Problems: Yes Mental Health Diagnoses: Yes Substance Use Disorders: Yes Previous Attempt: Yes Previous Psychiatric Hospitalization: Yes Protective Factors Assessment Stable Relationships: Yes Supportive Family: Yes (daughter) Interval History Identifying Information KEN LOJA is a 52-year-old man who currently lives in [place] alone, has a history of depression, anxiety, alcohol use disorder and seizure disorder, and was admitted on 05/14/23 17:35 on a 201 voluntary commitment for severe depression with SI with plan. Chief Complaint "Kind of more today". Review of Systems Sleep Information Total Hours of Sleep: 6.5 Meal Information Percent Meal Consumed - Breakfast: 100 Percent Meal Consumed - Lunch: 100 Percent Meal Consumed - Dinner: 80 Nutrition Comment: Meal placed in the frig. for Pt for later. Subjective Subjective Patient was seen & assessed and interval progress reviewed with treatment team nursing and social work. Attended some groups last evening. This morning had low BP so lisinopril and gabapentin were discontinued. Reported some dizziness but this improved over the course of the morning and with encouragement of po intake. Still with nausea but no worse than it has been over recent weeks. Recalls being on medication in the past to increase his BP. Discussed option to consult hospitalists, he prefers to wait and do this tomorrow if BP doesn't improve with time and increased po intake. Reports increased SI in setting of BP changes today. Physical Exam Psychiatric Orientation: alert and oriented x 3 Apperance: appropriately dressed and + disheveled Eye Contact: + fair eye contact Motor Behavior: no abnormal motor movements and + psychomotor retardation Speech: normal rate/rhythm/volume of speech Affect: + constricted affect Mood: + depressed mood and + anxious mood Thought Process: + concrete thought process Thought Content: reality based without delusions Suicidal Thoughts: denies suicidal intent; + reports suicidal thoughts (intermittent ) and + reports suicidal plan (none for hospital, outside to cut wrists) Homicidal Thoughts: denies homicidal thoughts Hallucinations: no auditory hallucinations and no visual hallucinations Cognition: recent memory grossly intact, remote memory grossly intact, attention grossly intact and language grossly intact Estimated Intelligence: consistent with education level Insight: + limited insight Judgment: + limited judgement Vital Signs (Past 24 Hours) Last Vital Signs Temp 36.5 C 05/18/23 06:49 Pulse 74 05/18/23 06:49 Resp 16 05/18/23 06:49 BP 83/53 L 05/18/23 06:49 Pulse Ox 97 05/16/23 06:56 O2 Del Method Room Air 05/16/23 06:56 Results & Data ([facility]) Current Inpatient Medications Current Inpatient Medications: Current Inpatient Medications Acetaminophen (Acetaminophen 325 Mg Tab) 650 mg PO Q4H PRN PRN Reason: Headache or Minor Fever Stop: 06/13/23 15:17 Al Hydrox/Mg Hydrox/Simethicone (Aluminum/Magnesium Susp 30 Ml Udc) 30 ml PO Q4H PRN PRN Reason: GI Upset Stop: 06/13/23 15:17 Bismuth Subsalicylate (Bismuth Subsalicylate Liqd 236 Ml) 15 ml PO PRN PRN PRN Reason: Loose Stool Stop: 06/13/23 15:17 Dicyclomine HCl (Dicyclomine Hcl 10 Mg Cap) 10 mg PO TID PRN PRN Reason: abdominal pain Stop: 06/13/23 18:04 Last Admin: 05/17/23 13:54 Dose: 10 mg Fluoxetine HCl (Fluoxetine Hcl 20 Mg Cap) 40 mg PO QAM [facility] Stop: 06/14/23 08:59 Last Admin: 05/17/23 08:56 Dose: 40 mg Fluoxetine HCl (Fluoxetine Hcl 20 Mg Cap) 20 mg PO QAM [facility] Stop: 06/14/23 08:59 Last Admin: 05/17/23 08:56 Dose: 20 mg Gabapentin (Gabapentin 100 Mg Cap) 100 mg PO TID [facility] Stop: 06/16/23 13:59 Last Admin: 05/17/23 20:53 Dose: 100 mg Hydroxyzine HCl (Hydroxyzine Hcl 25 Mg Tab) 50 mg PO HSZ PRN PRN Reason: Insomnia Stop: 06/13/23 15:17 Hydroxyzine HCl (Hydroxyzine Hcl 25 Mg Tab) 25 mg PO Q4H PRN PRN Reason: Anxiety Stop: 06/13/23 15:17 Lamotrigine (Lamotrigine 100 Mg Tab) 200 mg PO BID [facility] Stop: 06/13/23 20:59 Last Admin: 05/17/23 20:52 Dose: 200 mg Levetiracetam (Levetiracetam 250 Mg Tab) 250 mg PO BID [facility] Stop: 06/13/23 20:59 Last Admin: 05/17/23 20:52 Dose: 250 mg Levetiracetam (Levetiracetam 500 Mg Tab) 1,000 mg PO BID [facility] Stop: 06/13/23 20:59 Last Admin: 05/17/23 20:51 Dose: 1,000 mg Lisinopril (Lisinopril 10 Mg Tab) 10 mg PO QAM [facility] Stop: 06/14/23 08:59 Last Admin: 05/17/23 08:57 Dose: 10 mg Magnesium Hydroxide (Magnesium Hydroxide Susp 30 Ml Udc) 30 ml PO DAILY PRN PRN Reason: Constipation Stop: 06/13/23 15:17 Magnesium Oxide (Magnesium Oxide 400 Mg Tab) 400 mg PO BID [facility] Stop: 06/13/23 20:59 Last Admin: 05/17/23 20:53 Dose: 400 mg Miconazole Nitrate (Miconazole Nitrate 2% Cr 30 Gm Tube) 1 appln EXT BID PRN PRN Reason: Affected Skin Folds Stop: 06/13/23 20:59 Miscellaneous (Remove Nicoderm Patch) 1 each N/A DAILY@0859 [facility] Stop: 06/14/23 08:58 Last Admin: 05/17/23 08:59 Dose: 1 each Naltrexone HCl (Naltrexone Hcl 50 Mg Tab) 50 mg PO QAM [facility] Stop: 06/14/23 08:59 Last Admin: 05/17/23 08:58 Dose: 50 mg Nicotine (Nicotine 21 Mg/24 Hr Tdsy) 21 mg TD QAM [facility] Stop: 06/14/23 08:59 Last Admin: 05/17/23 08:58 Dose: 21 mg Pantoprazole Sodium (Pantoprazole 40 Mg Tab) 40 mg PO QAM [facility] Stop: 06/14/23 08:59 Last Admin: 05/17/23 08:59 Dose: 40 mg Promethazine HCl (Promethazine Hcl 25 Mg Tab) 25 mg PO Q6H PRN PRN Reason: nausea and vomiting Stop: 06/13/23 18:04 Last Admin: 05/17/23 16:21 Dose: 25 mg Sodium Chloride (Sodium Chloride 0.65% Na Soln 45 Ml ([place])) 1 - 2 sprays NA PRN PRN PRN Reason: Nasal Dryness/Congestion Stop: 06/13/23 15:17 Thiamine HCl (Thiamine Hcl 100 Mg Tab) 100 mg PO QAM [facility] Stop: 06/14/23 08:59 Last Admin: 05/17/23 08:59 Dose: 100 mg Trazodone HCl (Trazodone Hcl 50 Mg Tab) 50 mg PO [facility] Stop: 06/13/23 21:59 Last Admin: 05/17/23 20:53 Dose: 50 mg Mental Health & Subst Abuse Tx Psychiatrist Date Of Appointment With Psychiatric Provider: [facility] in [place]-Can't recall date
[2023-05-18] MEDS: lisinopril 10 MG TAB PO SCH (11:08)
[2023-05-18] MEDS: GABAPENTIN 100 MG CAP PO SCH (11:08)
[2023-05-18] MEDS: levETIRAcetam 500 MG TAB PO SCH ×2 (11:11→21:40)
[2023-05-18] MEDS: lamoTRIgine 100 MG TAB PO SCH ×2 (11:11→21:40)
[2023-05-18] MEDS: FLUoxetine HCL 20 MG CAP PO SCH ×2 (11:11)
[2023-05-18] MEDS: NALTREXONE HCL 50 MG TAB PO SCH (11:12)
[2023-05-18] MEDS: MAGNESIUM OXIDE 400 MG TAB PO SCH ×2 (11:12→21:40)
[2023-05-18] MEDS: NICOTINE 21 MG/24 HR TDSY TD SCH (11:12)
[2023-05-18] MEDS: levETIRAcetam 250 MG TAB PO SCH ×2 (11:12→21:40)
[2023-05-18] MEDS: THIAMINE HCL 100 MG TAB PO SCH (11:13)
[2023-05-18] MEDS: PANTOprazole 40 MG TAB PO SCH (11:13)
[2023-05-18] MEDS: PROMETHAZINE HCL 25 MG TAB PO PRN (15:44)
[2023-05-18] MEDS: traZODone HCL 50 MG TAB PO SCH (21:40)
[2023-05-18] MEDS: DICYCLOMINE HCL 10 MG CAP PO PRN (22:01)
[2023-05-19] MEDS: levETIRAcetam 250 MG TAB PO SCH (08:53)
[2023-05-19] MEDS: levETIRAcetam 500 MG TAB PO SCH (08:53)
[2023-05-19] MEDS: lamoTRIgine 100 MG TAB PO SCH (08:54)
[2023-05-19] MEDS: PANTOprazole 40 MG TAB PO SCH (08:54)
[2023-05-19] MEDS: FLUoxetine HCL 20 MG CAP PO SCH ×2 (08:54→08:55)
[2023-05-19] MEDS: THIAMINE HCL 100 MG TAB PO SCH (08:54)
[2023-05-19] MEDS: MAGNESIUM OXIDE 400 MG TAB PO SCH (08:55)
[2023-05-19] MEDS: NALTREXONE HCL 50 MG TAB PO SCH (08:55)
[2023-05-19] MEDS: NICOTINE 21 MG/24 HR TDSY TD SCH (09:05)
--- NOTE | 2023-05-19 09:12 | Psychiatric Progress Note ---
Date of Service May 19, 2023 Impression / Recommendations Impression 52 y/o man with psychiatric history of depression, anxiety and severe alcohol use disorder as well as history of TBI and subsequent seizure disorder admitted for ongoing depression and SI with plan of cutting his wrists. Diagnostically consistent with unspecified depressive disorder likely combination of major depressive disorder and sustained alcohol-withdrawal mood symptoms. Collateral history notable for long periods of significant dependency throughout his life with very poor motivation. Seems to be likely underlying dependent personality traits at baseline versus development of dependency, adynamia and lack of motivation due to prior TBI. His daughter reported significantly more inpatient psychiatric hospitalizations in the past compared with his report of one prior hospitalization. MNPR due to GI symptoms requiring frequent bathroom use, periods of urinary/bowel incontinence 05/17/2023: Ongoing depression with prominent neurovegetative symptoms and lack of motivation. Did have more of a tremor today though he feels this is his baseline tremor, could be attributed to gabapentin trial. Worsened hypotension today but doing well with increasing po fluid intake and no signs of cognitive change/confusion, excessive dizziness, signs of infection, neurological changes, vision changes or weakness so will continue to follow closely and have discontinued lisinopril and gabapentin. Reassessed throughout the day with no focal or cognitive changes. If low BP persists through tomorrow or new concerning signs emerge will consult hospitalist provider. Overall, I spent a total of 35 minutes with this case including review of chart records, direct evaluation of the patient at bedside throughout the day, counseling the patient, discussion during interdisciplinary treatment rounds, risk assessment, and documentation in the electronic health record. (1) Depression with suicidal ideation: (2) Major depressive disorder, recurrent, severe without psychotic features: (3) Alcohol use disorder, severe, dependence: (4) Nausea: (5) Seizure disorder: (6) TBI (traumatic brain injury): Plan 05/18/2023: Discontinue lisinopril and gabapentin given low BP. 05/17/2023: Start gabapentin 100mg TID po. Ongoing motivational interviewing. If stomach issues persist could consider trial of mirtazapine in favor of trazodone but given good sleep will avoid this for now. 05/16/2023: Discontinue buspar given concerns this may be contributing to GI symptoms and lack of evidence for anxiety. 05/15/2023: The patient was [facility] to [facility] (locked inpatient mental health unit) on q15 min checks (behavioral with suicide precautions) for safety. The patient will participate in group, recreational, and milieu therapies and will be o ffered additional individual and family sessions as clinically appropriate. * fluoxetine 60mg daily * trazodone 50mg HS * Buspar 5mg TID, will work to titrate this if anxiety remains problematic * Lamictal and Keppra for seizure disorder * naltrexone 50mg daily for alcohol use disorder, Magnesium and Thiamine supplementation for alcohol use * protonix 40mg daily, Bentyl prn and Phenergan prn for GI symptoms * lisinopril for HTN Inventory Assets Strengths: supportive relationships via daughter, willing to get treatment Needs: safety and stabilization, medication adjustment, additional coping skills, increased outpatient services Suicide Risk Level Suicide Risk Level: High-Moderate (q15 min suicide checks) (severe depression with SI with plan prior to admission but feels safe in the hospital, able to safety contract and agrees to let nursing/staff know should they develop plan, intent or feel unable to remain safe.) Suicide Risk Level Comments: Risk Factors Assessment Male: Yes : Yes Do You Have Access To A Gun?: No Health Problems: Yes Mental Health Diagnoses: Yes Substance Use Disorders: Yes Previous Attempt: Yes Previous Psychiatric Hospitalization: Yes Protective Factors Assessment Stable Relationships: Yes Supportive Family: Yes (daughter) Interval History Identifying Information KEN LOJA is a 52-year-old man who currently lives in [place] alone, has a history of depression, anxiety, alcohol use disorder and seizure disorder, and was admitted on 05/14/23 17:35 on a 201 voluntary commitment for severe depression with SI with plan. Chief Complaint "[]". Review of Systems Sleep Information Total Hours of Sleep: 4.5 Meal Information Percent Meal Consumed - Breakfast: 30 Percent Meal Consumed - Lunch: 100 Percent Meal Consumed - Dinner: 0 Nutrition Comment: Meal placed in the frig. for Pt for later. Subjective Subjective Patient was seen & assessed and interval progress reviewed with treatment team nursing and social work. Out of his room and ate breakfast. Physical Exam Vital Signs (Past 24 Hours) Last Vital Signs Temp 36.9 C 05/19/23 06:37 Pulse 81 05/19/23 06:38 Resp 16 05/19/23 06:37 BP 85/57 L 05/19/23 06:38 Pulse Ox 94 05/18/23 18:11 O2 Del Method Room Air 05/18/23 18:11 Results & Data ([facility]) Laboratory Results Laboratory Results - last 24 hr 05/18/23 10:54 POC Glucose 137 H Current Inpatient Medications Current Inpatient Medications: Current Inpatient Medications Acetaminophen (Acetaminophen 325 Mg Tab) 650 mg PO Q4H PRN PRN Reason: Headache or Minor Fever Stop: 06/13/23 15:17 Al Hydrox/Mg Hydrox/Simethicone (Aluminum/Magnesium Susp 30 Ml Udc) 30 ml PO Q4H PRN PRN Reason: GI Upset Stop: 06/13/23 15:17 Bismuth Subsalicylate (Bismuth Subsalicylate Liqd 236 Ml) 15 ml PO PRN PRN PRN Reason: Loose Stool Stop: 06/13/23 15:17 Dicyclomine HCl (Dicyclomine Hcl 10 Mg Cap) 10 mg PO TID PRN PRN Reason: abdominal pain Stop: 06/13/23 18:04 Last Admin: 05/18/23 22:01 Dose: 10 mg Fluoxetine HCl (Fluoxetine Hcl 20 Mg Cap) 40 mg PO QAM [facility] Stop: 06/14/23 08:59 Last Admin: 05/19/23 08:55 Dose: 40 mg Fluoxetine HCl (Fluoxetine Hcl 20 Mg Cap) 20 mg PO QAM [facility] Stop: 06/14/23 08:59 Last Admin: 05/19/23 08:54 Dose: 20 mg Hydroxyzine HCl (Hydroxyzine Hcl 25 Mg Tab) 50 mg PO HSZ PRN PRN Reason: Insomnia Stop: 06/13/23 15:17 Hydroxyzine HCl (Hydroxyzine Hcl 25 Mg Tab) 25 mg PO Q4H PRN PRN Reason: Anxiety Stop: 06/13/23 15:17 Lamotrigine (Lamotrigine 100 Mg Tab) 200 mg PO BID [facility] Stop: 06/13/23 20:59 Last Admin: 05/19/23 08:54 Dose: 200 mg Levetiracetam (Levetiracetam 250 Mg Tab) 250 mg PO BID [facility] Stop: 06/13/23 20:59 Last Admin: 05/19/23 08:53 Dose: 250 mg Levetiracetam (Levetiracetam 500 Mg Tab) 1,000 mg PO BID [facility] Stop: 06/13/23 20:59 Last Admin: 05/19/23 08:53 Dose: 1,000 mg Magnesium Hydroxide (Magnesium Hydroxide Susp 30 Ml Udc) 30 ml PO DAILY PRN PRN Reason: Constipation Stop: 06/13/23 15:17 Magnesium Oxide (Magnesium Oxide 400 Mg Tab) 400 mg PO BID [facility] Stop: 06/13/23 20:59 Last Admin: 05/19/23 08:55 Dose: 400 mg Miconazole Nitrate (Miconazole Nitrate 2% Cr 30 Gm Tube) 1 appln EXT BID PRN PRN Reason: Affected Skin Folds Stop: 06/13/23 20:59 Miscellaneous (Remove Nicoderm Patch) 1 each N/A DAILY@0859 [facility] Stop: 06/14/23 08:58 Last Admin: 05/19/23 09:07 Dose: 1 each Naltrexone HCl (Naltrexone Hcl 50 Mg Tab) 50 mg PO QAM [facility] Stop: 06/14/23 08:59 Last Admin: 05/19/23 08:55 Dose: 50 mg Nicotine (Nicotine 21 Mg/24 Hr Tdsy) 21 mg TD QAM [facility] Stop: 06/14/23 08:59 Last Admin: 05/19/23 09:05 Dose: 21 mg Pantoprazole Sodium (Pantoprazole 40 Mg Tab) 40 mg PO QAM [facility] Stop: 06/14/23 08:59 Last Admin: 05/19/23 08:54 Dose: 40 mg Promethazine HCl (Promethazine Hcl 25 Mg Tab) 25 mg PO Q6H PRN PRN Reason: nausea and vomiting Stop: 06/13/23 18:04 Last Admin: 05/18/23 15:44 Dose: 25 mg Sodium Chloride (Sodium Chloride 0.65% Na Soln 45 Ml ([place])) 1 - 2 sprays NA PRN PRN PRN Reason: Nasal Dryness/Congestion Stop: 06/13/23 15:17 Thiamine HCl (Thiamine Hcl 100 Mg Tab) 100 mg PO QAM [facility] Stop: 06/14/23 08:59 Last Admin: 05/19/23 08:54 Dose: 100 mg Trazodone HCl (Trazodone Hcl 50 Mg Tab) 50 mg PO HS [facility] Stop: 06/13/23 21:59 Last Admin: 05/18/23 21:40 Dose: 50 mg Mental Health & Subst Abuse Tx Psychiatrist [facility]
[2023-05-19] MEDS: PROMETHAZINE HCL 25 MG TAB PO PRN (11:33)
--- NOTE | 2023-05-19 13:22 | Discharge Summary ---
Date of Service May 19, 2023 History of Present Illness Eran was admitted from the medical floor after a prolonged admission for JAMI, alcohol withdrawal and nausea/stomach pain. Further recent history per initial psych consult by Dr. Sapp on 04/28/2023: "the following note by the ED psychiatric case mgr: "Met with the patient to complete Brief and Suicide Risk Assessments. The patient reports he is having suicidal ideations with a plan to cut his wrist. He denies any recent stressors and denies current drug or alcohol use or access to weapons. He reports he last drank about 2 weeks ago and had been drinking fairly heavily prior to that. The patient reports he is seeking inpatient treatment and medical clearance was explained. Phone call received from Augustina with [facility] prior to the patients arrival. She reports the patient called [facility] with suicidal ideation with a plan to overdose. She reports the patient hasnt taken his medications for the past 2 weeks and couldnt contract for safety until a gas systems worker arrived at his residence, so he would be coming via EMS. Augustina reports the patients daughter Halie Hernandez ([phone]) would be willing to petition for a 302 if needed, but she is currently out of state." and the following note by the psychiatric liaison nurse: "Patient was cooperative but affect was flat and depressed. He was tremulous during the interaction and verbalized that he does not feel well. Patient has been experiencing suicidal ideations to cut his wrists for the past two weeks. The thoughts occur a few times a day and last for approximately an hour. He has had these thoughts today but does not have any means or intent. Patient verbalized that his suicidal thoughts started after he quit his psychiatric medications as well as drinking alcohol approximately 2 weeks ago. He quit drinking and taking his medications because he did not have anyone to take him to the store or pharmacy. Patient verbalized that he wants to stop drinking for good but he does not want to go to rehab. Patient reports that he has been a heavy drinker for years but the past few months it has been worse. He typically drinks a large bottle of vodka per day. Patient denies any current stressors but does report worsening depression after a TBI and divorce from his 10 years ago. The patient fell at work and experienced the head injury. Patient became suicidal after his divorce and cut his wrists. He was hospitalized in [place] for the attempt and felt that it was helpful for him. Patient feels that he will need inpatient psychiatric treatment once he his medically cleared. Patient's main support is his daughter Halie. ANDREI Michelle currently prescribes his psychiatric medications but he is unable to recall for sure what he takes. Patient denies access to any guns or weapons." Review of the medical record reveals a previous ED presentation in 2019 for suicidal thoughts from which he was transferred to a psychiatric facility. Review of pertinent labs reveals they are hyponatremia, elevated anion gap, significantly elevated BUN and creatinine with high BUN/creatinine, hypomagnesemia, elevated alkaline phosphatase, elevated TSH and for [urine toxicology screen that was presumptively positive for metabolites of MDMA. BAL was <10 mg/dL. History obtained by colleagues supports that pt has been increasingly depressed and anxious recently. He'd reported having stopped 1 L/day liquor 2 weeks ago, but AWSS scores have been increasing and he's been started on a gabapentin taper for this." While on the medical floor he continued to endorse daily SI and struggled to engage with interactions. Today he endorses ongoing depression which he attributes to his stressors at home including his reliance on others to help him with rides/transportation. He continues to have SI with thoughts of slitting his wrists. He feels his sleep is good. Appetite is poor due to ongoing periods of nausea/stomach pain though he finds the medications recommended by GI "help a little bit". Denies any cravings for alcohol. Physical Exam Vital Signs (Past 24 Hours) Last Vital Signs Temp 36.9 C 05/19/23 06:37 Pulse 77 05/19/23 11:40 Resp 18 05/19/23 11:40 BP 80/52 L 05/19/23 11:40 Pulse Ox 90 05/19/23 11:40 O2 Del Method Room Air 05/19/23 11:40 See admission H&P and DOD summary. Principal Diagnosis Major Depressive Disorder Psychiatric Data See daily stay summary. In short, safety was maintained and the patient was cooperative with care. Medication changes included discontinuation of Buspar due to limited benefit and ongoing GI symptoms and brief trial of gabapentin but this was discontinued to emergence of hypotension. Fluoxetine and trazodone were continued for MDD/JOSE M and he was continued on his seizure precaution medications and naltrexone for alcohol use disorder. He continued to have intermittent nausea and GI pain and on 05/18/2023 started to develop hypotension that was unresponsive to increased po intake and discontinuation of lisinopril and gabapentin requiring discharge to the medical service. He will be followed on the medical floor by the psychiatry consult service. Day of Discharge Assessment He continues to report symptoms of depression and anxiety with passive SI and concerns that he would act on thoughts of suicide outside of the hospital setting. Fair eye contact, psychomotor delay, disheveled. Speech is soft, brief. Thought process is concrete, thought process is reality-based. Denies HI. No evidence for hallucinations. Limited insight and judgement. He feels he can maintain safety on the medical floor and agrees to let the nurses or staff know on the medical floor if he develops active SI with plan or intent or if he feels unable to remain safe. Overall, I spent a total of 50 minutes with this discharge including review of chart records, direct evaluation of the patient at bedside, counseling the patient, discussion during interdisciplinary treatment rounds, risk assessment, discussion with the hospitalist provider, putting in discharge orders, and documentation in the electronic health record. Transition of Care Transition Of Care Record: was reviewed with the patient Advance Directives Advance Directives Information Provided: Yes Advance Directives: No Mental Health Advance Directive: No Advance Directives on File: No Living Will: No Power of Center Manager: No Advance Directives Reason:: Declines as Mental Health Visit. Suicide Risk Level Suicide Risk Level Comments: Suicide risk is moderate given ongoing depression and passive SI with periods of intermittent active SI when he thinks about being outside the supportive environment of the hospital. Risk Factors Assessment Male: Yes : Yes Do You Have Access To A Gun?: No Health Problems: Yes Mental Health Diagnoses: Yes Substance Use Disorders: Yes Previous Attempt: Yes Previous Psychiatric Hospitalization: Yes Hopelessness: No Protective Factors Assessment Stable Relationships: Yes Supportive Family: Yes (daughter) Discharge Data Lab Results 05/18/23 10:54 POC Glucose 137 H Hospital Course (1) Depression with suicidal ideation: (2) Major depressive disorder, recurrent, severe without psychotic features: (3) Alcohol use disorder, severe, dependence: (4) Nausea: (5) Seizure disorder: (6) TBI (traumatic brain injury): Mental Health & Subst Abuse Tx Psychiatrist Date Of Appointment With Psychiatric Provider: [facility] in [place]-Can't recall date Discharge Plan Discharge Items Patient Disposition: Home - Self-Care Reason For Visit: MDD Discharge Diagnosis: Major Depressive Disorder Activity: Resume your previous activity Non-emergency contact: Primary Care Provider and Psychiatrist Call non-emergency contact if: you have any medication questions and your symptoms worsen Follow-up/Referrals: PCP,SUNDAR [Primary Care Provider] - Diet: Regular Addtl Attending Provider Instructions: Patient is being discharged to the medical floor due to low blood pressure. He will be followed by the psychiatry consult service. Plan for likely psychiatric re-admission once medically stable. SPECIAL CARE INSTRUCTIONS: 1. Follow through with your scheduled aftercare appointments. If unable to keep an appointment, please call to reschedule. 2. Take your medication only as prescribed. Medication should not be changed or stopped without the approval of your doctor. In the event of worsening symptoms or concerns about side effects, contact your doctor immediately. 3. Utilize new healthy coping skills, anger management skills, and stress management skills learned during your hospitalization. Journal feelings and process them with a support person. Identify stressors or situations that may result in relapse, deterioration or inappropriate behaviors and develop a plan to deal with those issues. 4. If your coping skills are ineffective and you are in crisis, contact your outpatient providers for direction. If unable to reach your providers, please call the [facility] CRISIS LINE AT , go to the [facility] walk-in center at [address], [address], [place], or go to the closest Emergency Room. 5. Avoid alcohol and un-prescribed drugs. 6. You have been provided with the Mental Health Advance Directives Pamphlet for your review. 7. Your recovery is an ongoing process. Ifthoughts to harm yourself or others return, follow the safety plan developed during your stay. Planning for a safe return home includes securing weapons. Our treatment team recommends weaponsbe removed from the home until your outpatient provider reassesses your progress. In rare cases where the items themselvescannot be removed, guns and ammunitionshould be secured separatelyand keys stored by a reliable personoutside of the home. If you were admitted on an involuntary commitment, the police or other legal authorities may be involved in this process. AFTERCARE APPOINTMENTS: * Please call your insurance company prior to your scheduled appointment to confirm your aftercare providers are covered. Take your insurance information to your appointments. WHO TO CALL AND WHEN: Medical Emergencies: For questions or emergencies related to your hospital stay, please contact the Inpatient Behavioral Health Unit at [phone]. A insurance administrative assistant is on-call 22/02 for the Behavioral Health Unit for emergencies At any time you feel your situation is an emergency, you may also call 911 immediately. Pending Studies at Discharge: No Stand-Alone Forms: My [facility] Medications and DC Order Prescriptions: Continued fluoxetine 40 mg capsule 40 mg PO QAM lamotrigine 100 mg tablet 200 mg PO AMPM pantoprazole 40 mg tablet,delayed release (DR/EC) 40 mg PO QAM trazodone 50 mg tablet 50 mg PO HS naltrexone 50 mg tablet 50 mg PO QAM thiamine HCl (vitamin B1) [Vitamin B-1] 100 mg tablet 100 mg PO QAM levetiracetam 250 mg tablet 250 mg PO AMPM fluoxetine 20 mg capsule 20 mg PO QAM levetiracetam 1,000 mg tablet 1,000 mg PO AMPM promethazine 25 mg tablet 25 mg PO Q6H PRN (Reason: nausea and vomiting) Qty: 30 0RF nicotine [Nicoderm CQ] 21 mg/24 hr Patch 24 Hour 21 mg transdermal QAM Qty: 14 0RF dicyclomine 10 mg Capsule 10 mg PO TID PRN (Reason: abdominal pain) Qty: 30 0RF magnesium oxide 400 mg (241.3 mg magnesium) Tablet 400 mg PO BID Qty: 60 0RF Discontinued buspirone 5 mg tablet 5 mg PO TID lorazepam 1 mg tablet 1 mg PO TID lisinopril 10 mg tablet 10 mg PO QAM Hold Instructions: Resume on 05/21/23. Hold as BP normotensive. Continue to monitor and resume if indicated. Discharge Orders: Discharge Order (Routine); Ordered 05/19/23 Ordered By: Chacha Chau Admission Data Admit Date/Time: 05/14/23 17:35 Attending Provider: Chacha Chau Admit Provider: Carla Jimenez Primary Care Provider: PCP,NO Other Interventions: Discharge Summary Assessment (RN) Last Done: 05/19/23 13:41 PSY Interdisciplinary Discharge Planning Last Done: 05/19/23 13:41 Coding Level of Care Code 62148 D/C day mgmt > 30 min Diagnoses Depression with suicidal ideation F32.A; R45.851 Major depressive disorder, recurrent, severe without psychotic features F33.2 Alcohol use disorder, severe, dependence F10.20 Nausea R11.0 Seizure disorder G40.909 TBI (traumatic brain injury) S06.9XAA
== END 2023-05-19 14:04 | disposition home or self-care (01) | DRG 885 ==
LOC: 3S 17:35

== ENCOUNTER 2023-05-25 16:25 | Inpatient (IN) ==
[2023-05-25] MEDS ORDERED: MAGNESIUM HYDROXIDE SUSP 30 ML UDC PO PRN (17:51)
[2023-05-25] MEDS ORDERED: ACETAMINOPHEN 325 MG TAB PO PRN (17:51)
[2023-05-25] MEDS ORDERED: ALUMINUM/MAGNESIUM SUSP 30 ML UDC PO PRN (17:51)
[2023-05-25] MEDS ORDERED: hydrOXYzine HCl 25 MG TAB PO PRN ×2 (17:51)
[2023-05-25] MEDS ORDERED: SODIUM CHLORIDE 0.65% NA SOLN 45 ML (OCEAN) PRN (17:51)
[2023-05-25] MEDS ORDERED: BISMUTH SUBSALICYLATE LIQD 236 ML PO PRN (17:51)
--- NOTE | 2023-05-26 09:30 | History & Physical ---
Date of Service May 26, 2023 Impression / Recommendations Impression 52 y/o man with history of depression, marked dependent personality traits and passivity, TBI which may well contribute to passivity, severe alcohol dependence. He is now homeless (lost his apartment while in hospital) but assumes either a friend or his daughter (both of whom have had it with his dependent behavior) will leap to offer him housing or, failing that, that we would require long-term nursing care for some reason. In discussions prior to transfer here, I told him as clearly as I was able that he must participate in all aspects of the program including attending all groups. Although pt repeatedly reports how suicidal he is, in my opinion this is more a formulaic way of conveying how helpless and needy he feels as well as a means of avoiding discharge given his literal statements of intending to remain here indefinitely. I have doubts that pt's mood symptoms are likely to be medication-responsive, especially in light of multiple failed treatment trials (which apparently included failed ECT) in the past. It's possible that a trial of modafinil, which has often been helpful with passivity related to TBI in other patients, might be useful despite being an off-label use. I discussed this with (or, rather, told this to) pt, who despite saying he "will do anything to get better" did not really seem at all interested in details of this proposed treatment, to which he at least assented. Overall I spent a total of 79 minutes for this admission including review of chart records, review of test results, direct evaluation of the patient [id number], counseling the patient, reconciling and ordering medication, medication education with the patient, risk assessment, discussion during interdisciplinary treatment rounds, and documentation in the electronic health record. (1) Major depressive disorder, recurrent, severe without psychotic features: (2) Alcohol use disorder, severe, dependence: (3) TBI (traumatic brain injury): (4) Seizure disorder: Plan The patient was admitted to the [facility] ([facility] mental health unit) on q15 minute checks (behavioral with suicide precautions) for safety.The patient will participate in group, recreational, and milieu therapies and will be offered additional individual and family sessions as clinically appropriate. Off-label trial of modafinil 100 mg daily. Anticipate brief stay with eventual discharge most likely to homeless penitent[facility]. Inventory Assets Strengths: voluntary Needs: safety and stabilization, medication adjustment, additional coping skills Suicide Risk Level Suicide Risk Level: Moderate (q15 min suicide checks) Psychiatric History Identifying Data KEN LOJA is a 52-year-old M who currently lives alone (and whose apartment is no longer available), has a history of depression and alcohol dependence, and was admitted on 05/25/23 18:25 on a 201 voluntary commitment for depression. Chief Complaint "I just can't take care of myself". History of Present Illness Pt has been hospitalized at this facility since 04/27/2023, initially with hypotension and alcohol withdrawal on the medical service then transferred to psychiatry 05/15/2023 due to perpetual reports of suicidal thoughts and transferred back to medicine due to ongoing hypotension. Pt currently complains of "low blood pressure, stomach aches, and suicidal thoughts". He has been markedly passive throughout his stay. Further history obtained is significant for his always apparently having needed to "be taken care of", which had largely been done by pt's father until his father's . This predates pt's TBI, though seems to have worsened subsequent to it. At this point, he has no thoughts of returning to his apartment (from which, in any event, he's been evicted). He speaks of a subjective need to "go to a [place] facility". He also says he can go live with his friend (who has made clear that pt absolutely cannot live with her due to his past pattern of marked dependent and passive behaviors). Although he reports "suicidal thoughts", he's really not able to describe these any further and doesn't report any specific plan. He barely acknowledges the role alcohol played in his initial admission to [facility]. Past Psychiatric History Current Psychiatric Diagnosis: MDD Previous Psych Admissions: Jesus History of Previous Suicide Attempt: Yes Allergies Allergy/AdvReac Type Severity Reaction Status Date / Time tramadol AdvReac Intermediate seizure Verified 10/18/18 06:38 Home Medications Medication Instructions Recorded Confirmed Type lamotrigine 100 mg tablet 200 mg PO AMPM 10/18/18 05/25/23 History pantoprazole 40 mg tablet,delayed 40 mg PO QAM 10/18/18 05/25/23 History release fluoxetine 20 mg capsule 20 mg PO QAM 04/27/23 05/25/23 History levetiracetam 1,000 mg tablet 1,000 mg PO AMPM 04/27/23 05/25/23 History levetiracetam 250 mg tablet 250 mg PO AMPM 04/27/23 05/25/23 History thiamine HCl (vitamin B1) 100 mg 100 mg PO QAM 04/27/23 05/25/23 History tablet (Vitamin B-1) trazodone 50 mg tablet 50 mg PO HS 04/27/23 05/25/23 History dicyclomine 10 mg capsule 10 mg PO TID PRN abdominal pain 05/14/23 05/25/23 Rx #30 caps magnesium oxide 400 mg (241.3 mg 400 mg PO BID #60 tabs 05/14/23 05/25/23 Rx magnesium) tablet promethazine 25 mg tablet 25 mg PO Q6H PRN nausea and 05/14/23 05/25/23 Rx vomiting #30 tabs folic acid 1 mg tablet 1 mg PO QAM #30 tabs 05/25/23 05/25/23 Rx magnesium chloride 64 mg 64 mg PO BID #60 tabs 05/25/23 05/25/23 Rx (magnesium chloride) tablet,delayed release (Mag 64) sodium di- and 2 tab PO QID #60 tabs 05/25/23 05/25/23 Rx monophosphate-potassium phos monobasic 250 mg tablet (Phospha Neutral) Family History Family History of: Doesn't Know Alcohol History Hx of Alcohol Use Over the Past 12 Months: Yes (1 liter of vodka per day until admit to [facility]) AUDIT Total Score: 30 Smoking Use Have You Smoked or Used Tobacco Products in the Last 30 Days: No tobacco type: cigarettes Smoking Status: Never smoker Substance History Hx of Prescription Med Misuse Over the Past 12 Months: No Hx of Over the Counter Med Misuse Over the Past 12 Months: No Hx of Inhalent Misuse Over the Past 12 Months: No Hx of Organic Substance Use Over the Past 12 Months: No Hx of Illegal Substances/Street Drug Use Over Past 12 Months: No Problems as a Result of Past Substance Use: Relationships Ended and Loss of Family Support Personal History Beliefs That Will Affect Care: None Patient History Medical History JAMI (acute kidney injury) Alcohol use disorder, severe, dependence Major depressive disorder, recurrent, severe without psychotic features Seizure disorder TBI (traumatic brain injury) Ulcerative colitis Surgical History No pertinent past surgical history Family History Other COPD (chronic obstructive pulmonary disease) Heart disease Social History Smoking Status: Never smoker Tobacco Type: Cigarettes Second Hand Exposure: No; Do You Dip or Chew Tobacco: No; Hx Alcohol Use: Yes Alcohol type: beer Hx Substance Use: No Preferred Language: Luxembourger Communication Ability: Effective Insurance Adjustor Required: No Beliefs That Will Affect Care: None Current Living Situation: Alone Feels Safe at Home: Yes Gender Identity: Male Assistive Devices: None Review of Systems Psychiatric: generally endorses all items indiscriminately Physical Exam Psychiatric: Orientation: oriented to person, oriented to place, oriented to time and cooperative (very superficially and selectively); + not alert (seems fully-awake but makes no effort to attend to environment) Apperance: appropriately dressed and + disheveled Eye Contact: + poor eye contact Motor Behavior: + psychomotor retardation (scarcely any spontaneous movement) Speech: normal rate/rhythm/volume of speech Affect: + blunted affect Mood: + anxious mood Thought Process: + tangential thought process Thought Content: + preoccupation (need to be taken care of), + cognitive distortions and + loneliness Suicidal Thoughts: denies suicidal plan and denies suicidal intent; + reports suicidal thoughts (mentions suicidal thoughts very frequently) Homicidal Thoughts: denies homicidal thoughts Hallucinations: no auditory hallucinations and no visual hallucinations Cognition: language grossly intact; + recent memory not intact, + remote memory not intact and + attention not intact Estimated Intelligence: + below average estimated intelligence Insight: + poor insight Judgment: + poor judgement Vital Signs (Past 24 Hours): Last Vital Signs Temp 36.6 C 05/26/23 06:39 Pulse 100 H 05/26/23 06:40 Resp 16 05/26/23 06:39 BP 106/83 05/26/23 06:40 Pulse Ox 98 05/25/23 18:28 O2 Del Method Room Air 05/25/23 18:28 Exam Statement: A physical exam was performed by the admitting hospitalist for the purposes of medical clearance. I accept that physical as correct and adequate for the purposes of the inpatient physical exam. Results & Data ([facility]) Current Inpatient Medications Current Inpatient Medications: Current Inpatient Medications Acetaminophen (Acetaminophen 325 Mg Tab) 650 mg PO Q4H PRN PRN Reason: Headache or Minor Fever Stop: 06/24/23 17:50 Al Hydrox/Mg Hydrox/Simethicone (Aluminum/Magnesium Susp 30 Ml Udc) 30 ml PO Q4H PRN PRN Reason: GI Upset Stop: 06/24/23 17:50 Bismuth Subsalicylate (Bismuth Subsalicylate Liqd 236 Ml) 15 ml PO PRN PRN PRN Reason: Loose Stool Stop: 06/24/23 17:50 Hydroxyzine HCl (Hydroxyzine Hcl 25 Mg Tab) 50 mg PO HSZ PRN PRN Reason: Insomnia Stop: 06/24/23 17:50 Hydroxyzine HCl (Hydroxyzine Hcl 25 Mg Tab) 25 mg PO Q4H PRN PRN Reason: Anxiety Stop: 06/24/23 17:50 Magnesium Hydroxide (Magnesium Hydroxide Susp 30 Ml Udc) 30 ml PO DAILY PRN PRN Reason: Constipation Stop: 06/24/23 17:50 Sodium Chloride (Sodium Chloride 0.65% Na Soln 45 Ml ([place])) 1 - 2 sprays NA PRN PRN PRN Reason: Nasal Dryness/Congestion Stop: 06/24/23 17:50
[2023-05-26] MEDS: modafiniL 100 MG TAB PO SCH (13:34)
[2023-05-26] MEDS: DICYCLOMINE HCL 10 MG CAP PO PRN (19:00)
[2023-05-26] MEDS ORDERED: PROMETHAZINE HCL 25 MG TAB PO PRN (19:29)
[2023-05-26] MEDS ORDERED: DICYCLOMINE HCL 10 MG CAP PO PRN (19:29)
[2023-05-26] MEDS: traZODone HCL 50 MG TAB PO SCH (20:42)
[2023-05-26] MEDS: lamoTRIgine 100 MG TAB PO SCH (20:42)
[2023-05-26] MEDS: levETIRAcetam 250 MG TAB PO SCH (20:42)
[2023-05-26] MEDS: MAGNESIUM CHLORIDE W/CALCIUM 64MG DELAYED REL TAB PO SCH (20:42)
[2023-05-26] MEDS: POT PHOSPHATE MONOBASIC W/ SOD TAB PO SCH (20:42)
[2023-05-26] MEDS: levETIRAcetam 500 MG TAB PO SCH (20:42)
[2023-05-26] MEDS: MAGNESIUM OXIDE 400 MG TAB PO SCH (20:42)
[2023-05-26] MEDS: PROMETHAZINE HCL 25 MG TAB PO PRN (20:46)
[2023-05-27] MEDS: MAGNESIUM CHLORIDE W/CALCIUM 64MG DELAYED REL TAB PO SCH ×2 (10:24→21:08)
[2023-05-27] MEDS: FLUoxetine HCL 20 MG CAP PO SCH (10:25)
[2023-05-27] MEDS: FOLIC ACID 1 MG TAB PO SCH (10:25)
[2023-05-27] MEDS: PANTOprazole 40 MG TAB PO SCH (10:25)
[2023-05-27] MEDS: lamoTRIgine 100 MG TAB PO SCH ×2 (10:26→21:06)
[2023-05-27] MEDS: MAGNESIUM OXIDE 400 MG TAB PO SCH ×2 (10:26→21:09)
[2023-05-27] MEDS: levETIRAcetam 250 MG TAB PO SCH ×2 (10:27→21:07)
[2023-05-27] MEDS: levETIRAcetam 500 MG TAB PO SCH ×2 (10:27→21:08)
[2023-05-27] MEDS: POT PHOSPHATE MONOBASIC W/ SOD TAB PO SCH ×4 (10:28→21:10)
[2023-05-27] MEDS: THIAMINE HCL 100 MG TAB PO SCH (10:28)
[2023-05-27] MEDS: modafiniL 100 MG TAB PO SCH (10:29)
--- NOTE | 2023-05-27 13:14 | Psychiatric Progress Note ---
Date of Service May 27, 2023 Impression / Recommendations Impression 52 y/o man with history of depression, marked dependent personality traits and passivity, TBI which may well contribute to passivity, severe alcohol dependence. He is now homeless (lost his apartment while in hospital) but assumes either a friend or his daughter (both of whom have had it with his dependent behavior) will leap to offer him housing or, failing that, that we would require long-term nursing care for some reason. In discussions prior to transfer here, I told him as clearly as I was able that he must participate in all aspects of the program including attending all groups. Although pt repeatedly reports how suicidal he is, in my opinion this is more a formulaic way of conveying how helpless and needy he feels as well as a means of avoiding discharge given his literal statements of intending to remain here indefinitely. 05/27/2023: Last night, somehow got a student nurse to kneel at his bedside and hold a cup of water to his lips despite his being perfectly capable of drinking on his own. Despite agreeing to attend all groups, he attended only one yesterday. He attended 2 today (and did participate). Reminded pt that he has agreed to attend all groups as a condition of being on the unit. He says explicitly that he will use suicidal threats to avoid being discharged. Saw "nothing at all" attributable to modafinil this morning. 05/26/2023: I have doubts that pt's mood symptoms are likely to be medication- responsive, especially in light of multiple failed treatment trials (which apparently included failed ECT) in the past. It's possible that a trial of modafinil, which has often been helpful with passivity related to TBI in other patients, might be useful despite being an off-label use. I discussed this with (or, rather, told this to) pt, who despite saying he "will do anything to get better" did not really seem at all interested in details of this proposed treatment, to which he at least assented. (1) Major depressive disorder, recurrent, severe without psychotic features: (2) Alcohol use disorder, severe, dependence: (3) TBI (traumatic brain injury): (4) Seizure disorder: Plan 05/27/2023: * increase modafinil to 200 mg QAM tomorrow - started 05/26/2023 at 100 mg QAM 05/26/2023: The patient [facility] on q15 minute checks (behavioral with suicide precautions) for safety.The patient will participate in group, recreational, and milieu therapies and will be offered additional individual and family sessions as clinically appropriate. Off-label trial of modafinil 100 mg daily. Anticipate brief stay with eventual discharge most likely to [facility]. Inventory Assets Strengths: voluntary Needs: safety and stabilization, medication adjustment, additional coping skills Suicide Risk Level Suicide Risk Level: Moderate (q15 min suicide checks) Risk Factors Assessment Do You Have Access To A Gun?: No Interval History Identifying Information KEN LOJA is a 52-year-old M who currently lives alone (and whose apartment is no longer available), has a history of depression and alcohol dependence, and was admitted on 05/25/23 18:25 on a 201 voluntary commitment for depression. Chief Complaint "I'll step in front of a truck if I go to [place]". Review of Systems Sleep Information Total Hours of Sleep: 5.25 Meal Information Percent Meal Consumed - Breakfast: 0 Percent Meal Consumed - Lunch: 0 Percent Meal Consumed - Dinner: 0 Nutrition Comment: c/o upset stomach Subjective Subjective The patient was seen and assessed and interval progress reviewed in a multidisciplinary team meeting with the treatment team. For details, see the "Impression" section. Overall I spent a total of 48 minutes for this inpatient follow-up including review of chart records, review of test results, direct evaluation of the patient [id number], counseling the patient, medication education with the patient, risk assessment, discussion during interdisciplinary treatment rounds, and documentation in the electronic health record. Physical Exam Psychiatric Orientation: oriented to person, oriented to place, oriented to time and cooperative (very superficially and selectively); + not alert (seems fully-awake but makes no effort to attend to environment) Apperance: appropriately dressed and + disheveled Eye Contact: + poor eye contact Motor Behavior: + psychomotor retardation (scarcely any spontaneous movement) Speech: normal rate/rhythm/volume of speech Affect: + blunted affect Mood: + anxious mood Thought Process: + tangential thought process Thought Content: + preoccupation (need to be taken care of), + cognitive distortions and + loneliness Suicidal Thoughts: denies suicidal plan and denies suicidal intent; + reports suicidal thoughts (mentions suicidal thoughts very frequently) Homicidal Thoughts: denies homicidal thoughts Hallucinations: no auditory hallucinations and no visual hallucinations Cognition: language grossly intact; + recent memory not intact, + remote memory not intact and + attention not intact Estimated Intelligence: + below average estimated intelligence Insight: + poor insight Judgment: + poor judgement Vital Signs (Past 24 Hours) Last Vital Signs Temp 37.1 C 05/27/23 06:45 Pulse 94 H 05/27/23 06:46 Resp 16 05/27/23 06:45 BP 112/82 05/27/23 06:46 Pulse Ox 98 05/25/23 18:28 O2 Del Method Room Air 05/25/23 18:28 Results & Data ([facility]) Current Inpatient Medications Current Inpatient Medications: Current Inpatient Medications Acetaminophen (Acetaminophen 325 Mg Tab) 650 mg PO Q4H PRN PRN Reason: Headache or Minor Fever Stop: 06/24/23 17:50 Al Hydrox/Mg Hydrox/Simethicone (Aluminum/Magnesium Susp 30 Ml Udc) 30 ml PO Q4H PRN PRN Reason: GI Upset Stop: 06/24/23 17:50 Last Admin: 05/26/23 13:09 Dose: 30 ml Bismuth Subsalicylate (Bismuth Subsalicylate Liqd 236 Ml) 15 ml PO PRN PRN PRN Reason: Loose Stool Stop: 06/24/23 17:50 Dicyclomine HCl (Dicyclomine Hcl 10 Mg Cap) 10 mg PO TID PRN PRN Reason: GI Upset Stop: 06/25/23 20:59 Last Admin: 05/26/23 19:00 Dose: 10 mg Fluoxetine HCl (Fluoxetine Hcl 20 Mg Cap) 20 mg PO QAM [facility] Stop: 06/26/23 08:59 Last Admin: 05/27/23 10:25 Dose: 20 mg Folic Acid (Folic Acid 1 Mg Tab) 1 mg PO QAM [facility] Stop: 06/26/23 08:59 Last Admin: 05/27/23 10:25 Dose: 1 mg Hydroxyzine HCl (Hydroxyzine Hcl 25 Mg Tab) 50 mg PO HSZ PRN PRN Reason: Insomnia Stop: 06/24/23 17:50 Hydroxyzine HCl (Hydroxyzine Hcl 25 Mg Tab) 25 mg PO Q4H PRN PRN Reason: Anxiety Stop: 06/24/23 17:50 Lamotrigine (Lamotrigine 100 Mg Tab) 200 mg PO BID [facility] Stop: 06/25/23 20:59 Last Admin: 05/27/23 10:26 Dose: 200 mg Levetiracetam (Levetiracetam 250 Mg Tab) 250 mg PO BID [facility] Stop: 06/25/23 20:59 Last Admin: 05/27/23 10:27 Dose: 250 mg Levetiracetam (Levetiracetam 500 Mg Tab) 1,000 mg PO BID [facility] Stop: 06/25/23 20:59 Last Admin: 05/27/23 10:27 Dose: 1,000 mg Magnesium Chloride (Magnesium Chloride W/Calcium 64mg Delayed Rel Tab) 64 mg PO BID [facility] Stop: 06/25/23 20:59 Last Admin: 05/27/23 10:24 Dose: 64 mg Magnesium Hydroxide (Magnesium Hydroxide Susp 30 Ml Udc) 30 ml PO DAILY PRN PRN Reason: Constipation Stop: 06/24/23 17:50 Magnesium Oxide (Magnesium Oxide 400 Mg Tab) 400 mg PO BID [facility] Stop: 06/25/23 20:59 Last Admin: 05/27/23 10:26 Dose: 400 mg Modafinil (Modafinil 100 Mg Tab) 100 mg PO QAM [facility] Stop: 06/25/23 12:44 Last Admin: 05/27/23 10:29 Dose: 100 mg Pantoprazole Sodium (Pantoprazole 40 Mg Tab) 40 mg PO QAM [facility] Stop: 06/26/23 08:59 Last Admin: 05/27/23 10:25 Dose: 40 mg Potassium Phosphate (Pot Phosphate Monobasic W/ Sod Tab) 2 tab PO QID [facility] Stop: 06/25/23 20:59 Last Admin: 05/27/23 10:28 Dose: 2 tab Promethazine HCl (Promethazine Hcl 25 Mg Tab) 25 mg PO Q6H PRN PRN Reason: Nausea And Vomiting Stop: 06/25/23 18:34 Last Admin: 05/26/23 20:46 Dose: 25 mg Promethazine HCl (Promethazine Hcl 25 Mg Tab) 25 mg PO Q6H PRN PRN Reason: nausea and vomiting Stop: 06/25/23 19:28 Sodium Chloride (Sodium Chloride 0.65% Na Soln 45 Ml ([place])) 1 - 2 sprays NA PRN PRN PRN Reason: Nasal Dryness/Congestion Stop: 06/24/23 17:50 Thiamine HCl (Thiamine Hcl 100 Mg Tab) 100 mg PO QAM [facility] Stop: 06/26/23 08:59 Last Admin: 05/27/23 10:28 Dose: 100 mg Trazodone HCl (Trazodone Hcl 50 Mg Tab) 50 mg PO HS [facility] Stop: 06/25/23 21:59 Last Admin: 05/26/23 20:42 Dose: 50 mg
[2023-05-27] MEDS: traZODone HCL 50 MG TAB PO SCH (21:11)
[2023-05-28] MEDS: FLUoxetine HCL 20 MG CAP PO SCH (08:47)
[2023-05-28] MEDS: FOLIC ACID 1 MG TAB PO SCH (08:47)
[2023-05-28] MEDS: lamoTRIgine 100 MG TAB PO SCH ×2 (08:47→21:28)
[2023-05-28] MEDS: levETIRAcetam 250 MG TAB PO SCH ×2 (08:48→21:28)
[2023-05-28] MEDS: MAGNESIUM CHLORIDE W/CALCIUM 64MG DELAYED REL TAB PO SCH ×2 (08:48→21:28)
[2023-05-28] MEDS: levETIRAcetam 500 MG TAB PO SCH ×2 (08:48→21:28)
[2023-05-28] MEDS: MAGNESIUM OXIDE 400 MG TAB PO SCH ×2 (08:48→21:28)
[2023-05-28] MEDS: PANTOprazole 40 MG TAB PO SCH (08:49)
[2023-05-28] MEDS: POT PHOSPHATE MONOBASIC W/ SOD TAB PO SCH ×4 (08:49→21:30)
[2023-05-28] MEDS: THIAMINE HCL 100 MG TAB PO SCH (08:49)
[2023-05-28] MEDS: modafiniL 100 MG TAB PO SCH (08:52)
--- NOTE | 2023-05-28 08:52 | Psychiatric Progress Note ---
Date of Service May 28, 2023 Impression / Recommendations Impression 52 y/o man with history of depression, marked dependent personality traits and passivity, TBI which may well contribute to passivity, severe alcohol dependence. He is now homeless (lost his apartment while in hospital) but assumes either a friend or his daughter (both of whom have had it with his dependent behavior) will leap to offer him housing or, failing that, that we would require long-term nursing care for some reason. In discussions prior to transfer here, I told him as clearly as I was able that he must participate in all aspects of the program including attending all groups. Although pt repeatedly reports how suicidal he is, in my opinion this is more a formulaic way of conveying how helpless and needy he feels as well as a means of avoiding discharge given his literal statements of intending to remain here indefinitely. 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 Enthusiastically tells me that he "can go to [facility] a facility where he'd been in the past. Denies any suicidal thoughts at all. Has tolerated addition of modafinil dose thus far but sees no subjective benefit. 05/27/2023: Last night, somehow got a student nurse to kneel at his bedside and hold a cup of water to his lips despite his being perfectly capable of drinking on his own. Despite agreeing to attend all groups, he attended only one yesterday. He attended 2 today (and did participate). Reminded pt that he has agreed to attend all groups as a condition of being on the unit. He says explicitly that he will use suicidal threats to avoid being discharged. Saw "nothing at all" attributable to modafinil this morning. 05/26/2023: I have doubts that pt's mood symptoms are likely to be medication- responsive, especially in light of multiple failed treatment trials (which apparently included failed ECT) in the past. It's possible that a trial of modafinil, which has often been helpful with passivity related to TBI in other patients, might be useful despite being an off-label use. I discussed this with (or, rather, told this to) pt, who despite saying he "will do anything to get better" did not really seem at all interested in details of this proposed treatment, to which he at least assented. (1) Major depressive disorder, recurrent, severe without psychotic features: (2) Alcohol use disorder, severe, dependence: (3) TBI (traumatic brain injury): (4) Seizure disorder: Plan 05/28/2023: * increase modafinil to 200 mg QAM tomorrow - started 05/26/2023 at 100 mg QAM * continue fluoxetine 20 mg QAM - prior to admission medication 05/27/2023: * increase modafinil to 200 mg QAM tomorrow - started 05/26/2023 at 100 mg QAM 05/26/2023: The patient was admitted to the [facility] on q15 minute checks (behavioral with suicide precautions) for safety.The patient will participate in group, recreational, and milieu therapies and will be offered additional individual and family sessions as clinically appropriate. Off-label trial of modafinil 100 mg daily. Anticipate brief stay with eventual discharge most likely to homeless half-way. Inventory Assets Strengths: voluntary Needs: safety and stabilization, medication adjustment, additional coping skills Suicide Risk Level Suicide Risk Level: Moderate (q15 min suicide checks) Risk Factors Assessment Do You Have Access To A Gun?: No Interval History Identifying Information KEN LOJA is a 52-year-old M who currently lives alone (and whose apartment is no longer available), has a history of depression and alcohol dependence, and was admitted on 05/25/23 18:25 on a 201 voluntary commitment for depression. Chief Complaint "I'm going to [facility]!". Review of Systems Sleep Information Total Hours of Sleep: 3.75 Meal Information Percent Meal Consumed - Breakfast: 0 Percent Meal Consumed - Lunch: 90 Percent Meal Consumed - Dinner: 50 Nutrition Comment: c/o upset stomach Subjective Subjective The patient was seen and assessed and interval progress reviewed in a multidisciplinary team meeting with the treatment team. For details, see the "Impression" section. Overall I spent a total of 45 minutes for this inpatient follow-up including review of chart records, review of test results, direct evaluation of the patient [id number], counseling the patient, medication education with the patient, risk assessment, discussion during interdisciplinary treatment rounds, completing forms for [facility], and documentation in the electronic health record. Physical Exam Psychiatric Orientation: oriented to person, oriented to place, oriented to time and cooperative (very superficially and selectively); + not alert (seems fully-awake but makes no effort to attend to environment) Apperance: appropriately dressed and appropriately groomed Eye Contact: good eye contact Motor Behavior: no abnormal motor movements Speech: normal rate/rhythm/volume of speech Affect: + blunted affect Mood: + anxious mood Thought Process: + tangential thought process Thought Content: + preoccupation (need to be taken care of), + cognitive distortions and + loneliness Suicidal Thoughts: denies suicidal plan and denies suicidal intent; + reports suicidal thoughts (mentions suicidal thoughts very frequently) Homicidal Thoughts: denies homicidal thoughts Hallucinations: no auditory hallucinations and no visual hallucinations Cognition: recent memory grossly intact, remote memory grossly intact, attention grossly intact and language grossly intact Estimated Intelligence: + below average estimated intelligence Insight: + poor insight Judgment: + poor judgement Vital Signs (Past 24 Hours) Last Vital Signs Temp 36.9 C 05/28/23 06:42 Pulse 91 H 05/28/23 06:43 Resp 18 05/28/23 06:42 BP 88/64 L 05/28/23 06:43 Pulse Ox 98 05/25/23 18:28 O2 Del Method Room Air 05/25/23 18:28 Results & Data ([facility]) Current Inpatient Medications Current Inpatient Medications: Current Inpatient Medications Acetaminophen (Acetaminophen 325 Mg Tab) 650 mg PO Q4H PRN PRN Reason: Headache or Minor Fever Stop: 06/24/23 17:50 Al Hydrox/Mg Hydrox/Simethicone (Aluminum/Magnesium Susp 30 Ml Udc) 30 ml PO Q4H PRN PRN Reason: GI Upset Stop: 06/24/23 17:50 Last Admin: 05/26/23 13:09 Dose: 30 ml Bismuth Subsalicylate (Bismuth Subsalicylate Liqd 236 Ml) 15 ml PO PRN PRN PRN Reason: Loose Stool Stop: 06/24/23 17:50 Dicyclomine HCl (Dicyclomine Hcl 10 Mg Cap) 10 mg PO TID PRN PRN Reason: GI Upset Stop: 06/25/23 20:59 Last Admin: 05/26/23 19:00 Dose: 10 mg Fluoxetine HCl (Flu[facility] Hcl 20 Mg Cap) [facility] [place] [facility] Stop: 06/26/23 08:59 Last Admin: 05/27/23 10:25 Dose: 20 mg Folic Acid (Folic Acid 1 Mg Tab) 1 mg PO QAM [facility] Stop: 06/26/23 08:59 Last Admin: 05/27/23 10:25 Dose: 1 mg Hydroxyzine HCl (Hydroxyzine Hcl 25 Mg Tab) 50 mg PO HSZ PRN PRN Reason: Insomnia Stop: 06/24/23 17:50 Hydroxyzine HCl (Hydroxyzine Hcl 25 Mg Tab) 25 mg PO Q4H PRN PRN Reason: Anxiety Stop: 06/24/23 17:50 Lamotrigine (Lamotrigine 100 Mg Tab) 200 mg PO BID [facility] Stop: 06/25/23 20:59 Last Admin: 05/27/23 21:06 Dose: 200 mg Levetiracetam (Levetiracetam 250 Mg Tab) 250 mg PO BID [facility] Stop: 06/25/23 20:59 Last Admin: 05/27/23 21:07 Dose: 250 mg Levetiracetam (Levetiracetam 500 Mg Tab) 1,000 mg PO BID [facility] Stop: 06/25/23 20:59 Last Admin: 05/27/23 21:08 Dose: 1,000 mg Magnesium Chloride (Magnesium Chloride W/Calcium 64mg Delayed Rel Tab) 64 mg PO BID [facility] Stop: 06/25/23 20:59 Last Admin: 05/27/23 21:08 Dose: 64 mg Magnesium Hydroxide (Magnesium Hydroxide Susp 30 Ml Udc) 30 ml PO DAILY PRN PRN Reason: Constipation Stop: 06/24/23 17:50 Magnesium Oxide (Magnesium Oxide 400 Mg Tab) 400 mg PO BID [facility] Stop: 06/25/23 20:59 Last Admin: 05/27/23 21:09 Dose: 400 mg Modafinil (Modafinil 100 Mg Tab) 200 mg PO QAM [facility] Stop: 06/27/23 08:59 Pantoprazole Sodium (Pantoprazole 40 Mg Tab) 40 mg PO QAM [facility] Stop: 06/26/23 08:59 Last Admin: 05/27/23 10:25 Dose: 40 mg Potassium Phosphate (Pot Phosphate Monobasic W/ Sod Tab) 2 tab PO QID [facility] Stop: 11/24/23 20:59 Last Admin: 05/27/23 21:10 Dose: 2 tab Promethazine HCl (Promethazine Hcl 25 Mg Tab) 25 mg PO Q6H PRN PRN Reason: Nausea And Vomiting Stop: 06/25/23 18:34 Last Admin: 05/26/23 20:46 Dose: 25 mg Promethazine HCl (Promethazine Hcl 25 Mg Tab) 25 mg PO Q6H PRN PRN Reason: nausea and vomiting Stop: 06/25/23 19:28 Sodium Chloride (Sodium Chloride 0.65% Na Soln 45 Ml ([place])) 1 - 2 sprays NA PRN PRN PRN Reason: Nasal Dryness/Congestion Stop: 06/24/23 17:50 Thiamine HCl (Thiamine Hcl 100 Mg Tab) 100 mg PO QAM [facility] Stop: 06/26/23 08:59 Last Admin: 05/27/23 10:28 Dose: 100 mg Trazodone HCl (Trazodone Hcl 50 Mg Tab) 50 mg PO HS [facility] Stop: 06/25/23 21:59 Last Admin: 05/27/23 21:11 Dose: 50 mg
[2023-05-28] MEDS: traZODone HCL 50 MG TAB PO SCH (21:28)
[2023-05-29] MEDS: lamoTRIgine 100 MG TAB PO SCH ×2 (09:08→21:00)
[2023-05-29] MEDS: FLUoxetine HCL 20 MG CAP PO SCH (09:08)
[2023-05-29] MEDS: levETIRAcetam 500 MG TAB PO SCH ×2 (09:08→21:00)
[2023-05-29] MEDS: FOLIC ACID 1 MG TAB PO SCH (09:08)
[2023-05-29] MEDS: MAGNESIUM CHLORIDE W/CALCIUM 64MG DELAYED REL TAB PO SCH ×2 (09:09→21:01)
[2023-05-29] MEDS: modafiniL 100 MG TAB PO SCH (09:09)
[2023-05-29] MEDS: PANTOprazole 40 MG TAB PO SCH (09:09)
[2023-05-29] MEDS: levETIRAcetam 250 MG TAB PO SCH ×2 (09:09→21:01)
[2023-05-29] MEDS: MAGNESIUM OXIDE 400 MG TAB PO SCH ×2 (09:09→21:00)
[2023-05-29] MEDS: THIAMINE HCL 100 MG TAB PO SCH (09:10)
[2023-05-29] MEDS: POT PHOSPHATE MONOBASIC W/ SOD TAB PO SCH ×4 (09:10→21:03)
--- NOTE | 2023-05-29 09:24 | Psychiatric Progress Note ---
Date of Service May 29, 2023 Impression / Recommendations Impression 52 y/o man with history of depression, marked dependent personality traits and passivity, TBI which may well contribute to passivity, severe alcohol dependence. He is now homeless (lost his apartment while in hospital) but assumes either a friend or his daughter (both of whom have had it with his dependent behavior) will leap to offer him housing or, failing that, that we would require long-term nursing care for some reason. In discussions prior to transfer here, I told him as clearly as I was able that he must participate in all aspects of the program including attending all groups. 05/29/2023: Mood improving and SI resolved in context of news about having personal detention availability. Certainly suggests considerable component of dependency to his depression and SI as this news has changed his mood significantly and reduced his stress. Will discontinue modafinil given mood improvement from external variables related to housing/personal care, lack of perceived benefit and his preference to avoid polypharmacy. Overall, I spent a total of 35 minutes with this case including review of chart records, direct evaluation of the patient at bedside, counseling the patient, discussion during interdisciplinary treatment rounds, risk assessment, and documentation in the electronic health record. (1) Major depressive disorder, recurrent, severe without psychotic features: (2) Alcohol use disorder, severe, dependence: (3) TBI (traumatic brain injury): (4) Seizure disorder: Plan 05/29/2023: Discontinue modafinil. Continue fluoxetine, previously was on 60mg daily, now on 20mg daily and tolerating this well. 05/28/2023: * increase modafinil to 200 mg QAM tomorrow - started 05/26/2023 at 100 mg QAM * continue fluoxetine 20 mg QAM - prior to admission medication 05/27/2023: * increase modafinil to 200 mg QAM tomorrow - started 05/26/2023 at 100 mg QAM 05/26/2023: The patient was admitted to the [facility] ([facility] unit) on q15 minute checks (behavioral with suicide precautions) for safety.The patient will participate in group, recreational, and milieu therapies and will be offered additional individual and family sessions as clinically appropriate. Off-label trial of modafinil 100 mg daily. Inventory Assets Strengths: voluntary Needs: safety and stabilization, medication adjustment, additional coping skills Suicide Risk Level Suicide Risk Level: Moderate (q15 min suicide checks) (mood improving with no SI now that housing with care has been secured) Risk Factors Assessment Do You Have Access To A Gun?: No Interval History Identifying Information KEN LOJA is a 52-year-old M who currently lives alone (and whose apartment is no longer available), has a history of depression and alcohol dependence, and was admitted on 05/25/23 18:25 on a 201 voluntarycommitment for depression. Chief Complaint "I'm so glad I've got somewhere to go". Review of Systems Sleep Information Total Hours of Sleep: 6.25 Meal Information Percent Meal Consumed - Breakfast: 100 Percent Meal Consumed - Lunch: 100 Percent Meal Consumed - Dinner: 100 Nutrition Comment: c/o upset stomach Subjective Subjective Patient was seen & assessed and interval progress reviewed with treatment team nursing and social work. Mood was much better last evening noted feeling relieved after news of being accepted to personal detention. Reports his mood is good. Denies any dizziness except with changing positions, if he waits for 30-60 seconds before standing finds he doesn't have any dizziness. Still with chronic abdominal pain, mostly after eating. Denies SI. Doesn't think the modafinil has made any difference in his mood or energy level so asks that this be discontinued to reduce polypharmacy noting "we might as well stop it". Physical Exam Psychiatric Orientation: alert (seems fully-awake but makes no effort to attend to environment) and oriented x 3 Apperance: appropriately dressed and appropriately groomed Eye Contact: good eye contact Motor Behavior: no abnormal motor movements Speech: normal rate/rhythm/volume of speech Affect: + constricted affect Mood: + anxious mood Thought Process: + concrete thought process Thought Content: + preoccupation (need to be taken care of), + cognitive distortions and + loneliness Suicidal Thoughts: denies suicidal thoughts, denies suicidal plan and denies suicidal intent Homicidal Thoughts: denies homicidal thoughts Hallucinations: no auditory hallucinations and no visual hallucinations Cognition: recent memory grossly intact, remote memory grossly intact, attention grossly intact and language grossly intact Estimated Intelligence: + below average estimated intelligence Insight: + poor insight Judgment: + poor judgement Vital Signs (Past 24 Hours) Last Vital Signs Temp 37.0 C 05/29/23 06:31 Pulse 94 H 05/29/23 06:32 Resp 16 05/29/23 06:31 BP 92/69 L 05/29/23 06:32 Pulse Ox 98 05/25/23 18:28 O2 Del Method Room Air 05/25/23 18:28 Results & Data ([facility]) Current Inpatient Medications Current Inpatient Medications: Current Inpatient Medications Acetaminophen (Acetaminophen 325 Mg Tab) 650 mg PO Q4H PRN PRN Reason: Headache or Minor Fever Stop: 06/24/23 17:50 Al Hydrox/Mg Hydrox/Simethicone (Aluminum/Magnesium Susp 30 Ml Udc) 30 ml PO Q4H PRN PRN Reason: GI Upset Stop: 06/24/23 17:50 Last Admin: 05/26/23 13:09 Dose: 30 ml Bismuth Subsalicylate (Bismuth Subsalicylate Liqd 236 Ml) 15 ml PO PRN PRN PRN Reason: Loose Stool Stop: 06/24/23 17:50 Dicyclomine HCl (Dicyclomine Hcl 10 Mg Cap) 10 mg PO TID PRN PRN Reason: GI Upset Stop: 06/25/23 20:59 Last Admin: 05/26/23 19:00 Dose: 10 mg Fluoxetine HCl (Fluoxetine Hcl 20 Mg Cap) 20 mg PO QAM [facility]I Stop: 06/26/23 08:59 Last Admin: 05/28/23 08:47 Dose: 20 mg Folic Acid (Folic Acid 1 Mg Tab) 1 mg PO QAM [facility]I Stop: 06/26/23 08:59 Last Admin: 05/28/23 08:47 Dose: 1 mg Hydroxyzine HCl (Hydroxyzine Hcl 25 Mg Tab) 50 mg PO HSZ PRN PRN Reason: Insomnia Stop: 06/24/23 17:50 Hydroxyzine HCl (Hydroxyzine Hcl 25 Mg Tab) 25 mg PO Q4H PRN PRN Reason: Anxiety Stop: 06/24/23 17:50 Lamotrigine (Lamotrigine 100 Mg Tab) 200 mg PO BID [facility] Stop: 06/25/23 20:59 Last Admin: 05/28/23 21:28 Dose: 200 mg Levetiracetam (Levetiracetam 250 Mg Tab) 250 mg PO BID [facility] Stop: 06/25/23 20:59 Last Admin: 05/28/23 21:28 Dose: 250 mg Levetiracetam (Levetiracetam 500 Mg Tab) 1,000 mg PO BID ADI Stop: 06/25/23 20:59 Last Admin: 05/28/23 21:28 Dose: 1,000 mg Magnesium Chloride (Magnesium Chloride W/Calcium 64mg Delayed Rel Tab) 64 mg PO BID ADI Stop: 06/25/23 20:59 Last Admin: 05/28/23 21:28 Dose: 64 mg Magnesium Hydroxide (Magnesium Hydroxide Susp 30 Ml Udc) 30 ml PO DAILY PRN PRN Reason: Constipation Stop: 06/24/23 17:50 Magnesium Oxide (Magnesium Oxide 400 Mg Tab) 400 mg PO BID ADI Stop: 06/25/23 20:59 Last Admin: 05/28/23 21:28 Dose: 400 mg Modafinil (Modafinil 100 Mg Tab) 200 mg PO QAM [facility] Stop: 06/27/23 08:59 Last Admin: 05/28/23 08:52 Dose: 200 mg Pantoprazole Sodium (Pantoprazole 40 Mg Tab) 40 mg PO QAM [facility] Stop: 06/26/23 08:59 Last Admin: 05/28/23 08:49 Dose: 40 mg Potassium Phosphate (Pot Phosphate Monobasic W/ Sod Tab) 2 tab PO QID [facility] Stop: 06/25/23 20:59 Last Admin: 05/28/23 21:30 Dose: 2 tab Promethazine HCl (Promethazine Hcl 25 Mg Tab) 25 mg PO Q6H PRN PRN Reason: Nausea And Vomiting Stop: 06/25/23 18:34 Last Admin: 05/26/23 20:46 Dose: 25 mg Promethazine HCl (Promethazine Hcl 25 Mg Tab) 25 mg PO Q6H PRN PRN Reason: nausea and vomiting Stop: 06/25/23 19:28 Sodium Chloride (Sodium Chloride 0.65% Na Soln 45 Ml ([place])) 1 - 2 sprays NA PRN PRN PRN Reason: Nasal Dryness/Congestion Stop: 06/24/23 17:50 Thiamine HCl (Thiamine Hcl 100 Mg Tab) 100 mg PO QAM [facility] Stop: 06/26/23 08:59 Last Admin: 05/28/23 08:49 Dose: 100 mg Trazodone HCl (Trazodone Hcl 50 Mg Tab) 50 mg PO HS [facility] Stop: 06/25/23 21:59 Last Admin: 05/28/23 21:28 Dose: 50 mg
[2023-05-29] MEDS: PROMETHAZINE HCL 25 MG TAB PO PRN (20:58)
[2023-05-29] MEDS: traZODone HCL 50 MG TAB PO SCH (21:02)
[2023-05-30] MEDS: lamoTRIgine 100 MG TAB PO SCH ×2 (09:01→20:39)
[2023-05-30] MEDS: FOLIC ACID 1 MG TAB PO SCH (09:01)
[2023-05-30] MEDS: FLUoxetine HCL 20 MG CAP PO SCH (09:01)
[2023-05-30] MEDS: levETIRAcetam 250 MG TAB PO SCH ×2 (09:02→20:39)
[2023-05-30] MEDS: MAGNESIUM OXIDE 400 MG TAB PO SCH ×2 (09:02→20:40)
[2023-05-30] MEDS: levETIRAcetam 500 MG TAB PO SCH ×2 (09:02→20:39)
[2023-05-30] MEDS: MAGNESIUM CHLORIDE W/CALCIUM 64MG DELAYED REL TAB PO SCH ×2 (09:02→20:39)
[2023-05-30] MEDS: POT PHOSPHATE MONOBASIC W/ SOD TAB PO SCH ×4 (09:02→20:40)
[2023-05-30] MEDS: PANTOprazole 40 MG TAB PO SCH (09:02)
[2023-05-30] MEDS: THIAMINE HCL 100 MG TAB PO SCH (09:02)
--- NOTE | 2023-05-30 09:12 | Psychiatric Progress Note ---
Date of Service May 30, 2023 Impression / Recommendations Impression 52 y/o man with history of depression, marked dependent personality traits and passivity, TBI which may well contribute to passivity, severe alcohol dependence. He is now homeless (lost his apartment while in hospital) but assumes either a friend or his daughter (both of whom have had it with his dependent behavior) will leap to offer him housing or, failing that, that we would require long-term nursing care for some reason. In discussions prior to transfer here, I told him as clearly as I was able that he must participate in all aspects of the program including attending all groups. 05/30/2023: Mood remains stable and improving, denies SI, future-oriented about personal [facility]. Some anxiety related to calling his daughter. Denies any new medication side effects or issues. Overall, I spent a total of 25 minutes with this case including review of chart records, direct evaluation of the patient at bedside, counseling the patient, discussion during interdisciplinary treatment rounds, risk assessment, and documentation in the electronic health record. (1) Major depressive disorder, recurrent, severe without psychotic features: (2) Alcohol use disorder, severe, dependence: (3) TBI (traumatic brain injury): (4) Seizure disorder: Plan 05/30/2023: Continue current medications and tx plan. 05/29/2023: Discontinue modafinil. Continue fluoxetine, previously was on 60mg daily, now on 20mg daily and tolerating this well. 05/28/2023: * increase modafinil to 200 mg QAM tomorrow - started 05/26/2023 at 100 mg QAM * continue fluoxetine 20 mg QAM - prior to admission medication 05/27/2023: * increase modafinil to 200 mg QAM tomorrow - started 05/26/2023 at 100 mg QAM 05/26/2023: The patient was admitted to the [facility] ([facility] unit) on q15 minute checks (behavioral with suicide precautions) for safety.The patient will participate in group, recreational, and milieu therapies and will be offered additional individual and family sessions as clinically appropriate. Off-label trial of modafinil 100 mg daily. Inventory Assets Strengths: voluntary Needs: safety and stabilization, medication adjustment, additional coping skills Suicide Risk Level Suicide Risk Level: Moderate (q15 min suicide checks) (mood improving with no SI now that housing with care has been secured) Risk Factors Assessment Do You Have Access To A Gun?: No Interval History Identifying Information KEN LOJA is a 52-year-old M who currently lives alone (and whose apartment is no longer available), has a history of depression and alcohol dependence, and was admitted on 05/25/23 18:25 on a 201 voluntarycommitment for depression. Chief Complaint "ok, I have stomach pain but the nausea's not bad". Review of Systems Sleep Information Total Hours of Sleep: 3 Meal Information Percent Meal Consumed - Breakfast: 100 Percent Meal Consumed - Lunch: 100 Percent Meal Consumed - Dinner: 100 Nutrition Comment: c/o upset stomach Subjective Subjective Patient was seen & assessed and interval progress reviewed with treatment team nursing and social work. Attended a few groups. Had upset stomach last night and got prn medication for this. Had some anxiety last night because he plans to talk to his daughter today on the phone. Didn't sleep much last night, though he feels it was "good"; ate breakfast this morning and engaging in groups. Mid-day lying in his bed but awake. Reports some stomach pain. Denies SI. Looking forward to going to [facility]. Plans to call his daughter after lunch. Physical Exam Psychiatric Orientation: alert, oriented x 3 and cooperative Apperance: appropriately dressed and appropriately groomed Eye Contact: good eye contact Motor Behavior: no abnormal motor movements Speech: normal rate/rhythm/volume of speech Affect: euthymic affect Mood: + anxious mood Thought Process: goal directed thought process and + concrete thought process Thought Content: reality based without delusions Suicidal Thoughts: denies suicidal thoughts, denies suicidal plan and denies suicidal intent Homicidal Thoughts: denies homicidal thoughts Hallucinations: no auditory hallucinations and no visual hallucinations Cognition: recent memory grossly intact, remote memory grossly intact, attention grossly intact and language grossly intact Estimated Intelligence: + below average estimated intelligence Insight: + limited insight Judgment: + limited judgement Vital Signs (Past 24 Hours) Last Vital Signs Temp 36.8 C 05/30/23 06:59 Pulse 63 05/30/23 06:59 Resp 16 05/30/23 06:59 BP 106/75 05/30/23 07:00 Pulse Ox 95 05/30/23 06:59 O2 Del Method Room Air 05/30/23 06:59 Results & Data ([facility] [[email or web address] Current Inpatient Medications Current Inpatient Medications: Current Inpatient Medications Acetaminophen (Acetaminophen 325 Mg Tab) 650 mg PO Q4H PRN PRN Reason: Headache or Minor Fever Stop: 06/24/23 17:50 Al Hydrox/Mg Hydrox/Simethicone (Aluminum/Magnesium Susp 30 Ml Udc) 30 ml PO Q4H PRN PRN Reason: GI Upset Stop: 06/24/23 17:50 Last Admin: 05/26/23 13:09 Dose: 30 ml Bismuth Subsalicylate (Bismuth Subsalicylate Liqd 236 Ml) 15 ml PO PRN PRN PRN Reason: Loose Stool Stop: 06/24/23 17:50 Dicyclomine HCl (Dicyclomine Hcl 10 Mg Cap) 10 mg PO TID PRN PRN Reason: GI Upset Stop: 06/25/23 20:59 Last Admin: 05/26/23 19:00 Dose: 10 mg Fluoxetine HCl (Fluoxetine Hcl 20 Mg Cap) 20 mg PO QAM ADI Stop: 06/26/23 08:59 Last Admin: 05/30/23 09:01 Dose: 20 mg Folic Acid (Folic Acid 1 Mg Tab) 1 mg PO QAM [facility] Stop: 06/26/23 08:59 Last Admin: 05/30/23 09:01 Dose: 1 mg Hydroxyzine HCl (Hydroxyzine Hcl 25 Mg Tab) 50 mg PO HSZ PRN PRN Reason: Insomnia Stop: 06/24/23 17:50 Hydroxyzine HCl (Hydroxyzine Hcl 25 Mg Tab) 25 mg PO Q4H PRN PRN Reason: Anxiety Stop: 06/24/23 17:50 Lamotrigine (Lamotrigine 100 Mg Tab) 200 mg PO BID AD[facility] Stop: 06/25/23 20:59 Last Admin: 05/30/23 09:01 Dose: 200 mg Levetiracetam (Levetiracetam 250 Mg Tab) 250 mg PO BID [facility] Stop: 06/25/23 20:59 Last Admin: 05/30/23 09:02 Dose: 250 mg Levetiracetam (Levetiracetam 500 Mg Tab) 1,000 mg PO BID [facility] Stop: 06/25/23 20:59 Last Admin: 05/30/23 09:02 Dose: 1,000 mg Magnesium Chloride (Magnesium Chloride W/Calcium 64mg Delayed Rel Tab) 64 mg PO BID [facility] Stop: 06/25/23 20:59 Last Admin: 05/30/23 09:02 Dose: 64 mg Magnesium Hydroxide (Magnesium Hydroxide Susp 30 Ml Udc) 30 ml PO DAILY PRN PRN Reason: Constipation Stop: 06/24/23 17:50 Magnesium Oxide (Magnesium Oxide 400 Mg Tab) 400 mg PO BID ADI Stop: 06/25/23 20:59 Last Admin: 05/30/23 09:02 Dose: 400 mg Pantoprazole Sodium (Pantoprazole 40 Mg Tab) 40 mg PO QAM [facility] Stop: 06/26/23 08:59 Last Admin: 05/30/23 09:02 Dose: 40 mg Potassium Phosphate (Pot Phosphate Monobasic W/ Sod Tab) 2 tab PO QID [facility] Stop: 06/25/23 20:59 Last Admin: 05/30/23 09:02 Dose: 2 tab Promethazine HCl (Promethazine Hcl 25 Mg Tab) 25 mg PO Q6H PRN PRN Reason: Nausea And Vomiting Stop: 06/25/23 18:34 Last Admin: 05/29/23 20:58 Dose: 25 mg Promethazine HCl (Promethazine Hcl 25 Mg Tab) 25 mg PO Q6H PRN PRN Reason: nausea and vomiting Stop: 06/25/23 19:28 Sodium Chloride (Sodium Chloride 0.65% Na Soln 45 Ml ([place])) 1 - 2 sprays NA PRN PRN PRN Reason: Nasal Dryness/Congestion Stop: 06/24/23 17:50 Thiamine HCl (Thiamine Hcl 100 Mg Tab) 100 mg PO QAM [facility] Stop: 06/26/23 08:59 Last Admin: 05/30/23 09:02 Dose: 100 mg Trazodone HCl (Trazodone Hcl 50 Mg Tab) 50 mg PO HS [facility] Stop: 06/25/23 21:59 Last Admin: 05/29/23 21:02 Dose: 50 mg
[2023-05-30] MEDS: PROMETHAZINE HCL 25 MG TAB PO PRN (13:37)
[2023-05-30] MEDS: DICYCLOMINE HCL 10 MG CAP PO PRN (16:12)
[2023-05-30] MEDS: traZODone HCL 50 MG TAB PO SCH (20:40)
[2023-05-31] MEDS: FOLIC ACID 1 MG TAB PO SCH (09:02)
[2023-05-31] MEDS: FLUoxetine HCL 20 MG CAP PO SCH (09:02)
[2023-05-31] MEDS: lamoTRIgine 100 MG TAB PO SCH (09:02)
[2023-05-31] MEDS: MAGNESIUM OXIDE 400 MG TAB PO SCH (09:03)
[2023-05-31] MEDS: PANTOprazole 40 MG TAB PO SCH (09:03)
[2023-05-31] MEDS: levETIRAcetam 500 MG TAB PO SCH (09:03)
[2023-05-31] MEDS: levETIRAcetam 250 MG TAB PO SCH (09:03)
[2023-05-31] MEDS: MAGNESIUM CHLORIDE W/CALCIUM 64MG DELAYED REL TAB PO SCH (09:03)
[2023-05-31] MEDS: POT PHOSPHATE MONOBASIC W/ SOD TAB PO SCH ×2 (09:04→12:51)
[2023-05-31] MEDS: THIAMINE HCL 100 MG TAB PO SCH (09:04)
--- NOTE | 2023-05-31 09:04 | Discharge Summary ---
Date of Service May 31, 2023 History of Present Illness Per admission H&P by Dr. Edouard: Pt has been hospitalized at this facility since 04/27/2023, initially with hypotension and alcohol withdrawal on the medical service then transferred to psychiatry 05/15/2023 due to perpetual reports of suicidal thoughts and transferred back to medicine due to ongoing hypotension. Pt currently complains of "low blood pressure, stomach aches, and suicidal thoughts". He has been markedly passive throughout his stay. Further history obtained is significant for his always apparently having needed to "be taken care of", which had largely been done by pt's father until his father's . This predates pt's TBI, though seems to have worsened subsequent to it. At this point, he has no thoughts of returning to his apartment (from which, in any event, he's been evicted). He speaks of a subjective need to "go to a mcc". He also says he can go live with his friend (who has made clear that pt absolutely cannot live with her due to his past pattern of marked dependent and passive behaviors). Although he reports "suicidal thoughts", he's really not able to describe these any further and doesn't report any specific plan. He barely acknowledges the role alcohol played in his initial admission to [facility]. Physical Exam Vital Signs (Past 24 Hours) Last Vital Signs Temp 36.6 C 05/31/23 06:37 Pulse 76 05/31/23 06:38 Resp 16 05/31/23 06:37 BP 100/66 05/31/23 06:38 Pulse Ox 95 05/30/23 06:59 O2 Del Method Room Air 05/30/23 06:59 See admission H&P and DOD summary. Principal Diagnosis Major Depressive Disorder, recurrent, severe Psychiatric Data See daily stay summary. In short, patient was engaged with the social/therapeutic milieu of the unit, safety was maintained and the patient was cooperative with care. Medication changes included decrease of fluoxetine to 20mg daily for depression with goal of possibly reducing GI symptoms/side effects and they tolerated this well. A safety plan was completed prior to discharge. Given previous medical floor admissions between inpatient psychiatric stays the medical team recommends: close outpatient follow-up after discharge for blood pressure management with use of midodrine 2.5mg TID (0800, 1200, 1700) if required for orthostatic BP issues with option to increase in the future to 5mg TID if needed. They also recommend frequent checks of BMP and magnesium per outpatient PCP. He participated in safety planning and in discussions about ways to seek support and recognizing warning signs and utilizing coping skills. Reviewed importance of seeking emergency care should SI intensify, worsen or should they feel unsafe in the future which they agree to do. On the day of discharge he stated his mood was "good" and remained future-oriented including going to a new personal halfway, talking to his daughter and engaging in aftercare appointments for psychiatry and primary care. Day of Discharge Assessment Today the patient voices readiness for discharge. They note improvement in mood and anxiety. They deny thoughts of harm to self or others. Thoughts are organized and they are clinically improved from admission. There is no evidence of psychosis. They improved in the hospital with support and medication adjustments. They agree to take medications as prescribed and keep follow-up appointments. At the time of the discharge they are deemed to be stable and appropriate for outpatient level of care. They are not deemed to be at imminent risk of harm to self or others. They are aware of emergency and crisis services. Knows to call 911 or go to nearest emergency care center if in a crisis which cannot be handled as an outpatient. Overall, I spent a total of 38 minutes with this case including review of chart records, direct evaluation of the patient at bedside, counseling the patient, discussion during interdisciplinary treatment rounds, risk assessment, ordering medication, disposition planning and documentation in the electronic health record. Transition of Care Transition Of Care Record: was reviewed with the patient Advance Directives Advance Directives Information Provided: Yes Advance Directives: No Mental Health Advance Directive: No Advance Directives on File: No Living Will: No Power of Public Employment Mediator: No Advance Directives Reason:: Declines as Mental Health Visit. Suicide Risk Level Suicide Risk Level Comments: Acute risk is low given improvement in mood and denial of SI, lack of access to lethal means, plan to avoid substance use, improvement in sleep, hopefulness. Chronic risk is high given multiple non-modifiable risk factors: psychiatric co-morbid diagnoses, potential for impulsivity given history of TBI, prior attempt, emotional reactivity, chronic illness/chronic pain, prior psychiatric hospitalizations, poor social support, but also with protective factors including: pleased about living in personal halfway where he will have support, period of sobriety from prolonged hospitalization, sense of responsibility to family and social supports, outpatient care in place, positive coping skills, capacity to establish therapeutic alliance, willingness to engage with treatment and some capacity for self-observation. Counseled on ways to reduce acute and chronic risk including engaging with outpatient providers, using safety plan if needed, utilizing supports, taking medication, and using coping skills. Modifiable risk factors of SI and depression were addressed during hospitalization through development of new coping skills, finding more supportive living environment, safety planning, and medication adjustments. Risk Factors Assessment Male: Yes : Yes Do You Have Access To A Gun?: No Health Problems: Yes Mental Health Diagnoses: Yes Substance Use Disorders: Yes Previous Attempt: Yes Family History of Suicide: No Previous Psychiatric Hospitalization: Yes Hopelessness: No Protective Factors Assessment Supportive Family: Yes (daughter) Tobacco Cessation at Discharge Tobacco Cessation Medication Prescribed at Discharge: Offered & Pt Refused Hospital Course (1) Major depressive disorder, recurrent, severe without psychotic features: (2) Alcohol use disorder, severe, dependence: (3) TBI (traumatic brain injury): (4) Seizure disorder: Plan 05/30/2023: Continue current medications and tx plan. 05/29/2023: Discontinue modafinil. Continue fluoxetine, previously was on 60mg daily, now on 20mg daily and tolerating this well. 05/28/2023: * increase modafinil to 200 mg QAM tomorrow - started 05/26/2023 at 100 mg QAM * continue fluoxetine 20 mg QAM - prior to admission medication 05/27/2023: * increase modafinil to 200 mg QAM tomorrow - started 05/26/2023 at 100 mg QAM 05/26/2023: The patient was admitted to the [facility] ([facility] mental health unit) on q15 minute checks (behavioral with suicide precautions) for safety.The patient will participate in group, recreational, and milieu therapies and will be offered additional individual and family sessions as clinically appropriate. Off-label trial of modafinil 100 mg daily. Mental Health & Subst Abuse Tx Psychiatrist Name of Psychiatrist: [facility] - PAUL Lei Psychiatrist's Date Of Appointment With Psychiatric Provider: 07/01/23 Time of Appointment with Psychiatrist: 10:15 AM Psychiatric Appointment Comment: [address] [place] [address] Psychiatrist Release of Information: Obtained, Reviewed and Signed Post Discharge Appointments Primary Care Physician Name Of Family Doctor/PCP: [facility] Date of Future Appointment with PCP: 06/22/23 Time of Appointment with PCP: 12:00 PM Provider Appointment Comment: [address] [place] [address] Primary Care Release of Information: Obtained, Reviewed and Signed Smoking Cessation Counseling Tobacco Cessation Medication Prescribed at Discharge: Offered & Pt Refused Contact Information Discharge Discharge Address: [address] [place] [id number] Discharge Plan Discharge Items Patient Disposition: Personal Snf Reason For Visit: MDD Discharge Diagnosis: Major Depressive Disorder, recurrent, severe Activity: Resume your previous activity Non-emergency contact: Primary Care Provider and Psychiatrist Call non-emergency contact if: you have any medication questions and your symptoms worsen Follow-up/Referrals: PCP,NO [Primary Care Provider] - Diet: Regular Addtl Attending Provider Instructions: SPECIAL CARE INSTRUCTIONS: 1. Follow through with your scheduled aftercare appointments. If unable to keep an appointment, please call to reschedule. 2. Take your medication only as prescribed. Medication should not be changed or stopped without the approval of your doctor. In the event of worsening symptoms or concerns about side effects, contact your doctor immediately. 3. Utilize new healthy coping skills, anger management skills, and stress management skills learned during your hospitalization. Journal feelings and process them with a support person. Identify stressors or situations that may result in relapse, deterioration or inappropriate behaviors and develop a plan to deal with those issues. 4. If your coping skills are ineffective and you are in crisis, contact your outpatient providers for direction. If unable to reach your providers, please call the [facility] CRISIS LINE AT , go to the [facility] walk-in center at [address], [address], [place], or go to the closest Emergency Room. 5. Avoid alcohol and un-prescribed drugs. 6. You have been provided with the Mental Health Advance Directives Pamphlet for your review. 7. Your condition is stable for discharge to outpatient level of care, but recovery is an ongoing process. Ifthoughts to harm yourself or others return, follow the safety plan developed during your stay. Planning for a safe return home includes securing weapons. Our treatment team recommends weaponsbe removed from the home until your outpatient provider reassesses your progress. In rare cases where the items themselvescannot be removed, guns and ammunitionshould be secured separatelyand keys stored by a reliable personoutside of the home. If you were admitted on an involuntary commitment, the police or other legal authorities may be involved in this process. AFTERCARE APPOINTMENTS: * Please call your insurance company prior to your scheduled appointment to confirm your aftercare providers are covered. Take your insurance information to your appointments. WHO TO CALL AND WHEN: Medical Emergencies: For questions or emergencies related to your hospital stay, please contact the Inpatient Behavioral Health Unit at [phone]. A oil well cable tool driller is on-call 22/02 for the Behavioral Health Unit for emergencies At any time you feel your situation is an emergency, you may also call 911 immediately. National Crisis Hotline: 053 Pending Studies at Discharge: No Stand-Alone Forms: My [employer], Smoking Cessation Skilled Items Patient informed of condition?: Yes DNR: No Discharge Level of Care: Other Communicable Disease: No Discharge Prognosis: Stable Lines: None Urinary Catheter: No Medications and DC Order Prescriptions: New promethazine 25 mg Tablet 25 mg PO Q6H PRN (Reason: nausea) 30 Days Qty: 60 0RF dicyclomine 10 mg Capsule 10 mg PO TID PRN (Reason: abdominal pain) 30 Days Qty: 30 0RF fluoxetine 20 mg Capsule 20 mg PO QAM 30 Days Qty: 30 0RF lamotrigine 100 mg Tablet 200 mg PO BID 30 Days Qty: 120 0RF levetiracetam [Keppra] 250 mg Tablet 250 mg PO BID 30 Days Qty: 60 0RF levetiracetam [Keppra] 500 mg Tablet 1,000 mg PO BID 30 Days Qty: 120 0RF Rx Instructions: to be combined with 250mg tab for total dose of 1,250mg BID trazodone 50 mg Tablet 50 mg PO HS 30 Days Qty: 30 0RF Mag 64 64 mg Tablet,Delayed Release (Dr/Ec) 64 mg PO BID 30 Days Qty: 60 0RF Phospha 250 Neutral 250 mg Tablet 2 tab PO QID 30 Days Qty: 240 0RF magnesium oxide 400 mg (241.3 mg magnesium) Tablet 400 mg PO BID 30 Days Qty: 60 0RF pantoprazole 40 mg Tablet,Delayed Release (Dr/Ec) 40 mg PO QAM 30 Days Qty: 30 0RF Discontinued thiamine HCl (vitamin B1) [Vitamin B-1] 100 mg tablet 100 mg PO QAM folic acid 1 mg Tablet 1 mg PO QAM Qty: 30 0RF Discharge Orders: Discharge Order (Routine); Ordered 05/31/23 Ordered By: Chacha Chau Admission Data Admit Date/Time: 05/25/23 18:25 Attending Provider: Chacha Chau Admit Provider: Torey Edouard Primary Care Provider: PCP,NO Other Interventions: Discharge Summary Assessment (RN) Last Done: 05/31/23 10:22 PSY Interdisciplinary Discharge Planning Last Done: 05/31/23 10:24 Coding Level of Care Code 44015 D/C day mgmt > 30 min Diagnoses Major depressive disorder, recurrent, severe without psychotic features F33.2 Alcohol use disorder, severe, dependence F10.20 TBI (traumatic brain injury) S06.9XAA Seizure disorder G40.909
== END 2023-05-31 14:34 | disposition home or self-care (01) | DRG 885 ==
LOC: 3S 18:25 → SUATTDRO 18:25 → 3S 05-27 11:23